=== PATIENT | male | born 1965 | race Caucasian/White ===

== ENCOUNTER → 2018-12-30 | Emergency (ER) | payer OTHER ==
[~2018-12-30] VITALS: Ht 177.8 cm; Wt 159.1 kg
[~2018-12-30] MED LIST: GEMF600T89 PO; HALO10TA13 PO; LISI-642 PO; LORazepam 2 mg/ml vial IM ONE; LORazepam 2 mg/ml vial IV ONE; METF500T PO; METO50TA17 PO; QUET200T30 PO; RIVA20TA PO; TRAZ-251 PO; gemfibrozil 600mg tablet PO SCH; haloperidol 5mg tablet PO SCH; ibuprofen 200mg tablet PO ONE; lisinopril 5mg tablet PO SCH; metFORMIN 500mg tablet PO SCH; metoprolol tartrate 1mg/ml inj IV ONE; metoprolol tartrate 50mg tablet PO ONE; metoprolol tartrate 50mg tablet PO SCH; nicotine 14mg patch - 24hr TD ONE; nitroGLYCERIN 0.4mg/hour patch TD ONE; rivaroxaban 20mg tablet PO SCH
--- NOTE | 2018-12-30 10:14 | NUR ---
pt moved to room 15. room broken down. report given to nurse Melton.
[2018-12-30 10:47] LABS: BASOPHILS # (AUTO) 0.1 X10'3 (0-0.2); EOSINOPHILS # (AUTO) 0.1 X10'3 (0-0.9); EOSINOPHILS % (AUTO) 1.5 % (0-6); HEMATOCRIT 45.6 % (42.0-52.0); HEMOGLOBIN 15.9 g/dl (14.0-17.9); LYMPHOCYTES # (AUTO) 1.4 X10'3 (1.1-4.8); LYMPHOCYTES % (AUTO) 15.1 % (21-51); MEAN CORPUSCULAR HGB CONC 34.8 g/dL (33.0-36.5); MEAN CORPUSCULAR VOLUME 83.2 FL (78-98); MONOCYTES # (AUTO) 0.4 X10'3 (0-0.9); MONOCYTES % (AUTO) 4.9 % (2-12); NEUTROPHILS % (AUTO) 77.5 % (42-75); PLATELET COUNT 243 X10'3 (140-440); RED BLOOD COUNT 5.48 X10'6 (4.70-6.10); RED CELL DISTRIBUTION WIDTH 15.1 % (11.5-14.5); WHITE BLOOD COUNT 9.1 X10'3 (4.5-11.0)
[2018-12-30 11:02] LABS: ALANINE AMINOTRANSFERASE 43 U/L (12-78); ALBUMIN 3.2 G/DL (3.4-5.0); ALBUMIN/GLOBULIN RATIO 0.9 (1.1-1.5); ALKALINE PHOSPHATASE 92 IU/L (46-116); ANION GAP 6 (8-16); ASPARTATE AMINO TRANSFERASE 21 U/L (10-37); BILIRUBIN,TOTAL 0.4 MG/DL (0.1-1.0); BLOOD UREA NITROGEN 14 MG/DL (7-18); BUN/CREATININE RATIO 10.6 (5.4-32.0); CALCIUM 9.1 MG/DL (8.5-10.1); CHLORIDE 104 MMOL/L (99-107); CREATININE 1.32 MG/DL (0.60-1.10); GLUCOSE 149 MG/DL (70-104); POTASSIUM 3.8 MMOL/L (3.5-5.1); SODIUM 136 MMOL/L (135-145); TOTAL CARBON DIOXIDE 25.7 MMOL/L (24-32); TOTAL PROTEIN 6.7 G/DL (6.4-8.2); eGFR 57 ML/MIN
[2018-12-30 11:05] LABS: PARTIAL THROMBOPLASTIN TIME 27 SECONDS (22-32)
--- NOTE | 2018-12-30 11:23 | NUR ---
MEDICAL RELEASE FAXED TO [facility]
[2018-12-30 11:52] LABS: ETHANOL < 0.010 GM/DL (0.0-0.010)
[2018-12-30 12:01] LABS: URINE AMPHETAMINE SCREEN NEGATIVE (Neg); URINE BARBITUATE SCREEN NEGATIVE (Neg); URINE BENZODIAZEPINES SCREEN NEGATIVE (Neg); URINE CANNABINOID SCREEN POSITIVE (Neg); URINE COCAINE SCREEN NEGATIVE (Neg); URINE METHADONE SCREEN NEGATIVE (Neg); URINE OPIATE SCREEN NEGATIVE (Neg); URINE PHENCYCLIDINE SCREEN NEGATIVE (Neg)
[2018-12-30 13:21] LABS: CLARITY,URINE CLEAR (Clear); COLOR,URINE YELLOW (Yellow); GLUCOSE, URINE NEGATIVE (Neg); KETONES,URINE NEGATIVE (Neg); LEUKOCYTE ESTERASE ,URINE NEGATIVE (Neg); NITRITES, URINE NEGATIVE (Neg); OCCULT BLOOD,URINE NEGATIVE (Neg); PH,URINE 6.5 (4.8-8.0); PROTEIN,URINE >=300 mg/dl (Neg); UROBILINOGEN,URINE 0.2 E.U/dL (0.2-1.0)
[2018-12-30 13:24] LABS: UA COLLECTION TYPE CLN CATCH MIDSTREAM
--- NOTE | 2018-12-30 13:30 | NUR ---
PATIENT ASKED POLITELY FOR SOME COFFEE. OFFERED PATIENT DECAF 2 CREAM 2 SUGARS. PATIENT SITTING UPRIGHT POLITLY ACEPTED THE COFFEE INQUIRED ABOUT THE POC. EDUCATED PATIENT THAT WE ARE MONITORING HIS BP AND WILL CONTINUE TO KEEP HIM UPDATED.
[2018-12-30 13:31] LABS: HYALINE CASTS 0-3 /LPF (NEGATIVE); SQUAMOUS EPITHELIAL CELL,UR FEW /LPF (FEW)
[2018-12-30 13:32] LABS: BACTERIA,URINE FEW /HPF (Neg); CAL OXALATE CRYSTALS 2+ /HPF (NEGATIVE); MUCUS STRANDS FEW /LPF (Neg); RBC,URINE 0-2 /HPF (0-2); WBC,URINE 0-4 /HPF (0-4)
--- NOTE | 2018-12-30 14:01 | NUR ---
PACKET HAS BEEN FAXED TO [facility]
--- NOTE | 2018-12-30 14:15 | NUR ---
PTS BP REMAINS ELEVATED. SPOKE WITH PROVIDER LESLIE JIMENEZ AND RECEIVED VO FOR MEDS.
--- NOTE | 2018-12-30 15:10 | NUR ---
patient having some snaCKS AND APPLE JUICE X3 RECEHECKED VS WILL CONTINUE TO ASSSESS
--- NOTE | 2018-12-30 15:27 | NUR ---
PT MOVED FROM ER BED 15 TO ER OVERFLOW BED 24
--- NOTE | 2018-12-30 17:35 | NUR ---
Patient awake, alert, no distress. Continue to monitor.
--- NOTE | 2018-12-30 17:35 | NUR ---
Patient's BP is elevated. Patient also has TAYLOR. RN advised LESLIE Westbrook. He stated he will come see him. Patient also wants a nicotine patch. Continue to monitor.
--- NOTE | 2018-12-30 19:00 | NUR ---
This patient is alert and oriented X4. W/D with good color. Patient C/O S/I secondary to depression. His plan is to cut himself with a razor blade if released from the hospital. Affect is flat. Thought process is linear. Patient is medication compliant. Patient is and has been hypertensive. Patient complains a crick in his neck. Q15 minute rounding is being done for patient safety.
--- NOTE | 2018-12-30 19:52 | NUR ---
Motrin 600 mg PO for neck pain. Patient has CPAP in place. He states he wants to sleep for the night.
--- NOTE | 2018-12-30 20:32 | NUR ---
Patient was interviewed by [facility]. A 5150 is being written.
--- NOTE | 2018-12-31 01:55 | NUR ---
PT WAS MOVED TO MAIN ER - HIS ROOM HAS BEEN CLEARED OUT - PT RESTING COMFORTABLY, NO DISTRESS NOTED. WILL CONTINUE TO MONITOR.
--- NOTE | 2018-12-31 03:31 | NUR ---
PTS SLEEPING AT THIS TIME. WEARING HOME BIPAP. WILL CONTINUE TO MONITOR.
--- NOTE | 2018-12-31 05:35 | NUR ---
Patient is sleeping quietly. In view from nursing station.
[2018-12-31 08:49] VITALS: BP 186/81
--- NOTE | 2018-12-31 09:17 | NUR ---
assumed care of pt from Louisa RN, sitter at bedside. Pt is sleeping, resp even and unlabored, pt is on cpap (from home)
--- NOTE | 2018-12-31 10:43 | NUR ---
pt continues to rest quietly on gurney, resp even and unlabored, sitter at bedside
--- NOTE | 2018-12-31 11:35 | NUR ---
PT IS GOING TO [facility], REMAINS CALM AND COOPERATIVE
== END ==
LOC: EDSEX 09:54 → ER 09:54
DX: R45.851 Suicidal ideations (principal); R06.02 Shortness of breath; I11.0 Hypertensive heart disease with heart failure; I50.9 Heart failure, unspecified; F32.9 Major depressive disorder, single episode, unspecified; E78.00 Pure hypercholesterolemia, unspecified; G47.30 Sleep apnea, unspecified; E11.9 Type 2 diabetes mellitus without complications; F17.200 Nicotine dependence, unspecified, uncomplicated; Z79.84 Long term (current) use of oral hypoglycemic drugs; Z79.899 Other long term (current) drug therapy
CPT/HCPCS: 36415; 71045; 80053; 80305; 80320; 81001; 84484; 85025; 85610; 85730; 93005; 96374; 96375; 96376; 99285; J2060; J3490

== ENCOUNTER 2018-12-31 10:44 | Inpatient (IN) | payer MEDICARE, OTHER ==
[2018-12-31] VITALS (7 sets, daily range): BP systolic 148–235; BP diastolic 80–149
[~2018-12-31] VITALS: Ht 177.8 cm; Wt 162.8 kg
[~2018-12-31 10:44] MED LIST changes: -LORazepam 2 mg/ml vial IM ONE; -LORazepam 2 mg/ml vial IV ONE; -QUET200T30 PO; -TRAZ-251 PO; -gemfibrozil 600mg tablet PO SCH; -haloperidol 5mg tablet PO SCH; -ibuprofen 200mg tablet PO ONE; -lisinopril 5mg tablet PO SCH; -metFORMIN 500mg tablet PO SCH; -metoprolol tartrate 1mg/ml inj IV ONE; -metoprolol tartrate 50mg tablet PO ONE; -metoprolol tartrate 50mg tablet PO SCH; -nicotine 14mg patch - 24hr TD ONE; -nitroGLYCERIN 0.4mg/hour patch TD ONE; -rivaroxaban 20mg tablet PO SCH
[2018-12-31] MEDS ORDERED: TRAZ-251 PO (10:52)
[2018-12-31] MEDS ORDERED: QUET200T30 PO (10:52)
[2018-12-31] MEDS ORDERED: tuberculin, purif. prot. deriv. 5 units/0.1ml ID ONE (11:05)
[2018-12-31] MEDS ORDERED: hydrOXYzine 25 MG tablet PO PRN (11:05)
[2018-12-31] MEDS ORDERED: magnesium hydroxide 30ml (MOM) UD suspension PO PRN (11:05)
[2018-12-31] MEDS ORDERED: loperamide 2mg capsule PO PRN (11:05)
[2018-12-31] MEDS ORDERED: mag hydrox/Alum hydrox/simeth 30ml oral suspension PO PRN (11:05)
--- NOTE | 2018-12-31 13:02 | NUR ---
Admission note: PT admitted for depression and suicidal ideation today at 1135. Pt admitted from our emergency department. Client presents depressed, hopeless, helpless, anhedonic and suicidal. Client has a plan to go out [place] and cut himself to . Pt has history of MD, HTN, hyperlipidemia, edema, Neuropathy,Pancreatitis, DM II, Affective mood disorder.
[2018-12-31] MEDS ORDERED: lisinopril 10 MG tablet PO ONE (14:25)
--- NOTE | 2018-12-31 15:46 | NUR ---
DISCHARGE PLANNING: MOIZ spoke w/ Ananda Denise regarding pt admission. He reports he will coordinate transportation for pt because mental health transported pt to [facility]. MOIZ and Ananda discussed procedures for admission and services. Ananda has agreed to educate staff on procedures for admitting to [facility] for psychiatric needs. Danielle Caal, [employer] SAFE DEPOSIT CLERK [id number] Supervised by Mickey Esteves, [id number]
--- NOTE | 2018-12-31 16:12 | NUR ---
Nursing Progress Note: Legal hold: 5150 Client on voluntary/involuntary status for: DTS Report received from Charge Nurse Carlos Why are they here: Patient self presented to the [facility] ER with suicidal ideation. Had a plan to "buy a lot of razor blades and cut myself up until I bled to ." Patient has been in [place] for five months. Came out here by train from the state of [place]. "I couldn't take the weather in [place] anymore." Went to [facility] to live "but there was no place for me to stay. And they don't have places like this that take in people." Patient's chief complaint is that he is homeless and is hoping to obtain housing during this hospitalization. Patient is grossly overweight and suffers from multiple medical problems. Assessment: Cooperative with the admission process. Wants to be here for "room and board placement." Stayed in his room for greater part of shift, sitting cross legged on his bed, staring at his sheets. Indigo Mixer interviewed patient and determined he did not meet criteria for 5150 status. Spoke with Ananda at [facility] in [facility] who stated he will attempt to brass pickler patient tomorrow or Friday. Patient experienced a hypertensive crisis at 1330 - 220/139. Dr. Vann, hospitalist consulted. Order given for Lisinopril 10 mg. stat. Administered as ordered. If Systolic did not decrease to 150 or below after 10 minutes, patient was to receive Hydroxyzine. After ten minutes, B/P down to 148/80. What has happened this shift: Patient S/I, H/I: States SI A/VH: Denies Sleep:Awake all shift ADL's: Independent Group attendance:None this shift Were meds taken: Yes Any med S/E: None noted or stated by patient Mental Status Exam Appearance:Disheveled Eye contact:Poor Behavior: Appropriate, Asking for food continuously Speech: Clear Mood:Withdrawn Affect: Blunted Thought process:Clear Thought Content:Logical Cognition:Organized Insight: Limited Judgment:Limited Interventions PRN's used:Ativan 1 mg. PO/Lisinopril 10 mg. PO/Tylenol 650 mg. PO Therapeutic interventions:Provided 1:1 am assessment; provided therapeutic communication and active listening; encouraged ADLs as well as medication compliance; medication administration/monitoring/education; monitored q15 minutes for safety. Restraints/seclusion/emergency medication: N/A Justification of Continued Inpatient Treatment:Evaluation and stabilization of mental health symptoms, interrupt current crisis, and safety.
[2018-12-31] MEDS: acetaminophen 325mg tablet PO PRN (17:05)
[2018-12-31] MEDS: NICOTINE POLACRILEX 2 MG LOZENGE BC PRN ×2 (19:10→22:29)
[2018-12-31] MEDS ORDERED: traZODone 50mg tablet PO SCH ×2 (20:00→21:00)
[2018-12-31] MEDS: metoprolol tartrate 50mg tablet PO SCH (20:21)
[2018-12-31] MEDS: metFORMIN 500mg tablet PO SCH (20:21)
[2018-12-31] MEDS: lisinopril 10 MG tablet PO SCH (20:22)
[2018-12-31] MEDS ORDERED: quetiapine 100mg tablet PO SCH (21:00)
[2018-12-31] MEDS ORDERED: non-formulary drug (Quetiapine Fumarate 1 TAB) PO SCH (21:00)
[2018-12-31] MEDS: LORazepam 1 MG tablet PO PRN (22:12)
[2018-12-31] MEDS: gabapentin 300mg capsule PO PRN (22:12)
--- NOTE | 2018-12-31 23:10 | NUR ---
Nursing Progress Note: Legal hold: 5150 Client on voluntary/involuntary status for: DTS Report received from Charge Nurse Carlos Why are they here: Patient is laying in bed at the change of shift. He say's he has SI thoughts but no plan or intent while on the unit. patient blood pressure becomes elevated again this evening. His blood pressure was 235/149 right before medication pass at 2020. Patient is given 50mg or Metoprolol and 10mg Lisinopril as prescribed. BP was then 200/90 at 2100, and was taken again an hour after medication pass and was found to be 152/86 at 2135. Patient expresses that he is experiencing neuropathy in his feet this evening along with anxiety. Patient requests gabapentin for neuropathy "pins and needles" feeling. Provider is contacted an a order for 300mg Gabapentin is obtained. Administered Gabapentin 300mg and 1mg Ativan for anxiety with good effect at 2212. Patient is compliant with all his medications this evening. What has happened this shift: S/I, H/I: States he has SI thoughts but no plan or intent. Denies HI A/VH: Denies Sleep: See sleep assessment ADL's: Independent Group attendance: None this shift Were meds taken: Yes Any med S/E: None noted or stated by patient Mental Status Exam Appearance: Disheveled Eye contact: Poor Behavior: Appropriate, calm Speech: Clear Mood: Withdrawn Affect: Blunted Thought process:Clear Thought Content: Logical Cognition: Organized Insight: Limited Judgment: Limited Interventions PRN's used:Ativan 1 mg, 300 mg Gabapentin PO Therapeutic interventions:Provided 1:1 am assessment; provided therapeutic communication and active listening; encouraged ADLs as well as medication compliance; medication administration/monitoring/education; monitored q15 minutes for safety. Restraints/seclusion/emergency medication: N/A Justification of Continued Inpatient Treatment:Evaluation and stabilization of mental health symptoms, interrupt current crisis, and safety.
[2019-01-01 08:00] VITALS: BP 149/84
[2019-01-01] MEDS ORDERED: gabapentin 300mg capsule PO SCH (08:00)
[2019-01-01] MEDS ORDERED: haloperidol 5mg tablet PO SCH (08:00)
[2019-01-01] MEDS: metFORMIN 500mg tablet PO SCH ×2 (08:00→20:26)
[2019-01-01] MEDS: gemfibrozil 600mg tablet PO SCH (08:01)
[2019-01-01] MEDS: lisinopril 10 MG tablet PO SCH ×2 (08:01→20:26)
[2019-01-01] MEDS: metoprolol tartrate 50mg tablet PO SCH ×2 (08:01→20:27)
[2019-01-01] MEDS: rivaroxaban 20mg tablet PO SCH (08:01)
[2019-01-01] MEDS: nicotine 21mg patch - 24 hr TD SCH (08:04)
[2019-01-01] MEDS: gabapentin 300mg capsule PO PRN (08:30)
[2019-01-01] MEDS: acetaminophen 325mg tablet PO PRN (08:31)
[2019-01-01 11:46] LABS: CHOL/HDL RATIO 3.6 (0.00-4.99); CHOLESTEROL 164 MG/DL (0-200); HDL CHOLESTEROL 45 MG/DL (35-60); LDL CHOLESTEROL 94 MG/DL (50-100); TRIGLYCERIDES 226 MG/DL (20-135)
--- NOTE | 2019-01-01 13:30 | NUR ---
Legal hold: 5150 Client on involuntary status for: DTS Report received from Charge Nurse Olga Lopez RN Why are they here: Patient self presented to the [facility] ER with suicidal ideation. Had a plan to "buy a lot of razor blades and cut myself up until I bled to ." Patient has been in [place] for five months. Came out here by train from the state of [place]. "I couldn't take the weather in [place] anymore." Went to [facility] to live "but there was no place for me to stay. And they don't have places like this that take in people." Patient's chief complaint is that he is homeless and is hoping to obtain housing during this hospitalization. Patient is morbidly obese and suffers from multiple medical problems. Assessment: What has happened this shift: Pt rated pain and anxiety at an 8/10, rated depression at a 9/10 with SI but states, "I won't act on it." pt does state that he would act on it if he were to be discharged with a plan to "get a bunch of razor blades and cut myself up." Pt answers yes to AH, stated he is having CAH and the voices are telling him to kill himself. Asked how long that had been going on for, pt replied the voices started 2-3 weeks ago but he had heard them before in the past. When asked about visual hallucinations, pt also answered "yes." When asked him to elaborated he answered, "I see photographs." Asked him to clarify what he meant, he stated "I see disturbing images." When asked pt what he meant by disturbing images, pt paused then stated, "disturbing images like clouds but presented in a scary way." Pt c/o "neuropathy" pain "all over," rated his pain at an 8/10 and described the pain as it "feels like peeling skin." Offered prn Tylenol which pt accepted but stated, "Ativan works too." Noted that pt had prn gabapentin on his MAR, explained that Ativan was for anxiety not pain but since he was having anxiety he could have prn Atarax as order was written to give before Ativan. Gave prn gabapentin 300 mg, Tylenol 650 mg, and Atarax 50 mg at 0830 with good effect. Pt cooperative, no unsafe behaviors noted. S/I, H/I: Pt denies HI, states having SI he won't act on here. A/VH: Pt states having CAH to kill himself and sees photographs with disturbing images. Sleep: Pt stated he did not get to sleep until around 1 in the morning. ADL's: Independent Group attendance: Yes Were meds taken: Yes Any med S/E: None reported or observed Mental Status Exam Appearance: disheveled Eye contact: Fair Behavior: cooperative, mostly isolative to self, slow moving, likes to journal Speech: Clear, audible, limited Mood: Depressed, anxious Affect: Blunted Thought process: Linear Thought Content:Focused on medications this morning Cognition: A/O X 4 Insight: Fair Judgment: Fair Interventions PRN's used: Gabapentin, Tylenol, Atarax Therapeutic interventions: 1:1 assessment, active listening, medication administration/education/monitoring, encouragement to attend groups, Q 15 minute safety checks. Restraints/seclusion/emergency medication: N/A Justification of Continued Inpatient Treatment: Pt is still endorsing SI with plan to cut himself with razor blades if he were to be discharged. He needs medication adjustment and monitoring to attain crisis stabilization and prevent self-harm and/or readmission. Pt is homeless. Addendum: 01/01/19 at 1527 by Brina Dorantes RN (Lee) Pt has new orders for Effexor 37.5 mg now then 75 mg daily, gabapentin has been changed from 300 mg PRN to 600 mg TID routine, Haldol was D/c'd, Atarax was D/c'd, Seroquel was decreased from 200 mg to 100 mg HS, and Trazodone was changed from routine to 50 mg PRN HS MR X 1.
--- NOTE | 2019-01-01 13:32 | NUR ---
Malnutrition consult, Pt is eating well 75-100% PO intake. No edema. BMI 50. Normal muscle strength. No malnutrition at this time. Addendum: 01/01/19 at [address] Amended: Links added.
[2019-01-01] MEDS ORDERED: venlafaxine XR 37.5mg cap (Q24H) PO ONE (14:45)
[2019-01-01] MEDS ORDERED: traZODone 50mg tablet PO PRN (14:50)
[2019-01-01] MEDS: NICOTINE POLACRILEX 2 MG LOZENGE BC PRN (19:27)
[2019-01-01 20:00] VITALS: BP 207/113
[2019-01-01] MEDS: LORazepam 1 MG tablet PO PRN (20:24)
[2019-01-01] MEDS: gabapentin 300mg capsule PO SCH (20:24)
[2019-01-01] MEDS ORDERED: quetiapine 100mg tablet PO SCH (21:00)
[2019-01-01 21:10] VITALS: BP 182/100
[2019-01-01 22:30] VITALS: BP 154/81
[2019-01-01] MEDS ORDERED: amLODIPine 5mg tablet PO ONE (23:35)
--- NOTE | 2019-01-02 01:19 | NUR ---
Nursing Progress Note: Legal hold: 5150 Client on involuntary status for: DTS Report received from Charge Nurse Carlos Why are they here: Patient self presented to the [facility] ER with suicidal ideation. Had a plan to "buy a lot of razor blades and cut myself up until I bled to ." Patient has been in [place] for five months. Came out here by train from the [facility]. "I couldn't take the weather in [place] anymore." Went to [facility] to live "but there was no place for me to stay. And they don't have places like this that take in people." Patient's chief complaint is that he is homeless and is hoping to obtain housing during this hospitalization. Patient is morbidly obese and suffers from multiple medical problems. Assessment: What has happened this shift: Patient is in his room at the change of shift laying in bed. He confirms Depression thoughts of SI with no plan while on the unit, but denies that he would not harm himself if he was discharged. He confirms that he has AH that tell him to harm himself as well. He reports that he has had a lot of "negative" thoughts today, causing anxiety. Patients BP is elevated this shift at 207/113. Patient got Ativan for his anxiety and trazodone to help sleep with his HS medications that also included patients Metoprolol and Lisinopril. Blood pressure taken again at 2109 which had decreased to 182/100, continued to monitor BP which had decreased to 152/81 by 2229. Patients evening capillary blood glucose after his evening snack was 150. Patient turned himself to bed after requesting his CPap. Nicotine patch removed and disposed of. S/I, H/I: Pt denies HI, states having SI he won't act on here. A/VH: Pt states having command AH to harm himself Sleep: See sleep assessment ADL's: Independent Group attendance: Yes Were meds taken: Yes Any med S/E: None reported or observed Mental Status Exam Appearance: Disheveled Eye contact: Fair Behavior: cooperative, mostly isolative to self Speech: Clear, audible, limited Mood: Depressed, anxious Affect: Blunted Thought process: Linear Thought Content: Focused on medications Cognition: A/O X 4 Insight: Fair Judgment: Fair Interventions PRN's used: Ativan, Trazodone Therapeutic interventions: 1:1 assessment, active listening, medication administration/education/monitoring, encouragement to attend groups, Q 15 minute safety checks. Restraints/seclusion/emergency medication: N/A Justification of Continued Inpatient Treatment: Pt is still endorsing SI with plan to cut himself with razor blades if he were to be discharged. He needs medication adjustment and monitoring to attain crisis stabilization and prevent self-harm and/or readmission. Pt is homeless.
[2019-01-02 07:00] VITALS: BP 166/87
[2019-01-02] MEDS: gemfibrozil 600mg tablet PO SCH (07:52)
[2019-01-02] MEDS: gabapentin 300mg capsule PO SCH ×3 (07:52→20:42)
[2019-01-02] MEDS: rivaroxaban 20mg tablet PO SCH (07:54)
[2019-01-02] MEDS: venlafaxine XR 75mg capsule (Q24H) PO SCH (07:54)
[2019-01-02] MEDS: metFORMIN 500mg tablet PO SCH ×2 (07:54→19:26)
[2019-01-02] MEDS: amLODIPine 5mg tablet PO SCH (07:54)
[2019-01-02] MEDS: nicotine 21mg patch - 24 hr TD SCH (07:55)
[2019-01-02] MEDS: lisinopril 10 MG tablet PO SCH ×2 (07:59→19:27)
[2019-01-02] MEDS: metoprolol tartrate 50mg tablet PO SCH ×2 (08:00→19:26)
[2019-01-02] MEDS: LORazepam 1 MG tablet PO PRN ×2 (12:43→18:57)
--- NOTE | 2019-01-02 13:35 | NUR ---
Nursing Progress Note: Legal hold: 5150 Client on involuntary status for: DTS Report received from Charge Nurse Tereza Why are they here: Patient self presented to the [facility] ER with suicidal ideation. Had a plan to "buy a lot of razor blades and cut myself up until I bled to ." Patient has been in [place] for five months. Came out here by train from the state of [place]. "I couldn't take the weather in [place] anymore." Went to [facility] to live "but there was no place for me to stay. And they don't have places like this that take in people." Patient's chief complaint is that he is homeless and is hoping to obtain housing during this hospitalization. Patient is morbidly obese and suffers from multiple medical problems. Assessment: What has happened this shift: Patient sleeping in bed at shift change, awakened for a.m. BGM and medications. BGM has been 113, 111. Patient does state that he has attempted suicide in the past by cutting his wrists. Today he reports that he is having A/H that are telling him to ", you're not going to make it". Also reports having V/H of bad people approaching him. States his depression is 9/10, and believes part of his high blood pressure has been because of increasing anxiety. prn Ativan given with good result. Pt. states that he has had depression on and off since he was 12. He reports a dark cloud comes over him and feels that he has nothing to look forward to. He is not close to his siblings. Patient wears CPAP while sleeping. S/I, H/I: Reports that in current state he intends on slashing his arms when he leaves. A/VH: A/V/H as above. Sleep: 6.45 at NOC. Napped after breakfast. ADL's: Independent Group attendance: Yes Were meds taken: Yes Any med S/E: None reported or observed Mental Status Exam Appearance: Disheveled Eye contact: Fair Behavior: cooperative, calm and pleasant. Speech: Normal rate and volume. Mood: Depressed, anxious Affect: Blunted Thought process: Linear Thought Content: Focused on new medication that has not worked yet, explained it will take a few days to take effect. Pt. verbalizes understanding. Cognition: A/O X 4 Insight: Fair Judgment: Poor. Interventions PRN's used: Ativan Therapeutic interventions: 1:1 assessment, active listening, medication administration/education/monitoring, encouragement to attend groups, Q 15 minute safety checks. Restraints/seclusion/emergency medication: N/A Justification of Continued Inpatient Treatment: Pt is still endorsing SI with plan to cut himself with razor blades if he were to be discharged. He needs medication adjustment and monitoring to attain crisis stabilization and prevent self-harm and/or readmission. Pt is homeless.
[2019-01-02 19:00] VITALS: BP 207/131
[2019-01-02] MEDS: acetaminophen 325mg tablet PO PRN (19:29)
[2019-01-02] MEDS: quetiapine 100mg tablet PO SCH (20:42)
[2019-01-02] MEDS: hyDRALAzine 10mg tablet PO PRN (21:11)
[2019-01-02 21:15] VITALS: BP 204/125
--- NOTE | 2019-01-02 21:17 | NUR ---
[facility] made aware of pt BP of 204/125. PRN hydralazine given, will recheck BP in a couple of hours per MD amd advise if still elevated.
[2019-01-02 23:05] VITALS: BP 123/81
--- NOTE | 2019-01-02 23:06 | NUR ---
On entering room to take pt blood pressure, pt found with cpap mask on with air tube unattached. Pt stated "It happens sometimes" when RN pointed out this fact. RN reconnected tube to pt mask, and found that CPAP machine was turned off. RN turned CPAP back on and it was working properly. PT would not explain why he was wearing the cpap mask not hooked up to anything.
--- NOTE | 2019-01-03 01:42 | NUR ---
Nursing Progress Note: Legal hold: 5150 Client on involuntary status for: DTS Report received from Charge Nurse Carlos Prado Why are they here: Patient self presented to the [facility] ER with suicidal ideation. Had a plan to "buy a lot of razor blades and cut myself up until I bled to ." Patient has been in [place] for five months. Came out here by train from the [facility]. "I couldn't take the weather in [place] anymore." Went to [facility] to live "but there was no place for me to stay. And they don't have places like this that take in people." Patient's chief complaint is that he is homeless and is hoping to obtain housing during this hospitalization. Patient is morbidly obese and suffers from multiple medical problems. Assessment: What has happened this shift: Patient is in group room watching TV. He confirms Depression thoughts of SI with no plan while on the unit, but denies that he would not harm himself if he was discharged. He confirms that he has AH that tell him to harm himself as well. He reports that he has had a lot of "negative" thoughts today, causing anxiety. Patients BP is elevated this shift at 207/130. Patient got Ativan for his anxiety . Blood pressure taken again at 2109 which had decreased to 207/110. [facility] called and PRN Hydralazine given. continued to monitor BP which had decreased to 123/81 by 2300. Patients evening capillary blood glucose after his evening snack was 124. Patient turned himself to bed after requesting his CPap. Pt later found wearing only the CPAP mask, unattached to anything. Pt could not explain why. CPAP machine was also found to be turned off. RN attached CPAP tube to mask and turned machine on. S/I, H/I: Pt denies HI, states having SI he won't act on here. A/VH: Pt states having command AH to harm himself Sleep: See sleep assessment ADL's: Independent Group attendance: Yes Were meds taken: Yes Any med S/E: None reported or observed Mental Status Exam Appearance: Disheveled Eye contact: Fair Behavior: cooperative, mostly isolative to self, meditates and reads books on [place] Speech: Clear, audible, limited Mood: Depressed, anxious Affect: Blunted Thought process: Linear Thought Content: Focused on medications Cognition: A/O X 4 Insight: Fair Judgment: Fair Interventions PRN's used: Ativan, Tylenol, Hydralazine Therapeutic interventions: 1:1 assessment, active listening, medication administration/education/monitoring, encouragement to attend groups, Q 15 minute safety checks. Restraints/seclusion/emergency medication: N/A Justification of Continued Inpatient Treatment: Pt is still endorsing SI with plan to cut himself with razor blades if he were to be discharged. He needs medication adjustment and monitoring to attain crisis stabilization and prevent self-harm and/or readmission. Pt is homeless.
[2019-01-03] MEDS: gabapentin 300mg capsule PO SCH ×3 (08:19→20:28)
[2019-01-03] MEDS: venlafaxine XR 37.5mg cap (Q24H) PO SCH (08:19)
[2019-01-03] MEDS: diphenhydrAMINE 25mg capsule PO SCH ×2 (08:19→20:28)
[2019-01-03] MEDS: gemfibrozil 600mg tablet PO SCH (08:19)
[2019-01-03] MEDS: metoprolol tartrate 50mg tablet PO SCH ×2 (08:19→20:34)
[2019-01-03] MEDS: rivaroxaban 20mg tablet PO SCH (08:20)
[2019-01-03] MEDS: lisinopril 10 MG tablet PO SCH ×2 (08:20→20:35)
[2019-01-03] MEDS: metFORMIN 500mg tablet PO SCH ×2 (08:20→20:28)
[2019-01-03] MEDS: amLODIPine 5mg tablet PO SCH (08:20)
[2019-01-03] MEDS: nicotine 21mg patch - 24 hr TD SCH (08:21)
[2019-01-03] MEDS: venlafaxine XR 75mg capsule (Q24H) PO SCH (08:21)
[2019-01-03 08:27] VITALS: BP 185/107
[2019-01-03] MEDS: haloperidol 5mg tablet PO SCH (08:51)
[2019-01-03] MEDS: LORazepam 1 MG tablet PO PRN ×2 (10:25→17:28)
--- NOTE | 2019-01-03 13:19 | NUR ---
Nursing Progress Note: Legal hold: 5150 Client on involuntary status for: DTS Report received from Charge Nurse Tereza Why are they here: Patient self presented to the [facility] ER with suicidal ideation. Had a plan to "buy a lot of razor blades and cut myself up until I bled to ." Patient has been in [place] for five months. Came out here by train from the state of [place]. "I couldn't take the weather in [place] anymore." Went to [facility] to live "but there was no place for me to stay. And they don't have places like this that take in people." Patient's chief complaint is that he is homeless and is hoping to obtain housing during this hospitalization. Patient is morbidly obese and suffers from multiple medical problems. Assessment: What has happened this shift: Patient wearing CPAP and sleeping at shift change. Awoke pt for BGM: 121, 101 today. Pt. attends all meals and groups. Pt. states that he is depressed and hearing auditory hallucinations. As far as visuals, he feels that there is a coin between between his eyes. Patients eyes a very bloodshot. Patient's effexor was increased today, and he was started on Haldol. RN interrupted patient in his room who stated that he was meditating, and looked intensely focused. S/I, H/I: Pt. contracts for safety while IP, but states that he has nothing to live for and envisions cutting his arms when discharged. A/VH: A/V/H as above. Sleep: 8.25 at NOC. ADL's: Independent, freshly showered. Group attendance: Yes Were meds taken: Yes Any med S/E: None reported or observed Mental Status Exam Appearance: Obese, bald male, freshly showered in clean clothes. Eye contact: Good. Behavior: cooperative, calm and pleasant. Speech: Normal rate and volume. Mood: Depressed, anxious Affect: Blunted Thought process: Linear Thought Content: Focused on new medication that has not worked yet, explained it will take a few days to take effect. Pt. verbalizes understanding. Cognition: A/O X 4 Insight: Fair Judgment: Poor. Interventions PRN's used: Ativan Therapeutic interventions: 1:1 assessment, active listening, medication administration/education/monitoring, encouragement to attend groups, monitored vitals, Q 15 minute safety checks. Restraints/seclusion/emergency medication: N/A Justification of Continued Inpatient Treatment: Pt is still endorsing SI with plan to cut himself with razor blades if he were to be discharged. He needs medication adjustment and monitoring to attain crisis stabilization and prevent self-harm and/or readmission. Pt is homeless.
[2019-01-03 20:03] VITALS: BP 197/115
[2019-01-03] MEDS: traZODone 50mg tablet PO PRN (20:29)
[2019-01-03] MEDS: quetiapine 100mg tablet PO SCH (20:30)
--- NOTE | 2019-01-04 01:33 | NUR ---
Nursing Progress Note: Legal hold: 5150 Client on involuntary status for: DTS Report received from Charge Nurse Carlos. Why are they here: Patient self presented to the [facility] ER with suicidal ideation. Had a plan to "buy a lot of razor blades and cut myself up until I bled to ." Patient has been in [place] for five months. Came out here by train from the state [facility]. "I couldn't take the weather in [place] anymore." Went to [facility] to live "but there was no place for me to stay. And they don't have places like this that take in people." Patient's chief complaint is that he is homeless and is hoping to obtain housing during this hospitalization. Patient is morbidly obese and suffers from multiple medical problems. Assessment: What has happened this shift: The patient was found in his room sitting cross legged on his bed with a book in front of him. The patient agreed to 1:1 at his bedside. The patient reports that he is homeless, depressed, and needs help finding housing. He states that he went to [place] for a place to live, but could find none. He says that homelessness has increased his depression to the point that he no longer wants to live. "I don't want to , I just need to find somewhere to live." When asked how long he's been depressed, he responded that he got kidney stones in school, and has been depressed ever since. "I've had very brief periods of happiness in my life." When asked if he hears voices, he states that he does, but doesn't know whether it's his voice or not. The patient has no support system at all. S/I, H/I: Won't state whether he is suicidal or not. A/VH: Positive for voices. Sleep: Has been sleeping since HS med pass. ADL's: Independent. Group attendance: No groups at night. Were meds taken: Yes Any med S/E: None reported or observed Mental Status Exam Appearance: Obese, bald male, freshly showered in clean clothes. Eye contact: Good. Behavior: Isolative, calm and pleasant. Speech: Normal rate and volume. Mood: Sullen Affect: Blunted Thought process: Logical Thought Content: Focused on housing. Cognition: A/O X 4 Insight: Fair Judgment: Poor. Interventions PRN's used: Ativan Therapeutic interventions: 1:1 assessment, active listening, medication administration/education/monitoring, encouragement to attend groups, monitored vitals, Q 15 minute safety checks. Restraints/seclusion/emergency medication: N/A Justification of Continued Inpatient Treatment: Pt is still endorsing SI with plan to cut himself with razor blades if he were to be discharged. He needs medication adjustment and monitoring to attain crisis stabilization and prevent self-harm and/or readmission. Pt is homeless.
[2019-01-04 07:00] VITALS: BP 151/100
[2019-01-04] MEDS: gabapentin 300mg capsule PO SCH ×3 (07:50→20:43)
[2019-01-04] MEDS: haloperidol 5mg tablet PO SCH (07:50)
[2019-01-04] MEDS: diphenhydrAMINE 25mg capsule PO SCH ×2 (07:50→20:43)
[2019-01-04] MEDS: rivaroxaban 20mg tablet PO SCH (07:50)
[2019-01-04] MEDS: venlafaxine XR 37.5mg cap (Q24H) PO SCH (07:50)
[2019-01-04] MEDS: metFORMIN 500mg tablet PO SCH ×2 (07:50→20:41)
[2019-01-04] MEDS: gemfibrozil 600mg tablet PO SCH (07:51)
[2019-01-04] MEDS: lisinopril 10 MG tablet PO SCH ×2 (07:51→20:43)
[2019-01-04] MEDS: nicotine 21mg patch - 24 hr TD SCH (07:52)
[2019-01-04] MEDS: metoprolol tartrate 50mg tablet PO SCH ×2 (07:52→20:44)
[2019-01-04] MEDS: venlafaxine XR 75mg capsule (Q24H) PO SCH (07:58)
[2019-01-04] MEDS: amLODIPine 5mg tablet PO SCH (08:02)
[2019-01-04] MEDS: LORazepam 1 MG tablet PO PRN ×2 (11:08→20:42)
--- NOTE | 2019-01-04 12:04 | NUR ---
Nursing Progress Note: Legal hold: 5150 Client on involuntary status for: DTS Report received from Charge Nurse Olga Lopez Why are they here: Patient self presented to the [facility] ER with suicidal ideation. Had a plan to "buy a lot of razor blades and cut myself up until I bled to ." Patient has been in [place] for five months. Came out here by train from the state of [place]. "I couldn't take the weather in [place] anymore." Went to [facility] to live "but there was no place for me to stay. And they don't have places like this that take in people." Patient's chief complaint is that he is homeless and is hoping to obtain housing during this hospitalization. Patient is morbidly obese and suffers from multiple medical problems. Assessment: What has happened this shift: Patient sleeping with CPAP at shift change. Awoke for BGM and meds. Patient is very sad, depressed appearing. States that he has kidney stones and this is a source of stress for him. Patient states that he still is suicidal and hears A/H as a high pitched noise with occasional words. States that he has never been , no children. Reports that he has had approximately ten admissions in the past for depression. He states that he feels like the Effexor is starting to work, perhaps 20%. Educated patient on exercise to help with stressors, requested that he walk 15 min a day in halls. S/I, H/I: Pt. contracts for safety while IP, but states that he has nothing to live for and still has suicidal thoughts. A/VH: A/V/H as above. Sleep: Reports he slept well. ADL's: Independent. Group attendance: Yes Were meds taken: Yes Any med S/E: None reported or observed Mental Status Exam Appearance: Obese, bald male, in scrubs.. Eye contact: Good. Behavior: cooperative, calm and pleasant. Speech: Normal rate and volume. Mood: Depressed, anxious Affect: Blunted Thought process: Linear Thought Content: Focusing on kidney stone and medications. Cognition: A/O X 4 Insight: Fair Judgment: Poor. Interventions PRN's used: Ativan Therapeutic interventions: 1:1 assessment, active listening, medication administration/education/monitoring, encouragement to attend groups, monitored vitals, Q 15 minute safety checks. Restraints/seclusion/emergency medication: N/A Justification of Continued Inpatient Treatment: Pt is still endorsing SI with plan to cut himself with razor blades if he were to be discharged. He needs medication adjustment and monitoring to attain crisis stabilization and prevent self-harm and/or readmission. Pt is homeless.
[2019-01-04] MEDS: hyDRALAzine 10mg tablet PO PRN (19:35)
[2019-01-04] MEDS: traZODone 50mg tablet PO PRN (20:41)
[2019-01-04] MEDS: quetiapine 100mg tablet PO SCH (20:43)
[2019-01-04 20:50] VITALS: BP 164/100
--- NOTE | 2019-01-05 02:14 | NUR ---
Nursing Progress Note: Legal hold: 5150 Client on involuntary status for: DTS Report received from Charge Nurse Carlos. Why are they here: Patient self presented to the [facility] ER with suicidal ideation. Had a plan to "buy a lot of razor blades and cut myself up until I bled to ." Patient has been in [place] for five months. Came out here by train from the [facility]. "I couldn't take the weather in [place] anymore." Went to [facility] to live "but there was no place for me to stay. And they don't have places like this that take in people." Patient's chief complaint is that he is homeless and is hoping to obtain housing during this hospitalization. Patient is morbidly obese and suffers from multiple medical problems. Assessment: What has happened this shift: The patient was sitting on his bed at shift change. He was in the same position, wearing the same clothes as yesterday. The patient reports that his meds might be working, but he's still suicidal with nothing to live for. He says he won't go to groups, and believes there's nothing there for him. The patient states that we just need to find him a place to live, "I just need a home base." The patient reports that he's hearing voices or something, but won't describe today. The patient remained in same spot until going to bed. S/I, H/I: Yes. A/VH: Positive for voices. Sleep: Has been sleeping since HS med pass. ADL's: Independent. Group attendance: No groups at night. Were meds taken: Yes Any med S/E: None reported or observed Mental Status Exam Appearance: Obese, bald male, wearing same pants and shirt. Eye contact: Good. Behavior: Isolative, calm and pleasant. Speech: Normal rate and volume. Mood: Depressed. Affect: Blunted Thought process: Logical Thought Content: Focused on housing. Cognition: A/O X 4 Insight: Fair Judgment: Poor. Interventions PRN's used: Ativan Therapeutic interventions: 1:1 assessment, active listening, medication administration/education/monitoring, encouragement to attend groups, monitored vitals, Q 15 minute safety checks. Restraints/seclusion/emergency medication: N/A Justification of Continued Inpatient Treatment: Pt is still endorsing SI with plan to cut himself with razor blades if he were to be discharged. He needs medication adjustment and monitoring to attain crisis stabilization and prevent self-harm and/or readmission. Pt is homeless.
[2019-01-05 07:48] VITALS: BP 117/56
[2019-01-05] MEDS: metFORMIN 500mg tablet PO SCH ×2 (08:18→20:19)
[2019-01-05] MEDS: nicotine 21mg patch - 24 hr TD SCH (08:18)
[2019-01-05] MEDS: metoprolol tartrate 50mg tablet PO SCH ×2 (08:19→20:21)
[2019-01-05] MEDS: gemfibrozil 600mg tablet PO SCH (08:19)
[2019-01-05] MEDS: diphenhydrAMINE 25mg capsule PO SCH ×2 (08:19→20:19)
[2019-01-05] MEDS: amLODIPine 5mg tablet PO SCH (08:19)
[2019-01-05] MEDS: venlafaxine XR 75mg capsule (Q24H) PO SCH (08:19)
[2019-01-05] MEDS: rivaroxaban 20mg tablet PO SCH (08:19)
[2019-01-05] MEDS: gabapentin 300mg capsule PO SCH ×3 (08:19→20:20)
[2019-01-05] MEDS: haloperidol 5mg tablet PO SCH (08:20)
[2019-01-05] MEDS: lisinopril 10 MG tablet PO SCH ×2 (08:20→20:21)
[2019-01-05] MEDS: acetaminophen 325mg tablet PO PRN ×2 (08:37→20:20)
--- NOTE | 2019-01-05 09:27 | NUR ---
Initial: Pt admit w/ depression PO 100% carb controlled meals meeting needs. LBM 01/04. Will continue to monitor. Addendum: 01/05/19 at [address] Amended: Links added.
[2019-01-05] MEDS: LORazepam 1 MG tablet PO PRN ×2 (11:57→20:21)
--- NOTE | 2019-01-05 14:45 | NUR ---
DISCHARGE PLANNING: MOIZ contacted Ananda Denise w/ [facility] at [phone], to discuss pt desire to enter board and care. Ananda provided board and care contact for [facility], instructing MOIZ to contact Kirstin at [phone], to discuss pt needs and schedule an interview. MOIZ contacted Kirstin at [phone], and scheduled an in person interview for pt w/ Director of the home. Kirstin will attend in person interview at [facility] on 01/11/2019, in the morning if pt is still receiving tx services. Danielle Caal, [employer] Jointer HYDROTEL OPERATOR [id number] Supervised by Mickey Esteves, [id number]
--- NOTE | 2019-01-05 17:12 | NUR ---
Nursing Progress Note: Legal hold: vol Client on voluntary status for: DTS Report received from Charge Nurse Rajwinder Why are they here: Patient self presented to the [facility] ER with suicidal ideation. Had a plan to "buy a lot of razor blades and cut myself up until I bled to ." Patient has been in [place] for five months. Came out here by train from the [facility]. "I couldn't take the weather in [place] anymore." Went to [facility] to live "but there was no place for me to stay. And they don't have places like this that take in people." Patient's chief complaint is that he is homeless and is hoping to obtain housing during this hospitalization. Patient is morbidly obese and suffers from multiple medical problems. Assessment: What has happened this shift: Received patient sleeping in bed with CPAP on. Patient awoke for breakfast and was visible on the unit for all meals and had partial attendance at groups. Patient encouraged to shower today and initially refused, but when motivated with discharge facilities wanting him to shower every day, he did shower. Unfortunately, patient put back on the same dirty clothes. Patient affect remains extremely flat and he continues to endorse depression with suicidal thoughts. During free times, patient would return to bed, put on his CPAP machine and take a nap. Patient did not initiate interaction with others. S/I, H/I: Pt. contracts for safety while IP, but states that he has nothing to live for and still has suicidal thoughts. A/VH: A/V/H as above. Sleep: Reports he slept well. ADL's: Independent. Group attendance: Yes - partial Were meds taken: Yes Any med S/E: None reported or observed Mental Status Exam Appearance: Obese, bald male, in scrubs.. Eye contact: Good. Behavior: cooperative, calm and pleasant. Speech: Normal rate and volume. Mood: Depressed, anxious Affect: Blunted Thought process: Linear Thought Content: Focusing on kidney stone and medications. Cognition: A/O X 4 Insight: Fair Judgment: Poor. Interventions PRN's used: none Therapeutic interventions: 1:1 assessment, active listening, medication administration/education/monitoring, encouragement to attend groups, monitored vitals, Q 15 minute safety checks. Restraints/seclusion/emergency medication: N/A Justification of Continued Inpatient Treatment: Pt is still endorsing SI with plan to cut himself with razor blades if he were to be discharged. He needs medication adjustment and monitoring to attain crisis stabilization and prevent self-harm and/or readmission. Pt is homeless.
[2019-01-05 19:39] VITALS: BP 179/101
[2019-01-05] MEDS: quetiapine 100mg tablet PO SCH (20:19)
[2019-01-05] MEDS: hyDRALAzine 10mg tablet PO PRN (20:20)
[2019-01-05] MEDS: traZODone 50mg tablet PO PRN (20:22)
--- NOTE | 2019-01-06 02:05 | NUR ---
Nursing Progress Note: One to one with the patient to assess severity of depressive symptoms and self harm risk. Assessed for severity of disordered thought processes. The patient was fairly isolative to his room and was working on journals. He was up briefly to have snack and watch tv for a short period to time. When up he socializes minimally with peers. He was friendly and cooperative with the evening assessment. His affect was blunted. He appeared disheveled but stated that he had showered earlier in the day. He stated that his energy level was "so-so" and added, "I feel a little drained" Denies problems with his ability to concentrate. He stated that his anxiety was moderately high. When asked about suicidal thoughts he replied, "It comes to me but it doesn't come from me. It's like a cloud...I'm trying to figure out if I should give life another chance" He stated that he has no family support and he has not children. He stated that he is homeless and has no funds currently in the bank but the [facility] would be helping him with housing. He stated that he has been homeless for the past couple of weeks after leaving his sister's home in [place]. He endorses hearing voices which is primarily on one voices telling him to kill himself. He reports visual hallucinations and stated that something comes across his eyes and blinds him. He stated that he is feeling better than when admitted and stated he was "maybe 30% better." Discussed blood sugars with Dr. Best and accuchecks were changed to daily.
[2019-01-06 07:34] VITALS: BP 115/62
[2019-01-06] MEDS: venlafaxine XR 75mg capsule (Q24H) PO SCH (07:53)
[2019-01-06] MEDS: gemfibrozil 600mg tablet PO SCH (07:53)
[2019-01-06] MEDS: amLODIPine 5mg tablet PO SCH (07:53)
[2019-01-06] MEDS: metFORMIN 500mg tablet PO SCH ×2 (07:53→21:08)
[2019-01-06] MEDS: diphenhydrAMINE 25mg capsule PO SCH ×2 (07:53→21:07)
[2019-01-06] MEDS: metoprolol tartrate 50mg tablet PO SCH ×2 (07:54→21:08)
[2019-01-06] MEDS: haloperidol 5mg tablet PO SCH (07:54)
[2019-01-06] MEDS: lisinopril 10 MG tablet PO SCH ×2 (07:54→21:10)
[2019-01-06] MEDS: rivaroxaban 20mg tablet PO SCH (07:54)
[2019-01-06] MEDS: gabapentin 300mg capsule PO SCH ×3 (07:54→21:09)
[2019-01-06] MEDS: nicotine 21mg patch - 24 hr TD SCH (07:55)
[2019-01-06] MEDS: acetaminophen 325mg tablet PO PRN ×2 (08:37→19:40)
[2019-01-06] MEDS: LORazepam 1 MG tablet PO PRN ×2 (11:11→18:22)
--- NOTE | 2019-01-06 17:11 | NUR ---
Nursing Progress Note: Legal hold: vol Client on voluntary status for: DTS Report received from Charge Nurse Rajwinder Why are they here: Patient self presented to the [facility] ER with suicidal ideation. Had a plan to "buy a lot of razor blades and cut myself up until I bled to ." Patient has been in [place] for five months. Came out here by train from the [facility]. "I couldn't take the weather in [place] anymore." Went to [facility] to live "but there was no place for me to stay. And they don't have places like this that take in people." Patient's chief complaint is that he is homeless and is hoping to obtain housing during this hospitalization. Patient is morbidly obese and suffers from multiple medical problems. Assessment: What has happened this shift: Patient is awoken just prior to breakfast. He states that he slept ok and takes all of his medications. Patient states he doesnt know if he is having AV/H today because he just woke up. He reports that he has pain in his neck, Tylenol administered. Patient eats breakfast with others in the group room. He returns to his room and meditates for 1hr. He does not attend group and stays in his room throughout the day writing in his journal. S/I, H/I: none reported A/VH: none reported Sleep: 8.5hrs NOC and rested during the day ADL's: Independent. Group attendance: no Were meds taken: Yes Any med S/E: None reported or observed Mental Status Exam Appearance: disheveled Eye contact: direct Behavior: cooperative, calm and pleasant. Speech: soft tone, Normal rate and volume. Mood: Depressed Affect: Blunted Thought process: Linear Thought Content: meditating Cognition: A/O X 4 Insight: Fair Judgment: Poor. Interventions PRN's used: Tylenol for neck pain Therapeutic interventions: 1:1 therapeutic assessment, maintained safe therapeutic milieu, provided active listening with positive feedback. Provided medication education as needed, monitored for change in behavior and needed interventions. Q15 safety checks. Restraints/seclusion/emergency medication: N/A Justification of Continued Inpatient Treatment: Pt is still endorsing SI with plan to cut himself with razor blades if he were to be discharged. Continued therapeutic support and medication management needed to provide stabilization, prevent decompensation, improve coping mechanisms decreasing risk to patient and re-admittance.
[2019-01-06 20:00] VITALS: BP 154/84
[2019-01-06] MEDS: hyDRALAzine 10mg tablet PO PRN (21:08)
[2019-01-06] MEDS: quetiapine 100mg tablet PO SCH (21:09)
[2019-01-06] MEDS: traZODone 50mg tablet PO PRN (21:09)
--- NOTE | 2019-01-06 23:15 | NUR ---
One to one with the patient to assess severity of psychotic symptoms, provide medication education, assess severity of depressive symptoms and self harm risk. The patient remains on q 15 minute safety checks and has not had any self injurious behaviors reported or observed. The patient was observed in his room listening to music via headset. He was friendly and cooperative with the evening assessment. Affect was appropriate to circumstances. He appeared disheveled and stated his last shower was yesterday. He reports that his energy is decreased. He stated that he did attend one group during the day and during the group his concentration was poor. He stated that he has poor motivation and "I just want to sit still" He reports his appetite is good. During the assessment he did not appear distracted by internal stimuli. When asked about voices he stated that he continues to hear voices that "some of them are saying it's all right but others are aggressive. They are staring at me real aggressively...Some talk about suicide" He reports the voices come from outside his head. He stated the he has been hearing the voices approximately 40% of the day. He also endorses periodic visual hallucinations and described them as "I got zipped across" 4-5 times during the day but he could not make out what he was seeing. He also reports tactile hallucinations off some one touching him "all the time" He reports feeling suicidal several times during the day to "cut my arms and legs with a razor blades" but then added, "I'm willing to give life another chance. I'd like to go to mormonism, get a support group and friends" He is hoping that the interview for the board and care goes well. He was up out of bed and in the dining room for a short time. He is wearing the C Pap at night.
[2019-01-07] MEDS: metoprolol tartrate 50mg tablet PO SCH ×2 (07:57→20:57)
[2019-01-07] MEDS: gemfibrozil 600mg tablet PO SCH (07:57)
[2019-01-07] MEDS: haloperidol 5mg tablet PO SCH (07:57)
[2019-01-07] MEDS: amLODIPine 5mg tablet PO SCH (07:57)
[2019-01-07] MEDS: venlafaxine XR 75mg capsule (Q24H) PO SCH (07:57)
[2019-01-07] MEDS: rivaroxaban 20mg tablet PO SCH (07:58)
[2019-01-07] MEDS: lisinopril 10 MG tablet PO SCH ×2 (07:58→20:58)
[2019-01-07] MEDS: diphenhydrAMINE 25mg capsule PO SCH ×2 (07:58→20:57)
[2019-01-07 07:59] VITALS: BP 134/67
[2019-01-07] MEDS: metFORMIN 500mg tablet PO SCH ×2 (07:59→20:57)
[2019-01-07] MEDS: gabapentin 300mg capsule PO SCH ×3 (07:59→20:58)
[2019-01-07] MEDS: nicotine 21mg patch - 24 hr TD SCH (08:05)
[2019-01-07] MEDS: LORazepam 1 MG tablet PO PRN (12:42)
--- NOTE | 2019-01-07 14:43 | NUR ---
Nursing Progress Note: Legal hold: vol Client on voluntary status for: DTS Report received from Charge Nurse Rajwinder Why are they here: Patient self presented to the [facility] ER with suicidal ideation. Had a plan to "buy a lot of razor blades and cut myself up until I bled to ." Patient has been in [place] for five months. Came out here by train from the state [facility]. "I couldn't take the weather in [place] anymore." Went to [facility] to live "but there was no place for me to stay. And they don't have places like this that take in people." Patient's chief complaint is that he is homeless and is hoping to obtain housing during this hospitalization. Patient is morbidly obese and suffers from multiple medical problems. Assessment: What has happened this shift: Patient is awoken just prior to breakfast. He takes his medications without issue. BS 133. Patient states that his depression has increased and rates it 7/10. He states that medications have been helpful but he continues to have AH and is feeling suicidal. He states that he plans to cut himself with razor blades. He states he has no where to go but that if he did, he may feel life was worth living. Patient does not attend groups, reports increased anxiety. Patient reports improvement after finding out he may D/C to a boarding house. S/I, H/I: reports S/I with a plan to cut himself with razorblades A/VH: reports AH Sleep: 8.75hrs NOC and rested during the day ADL's: showered today and clothing washed Group attendance: no Were meds taken: Yes Any med S/E: None reported or observed Mental Status Exam Appearance: disheveled Eye contact: direct Behavior: cooperative, calm and pleasant. Speech: soft tone, Normal rate and volume. Mood: Depressed Affect: Blunted Thought process: Linear Thought Content: meditating Cognition: A/O X 4 Insight: Fair Judgment: Poor. Interventions PRN's used: Tylenol for neck pain Therapeutic interventions: 1:1 therapeutic assessment, maintained safe therapeutic milieu, provided active listening with positive feedback. Provided medication education as needed, monitored for change in behavior and needed interventions. Q15 safety checks. Restraints/seclusion/emergency medication: N/A Justification of Continued Inpatient Treatment: Pt is still endorsing SI with plan to cut himself with razor blades if he were to be discharged. Continued therapeutic support and medication management needed to provide stabilization, prevent decompensation, improve coping mechanisms decreasing risk to patient and re-admittance.
--- NOTE | 2019-01-07 15:16 | NUR ---
DISCHARGE PLANNING: MOIZ made TC to Ananda Denise at [facility] at [phone], who reports he may be able to help coordinate pt placement at room and board care with [facility] in [place]. Ananda agrees to discuss pt needs with administration at [facility] and try to coordinate placement needed by pt. Ananda will provide update on Friday. Danielle Caal, Advanced Practice Nurse BALLAST CLEAN[employer] MACHINE OPERATOR [id number] Supervised by Mickey Esteves, [id number]
[2019-01-07 20:00] VITALS: BP 154/93
[2019-01-07] MEDS: quetiapine 100mg tablet PO SCH (20:56)
[2019-01-07] MEDS: traZODone 50mg tablet PO PRN (20:56)
[2019-01-07] MEDS: acetaminophen 325mg tablet PO PRN (20:56)
[2019-01-07] MEDS: hyDRALAzine 10mg tablet PO PRN (20:57)
--- NOTE | 2019-01-07 21:48 | NUR ---
The patient has been up out of his room this evening and sitting in the dining room. He socializes minimally with others but he is pleasant and cooperative when approached for the evening assessment. His affect is blunted. Grooming appears adequate and he reports that he showered earlier in the day. One to one with the patient to assess severity of depressive symptoms and disordered thought processes. Self harm risk assessed. The patient remains on q 15 minute safety checks and has not had any self injurious behaviors reported or observed. He reports that his energy and motivation remain low and that h e did not attend any of the treatment groups here on the unit. He also continues to report auditory hallucinations but they are less and he added that they are "aggressive but I can't make out what they are saying but they're aggressive" He reports his mood has not improved from yesterday but it is better than on admit and stated, "it's better than it was but I'm feeling serious. Serious depression" He reports having visual hallucinations of a shadowy figure 3-4 times during the day and "a lot of tactile. Fingers in my eyes on the left side mainly" The patient has been medication compliant and he denies side effects to medications. He reports elevated anxiety because he has DDD adding, "It spurs me on"
[2019-01-08 08:00] VITALS: BP 114/66
[2019-01-08] MEDS: diphenhydrAMINE 25mg capsule PO SCH ×2 (08:41→21:32)
[2019-01-08] MEDS: gabapentin 300mg capsule PO SCH ×3 (08:41→21:31)
[2019-01-08] MEDS: amLODIPine 5mg tablet PO SCH (08:42)
[2019-01-08] MEDS: gemfibrozil 600mg tablet PO SCH (08:42)
[2019-01-08] MEDS: venlafaxine XR 75mg capsule (Q24H) PO SCH (08:42)
[2019-01-08] MEDS: rivaroxaban 20mg tablet PO SCH (08:42)
[2019-01-08] MEDS: lisinopril 10 MG tablet PO SCH ×2 (08:42→21:33)
[2019-01-08] MEDS: metFORMIN 500mg tablet PO SCH ×2 (08:42→21:31)
[2019-01-08] MEDS: metoprolol tartrate 50mg tablet PO SCH ×2 (08:43→21:39)
[2019-01-08] MEDS: nicotine 21mg patch - 24 hr TD SCH (08:44)
[2019-01-08] MEDS: LORazepam 1 MG tablet PO PRN ×2 (13:06→21:30)
--- NOTE | 2019-01-08 18:06 | NUR ---
Nursing Progress Note: Legal hold: vol Client on voluntary status for: DTS Report received from Charge Nurse Olga Torrez Why are they here: Patient self presented to the [facility] ER with suicidal ideation. Had a plan to "buy a lot of razor blades and cut myself up until I bled to ." Patient has been in [place] for five months. Came out here by train from the state [facility]. "I couldn't take the weather in [place] anymore." Went to [facility] to live "but there was no place for me to stay. And they don't have places like this that take in people." Patient's chief complaint is that he is homeless and is hoping to obtain housing during this hospitalization. Patient is morbidly obese and suffers from multiple medical problems. Assessment: What has happened this shift: Patient is observed sleeping at change of shift. Patient reports that he is depressed. He states that he has AV/H that started 7yrs ago and describes them as aggressive faces. He takes his medications and eats his breakfast without any issue. He requests to watch t.v in the rec room with others. He attends groups today, he is observed meditating and journaling in his room. S/I, H/I: reports S/I with a plan to cut himself with razorblades A/VH: reports A/H, V/H Sleep: 7.75hrs NOC and rested during the day ADL's: Independent Group attendance: yes Were meds taken: Yes Any med S/E: None reported or observed Mental Status Exam Appearance: disheveled Eye contact: direct Behavior: cooperative, calm and pleasant. Speech: soft tone, Normal rate and volume. Mood: reports depression Affect: Blunted Thought process: Linear Thought Content: where he is going to live Cognition: A/O X 4 Insight: Fair Judgment: Poor. Interventions PRN's used: Ativan for anxiety Therapeutic interventions: 1:1 therapeutic assessment, maintained safe therapeutic milieu, provided active listening with positive feedback. Provided medication education as needed, monitored for change in behavior and needed interventions. Q15 safety checks. Restraints/seclusion/emergency medication: N/A Justification of Continued Inpatient Treatment: Pt is still endorsing SI with plan to cut himself with razor blades if he were to be discharged. Continued therapeutic support and medication management needed to provide stabilization, prevent decompensation, improve coping mechanisms decreasing risk to patient and re-admittance.
[2019-01-08 20:00] VITALS: BP 168/97
[2019-01-08] MEDS: traZODone 50mg tablet PO PRN (21:30)
[2019-01-08] MEDS: quetiapine 100mg tablet PO SCH (21:37)
--- NOTE | 2019-01-09 01:27 | NUR ---
Nursing Progress Note: Legal hold: vol Client on voluntary status for: DTS Report received from ANAIS Marie, with use of SBAR. Why are they here: Patient self presented to the [facility] ER with suicidal ideation. Had a plan to "buy a lot of razor blades and cut myself up until I bled to ." Patient has been in [place] for five months. Came out here by train from the state [facility]. "I couldn't take the weather in [place] anymore." Went to [facility] to live "but there was no place for me to stay. And they don't have places like this that take in people." Patient's chief complaint is that he is homeless and is hoping to obtain housing during this hospitalization. Patient is morbidly obese and suffers from multiple medical problems. Assessment: Patient is awake and well oriented in his room at shift change. He self isolates and doesn't engage others in conversation. Patient speaks of his depression and presents with a flat affect. Patient states his suicidal ideation is lessening now that he knows he has a chance for housing. He has a plan to us razors to his arms if things don't work out. "If housing goes through then I'll have new hope, and new medications might work well too." Patient denies homicidal ideation. Patient admits to hearing voices, "they are benevolent, I can't remember what they say. This patient did going the group [facility]. He isolates there also. Patient is compliant with his evening medications. He is assured by this handbook writer that he is in a safe place. Q15 minute rounding will be done for patient safety. S/I, H/I: reports S/I with a plan to cut himself with razorblades A/VH: reports A/H, V/H Sleep: 7.75hrs NOC and rested during the day ADL's: Independent Group attendance: yes Were meds taken: Yes Any med S/E: None reported or observed Mental Status Exam Appearance: disheveled Eye contact: direct Behavior: cooperative, calm and pleasant. Speech: soft tone, Normal rate and volume. Mood: reports depression Affect: Blunted Thought process: Linear Thought Content: where he is going to live Cognition: A/O X 4 Insight: Fair Judgment: Poor. Interventions PRN's used: Ativan for anxiety Therapeutic interventions: 1:1 therapeutic assessment, maintained safe therapeutic milieu, provided active listening with positive feedback. Provided medication education as needed, monitored for change in behavior and needed interventions. Q15 safety checks. Restraints/seclusion/emergency medication: N/A Justification of Continued Inpatient Treatment: Pt is still endorsing SI with plan to cut himself with razor blades if he were to be discharged. Continued therapeutic support and medication management needed to provide stabilization, prevent decompensation, improve coping mechanisms decreasing risk to patient and re-admittance.
[2019-01-09 07:45] VITALS: BP 129/69
[2019-01-09] MEDS: diphenhydrAMINE 25mg capsule PO SCH (07:49)
[2019-01-09] MEDS: venlafaxine XR 75mg capsule (Q24H) PO SCH (07:49)
[2019-01-09] MEDS: amLODIPine 5mg tablet PO SCH (07:49)
[2019-01-09] MEDS: gabapentin 300mg capsule PO SCH ×3 (07:50→21:08)
[2019-01-09] MEDS: metFORMIN 500mg tablet PO SCH ×2 (07:50→21:06)
[2019-01-09] MEDS: lisinopril 10 MG tablet PO SCH ×2 (07:50→21:17)
[2019-01-09] MEDS: metoprolol tartrate 50mg tablet PO SCH ×2 (07:51→21:08)
[2019-01-09] MEDS: gemfibrozil 600mg tablet PO SCH (07:51)
[2019-01-09] MEDS: rivaroxaban 20mg tablet PO SCH (08:16)
[2019-01-09] MEDS: nicotine 21mg patch - 24 hr TD SCH (09:25)
--- NOTE | 2019-01-09 17:04 | NUR ---
Nursing Progress Note: Legal hold: vol Client on voluntary status for: DTS Report received from Olga Torrez RN, with use of SBAR. Why are they here: Patient self presented to the [facility] ER with suicidal ideation. Had a plan to "buy a lot of razor blades and cut myself up until I bled to ." Patient has been in [place] for five months. Came out here by train from the state of [place]. "I couldn't take the weather in [place] anymore." Went to [facility] to live "but there was no place for me to stay. And they don't have places like this that take in people." Patient's chief complaint is that he is homeless and is hoping to obtain housing during this hospitalization. Patient is morbidly obese and suffers from multiple medical problems. Assessment: Received patient in bed sleeping with the CPAP on. Patient did get up for meals in groups, but return to room and did a lot of napping today. Pt did not meditate as much today. During assessment, patient affect remains flat. Patient continues to endorse auditory hallucinations. Patient states this gladis has been after me and hes just picking on me. He came in a cloud and tries to get me to kill myself but now I know who he is. Patient continues to endorse depression though he states it is less and he denies suicidal thoughts claiming that now he realizes where the voices are coming from so he is not influenced by them. Patient looking forward to phone interview for placement on Friday. S/I, H/I: reports S/I with a plan to cut himself with razorblades A/VH: reports A/H, V/H Sleep: 7.75hrs NOC and rested during the day ADL's: Independent Group attendance: yes Were meds taken: Yes Any med S/E: None reported or observed Mental Status Exam Appearance: disheveled Eye contact: direct Behavior: cooperative, calm and pleasant. Speech: soft tone, Normal rate and volume. Mood: reports depression Affect: Blunted Thought process: Linear Thought Content: where he is going to live Cognition: A/O X 4 Insight: Fair Judgment: Poor. Interventions PRN's used: Ativan for anxiety Therapeutic interventions: 1:1 therapeutic assessment, maintained safe therapeutic milieu, provided active listening with positive feedback. Provided medication education as needed, monitored for change in behavior and needed interventions. Q15 safety checks. Restraints/seclusion/emergency medication: N/A Justification of Continued Inpatient Treatment: Pt is still endorsing aud. bahena telling him to kill himself. Continued therapeutic support and medication management needed to provide stabilization, prevent decompensation, improve coping mechanisms decreasing risk to patient and re-admittance.
[2019-01-09 20:00] VITALS: BP 171/94
[2019-01-09] MEDS: LORazepam 1 MG tablet PO PRN (21:07)
[2019-01-09] MEDS: traZODone 50mg tablet PO PRN (21:07)
[2019-01-09] MEDS: hyDRALAzine 10mg tablet PO PRN (21:07)
[2019-01-09] MEDS: aripiprazole 5mg tablet PO SCH (21:09)
--- NOTE | 2019-01-10 01:33 | NUR ---
Nursing Progress Note: Legal hold: vol Client on voluntary status for: DTS Report received from ANAIS Tucker, with use of SBAR. Why are they here: Patient self presented to the [facility] ER with suicidal ideation. Had a plan to "buy a lot of razor blades and cut myself up until I bled to ." Patient has been in [place] for five months. Came out here by train from the [facility]. "I couldn't take the weather in [place] anymore." Went to [facility] to live "but there was no place for me to stay. And they don't have places like this that take in people." Patient's chief complaint is that he is homeless and is hoping to obtain housing during this hospitalization. Patient is morbidly obese and suffers from multiple medical problems. Assessment: Patient is isolating in his room following shift change. He is awake and well oriented. Patient states he stills hears voices, some good, some not so good. "they come and they go, I don't know what they say." The patient states that he is feeling anxious about a future interview for a place to live. The patient has been medication compliant. Save for the occasional voices, he states there are no other hallucinations. The patient is advised that he is in a safe place. He exhibits understanding. Q15 minute rounding will be continued for patient safety. S/I, H/I: Denies at this time. A/VH: reports A/H. Sleep: Patient slept during the day. ADL's: Independent Group attendance: Yes, on day shift. Were meds taken: Yes Any med S/E: None reported or observed Mental Status Exam Appearance: disheveled Eye contact: direct Behavior: cooperative, calm and pleasant. Speech: soft tone, Normal rate and volume. Mood: reports depression Affect: Blunted Thought process: Linear Thought Content: where he is going to live Cognition: A/O X 4 Insight: Fair Judgment: Poor. Interventions PRN's used: Ativan for anxiety Therapeutic interventions: 1:1 therapeutic assessment, maintained safe therapeutic milieu, provided active listening with positive feedback. Provided medication education as needed, monitored for change in behavior and needed interventions. Q15 safety checks. Restraints/seclusion/emergency medication: N/A Justification of Continued Inpatient Treatment: Pt is still endorsing aud. bahena telling him to kill himself. Continued therapeutic support and medication management needed to provide stabilization, prevent decompensation, improve coping mechanisms decreasing risk to patient and re-admittance.
[2019-01-10] MEDS: venlafaxine XR 75mg capsule (Q24H) PO SCH (07:37)
[2019-01-10] MEDS: gabapentin 300mg capsule PO SCH ×3 (07:45→20:46)
[2019-01-10] MEDS: gemfibrozil 600mg tablet PO SCH (07:46)
[2019-01-10] MEDS: rivaroxaban 20mg tablet PO SCH (07:46)
[2019-01-10] MEDS: metoprolol tartrate 50mg tablet PO SCH ×2 (07:47→20:47)
[2019-01-10] MEDS: metFORMIN 500mg tablet PO SCH ×2 (07:47→20:47)
[2019-01-10] MEDS: lisinopril 10 MG tablet PO SCH ×2 (07:48→20:48)
[2019-01-10] MEDS: amLODIPine 5mg tablet PO SCH (07:48)
[2019-01-10] MEDS: nicotine 21mg patch - 24 hr TD SCH (07:50)
[2019-01-10 08:00] VITALS: BP 144/84
[2019-01-10] MEDS ORDERED: venlafaxine XR 37.5mg cap (Q24H) PO SCH (08:00)
--- NOTE | 2019-01-10 09:28 | NUR ---
Ernie Nursing Progress Note: Legal hold: vol Client on voluntary status for: DTS Report received. Why are they here: Patient self presented to the [facility] ER with suicidal ideation. Had a plan to "buy a lot of razor blades and cut myself up until I bled to ." Patient has been in [place] for five months. Came out here by train from the state of [place]. "I couldn't take the weather in [place] anymore." Went to [facility] to live "but there was no place for me to stay. And they don't have places like this that take in people." Patient's chief complaint is that he is homeless and is hoping to obtain housing during this hospitalization. Patient is morbidly obese and suffers from multiple medical problems. Assessment: Client was in bed resting to start this shift. Client presents as worried regarding placement and wants to stay in [place]. Client was compliant with medications and consumed his morning meal. Client was given 1:1 to explain what he could anticipate as his interview approaches for housing ( January 11, 2019). Client was encouraged to shower and conduct ADL's. No somatic complaints as of this writing. S/I, H/I: Denies at this time. A/VH: reports A/H. Sleep: Patient slept during the day. ADL's: Independent Group attendance: Were meds taken: Yes Any med S/E: None reported or observed Mental Status Exam Appearance: disheveled Eye contact: direct Behavior: cooperative, calm and pleasant. Speech: soft tone, Normal rate and volume. Mood: reports depression Affect: Blunted Thought process: Linear Thought Content: where he is going to live Cognition: A/O X 4 Insight: Fair Judgment: Poor. Interventions PRN's used: none so far this shift. Therapeutic interventions: 1:1 therapeutic assessment, maintained safe therapeutic milieu, provided active listening with positive feedback. Provided medication education as needed, monitored for change in behavior and needed interventions. Q15 safety checks. Restraints/seclusion/emergency medication: N/A Justification of Continued Inpatient Treatment: Pt is still endorsing aud. bahena telling him to kill himself. Continued therapeutic support and medication management needed to provide stabilization, prevent decompensation, improve coping mechanisms decreasing risk to
[2019-01-10] MEDS ORDERED: traZODone 50mg tablet PO PRN (13:00)
[2019-01-10] MEDS: LORazepam 1 MG tablet PO PRN (14:07)
[2019-01-10 19:57] VITALS: BP 171/94
[2019-01-10] MEDS: traZODone 50mg tablet PO SCH (20:46)
[2019-01-10] MEDS: aripiprazole 5mg tablet PO SCH (20:46)
--- NOTE | 2019-01-11 02:46 | NUR ---
Nursing Progress Note: Legal hold: Voluntary Client on voluntary status for: DTS Report received from Charge Nurse Caitlin. Why are they here: Patient self presented to the [facility] ER with suicidal ideation. Had a plan to "buy a lot of razor blades and cut myself up until I bled to ." Patient has been in [place] for five months. Came out here by train from the [facility]. "I couldn't take the weather in [place] anymore." Went to [facility] to live "but there was no place for me to stay. And they don't have places like this that take in people." Patient's chief complaint is that he is homeless and is hoping to obtain housing during this hospitalization. Patient is morbidly obese and suffers from multiple medical problems. Assessment: What has happened this shift: The patient was sitting on his bed at shift change. He was found there for 1:1. The patient reports that he may leave tomorrow, but is not sure. "Everything depends on housing." He says that he's still depressed, but it's getting better. He won't describe what is better. He continues to report AH, but does not understand what is being said, "sometimes it's good, others bad." The patient reportedly had a shower today, but wears same clothes. He has not shaved. The patient did not leave his room this shift. He has started Abilify, and "I really hopes it works." S/I, H/I: Yes. A/VH: Positive for voices. Sleep: Has been sleeping since HS med pass. ADL's: Independent. Group attendance: No groups at night. Were meds taken: Yes Any med S/E: None reported or observed Mental Status Exam Appearance: Obese, bald male, unshaved, wearing same pants and shirt. Eye contact: Good. Behavior: Isolative, calm and pleasant. Speech: Normal rate and volume. Mood: Depressed. Affect: Blunted Thought process: Logical Thought Content: Focused on housing. Cognition: A/O X 4 Insight: Fair Judgment: Poor. Interventions PRN's used: Ativan Therapeutic interventions: 1:1 assessment, active listening, medication administration/education/monitoring, encouragement to attend groups, monitored vitals, Q 15 minute safety checks. Restraints/seclusion/emergency medication: N/A Justification of Continued Inpatient Treatment: Pt is still endorsing SI with plan to cut himself with razor blades if he were to be discharged. He needs medication adjustment and monitoring to attain crisis stabilization and prevent self-harm and/or readmission. Pt is homeless.
[2019-01-11] MEDS: LORazepam 1 MG tablet PO PRN ×2 (02:54→17:20)
[2019-01-11] MEDS: gemfibrozil 600mg tablet PO SCH (07:40)
[2019-01-11] MEDS: rivaroxaban 20mg tablet PO SCH (07:40)
[2019-01-11] MEDS: gabapentin 300mg capsule PO SCH ×3 (07:40→20:16)
[2019-01-11] MEDS: amLODIPine 5mg tablet PO SCH (07:40)
[2019-01-11] MEDS: nicotine 21mg patch - 24 hr TD SCH (07:40)
[2019-01-11] MEDS: lisinopril 10 MG tablet PO SCH ×2 (07:41→20:17)
[2019-01-11] MEDS: metoprolol tartrate 50mg tablet PO SCH ×2 (07:42→20:17)
[2019-01-11] MEDS: metFORMIN 500mg tablet PO SCH ×2 (07:42→20:17)
[2019-01-11] MEDS: venlafaxine XR 75mg capsule (Q24H) PO SCH (07:42)
[2019-01-11 08:00] VITALS: BP 155/88
--- NOTE | 2019-01-11 14:25 | NUR ---
DISCHARGE PLANNING: SW received message from Ananda Denise at [facility] at [phone], who reports he cannot get approval for funding for pt at this time because pt is not established with [facility] at this time. Per Ananda, [facility] can picket labor union pt upon discharge for pt to return to [place]. Pt can access resources through [facility] in [place] for access to a tent for camping and possibly other resources until pt gains access to his funds. Pt's other option is to have [facility] help pt discharge to the [facility] in [place], where pt can have access to jail temporarily. Pt would then be picked up by [facility] for his follow up appointment and establishment of care in [facility]. Per Ananda, once pt becomes established with care, there will then be access to funding for pt care. Per Ananda, interviews for board and care or room and board cannot be made until pt is discharged and in [facility]. Ananda will help coordinate pt attending interviews w/ Addendum: 01/11/19 at 1436 by Danielle Caal SS Per Ananda, interviews for board and care or room and board cannot be made until pt is discharged and in [facility]. Ananda will help coordinate pt attending interviews w/ care facilities upon his arrival to critical access hospital and entry to services. MOIZ and Nurse discussed current discharge plan and planned to meet w/ pt to discuss concerns. MOIZ will provide update to Psychiatrist for discharge planning. Danielle Caal, Liver Trimmer USER INTERFACE ENGINEER [id number] Supervised by Mickey Esteves, [id number]
--- NOTE | 2019-01-11 15:06 | NUR ---
Nursing Progress Note: Ernie Chung Legal hold: Voluntary Client on voluntary status for: DTS Report received from Charge Nurse Caitlin. Why are they here: Patient self presented to the [facility] ER with suicidal ideation. Had a plan to "buy a lot of razor blades and cut myself up until I bled to ." Patient has been in [place] for five months. Came out here by train from the state of [place]. "I couldn't take the weather in [place] anymore." Went to [facility] to live "but there was no place for me to stay. And they don't have places like this that take in people." Patient's chief complaint is that he is homeless and is hoping to obtain housing during this hospitalization. Patient is morbidly obese and suffers from multiple medical problems. Assessment: What has happened this shift: Patient was in bed asleep at change of shift. Per report, patient had an interview scheduled for today for housing in [facility]. Patient showered and was preparing for interview, unfortunately the interview had been canceled as of Friday. After speaking with MOIZ, patient does have another interview planned but without confirmation of time. While disappointed, client is hopeful to obtain housing in [facility]. Following meeting with MOIZ Santos patient appears distraught, tearful. States "If I was depressed before, I am very depressed now." Continues to have SI. Arranged meeting with this creative services writer and MOIZ to determine patient DC plan as patient does not seem to clearly understand the different options currently being considered. MOIZ Santos explained the different options, which patient stated he understood better and seemed to feel more positive. All discharge notes are in patient chart. S/I, H/I: Yes. A/VH: Positive for voices. Sleep: 9.75 ADL's: Independent. Group attendance: Yes, morning, No afternoon Were meds taken: Yes Any med S/E: None reported or observed Mental Status Exam Appearance: Obese, bald male, unshaved, showered and changed clothing Eye contact: Good. Behavior: Isolative, calm and pleasant. Speech: Normal rate and volume. Mood: Depressed. Affect: Blunted Thought process: Logical Thought Content: Focused on housing. Cognition: A/O X 4 Insight: Fair Judgment: Poor. Interventions PRN's used: Ativan Therapeutic interventions: 1:1 assessment, active listening, medication administration/education/monitoring, encouragement to attend groups, monitored vitals, Q 15 minute safety checks. Restraints/seclusion/emergency medication: N/A Justification of Continued Inpatient Treatment: Pt is still endorsing SI with plan to cut himself with razor blades if he were to be discharged. He needs medication adjustment and monitoring to attain crisis stabilization and prevent self-harm and/or readmission. Pt is homeless.
[2019-01-11] MEDS: acetaminophen 325mg tablet PO PRN (17:21)
[2019-01-11] MEDS: aripiprazole 5mg tablet PO SCH (20:16)
[2019-01-11] MEDS: traZODone 50mg tablet PO SCH (20:16)
[2019-01-11 20:46] VITALS: BP 166/104
--- NOTE | 2019-01-12 02:34 | NUR ---
Nursing Progress Note: Legal hold: Voluntary Client on voluntary status for: DTS Report received from Charge Nurse Caitlin. Why are they here: Patient self presented to the [facility] ER with suicidal ideation. Had a plan to "buy a lot of razor blades and cut myself up until I bled to ." Patient has been in [place] for five months. Came out here by train from the [facility]. "I couldn't take the weather in [place] anymore." Went to [facility] to live "but there was no place for me to stay. And they don't have places like this that take in people." Patient's chief complaint is that he is homeless and is hoping to obtain housing during this hospitalization. Patient is morbidly obese and suffers from multiple medical problems. Assessment: What has happened this shift: The patient was found on his bed for 1:1. He reports that he's feeling "grumpy" due to today's outcome. The patient had thought he would have a meeting with someone from [facility] for potential housing, but it didn't happen. The patient states that he was upset at first, but has now been explained the plan going forward. The patient c/o increased depression over the whole thing, but continues to remain hopeful of a good outcome. S/I, H/I: Yes. A/VH: Positive for voices. Sleep: Has been sleeping since HS med pass. ADL's: Independent. Group attendance: No groups at night. Were meds taken: Yes Any med S/E: None reported or observed Mental Status Exam Appearance: Obese, bald male, unshaved, wearing cut off sweat pants and wine colored t-shirt. Eye contact: Good. Behavior: Isolative, calm and pleasant. Speech: Normal rate and volume. Mood: Depressed. Affect: Blunted Thought process: Logical Thought Content: Focused on housing. Cognition: A/O X 4 Insight: Fair Judgment: Poor. Interventions PRN's used: Therapeutic interventions: 1:1 assessment, active listening, medication administration/education/monitoring, encouragement to attend groups, monitored vitals, Q 15 minute safety checks. Restraints/seclusion/emergency medication: N/A Justification of Continued Inpatient Treatment: Pt is still endorsing SI with plan to cut himself with razor blades if he were to be discharged. He needs medication adjustment and monitoring to attain crisis stabilization and prevent self-harm and/or readmission. Pt is homeless.
[2019-01-12] MEDS: rivaroxaban 20mg tablet PO SCH (07:41)
[2019-01-12] MEDS: amLODIPine 5mg tablet PO SCH (07:41)
[2019-01-12] MEDS: gemfibrozil 600mg tablet PO SCH (07:41)
[2019-01-12] MEDS: metFORMIN 500mg tablet PO SCH ×2 (07:42→20:17)
[2019-01-12] MEDS: venlafaxine XR 75mg capsule (Q24H) PO SCH (07:42)
[2019-01-12] MEDS: gabapentin 300mg capsule PO SCH ×3 (07:42→20:19)
[2019-01-12] MEDS: lisinopril 10 MG tablet PO SCH ×2 (07:42→20:18)
[2019-01-12] MEDS: metoprolol tartrate 50mg tablet PO SCH ×2 (07:43→20:18)
[2019-01-12] MEDS: nicotine 21mg patch - 24 hr TD SCH (07:45)
[2019-01-12 08:29] VITALS: BP 150/86
--- NOTE | 2019-01-12 10:23 | NUR ---
reassessment: Pt PO 100% carb controlled diet meeting needs. [facility] 01/11. Will continue to monitor. Addendum: 01/12/19 at [address] Amended: Links added.
--- NOTE | 2019-01-12 14:19 | NUR ---
DISCHARGE PLANNING: MOIZ contacted brass cleaner, Eligio Magallanes at [facility] [phone], who reports there are currently two open medical beds a the [facility]. He instructed SW to assist pt in gaining a letter from the Doctor for medical need of the bed. MOIZ contacted Ananda Denise at [facility] at [phone], who reports he has pending appts for pt discharge. MOIZ expressed pt need for room and board and informed Ananda that this entry writer would contact [facility] to request interview or review of packet for potential admission. Ananda agreed. MOIZ contacted Paul [facility], who agrees to accept pt pending pt be observed walking up stairs unassisted and pending Ananda agreeing pt would be opened to services through [facility]. MOIZ left message for Ananda, requesting he contact Paul, then inform me of acceptance or denial. MOIZ will coordinate w/ provider and/or nurse to observe pt ability to climb stairs. Danielle Caal, Log Processor Operator MESH WORKER [id number] Supervised by Mickey Esteves, [id number]
--- NOTE | 2019-01-12 15:32 | NUR ---
Nursing Progress Note: Ernie Chung Legal hold: Voluntary Client on voluntary status for: DTS Report received from Charge Nurse Rajwinder. Why are they here: Patient self presented to the [facility] ER with suicidal ideation. Had a plan to "buy a lot of razor blades and cut myself up until I bled to ." Patient has been in [place] for five months. Came out here by train from the state of [place]. "I couldn't take the weather in [place] anymore." Went to [facility] to live "but there was no place for me to stay. And they don't have places like this that take in people." Patient's chief complaint is that he is homeless and is hoping to obtain housing during this hospitalization. Patient is morbidly obese and suffers from multiple medical problems. Assessment: What has happened this shift: The patient was found on his bed for 1:1. He reports that he's feeling frustrated due to options for his discharge. Patient is aware of the challenges as a result of his Med[place] being active in a county other than his preferred county for discharge. Remained isolative in room throughout the morning accept for breakfast. SW will be contacting [facility] to check on availability of medical bed which is more acceptable for patient. Only out of room for meals. Observed late afternoon ambulating in hallway speaking with staff. MOIZ did comfirm medical beds are available at [facility] and other potential options may be available in [facility]. Due to uncertainty, patient has not been updated. S/I, H/I: Yes. A/VH: Positive for voices. Sleep: 8.75 ADL's: Independent. Group attendance: No Were meds taken: Yes Any med S/E: None reported or observed Mental Status Exam Appearance: Obese, bald male, unshaved, wearing cut off sweat pants and wine colored t-shirt. Eye contact: Good. Behavior: Isolative, calm and pleasant. Speech: Normal rate and volume. Mood: Depressed. Affect: Constricted Thought process: Logical Thought Content: Focused on housing. Cognition: A/O X 4 Insight: Fair Judgment: Poor. Interventions PRN's used: Therapeutic interventions: 1:1 assessment, active listening, medication administration/education/monitoring, encouragement to attend groups, monitored vitals, Q 15 minute safety checks. Restraints/seclusion/emergency medication: N/A Justification of Continued Inpatient Treatment: Pt is still endorsing SI with plan to cut himself with razor blades if he were to be discharged. He needs medication adjustment and monitoring to attain crisis stabilization and prevent self-harm and/or readmission.
[2019-01-12] MEDS: LORazepam 1 MG tablet PO PRN (19:24)
[2019-01-12] MEDS: aripiprazole 5mg tablet PO SCH (20:17)
[2019-01-12] MEDS: traZODone 50mg tablet PO SCH (20:17)
[2019-01-12 20:54] VITALS: BP 171/93
--- NOTE | 2019-01-13 03:02 | NUR ---
Nursing Progress Note: Legal hold: Voluntary Client on voluntary status for: DTS Report received from Charge Nurse Caitlin. Why are they here: Patient self presented to the [facility] ER with suicidal ideation. Had a plan to "buy a lot of razor blades and cut myself up until I bled to ." Patient has been in [place] for five months. Came out here by train from the [facility]. "I couldn't take the weather in [place] anymore." Went to [facility] to live "but there was no place for me to stay. And they don't have places like this that take in people." Patient's chief complaint is that he is homeless and is hoping to obtain housing during this hospitalization. Patient is morbidly obese and suffers from multiple medical problems. Assessment: What has happened this shift: The patient was found on his bed for 1:1. He's sitting on his bed cross-legged as usual. In front of him is his "journal." It's just a book full of thoughts and things I'm interested in." He reports that he spent the day in his room. "I don't do groups. It's too hard for me to sit in a group that long." He states that he's accepted the fact that his discharge is being difficult due to the challenges created by having benefits in one county and wanting to discharge to another. The patient remained isolated to his room all night. S/I, H/I: Yes. A/VH: Positive for voices. Sleep: Has been sleeping since HS med pass. ADL's: Independent. Group attendance: No groups at night. Were meds taken: Yes Any med S/E: None reported or observed Mental Status Exam Appearance: Obese, bald male, unshaved, wearing cut off sweat pants and wine colored t-shirt. Eye contact: Good. Behavior: Isolative, calm and pleasant. Speech: Normal rate and volume. Mood: Depressed. Affect: Blunted Thought process: Logical Thought Content: Focused on housing. Cognition: A/O X 4 Insight: Fair Judgment: Poor. Interventions PRN's used: Ativan x1 Therapeutic interventions: 1:1 assessment, active listening, medication administration/education/monitoring, encouragement to attend groups, monitored vitals, Q 15 minute safety checks. Restraints/seclusion/emergency medication: N/A Justification of Continued Inpatient Treatment: Pt is still endorsing SI with plan to cut himself with razor blades if he were to be discharged. He needs medication adjustment and monitoring to attain crisis stabilization and prevent self-harm and/or readmission. Pt is homeless.
[2019-01-13] MEDS: metFORMIN 500mg tablet PO SCH ×2 (07:59→20:46)
[2019-01-13] MEDS: gemfibrozil 600mg tablet PO SCH (07:59)
[2019-01-13] MEDS: venlafaxine XR 75mg capsule (Q24H) PO SCH (07:59)
[2019-01-13] MEDS: rivaroxaban 20mg tablet PO SCH (07:59)
[2019-01-13] MEDS: gabapentin 300mg capsule PO SCH ×3 (07:59→20:51)
[2019-01-13] MEDS: amLODIPine 5mg tablet PO SCH (07:59)
[2019-01-13 08:00] VITALS: BP 152/76
[2019-01-13] MEDS: lisinopril 10 MG tablet PO SCH ×2 (08:00→20:47)
[2019-01-13] MEDS: metoprolol tartrate 50mg tablet PO SCH ×2 (08:00→20:47)
[2019-01-13] MEDS: nicotine 21mg patch - 24 hr TD SCH (08:04)
[2019-01-13] MEDS: acetaminophen 325mg tablet PO PRN ×2 (12:31→20:53)
--- NOTE | 2019-01-13 13:30 | NUR ---
STAIR TEST: Pt was able to ambulate down 1 flight of stairs from the 3rd floor to the 2nd floor and then back up again independently without assistance, tolerated well.
[2019-01-13] MEDS: LORazepam 1 MG tablet PO PRN ×2 (13:32→20:51)
--- NOTE | 2019-01-13 14:59 | NUR ---
Nursing Progress Note: Legal hold: Voluntary Client on voluntary status for: DTS Report received from Charge Nurse Rajwinder MANZO. Why are they here: Patient self presented to the [facility] ER with suicidal ideation. Had a plan to "buy a lot of razor blades and cut myself up until I bled to ." Patient has been in [place] for five months. Came out here by train from the state of [place]. "I couldn't take the weather in [place] anymore." Went to [facility] to live "but there was no place for me to stay. And they don't have places like this that take in people." Patient's chief complaint is that he is homeless and is hoping to obtain housing during this hospitalization. Patient is morbidly obese and suffers from multiple medical problems. Assessment: What has happened this shift: Pt was up for breakfast, he returned to his room afterwards to read and journal. He studies [employer]. When asked if pt felt depressed today, he replied "a little." When asked about SI, he again replied, "a little." When asked if had a plan, he replied "razor blades." He then went on to say that he feels this way because of being "picked on." Pt stated that "I'm winning" indicating his books and journals. Asked pt who he felt was picking on him. He said that it was this gladis in [place]. Asked pt if he had recent contact with the gladis and if he is in [place], how is he picking on him now? Pt replied, "supernaturally." Pt went on to say that the gladis doesn't like his family because pt's dad worked for the [employer] and he (the gladis) is really anti-government. Pt stated his dad worked for the [employer] and was a green beret in [place]. Asked the pt how he found out about the gladis. He stated that he just found out last night. Pt states a female voice told him about her. He went on to say that "he's been doing it for years...he caused my health problems...Reiki." "He's a gladis around 80 years old, pt made a gesture with his hands to describe the gladis, hands motioned to form a barrel shape. Pt states he saw him in his room last night. S/I, H/I: Pt denies HI, still endorsing passive SI A/VH: Pt states he heard a female voice and saw an older gladis from [place] who is attacking him supernaturally in his room last night. Sleep: Slept 8.75 hours per noc shift report. ADL's: Independent, needs encouragement for showers Group attendance: Yes Were meds taken: Yes Any med S/E: None reported or observed Mental Status Exam Appearance: Disheveled, large gentleman, balding with facial scruff, wearing black sweat pants made into shorts with jagged, trailing, uneven edges and a t-shirt. He walks around with [employer] sports sandals, partially unfastened. Eye contact: Good. Behavior: Calm, cooperative, reads and journals, isolative to self/room. Speech: Clear, audible Mood: Depressed, anxious Affect: Blunted, depressed. Thought process: linear though making delusional statements today Thought Content: Believes he is being psychically or "supernaturally" attacked by an 80 year old round-shaped man from [place] though believes he is "winning" the laughlin against depression and SI due to the help of Sabian[employer] and journaling. Cognition: A/O X 4 Insight: Fair Judgment: Fair Interventions PRN's used: Tylenol 650 mg at 1230 for 5/10 headache pain, Ativan 1 mg @ 1333 for c/o increased anxiety rated at a 6/10. Therapeutic interventions: 1:1 assessment, active listening, therapeutic conversation, medication administration/education/monitoring, encouragement to attend groups, Q 15 minute safety checks. Restraints/seclusion/emergency medication: N/A Justification of Continued Inpatient Treatment: Pt is still endorsing SI with plan to cut himself with razor blades if he were to be discharged, now showing symptoms of psychosis with delusional statements as well as AH/VH. He needs medication adjustment and monitoring to attain crisis stabilization and prevent self-harm and/or readmission. Pt is homeless.
[2019-01-13 20:00] VITALS: BP 169/107
[2019-01-13 20:30] VITALS: BP 162/96
[2019-01-13] MEDS: aripiprazole 5mg tablet PO SCH (20:48)
[2019-01-13] MEDS: traZODone 50mg tablet PO SCH (20:51)
[2019-01-13 21:30] VITALS: BP 160/84
[2019-01-13] MEDS: hyDRALAzine 10mg tablet PO PRN (21:48)
--- NOTE | 2019-01-13 21:55 | NUR ---
Nursing Note: Pts BP remains elevated, administered PRN hydralazine and will continue to monitor.
[2019-01-13 22:40] VITALS: BP 140/74
--- NOTE | 2019-01-14 02:39 | NUR ---
Nursing Progress Note: Legal hold: Voluntary Client on voluntary DTS Report received from nurse with use of SBAR: ANAIS Ramon Why are they here: Patient self presented to the the ER with suicidal ideation, and a plan to, "buy a lot of razor blades and cut myself up until I bled to ." Patient has been in [place] for five months. Came out here by train from the [facility]. "I couldn't take the weather in [place] anymore." Went to [facility] to live "but there was no place for me to stay," and he was homeless. He reports that his depression has increased over the last few weeks, and he has not been able to perform his ADLs. Pt. also reports command A/H, and multiple psychiatric hospitalizations. Patient is morbidly obese and suffers from multiple medical problems. Assessment What has happened this shift: Pt. sitting in bed at the beginning of the shift with his journal, he remained here throughout the shift. 1:1 completed at bedside, he presents as cooperative, but withdrawn. Pt. is A&O x3, however unable to say what hospital he is at. When questioned by this repairer typewriter regarding S/I, he states, "Not so much," and he denies any plan. Pt. endorses ongoing A/TAYLOR, but reports he cannot really understand what they are saying, he does not appear to be responding to internal stimuli. No delusional statements made this shift. Pt. requests PRN Tylenol and Ativan r/t chronic pain from degenerative disk disease, administered with effectiveness. Pt's BP was initially elevated, scheduled BP medications administered however it remained elevated, finally PRN Hydralazine administered and BP WNL. Will endorse to AM shift and continue to monitor. Pt. appears to be resting comfortably, CPAP machine in use. S/I, H/I: When questioned by this repairer typewriter regarding S/I, he states, "Not so much," and he denies any plan. A/VH: Pt. endorses ongoing A/TAYLOR, but reports he cannot really understand what they are saying, he does not appear to be responding to internal stimuli. Sleep: Appears to be sleeping well, CPAP machine in use ADL's: Requires some encouragement from staff Group attendance: Pt. reports he does not attend most groups because he has trouble focusing Were meds taken: Yes Any med S/E: no Mental Status Exam Appearance: Neat and appropriately dressed, appears older than stated age Eye contact: Good Behavior: Cooperative, but withdrawn Speech: Soft, responds only to questions Mood: Depressed, slightly anxious at times Affect: Constricted Thought process: WNL, poverty of thought Thought Content: A/TAYLOR and preoccupation with depressed thoughts and anxieties Cognition: A&O X3 (not to hospital) Insight: Fair Judgment: Fair Interventions PRN's used: Ativan X1, Tylenol, Hydralazine X1 Therapeutic interventions: Introduced self and established rapport, maintained a safe and therapeutic environment, ensured contract for safety, provided clear and simple instructions, reoriented to reality as needed, encouraged independent performance of ADLs, and maintained Q 15 min safety checks. Restraints/seclusion/emergency medication: N/A Justification of Continued Inpatient Treatment: Pt. requires ongoing stabilization, medication adjustments, and a safe and supportive environment.
[2019-01-14] MEDS: nicotine 21mg patch - 24 hr TD SCH (07:30)
[2019-01-14] MEDS: metoprolol tartrate 50mg tablet PO SCH ×2 (07:31→20:17)
[2019-01-14] MEDS: gemfibrozil 600mg tablet PO SCH (07:31)
[2019-01-14] MEDS: rivaroxaban 20mg tablet PO SCH (07:31)
[2019-01-14] MEDS: amLODIPine 5mg tablet PO SCH (07:32)
[2019-01-14] MEDS: metFORMIN 500mg tablet PO SCH ×2 (07:32→20:17)
[2019-01-14] MEDS: gabapentin 300mg capsule PO SCH ×3 (07:32→20:18)
[2019-01-14] MEDS: lisinopril 10 MG tablet PO SCH ×2 (07:33→20:17)
[2019-01-14] MEDS: venlafaxine XR 37.5mg cap (Q24H) PO SCH (07:33)
[2019-01-14] MEDS: venlafaxine XR 75mg capsule (Q24H) PO SCH (07:40)
--- NOTE | 2019-01-14 12:24 | NUR ---
COLLATERAL: SW assisted pt in completing an JERRI for [facility] to communicate w/ SSA regarding income and benefits. MOIZ faxed completed JERRI to Ananda Denise. Danielle Caal, Pump Installation And Servicer SOCIOLOGY FACULTY MEMBER [id number] Supervised by Mickey Esteves, [id number]
[2019-01-14] MEDS: LORazepam 1 MG tablet PO PRN ×2 (13:35→20:23)
[2019-01-14] MEDS: acetaminophen 325mg tablet PO PRN (13:35)
--- NOTE | 2019-01-14 14:10 | NUR ---
Progress Note: Ernie Chung Legal hold: Voluntary Client on voluntary DTS Report received from [facility] nurse with use of SBAR: Why are they here: Patient self presented to the the ER with suicidal ideation, and a plan to, "buy a lot of razor blades and cut myself up until I bled to ." Patient has been in [place] for five months. Came out here by train from the [facility]. "I couldn't take the weather in [place] anymore." Went to [facility] to live "but there was no place for me to stay," and he was homeless. He reports that his depression has increased over the last few weeks, and he has not Assessment What has happened this shift: Pt. asleep to start shift. Aroused easily and was compliant with assessment and medication. This morning, client denies hearing voices and readily contracted for safe behaviors on unit. Client appears to be focused on discharge and requests information at frequent intervals. Did not attend group activities today. S/I, H/I: Denies A/VH: Pt. endorses ongoing A/TAYLOR, but reports he cannot really understand what they are saying, he does not appear to be responding to internal stimuli. Sleep: 6.25 hour on Noc shift ADL's: Requires some prompts from staff. Group attendance: Pt. reports he does not attend most groups because he has trouble focusing Were meds taken: Yes Any med S/E: no
[2019-01-14 19:55] VITALS: BP 163/87
[2019-01-14] MEDS: aripiprazole 5mg tablet PO SCH (20:18)
[2019-01-14] MEDS: traZODone 50mg tablet PO SCH (20:18)
[2019-01-14 21:30] VITALS: BP 140/70
--- NOTE | 2019-01-14 23:44 | NUR ---
Nursing Progress Note: Legal hold: Voluntary Client on voluntary DTS Report received from nurse with use of SBAR: ANAIS Gonzalez Why are they here: Patient self presented to the the ER with suicidal ideation, and a plan to, "buy a lot of razor blades and cut myself up until I bled to ." Patient has been in [place] for five months. Came out here by train from the state of [place]. "I couldn't take the weather in [place] anymore." Went to [facility] to live "but there was no place for me to stay," and he was homeless. He reports that his depression has increased over the last few weeks, and he has not been able to perform his ADLs. Pt. also reports command A/H, and multiple psychiatric hospitalizations. Patient is morbidly obese and suffers from multiple medical problems. Assessment What has happened this shift: Pt. sitting in bed at the beginning of the shift reading his journal, and continued to isolate here throughout the shift. 1:1 completed at bedside, he continues to present as cooperative, but withdrawn. He denies S/I, he states, "It's gone away." Pt. reports his depression is a lot better and he feels the medications are helping, however he continues to experience Anxiety 5/10, PRN Ativan administered with effectiveness. When questioned by this senior copywriter regarding triggers, pt. states, "My emotions are frail, I get upset when things don't work out." He admits that when he initially tried to find housing in [facility] and it did not work out, he was triggered. However, pt. is looking forward to finding a Board & Care in at [facility], and continues to actively fill out paperwork. Pt. endorses ongoing A/TAYLOR, but denies command H/A and states, "They are generally positive." He also reports V/TAYLOR which he describes as a dot that zooms across his line of sight. Pt. again requests PRN Tylenol and Ativan r/t chronic pain from degenerative disk disease, administered with effectiveness. Scheduled BP medication administered with good effect. Pt. appears to be resting comfortably, CPAP machine in use. S/I, H/I: Denies A/VH: Ongoing A/TAYLOR, but denies command H/A and states, "They are generally positive." He also reports V/TAYLOR which he describes as a dot that zooms across his line of sight. Sleep: Appears to be sleeping well, CPAP machine in use ADL's: Requires some encouragement from staff Group attendance: Pt. did not attend groups today Were meds taken: Yes Any med S/E: no Mental Status Exam Appearance: Neat and appropriately dressed, appears older than stated age Eye contact: Good Behavior: Cooperative, but withdrawn Speech: Soft, responds only to questions Mood: Depressed, slightly anxious at times Affect: Constricted Thought process: WNL, poverty of thought Thought Content: A/V/TAYLOR and preoccupation with depressed thoughts and anxieties Cognition: A&O Insight: Fair Judgment: Fair Interventions PRN's used: Ativan X1, Tylenol X1 Therapeutic interventions: Maintained a safe and therapeutic environment, ensured contract for safety, provided clear and simple instructions, reoriented to reality as needed, monitored behavior and need for intervention, encouraged independent performance of ADLs, and maintained Q 15 min safety checks. Restraints/seclusion/emergency medication: N/A Justification of Continued Inpatient Treatment: Pt. requires ongoing stabilization, medication adjustments, and a safe and supportive environment. He is currently looking into finding a Board and Care in [facility].
[2019-01-15] MEDS: rivaroxaban 20mg tablet PO SCH (07:56)
[2019-01-15] MEDS: gabapentin 300mg capsule PO SCH ×3 (07:57→20:56)
[2019-01-15] MEDS: metoprolol tartrate 50mg tablet PO SCH ×2 (07:57→20:58)
[2019-01-15] MEDS: gemfibrozil 600mg tablet PO SCH (07:57)
[2019-01-15] MEDS: venlafaxine XR 37.5mg cap (Q24H) PO SCH (07:57)
[2019-01-15] MEDS: venlafaxine XR 75mg capsule (Q24H) PO SCH (07:57)
[2019-01-15] MEDS: metFORMIN 500mg tablet PO SCH ×2 (07:57→20:57)
[2019-01-15] MEDS: lisinopril 10 MG tablet PO SCH ×2 (07:58→20:57)
[2019-01-15] MEDS: amLODIPine 5mg tablet PO SCH (07:58)
[2019-01-15] MEDS: nicotine 21mg patch - 24 hr TD SCH (07:58)
[2019-01-15 08:15] VITALS: BP 153/98
[2019-01-15] MEDS: acetaminophen 325mg tablet PO PRN ×2 (11:19→19:41)
[2019-01-15] MEDS: LORazepam 1 MG tablet PO PRN ×2 (11:19→19:41)
--- NOTE | 2019-01-15 16:26 | NUR ---
Nursing Progress Note: Legal hold: Voluntary Client on voluntary DTS Report received from nurse with use of SBAR: ANABELA Pichardo Why are they here: Patient self presented to the the ER with suicidal ideation, and a plan to, "buy a lot of razor blades and cut myself up until I bled to ." Patient has been in [place] for five months. Came out here by train from the state of [place]. "I couldn't take the weather in [place] anymore." Went to [facility] to live "but there was no place for me to stay," and he was homeless. He reports that his depression has increased over the last few weeks, and he has not been able to perform his ADLs. Pt. also reports command A/H, and multiple psychiatric hospitalizations. Patient is morbidly obese and suffers from multiple medical problems. Assessment What has happened this shift: Pt was sleeping at change of shift. He was compliant with medication administration and cooperative with assessment. He indicated he was a little depressed and a little anxious. He described visual hallucinations comprised of images of people running back and forth. He indicated he has auditory hallucinations, but the voices are benign. Before lunch he reported increasing anxiety and Ativan was administered. Coping skills were discussed and he shared that journaling and medication are helpful for his anxiety. He requested a check of his blood sugar and it was 109 at 1230. S/I, H/I: Denies A/VH: Reports both auditory and visual hallucinations Sleep: No sleep during the day ADL's: With prompting Group attendance: No Were meds taken: Yes Any med S/E: no Mental Status Exam Appearance: Neat and clean Eye contact: Direct Behavior: Isolates, but is cooperative Speech: Normal rate and rhythm Mood: Mild depression and anxiety Affect: Constricted Thought process: Linear Thought Content: Concerned about paperwork Cognition: A&Ox4 Insight: Fair Judgment: Fair Interventions PRN's used: Ativan X1, Tylenol X1 Therapeutic interventions: Maintained a safe and therapeutic environment, active listening, provided therapeutic milieu, monitored behavior and need for intervention, encouraged independent performance of ADLs, and maintained Q 15 min safety checks. Restraints/seclusion/emergency medication: N/A Justification of Continued Inpatient Treatment: Pt. requires ongoing stabilization, medication adjustments, and a safe and supportive environment. He is currently looking into finding a Board and Care in [facility].
[2019-01-15 20:00] VITALS: BP 158/85
[2019-01-15] MEDS: traZODone 50mg tablet PO SCH (20:56)
[2019-01-15] MEDS: aripiprazole 5mg tablet PO SCH (20:58)
--- NOTE | 2019-01-15 23:42 | NUR ---
Nursing Progress Note: Legal hold: Voluntary Client on voluntary DTS Report received from nurse with use of SBAR: ANAIS Gonzalez Why are they here: Patient self presented to the the ER with suicidal ideation, and a plan to, "buy a lot of razor blades and cut myself up until I bled to ." Patient has been in [place] for five months. Came out here by train from the [facility]. "I couldn't take the weather in [place] anymore." Went to [facility] to live "but there was no place for me to stay," and he was homeless. He reports that his depression has increased over the last few weeks, and he has not been able to perform his ADLs. Pt. also reports command A/H, and multiple psychiatric hospitalizations. Patient is morbidly obese and suffers from multiple medical problems. Assessment What has happened this shift: Pt. sitting in bed at the beginning of the shift reading his journal, and continued to isolate here throughout the shift. Pt. reporting a headache and anxiety /10, PRN Tylenol and Ativan administered with effectiveness. 1:1 completed later at bedside, he continues deny S/I, but reports decreased depression. Anxiety level re-evaluated, and pt. now rates anxiety at 3/10, he is not visibly anxious. Pt. continues to endorse ongoing A/TAYLOR, however states, "They give me positive encouragement." He denies V/TAYLOR this shift. This radio script writer questioned pt. regarding if he would like to take a shower, but pt. reported he had taken one this morning. Pt. appears to be resting comfortably, CPAP machine in use. S/I, H/I: Denies A/VH: Ongoing A/TAYLOR, but denies V/TAYLOR Sleep: Appears to be sleeping well, CPAP machine in use ADL's: Requires some encouragement from staff, reports he took a shower this morning Group attendance: Pt. did not attend groups today, reports he has difficulty focusing on the material Were meds taken: Yes Any med S/E: no Mental Status Exam Appearance: Neat and appropriately dressed, however somewhat malodorous. Reports he did shower today Eye contact: Good Behavior: Cooperative, but withdrawn and isolative Speech: Soft, responds only to questions Mood: Pleasant Affect: Constricted, however animates more with conversation Thought process: WNL, poverty of thought Thought Content: A/TAYLOR and preoccupation with continued anxieties and D/C plans Cognition: A&O Insight: Fair Judgment: Fair Interventions PRN's used: Ativan X1, Tylenol X1 Therapeutic interventions: Maintained a safe and therapeutic environment, ensured contract for safety, provided clear and simple instructions, reoriented to reality as needed, monitored behavior and need for intervention, encouraged independent performance of ADLs, provided positive encouragement, and maintained Q 15 min safety checks. Restraints/seclusion/emergency medication: N/A Justification of Continued Inpatient Treatment: Pt. requires a safe and supportive environment. He is currently looking into finding a Board and Care in [facility].
[2019-01-16] MEDS: gabapentin 300mg capsule PO SCH ×3 (07:31→20:33)
[2019-01-16] MEDS: venlafaxine XR 75mg capsule (Q24H) PO SCH (07:31)
[2019-01-16] MEDS: metFORMIN 500mg tablet PO SCH ×2 (07:31→20:33)
[2019-01-16] MEDS: venlafaxine XR 37.5mg cap (Q24H) PO SCH (07:32)
[2019-01-16] MEDS: gemfibrozil 600mg tablet PO SCH (07:32)
[2019-01-16] MEDS: amLODIPine 5mg tablet PO SCH (07:32)
[2019-01-16] MEDS: rivaroxaban 20mg tablet PO SCH (07:33)
[2019-01-16] MEDS: metoprolol tartrate 50mg tablet PO SCH ×2 (07:33→20:33)
[2019-01-16] MEDS: lisinopril 10 MG tablet PO SCH ×2 (07:33→20:34)
[2019-01-16] MEDS: nicotine 21mg patch - 24 hr TD SCH (07:34)
[2019-01-16 08:00] VITALS: BP 120/75
[2019-01-16] MEDS: LORazepam 1 MG tablet PO PRN ×2 (13:33→19:25)
--- NOTE | 2019-01-16 18:12 | NUR ---
Nursing Progress Note: Legal hold: Voluntary Client on voluntary DTS Report received from nurse ANABELA Parry with use of SBAR Why are they here: Patient self presented to the the ER with suicidal ideation, and a plan to, "buy a lot of razor blades and cut myself up until I bled to ." Patient has been in [place] for five months. Came out here by train from the state of [place]. "I couldn't take the weather in [place] anymore." Went to [facility] to live "but there was no place for me to stay," and he was homeless. He reports that his depression has increased over the last few weeks, and he has not been able to perform his ADLs. Pt. also reports command A/H, and multiple psychiatric hospitalizations. Patient is morbidly obese and suffers from multiple medical problems. Assessment What has happened this shift: Pt sleeping up until breakfast. He is medication compliant throughout the shift. He states, I have no motivation to do anything, like I know this room is a mess but I just do not have the energy to clean it. Pt agreed to talk to his doctor today about his depression. He declined a shower stating he took one yesterday. S/I, H/I: Denies A/VH: Reports both auditory and visual hallucinations Sleep: No sleep during the day ADL's: Declined Group attendance: No Were meds taken: Yes Any med S/E: None noted or reported Mental Status Exam Appearance: Needs to shave; and put on clean clothes but did not want to shower today. Eye contact: Direct Behavior: Isolates, but is cooperative Speech: Normal rate and rhythm Mood: Mild depression and anxiety Affect: Constricted Thought process: Linear Thought Content: Depressed over lack of energy and motivation Cognition: A&Ox4 Insight: Fair Judgment: Fair Interventions PRN's used: Ativan PO x1 Therapeutic interventions: 1:1 assessment; provided therapeutic communication and active listening, medication administration/monitoring/education, encouragement to perform self care/personal hygiene and attend groups, Q 15 min safety checks. Restraints/seclusion/emergency medication: N/A Justification of Continued Inpatient Treatment: Pt. requires ongoing stabilization, medication adjustments, and a safe and supportive environment. He is currently looking into finding a Board and Care in [facility].
[2019-01-16 20:00] VITALS: BP 180/105
[2019-01-16] MEDS: aripiprazole 5mg tablet PO SCH (20:33)
[2019-01-16] MEDS: traZODone 50mg tablet PO SCH (20:34)
--- NOTE | 2019-01-17 02:15 | NUR ---
Nursing Progress Note: Legal hold: Voluntary Client on voluntary DTS Report received from nurse with use of SBAR: ANAIS Gonzalez Why are they here: Patient self presented to the the ER with suicidal ideation, and a plan to, "buy a lot of razor blades and cut myself up until I bled to ." Patient has been in [place] for five months. Came out here by train from the [facility]. "I couldn't take the weather in [place] anymore." Went to [facility] to live "but there was no place for me to stay," and he was homeless. He reports that his depression has increased over the last few weeks, and he has not been able to perform his ADLs. Pt. also reports command A/H, and multiple psychiatric hospitalizations. Patient is morbidly obese and suffers from multiple medical problems. Assessment What has happened this shift: Pt is sitting quietly in his bed cross legged at shift change. PT is pleasant on approach and cooperative with physical assessment. He says that he no longer feels suicidal but has still been feeling "pretty depressed" at a 6 out of 10 scale. He also states he has been feeling very anxious regarding his discharge because," I am just not sure what exactly is happening so that gives me a lot of anxiety." Pt requested his PRN ativan, which he was given. S/I, H/I: Denies A/VH: Ongoing A/TAYLOR, but denies V/TAYLOR Sleep: Appears to be sleeping well, CPAP machine in use ADL's: Requires some encouragement from staff, reports he took a shower this morning Group attendance: Pt. did not attend groups today, reports he has difficulty focusing on the material Were meds taken: Yes Any med S/E: no Mental Status Exam Appearance:clean, groomed Eye contact: fair Behavior: Cooperative, isolative Speech: Soft, responds only to questions Mood: Pleasant Affect: Constricted, however animates more with conversation Thought process: WNL, poverty of thought Thought Content: A/TAYLOR and preoccupation with continued anxieties and D/C plans Cognition: A&O Insight: Fair Judgment: Fair Interventions PRN's used: Ativan X1 Therapeutic interventions: Maintained a safe and therapeutic environment, ensured contract for safety, provided clear and simple instructions, reoriented to reality as needed, monitored behavior and need for intervention, encouraged independent performance of ADLs, provided positive encouragement, and maintained Q 15 min safety checks. Restraints/seclusion/emergency medication: N/A Justification of Continued Inpatient Treatment: Pt. requires a safe and supportive environment. He is currently looking into finding a Board and Care in [facility].
[2019-01-17] MEDS: metFORMIN 500mg tablet PO SCH ×2 (07:45→20:09)
[2019-01-17] MEDS: lisinopril 10 MG tablet PO SCH ×2 (07:46→20:09)
[2019-01-17] MEDS: rivaroxaban 20mg tablet PO SCH (07:46)
[2019-01-17] MEDS: gabapentin 300mg capsule PO SCH ×3 (07:46→20:09)
[2019-01-17] MEDS: amLODIPine 5mg tablet PO SCH (07:46)
[2019-01-17] MEDS: venlafaxine XR 37.5mg cap (Q24H) PO SCH (07:46)
[2019-01-17] MEDS: gemfibrozil 600mg tablet PO SCH (07:46)
[2019-01-17] MEDS: nicotine 21mg patch - 24 hr TD SCH (07:47)
[2019-01-17] MEDS: venlafaxine XR 75mg capsule (Q24H) PO SCH (07:56)
[2019-01-17] MEDS: metoprolol tartrate 50mg tablet PO SCH ×2 (07:57→20:09)
[2019-01-17 09:18] VITALS: BP 136/87
[2019-01-17] MEDS: LORazepam 1 MG tablet PO PRN (12:22)
[2019-01-17] MEDS: acetaminophen 325mg tablet PO PRN ×2 (12:23→20:10)
--- NOTE | 2019-01-17 16:31 | NUR ---
Nursing Progress Note: Legal hold: Voluntary Client on voluntary DTS Report received from nurse ANABELA Pan with use of SBAR Why are they here: Patient self presented to the the ER with suicidal ideation, and a plan to, "buy a lot of razor blades and cut myself up until I bled to ." Patient has been in [place] for five months. Came out here by train from the state [facility]. "I couldn't take the weather in [place] anymore." Went to [facility] to live "but there was no place for me to stay," and he was homeless. He reports that his depression has increased over the last few weeks, and he has not been able to perform his ADLs. Pt. also reports command A/H, and multiple psychiatric hospitalizations. Patient is morbidly obese and suffers from multiple medical problems. Assessment What has happened this shift: Pt sleeping at start of shift. He reports depression is improving w/treatment of medications. He appears tearful when discussing living on his own sharing with this board writer he will need an [facility] worker in order to live on his own. Up for meals. Showered and clothes washed. He reports, "some improvement in my energy today." S/I, H/I: Denies A/VH: Reports both auditory and visual hallucinations Sleep: No sleep during the day ADL's: Showered today Group attendance: No Were Meds taken: Yes Any med S/E: None noted or reported Mental Status Exam Appearance: Change of clothes after shower. Eye contact: Direct Behavior: Isolates, but is cooperative Speech: Normal rate and rhythm Mood: Mild depression and anxiety Affect: Constricted Thought process: Linear Thought Content: Depressed over lack of energy and motivation Cognition: A&Ox4 Insight: Fair Judgment: Fair Interventions PRN's used: Ativan PO x1 Therapeutic interventions: 1:1 assessment; provided therapeutic communication and active listening, medication administration/monitoring/education, encouragement to perform self care/personal hygiene and attend groups, Q 15 min safety checks. Restraints/seclusion/emergency medication: N/A Justification of Continued Inpatient Treatment: Pt. requires ongoing stabilization, medication adjustments, and a safe and supportive environment. He is currently looking into finding a Board and Care in [facility].
[2019-01-17 19:55] VITALS: BP 168/98
[2019-01-17] MEDS: traZODone 50mg tablet PO SCH (20:10)
[2019-01-17] MEDS: aripiprazole 5mg tablet PO SCH (20:10)
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
[2019-01-18] MEDS: metFORMIN 500mg tablet PO SCH ×2 (07:53→20:50)
[2019-01-18] MEDS: amLODIPine 5mg tablet PO SCH (07:53)
[2019-01-18] MEDS: venlafaxine XR 75mg capsule (Q24H) PO SCH (07:53)
[2019-01-18] MEDS: metoprolol tartrate 50mg tablet PO SCH ×2 (07:53→20:00)
[2019-01-18] MEDS: gemfibrozil 600mg tablet PO SCH (07:54)
[2019-01-18] MEDS: gabapentin 300mg capsule PO SCH ×3 (07:54→20:51)
[2019-01-18] MEDS: lisinopril 10 MG tablet PO SCH ×2 (07:54→20:50)
[2019-01-18] MEDS: venlafaxine XR 37.5mg cap (Q24H) PO SCH (07:54)
[2019-01-18] MEDS: rivaroxaban 20mg tablet PO SCH (07:55)
[2019-01-18] MEDS: nicotine 21mg patch - 24 hr TD SCH (07:55)
[2019-01-18 08:00] VITALS: BP 128/68
[2019-01-18] MEDS: acetaminophen 325mg tablet PO PRN (13:18)
[2019-01-18] MEDS: LORazepam 1 MG tablet PO PRN ×2 (13:18→20:50)
--- NOTE | 2019-01-18 16:50 | NUR ---
Nursing Progress Note: Legal hold: Voluntary Client on voluntary DTS Report received from nurse ANABELA Lemons with use of SBAR Why are they here: Patient self presented to the the ER with suicidal ideation, and a plan to, "buy a lot of razor blades and cut myself up until I bled to ." Patient has been in [place] for five months. Came out here by train from the [facility]. "I couldn't take the weather in [place] anymore." Went to [facility] to live "but there was no place for me to stay," and he was homeless. He reports that his depression has increased over the last few weeks, and he has not been able to perform his ADLs. Pt. also reports command A/H, and multiple psychiatric hospitalizations. Patient is morbidly obese and suffers from multiple medical problems. Assessment What has happened this shift: Pt sleeping at start of shift. He reports depression 09/30 verses on admit 04/01. He attended both groups. He is compliant with medications and treatment. S/I, H/I: Denies A/VH: Reports both auditory and visual hallucinations Sleep: No sleep during the day ADL's: Own clothing from yesterday Group attendance: Yes x2 Were Meds taken: Yes Any med S/E: None noted or reported Mental Status Exam Appearance: Change of clothes after shower. Eye contact: Direct Behavior: Isolates, but is cooperative Speech: Normal rate and rhythm Mood: Mild depression and anxiety Affect: Constricted Thought process: Linear Thought Content: Depressed over lack of energy and motivation Cognition: A&Ox4 Insight: Fair Judgment: Fair Interventions PRN's used: Ativan PO x1; tylenol PO x1 Therapeutic interventions: 1:1 assessment; provided therapeutic communication and active listening, medication administration/monitoring/education, encouragement to perform self care/personal hygiene and attend groups, Q 15 min safety checks. Restraints/seclusion/emergency medication: N/A Justification of Continued Inpatient Treatment: Pt. requires ongoing stabilization, medication adjustments, and a safe and supportive environment. He is currently looking into finding a Board and Care in [facility].
[2019-01-18 20:00] VITALS: BP 166/103
[2019-01-18] MEDS: traZODone 50mg tablet PO SCH (20:51)
[2019-01-18] MEDS: aripiprazole 5mg tablet PO SCH (20:51)
--- NOTE | 2019-01-18 23:34 | NUR ---
Nursing Progress Note: Legal hold: Voluntary Client on voluntary DTS Report received from nurse with use of SBAR: ANIAS Gonzalez Why are they here: Patient self presented to the the ER with suicidal ideation, and a plan to, "buy a lot of razor blades and cut myself up until I bled to ." Patient has been in [place] for five months. Came out here by train from the [facility]. "I couldn't take the weather in [place] anymore." Went to [facility] to live "but there was no place for me to stay," and he was homeless. He reports that his depression has increased over the last few weeks, and he has not been able to perform his ADLs. Pt. also reports command A/H, and multiple psychiatric hospitalizations. Patient is morbidly obese and suffers from multiple medical problems. Assessment What has happened this shift: Pt is sitting quietly in his bed cross legged at shift change. PT is pleasant on approach and cooperative with physical assessment.He says his depression and anxiety are at a 5/10 tonight. Pt requested his PRN ativan, which he was given. He feels like there is not much to do here and h states he can't remember what he learned about in groups today. He denies SI/HI/AH/VH S/I, H/I: Denies A/VH: denies Sleep: Appears to be sleeping well, CPAP machine in use ADL's: Requires some encouragement from staff, reports he took a shower this morning Group attendance: Pt. did not attend groups today, reports he has difficulty focusing on the material Were meds taken: Yes Any med S/E: no Mental Status Exam Appearance:clean, groomed Eye contact: fair Behavior: Cooperative, isolative Speech: Soft, responds only to questions Mood: Pleasant Affect: Constricted, however animates more with conversation Thought process: WNL, poverty of thought Thought Content: A/TAYLOR and preoccupation with continued anxieties and D/C plans Cognition: A&O Insight: Fair Judgment: Fair Interventions PRN's used: Ativan X1 Therapeutic interventions: Maintained a safe and therapeutic environment, ensured contract for safety, provided clear and simple instructions, reoriented to reality as needed, monitored behavior and need for intervention, encouraged independent performance of ADLs, provided positive encouragement, and maintained Q 15 min safety checks. Restraints/seclusion/emergency medication: N/A Justification of Continued Inpatient Treatment: Pt. requires a safe and supportive environment. He is currently looking into finding a Board and Care in [facility].
[2019-01-19 08:00] VITALS: BP 159/96
[2019-01-19] MEDS ORDERED: venlafaxine XR 37.5mg cap (Q24H) PO SCH (08:00)
[2019-01-19] MEDS: nicotine 21mg patch - 24 hr TD SCH (08:10)
[2019-01-19] MEDS: gemfibrozil 600mg tablet PO SCH (08:10)
[2019-01-19] MEDS: venlafaxine XR 75mg capsule (Q24H) PO SCH (08:10)
[2019-01-19] MEDS: metoprolol tartrate 50mg tablet PO SCH ×2 (08:11→20:10)
[2019-01-19] MEDS: rivaroxaban 20mg tablet PO SCH (08:11)
[2019-01-19] MEDS: lisinopril 10 MG tablet PO SCH ×2 (08:11→20:12)
[2019-01-19] MEDS: gabapentin 300mg capsule PO SCH ×3 (08:11→20:11)
[2019-01-19] MEDS: metFORMIN 500mg tablet PO SCH ×2 (08:11→20:10)
[2019-01-19] MEDS: amLODIPine 5mg tablet PO SCH (08:11)
--- NOTE | 2019-01-19 11:35 | NUR ---
reassessment: Pt PO 100% carb controlled diet meeting needs. [facility] 01/16. Will continue to monitor. Addendum: 01/19/19 at [address] Amended: Links added.
--- NOTE | 2019-01-19 12:06 | NUR ---
Nursing Progress Note: Legal hold: Voluntary Client on voluntary DTS Report received from nurse with use of SBAR: ANAIS Duncan Why are they here: Patient self presented to the the ER with suicidal ideation, and a plan to, "buy a lot of razor blades and cut myself up until I bled to ." Patient has been in [place] for five months. Came out here by train from the [facility]. "I couldn't take the weather in [place] anymore." Went to [facility] to live "but there was no place for me to stay," and he was homeless. He reports that his depression has increased over the last few weeks, and he has not been able to perform his ADLs. Pt. also reports command A/H, and multiple psychiatric hospitalizations. Patient is morbidly obese and suffers from multiple medical problems. Assessment What has happened this shift: The patient is asleep at change of shift, he is up to breakfast with peers and states he feels "fine" today. Isolates to room and sits cross legged and meditating when not in groups or having meals. He also naps throughout day. Reports "I will be leaving on Friday, they are getting me a place to live back in [facility], I have to pay for it though." He denies SI/HI/AH/VH. S/I, H/I: Denies A/VH: Denies Sleep: Naps ADL's: Requires some encouragement from staff Group attendance: Yes Were meds taken: Yes Any med S/E: no Mental Status Exam Appearance: disheveled Eye contact: fair Behavior: Cooperative, isolative Speech: Soft, responds only to questions Mood: Pleasant Affect: Constricted, however animates more with conversation Thought process: poverty of thought Thought Content: A/TAYLOR and preoccupation with continued anxieties and D/C plans Cognition: A&O Insight: Fair Judgment: Fair Interventions PRN's used: None Therapeutic interventions: Maintained a safe and therapeutic environment, ensured contract for safety, provided clear and simple instructions, reoriented to reality as needed, monitored behavior and need for intervention, encouraged independent performance of ADLs, provided positive encouragement, and maintained Q 15 min safety checks. Restraints/seclusion/emergency medication: N/A Justification of Continued Inpatient Treatment: Pt. requires a safe and supportive environment. He is currently looking into finding a Board and Care in [facility].
[2019-01-19] MEDS: LORazepam 1 MG tablet PO PRN (16:56)
[2019-01-19] MEDS: acetaminophen 325mg tablet PO PRN (16:57)
[2019-01-19 19:33] VITALS: BP 171/106
[2019-01-19] MEDS: hyDRALAzine 10mg tablet PO PRN (20:11)
[2019-01-19] MEDS: traZODone 50mg tablet PO SCH (20:12)
[2019-01-19] MEDS: aripiprazole 5mg tablet PO SCH (20:14)
--- NOTE | 2019-01-19 23:06 | NUR ---
Nursing Progress Note: Legal hold: Voluntary Client on voluntary DTS Report received from nurse with use of SBAR: ANAIS Hooker Why are they here: Patient self presented to the the ER with suicidal ideation, and a plan to, "buy a lot of razor blades and cut myself up until I bled to ." Patient has been in [place] for five months. Came out here by train from the [facility]. "I couldn't take the weather in [place] anymore." Went to [facility] to live "but there was no place for me to stay," and he was homeless. He reports that his depression has increased over the last few weeks, and he has not been able to perform his ADLs. Pt. also reports command A/H, and multiple psychiatric hospitalizations. Patient is morbidly obese and suffers from multiple medical problems. Assessment What has happened this shift: The patient was seen in his room reading. He is alert and oriented and very pleasant and cooperative with the evening assessment. He stated that his symptoms have much improved since admit. He stated that his mood was "much better" He denies problems with concentration and focus. He reports his sleep is good. Denies problems with appetite and that his overall energy level was good as well. He denies any active or passive suicidal thoughts. When asked about anxiety he stated "It's winding down" He continues to report voices and stated, "But it's all good" but that he hears them all the time. During the evening assessment he did not appear distracted by internal stimuli. He denies pain or side effects to medications. S/I, H/I: Denies A/VH: reports voices Sleep: ADL's: Requires some encouragement from staff. Last shower on 01/18 Group attendance: Were meds taken: Yes Any med S/E: no Mental Status Exam Appearance: disheveled Eye contact: fair Behavior: Cooperative, isolative Speech: Soft, responds only to questions Mood: Pleasant Affect: Constricted, however animates more with conversation Thought process: poverty of thought Thought Content: A/TAYLOR and preoccupation with continued anxieties and D/C plans Cognition: A&O Insight: Fair Judgment: Fair Interventions PRN's used: Apresoline for SBP 171 Therapeutic interventions: Maintained a safe and therapeutic environment, ensured contract for safety, provided clear and simple instructions, reoriented to reality as needed, monitored behavior and need for intervention, encouraged independent performance of ADLs, provided positive encouragement, and maintained Q 15 min safety checks. Restraints/seclusion/emergency medication: N/A Justification of Continued Inpatient Treatment: Pt. requires a safe and supportive environment. He is currently looking into finding a Board and Care in [facility].
[2019-01-20] MEDS: metFORMIN 500mg tablet PO SCH ×2 (08:02→20:34)
[2019-01-20] MEDS: venlafaxine XR 75mg capsule (Q24H) PO SCH (08:02)
[2019-01-20] MEDS: lisinopril 10 MG tablet PO SCH ×2 (08:03→20:34)
[2019-01-20] MEDS: amLODIPine 5mg tablet PO SCH (08:03)
[2019-01-20] MEDS: gabapentin 300mg capsule PO SCH ×3 (08:04→20:35)
[2019-01-20] MEDS: rivaroxaban 20mg tablet PO SCH (08:04)
[2019-01-20] MEDS: gemfibrozil 600mg tablet PO SCH (08:04)
[2019-01-20] MEDS: metoprolol tartrate 50mg tablet PO SCH ×2 (08:05→20:34)
[2019-01-20] MEDS: nicotine 21mg patch - 24 hr TD SCH (08:08)
[2019-01-20 08:14] VITALS: BP 113/62
[2019-01-20] MEDS ORDERED: BUPIVAcaine/PF 2.5 mg/ml (0.25%) 30ml vial ONE (09:37)
[2019-01-20] MEDS ORDERED: ceFAZolin 1000mg inj ONE (09:37)
[2019-01-20] MEDS: LORazepam 1 MG tablet PO PRN (12:22)
[2019-01-20] MEDS: acetaminophen 325mg tablet PO PRN (12:23)
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
[2019-01-20 19:53] VITALS: BP 163/46
[2019-01-20 20:00] VITALS: BP 160/80
[2019-01-20] MEDS: aripiprazole 5mg tablet PO SCH (20:35)
[2019-01-20] MEDS: traZODone 50mg tablet PO SCH (20:35)
[2019-01-20 21:30] VITALS: BP 120/70
--- NOTE | 2019-01-21 00:52 | NUR ---
Nursing Progress Note: Legal hold: Voluntary Client on voluntary DTS Report received from nurse with use of SBAR: ANAIS Apodaca Why are they here: Patient self presented to the the ER with suicidal ideation, and a plan to, "buy a lot of razor blades and cut myself up until I bled to ." Patient has been in [place] for five months. Came out here by train from the [facility]. "I couldn't take the weather in [place] anymore." Went to [facility] to live "but there was no place for me to stay," and he was homeless. He reports that his depression has increased over the last few weeks, and he has not been able to perform his ADLs. Pt. also reports command A/H, and multiple psychiatric hospitalizations. Patient is morbidly obese and suffers from multiple medical problems. Assessment What has happened this shift: Pt. sitting in bed at the beginning of the shift reading his journal, however attends HS snack later in the Group Room where he interacts minimally with others. 1:1 completed later at bedside, pt. continues to be withdrawn, but does animate with conversation. He continues deny S/I, and states, "My depression is under control." No reports of anxiety or pain this shift, and pt. reports he believes his anxiety to be related to his chronic back pain. Pt. continues to endorse ongoing A/TAYLOR, however states, "They tell me good things, I think it's a way of life for me." No reports of V/TAYLOR or delusional statements made this shift. He reports he feels ready to leave on Friday, but is a little anxious about it. BP somewhat elevated prior to HS medications, however following med administration was WNL. Pt. appears to be resting comfortably, CPAP machine in use. S/I, H/I: Denies A/VH: Ongoing A/TAYLOR, but denies V/TAYLOR Sleep: Appears to be sleeping well, CPAP machine in use ADL's: Requires some encouragement from staff, reports he took a shower this morning Group attendance: Pt. reports he has been attending groups Were meds taken: Yes Any med S/E: no Mental Status Exam Appearance: Neat and appropriately dressed. Per AM report, pt. showered this morning Eye contact: Good Behavior: Cooperative, somewhat guarded Speech: Soft, minimal, however animates with conversation Mood: Pleasant Affect: Blunted, however animates with conversation Thought process: WNL, poverty of thought Thought Content: A/TAYLOR and anxiety r/t D/C plans Cognition: A&O x4 Insight: Fair Judgment: Fair Interventions PRN's used: None Therapeutic interventions: Maintained a safe and therapeutic environment, ensured contract for safety, provided clear and simple instructions, monitored behavior and need for intervention, encouraged independent performance of ADLs, provided positive encouragement, and maintained Q 15 min safety checks. Restraints/seclusion/emergency medication: N/A Justification of Continued Inpatient Treatment: Pt. requires a safe and supportive environment. He will possibly discharge on Friday pending [facility], and will require housing.
[2019-01-21] MEDS: amLODIPine 5mg tablet PO SCH (07:47)
[2019-01-21] MEDS: venlafaxine XR 75mg capsule (Q24H) PO SCH (07:47)
[2019-01-21] MEDS: lisinopril 10 MG tablet PO SCH ×2 (07:48→20:30)
[2019-01-21] MEDS: gabapentin 300mg capsule PO SCH ×3 (07:48→20:30)
[2019-01-21] MEDS: gemfibrozil 600mg tablet PO SCH (07:48)
[2019-01-21] MEDS: rivaroxaban 20mg tablet PO SCH (07:48)
[2019-01-21] MEDS: metFORMIN 500mg tablet PO SCH ×2 (07:48→20:28)
[2019-01-21] MEDS: nicotine 21mg patch - 24 hr TD SCH (07:50)
[2019-01-21] MEDS: metoprolol tartrate 50mg tablet PO SCH ×2 (07:57→20:29)
[2019-01-21 07:58] VITALS: BP 156/81
[2019-01-21 08:00] VITALS: BP 156/81
[2019-01-21] MEDS: acetaminophen 325mg tablet PO PRN (13:17)
[2019-01-21] MEDS: LORazepam 1 MG tablet PO PRN (13:17)
--- NOTE | 2019-01-21 14:06 | NUR ---
Nursing Progress Note: Ernie Chung Legal hold: Voluntary Client on voluntary DTS Report received from nurse with use of SBAR: ANAIS Lemons Why are they here: Patient self presented to the the ER with suicidal ideation, and a plan to, "buy a lot of razor blades and cut myself up until I bled to ." Patient has been in [place] for five months. Came out here by train from the [facility]. "I couldn't take the weather in [place] anymore." Went to [facility] to live "but there was no place for me to stay," and he was homeless. He reports that his depression has increased over the last few weeks, and he has not been able to perform his ADLs. Pt. also reports command A/H, and multiple psychiatric hospitalizations. Patient is morbidly obese and suffers from multiple medical problems. Assessment What has happened this shift: Pt. sitting in bed at the beginning of the shift reading his journal. States he slept well, denies SI, HI. Compliant with 1:1 assessment. Unfortunately roommate attempted to flush entire roll of TP down toilet and he was in need of some tissue. Following group, patient c/o increased anxiety. When asked to rate his level of anxiety, patient stated it starts in his hip and radiates to his back. Again this marine underwriter asked the patient to rate the anxiety rather than pain and he again stated it starts in his hip and radiates to his back. Patient did discuss feeling nervous about his discharge to [facility] tomorrow not understanding why he was feeling this way. S/I, H/I: Denies A/VH: Ongoing A/TAYLOR, but denies V/TAYLOR Sleep: 8 ADL's: Requires some encouragement from staff, reports he took a shower this morning Group attendance: Yes Were meds taken: Yes Any med S/E: no Mental Status Exam Appearance: Neat and appropriately dressed. Eye contact: Good Behavior: Cooperative, somewhat guarded Speech: Soft, minimal, however animates with conversation Mood: Pleasant Affect: congruent with mood Thought process: Linear Thought Content: A/TAYLOR and anxiety r/t D/C plans Cognition: A&O x4 Insight: Fair Judgment: Fair Interventions PRN's used: Tylenol and Ativan Therapeutic interventions: Maintained a safe and therapeutic environment, ensured contract for safety, provided clear and simple instructions, monitored behavior and need for intervention, encouraged independent performance of ADLs, provided positive encouragement, and maintained Q 15 min safety checks. Restraints/seclusion/emergency medication: N/A Justification of Continued Inpatient Treatment: Pt. requires a safe and supportive environment. He will possibly discharge on Friday pending [facility], and will require housing.
[2019-01-21] MEDS ORDERED: LISI10TA4 PO (14:46)
[2019-01-21] MEDS ORDERED: TRAZ-219 PO (14:46)
[2019-01-21] MEDS ORDERED: VENL150T3 PO (14:46)
[2019-01-21] MEDS ORDERED: RIVA20TA PO (14:46)
[2019-01-21] MEDS ORDERED: NICO-687 TD (14:46)
[2019-01-21] MEDS ORDERED: METO50TA16 PO (14:46)
[2019-01-21] MEDS ORDERED: METF-950 PO (14:46)
[2019-01-21] MEDS ORDERED: GEMF600T PO (14:46)
[2019-01-21] MEDS ORDERED: GABA600T13 PO (14:46)
[2019-01-21] MEDS ORDERED: NOR5T PO (14:46)
[2019-01-21] MEDS ORDERED: ARIP5TAB60 PO (14:46)
--- NOTE | 2019-01-21 15:17 | NUR ---
DISCHARGE PLANNING: Transportation from [facility] will be here to mushroom picker pt at 8am. [facility] will need to delivery medication today, 01/21/2019. Pt should have money for any co-pay as today being the first. Spoke pamella Malave from [facility] and he said if possible have doctor sign med rec as pt may go directly to [facility], but pt will probably stay in motel for 1-2 nights so not mandatory. New psyc appt. confirmed and noted in D/C section. NATE Jeffers Addendum: 01/21/19 at 1732 by Yanira REYNOLDS Spoke pamella Malave from [facility] and they will make sure patient is able to get his medications tomorrow, and would like the meds called into [facility] @ [phone] (fax: [phone]). They will also get pt signed up for full partner coverage tomorrow insuring future med coverage. They will be here at 8:00am as planned for pickup. NATE Jeffers
[2019-01-21 20:00] VITALS: BP 166/100
[2019-01-21] MEDS: traZODone 50mg tablet PO SCH (20:28)
[2019-01-21] MEDS: aripiprazole 5mg tablet PO SCH (20:30)
--- NOTE | 2019-01-21 23:14 | NUR ---
Nursing Progress Note: Ernie Chung Legal hold: Voluntary Client on voluntary DTS Report received from ANAIS Tucker with use of SBAR Why are they here: Patient self presented to the the ER with suicidal ideation, and a plan to, "buy a lot of razor blades and cut myself up until I bled to ." Patient has been in [place] for five months. Came out here by train from the [facility]. "I couldn't take the weather in [place] anymore." Went to [facility] to live "but there was no place for me to stay," and he was homeless. He reports that his depression has increased over the last few weeks, and he has not been able to perform his ADLs. Pt. also reports command A/H, and multiple psychiatric hospitalizations. Patient is morbidly obese and suffers from multiple medical problems. Assessment What has happened this shift: Patient sitting on his bed in the Edel position meditating. He is awake and well oriented. The patient states that he is happy to be discharged in the am. He does express some mild anxiety in the change of living conditions. He states that he is pleased that he will be afforded housing, in the interm of that housing [facility] is going to provide him with motel lodging. This patient denies H/I or S/I. He does not describe any audible hallucinations although the day shift notes documented this. S/I, H/I: Denies A/VH: Denies S/I or H/I. Sleep: Patient has slept a few hours as of the time of this writing. ADL's: Showered on day shift. Group attendance: Yes, on day shift. Were meds taken: Yes Any med S/E: no Mental Status Exam Appearance: Neat and appropriately dressed. Eye contact: Good Behavior: Cooperative, somewhat guarded Speech: Soft, minimal, however animates with conversation Mood: Pleasant Affect: congruent with mood Thought process: Linear Thought Content: Planning for discharge and future. Cognition: A&O x4 Insight: Fair Judgment: Good Interventions PRN's used: Tylenol and Ativan Therapeutic interventions: Maintained a safe and therapeutic environment, ensured contract for safety, provided clear and simple instructions, monitored behavior and need for intervention, encouraged independent performance of ADLs, provided positive encouragement, and maintained Q 15 min safety checks. Restraints/seclusion/emergency medication: N/A Justification of Continued Inpatient Treatment: Pt. requires a safe and supportive environment. He will possibly discharge on Friday pending [facility], and will require housing.
[2019-01-22] MEDS: gemfibrozil 600mg tablet PO SCH (07:21)
[2019-01-22] MEDS: amLODIPine 5mg tablet PO SCH (07:22)
[2019-01-22] MEDS: metFORMIN 500mg tablet PO SCH (07:22)
[2019-01-22] MEDS: gabapentin 300mg capsule PO SCH (07:22)
[2019-01-22] MEDS: lisinopril 10 MG tablet PO SCH (07:22)
[2019-01-22] MEDS: metoprolol tartrate 50mg tablet PO SCH (07:23)
[2019-01-22] MEDS: rivaroxaban 20mg tablet PO SCH (07:23)
[2019-01-22] MEDS: venlafaxine XR 75mg capsule (Q24H) PO SCH (07:23)
[2019-01-22] MEDS: nicotine 21mg patch - 24 hr TD SCH (07:26)
[2019-01-22 08:00] VITALS: BP 132/81
--- NOTE | 2019-01-22 10:41 | NUR ---
Nursing Discharge Note Patient discharged at 0745, left [facility] ambulatory and accompanied by Dolores Bernstein. Patient will be transported via [facility] drivers' cash clerk to a room and board with [facility]. Patients belongings inventoried with Dolores Bernstein and all valuables are taken with patient. No S&S of distress. Discharge instructions provided to patient, patient denies having any questions. Community Crisis service information and national suicide hotline handout given. Patient has been scheduled with [facility], Psychiatrist Dr. Madera on February 04 @ 10am. Patient has improved since admit and is not under any acute physical or emotional distress. Offered Nicotine replacement, patient refused.
== END 2019-01-22 07:45 | disposition short-term general hospital (02) | DRG 885 ==
LOC: ADULT MH 10:44
PROVIDERS: ADMIT Psychiatry & Neurology Psychiatry; ATTEND Psychiatry & Neurology Psychiatry
PROC: 5A09357 Assistance with Respiratory Ventilation, Less than 24 Consecutive Hours, Continuous Positive Airway Pressure (ICD-10-PCS; principal; 2019-01-01)
DX: F33.2 Major depressive disorder, recurrent severe without psychotic features (principal); R45.851 Suicidal ideations; I13.0 Hypertensive heart and chronic kidney disease with heart failure and stage 1 through stage 4 chronic kidney disease, or unspecified chronic kidney disease; Z68.43 Body mass index [BMI] 50.0-59.9, adult; F25.1 Schizoaffective disorder, depressive type; E11.21 Type 2 diabetes mellitus with diabetic nephropathy; E11.65 Type 2 diabetes mellitus with hyperglycemia; E78.1 Pure hyperglyceridemia; E11.22 Type 2 diabetes mellitus with diabetic chronic kidney disease; N18.9 Chronic kidney disease, unspecified; E66.01 Morbid (severe) obesity due to excess calories; E78.5 Hyperlipidemia, unspecified; G47.33 Obstructive sleep apnea (adult) (pediatric); E88.81 Metabolic syndrome and other insulin resistance; F17.210 Nicotine dependence, cigarettes, uncomplicated; E11.40 Type 2 diabetes mellitus with diabetic neuropathy, unspecified; F12.90 Cannabis use, unspecified, uncomplicated; I25.10 Atherosclerotic heart disease of native coronary artery without angina pectoris; I48.91 Unspecified atrial fibrillation; I50.9 Heart failure, unspecified; J45.909 Unspecified asthma, uncomplicated; Z59.0 Homelessness; Z79.01 Long term (current) use of anticoagulants; Z79.899 Other long term (current) drug therapy; Z86.711 Personal history of pulmonary embolism; Z86.73 Personal history of transient ischemic attack (TIA), and cerebral infarction without residual deficits; Z90.49 Acquired absence of other specified parts of digestive tract
CPT/HCPCS: 36415; 71045; 80053; 80061; 80305; 80320; 81001; 82948; 83036; 84484; 85025; 85610; 85730; 87081; 93005; 99285; J0690; J3490; Q0163; Z7610

== ENCOUNTER 2019-06-02 22:40 | Inpatient (IN) | payer MEDICARE, MEDICAID ==
[~2019-06-02] VITALS: Ht 177.8 cm; Wt 151.0 kg
[~2019-06-02 22:40] MED LIST changes: +ARIP5TAB60 PO; +GABA600T13 PO; +GEMF600T PO; -GEMF600T89 PO; -HALO10TA13 PO; -LISI-642 PO; +LISI10TA4 PO; +METF-950 PO; -METF500T PO; +METO50TA16 PO; -METO50TA17 PO; +NICO-687 TD; +NOR5T PO; +TRAZ-219 PO; +VENL150T3 PO
[2019-06-02 23:05] LABS: BASOPHILS # (AUTO) 0.1 X10'3 (0-0.2); EOSINOPHILS # (AUTO) 0.3 X10'3 (0-0.9); EOSINOPHILS % (AUTO) 2.7 % (0-6); HEMATOCRIT 43.9 % (42.0-52.0); HEMOGLOBIN 15.6 g/dl (14.0-17.9); LYMPHOCYTES # (AUTO) 2.9 X10'3 (1.1-4.8); LYMPHOCYTES % (AUTO) 28.2 % (21-51); MEAN CORPUSCULAR HEMOGLOBIN 29.2 PG (27.0-31.0); MEAN CORPUSCULAR HGB CONC 35.5 g/dL (33.0-36.5); MEAN CORPUSCULAR VOLUME 82.2 FL (78-98); MEAN PLATELET VOLUME 7.9 FL (7.4-10.4); MONOCYTES # (AUTO) 0.9 X10'3 (0-0.9); MONOCYTES % (AUTO) 8.7 % (2-12); NEUTROPHILS # (AUTO) 6.1 X10'3 (1.8-7.7); NEUTROPHILS % (AUTO) 59.4 % (42-75); PLATELET COUNT 233 X10'3 (140-440); RED BLOOD COUNT 5.33 X10'6 (4.70-6.10); RED CELL DISTRIBUTION WIDTH 14.4 % (11.5-14.5); WHITE BLOOD COUNT 10.2 X10'3 (4.5-11.0)
--- NOTE | 2019-06-02 23:07 | NUR ---
Increased to an LUCY level II r/t SI
[2019-06-02] MEDS: nitroGLYCERIN 0.4mg SUBLingual tab SL PRN ×3 (23:15→23:28)
[2019-06-02 23:17] LABS: ALANINE AMINOTRANSFERASE 43 U/L (12-78); ALBUMIN 3.3 G/DL (3.4-5.0); ALBUMIN/GLOBULIN RATIO 1.1 (1.1-1.5); ALKALINE PHOSPHATASE 94 IU/L (46-116); ANION GAP 10 (8-16); ASPARTATE AMINO TRANSFERASE 27 U/L (10-37); BILIRUBIN,TOTAL 0.6 MG/DL (0.1-1.0); BLOOD UREA NITROGEN 23 MG/DL (7-18); BUN/CREATININE RATIO 13.6 (5.4-32.0); CALCIUM 9.6 MG/DL (8.5-10.1); CHLORIDE 106 MMOL/L (99-107); CREATININE 1.69 MG/DL (0.60-1.10); GLUCOSE 122 MG/DL (70-104); POTASSIUM 3.4 MMOL/L (3.5-5.1); SODIUM 139 MMOL/L (135-145); TOTAL CARBON DIOXIDE 23.1 MMOL/L (24-32); TOTAL PROTEIN 6.4 G/DL (6.4-8.2); eGFR 42 ML/MIN
[2019-06-02 23:23] LABS: ETHANOL < 0.010 GM/DL (0.0-0.010); MAGNESIUM 1.5 MG/DL (1.5-2.4)
[2019-06-02] MEDS ORDERED: labetalol 20mg/4ml (5mg/ml) syringe IV ONE (23:25)
[2019-06-02] MEDS ORDERED: heparin 25,000 UNIT/250ml bag 250 ML IV SCH (23:34)
[2019-06-02] MEDS ORDERED: magnesium 4gm in 100ml NS 100 ML IV PRN (23:35)
[2019-06-02] MEDS ORDERED: regadenoson 0.4mg/5ml syringe IV PRN (23:35)
[2019-06-02] MEDS ORDERED: acetaminophen 325mg tablet PO PRN (23:35)
[2019-06-02] MEDS ORDERED: magnesium hydroxide 30ml (MOM) UD suspension PO PRN (23:35)
[2019-06-02] MEDS ORDERED: insulin Lispro (HumaLOG) vial - multi-dose SQ SCH (23:35)
[2019-06-02] MEDS ORDERED: potassium CL 10mEq/100ml bag 100 ML IV PRN ×2 (23:35)
[2019-06-02] MEDS ORDERED: ondansetron/PF 4mg/2ml inj IV PRN (23:35)
[2019-06-02] MEDS ORDERED: metoprolol tartrate 1mg/ml inj IV PRN (23:35)
[2019-06-02] MEDS ORDERED: nitroGLYCERIN 0.4mg SUBLingual tab SL PRN (23:35)
[2019-06-02] MEDS ORDERED: potassium Cl 20 mEq SR tablet PO PRN ×2 (23:35)
[2019-06-02] MEDS ORDERED: glucagon, human recombinant 1mg kit SUBCUT PRN (23:35)
[2019-06-02] MEDS ORDERED: mag hydrox/Alum hydrox/simeth 30ml oral suspension PO PRN (23:35)
[2019-06-02] MEDS ORDERED: aminophylline 250mg/10ml inj. IV PRN (23:35)
[2019-06-02] MEDS ORDERED: magnesium 2GM in 50ml NS 50 ML IV PRN (23:35)
[2019-06-02] MEDS ORDERED: heparin 10,000 units/1 ML INJ IV ONE (23:35)
[2019-06-02] MEDS ORDERED: MESSAGE TO PHARMACY PO ONE (23:35)
[2019-06-02] MEDS ORDERED: dextrose ORAL solution 15 GM/59 ML bottle PO PRN ×2 (23:35)
[2019-06-02] MEDS ORDERED: dextrose 50%-water 50ml dispensing syringe IV PRN ×2 (23:35)
[2019-06-02] MEDS ORDERED: heparin 10,000 units/1 ML INJ IV PRN (23:35)
--- NOTE | 2019-06-02 23:37 | NUR ---
Pt updated that he is being admitted. Spoke to Dr Villatoro re: adm of 3 NTG with no c/p relief and did drop BP to 180s will recheck in 10 min and if bp rebound elevated than I will adm trandate.
[2019-06-03] VITALS (13 sets, daily range): BP systolic 124–185; BP diastolic 72–109
[2019-06-03 00:14] LABS: HEMOGLOBIN A1C 5.9 % (4.5-6.2)
[2019-06-03 00:16] LABS: PARTIAL THROMBOPLASTIN TIME 32 SECONDS (22-32)
[2019-06-03] MEDS: nitroGLYCERIN 0.4mg/hour patch TD SCH (03:24)
[2019-06-03 03:34] LABS: URINE AMPHETAMINE SCREEN NEGATIVE (Neg); URINE BARBITUATE SCREEN NEGATIVE (Neg); URINE BENZODIAZEPINES SCREEN NEGATIVE (Neg); URINE CANNABINOID SCREEN POSITIVE (Neg); URINE COCAINE SCREEN NEGATIVE (Neg); URINE METHADONE SCREEN NEGATIVE (Neg); URINE OPIATE SCREEN NEGATIVE (Neg); URINE PHENCYCLIDINE SCREEN NEGATIVE (Neg)
--- NOTE | 2019-06-03 06:48 | NUR ---
PAGER ID: [phone] MESSAGE: ANAIS White, ext [phone], [phone], Sheldon, significant change in liver enzymes between ER labs and AM labs, trop up to 0.2, BP currently 184/109
[2019-06-03] MEDS: gabapentin 300mg capsule PO SCH ×3 (07:05→19:40)
[2019-06-03] MEDS: metoprolol tartrate 50mg tablet PO SCH ×2 (07:06→19:41)
[2019-06-03] MEDS: lisinopril 10 MG tablet PO SCH ×2 (07:06→19:41)
[2019-06-03] MEDS: K and/or MAG REPLACEMENT MC SCH ×2 (07:07→20:00)
[2019-06-03 07:23] LABS: ALANINE AMINOTRANSFERASE 37 U/L (12-78); ALKALINE PHOSPHATASE 82 IU/L (46-116); ANION GAP 8 (8-16); ASPARTATE AMINO TRANSFERASE 26 U/L (10-37); BILIRUBIN,TOTAL 0.4 MG/DL (0.1-1.0); BLOOD UREA NITROGEN 22 MG/DL (7-18); BUN/CREATININE RATIO 12.4 (5.4-32.0); CALCIUM 9.2 MG/DL (8.5-10.1); CHLORIDE 108 MMOL/L (99-107); CREATININE 1.77 MG/DL (0.60-1.10); GLUCOSE 119 MG/DL (70-104); POTASSIUM 3.8 MMOL/L (3.5-5.1); SODIUM 142 MMOL/L (135-145); TOTAL CARBON DIOXIDE 26.4 MMOL/L (24-32); TOTAL PROTEIN 5.9 G/DL (6.4-8.2); eGFR 40 ML/MIN
[2019-06-03 07:26] LABS: MAGNESIUM 1.7 MG/DL (1.5-2.4); TROPONIN I 0.05 NG/ML (0.0-0.05)
[2019-06-03 07:40] LABS: ACETAMINOPHEN < 2.0 UG/ML (10-30)
[2019-06-03] MEDS: furosemide 20 MG/2 ML vial IV SCH (08:51)
[2019-06-03] MEDS ORDERED: FLU VACC QS2019-20 36MOS UP/PF 60 MCG/0.5 ML SYRINGE IMVAC ONE (09:55)
[2019-06-03 10:58] LABS: BASOPHILS % (AUTO) 0.3 % (0-1); EOSINOPHILS # (AUTO) 0.3 X10'3 (0-0.9); EOSINOPHILS % (AUTO) 3.2 % (0-6); HEMATOCRIT 42.2 % (42.0-52.0); HEMOGLOBIN 14.4 g/dl (14.0-17.9); LYMPHOCYTES # (AUTO) 2.4 X10'3 (1.1-4.8); LYMPHOCYTES % (AUTO) 29.2 % (21-51); MEAN CORPUSCULAR HEMOGLOBIN 28.8 PG (27.0-31.0); MEAN CORPUSCULAR HGB CONC 34.2 g/dL (33.0-36.5); MEAN CORPUSCULAR VOLUME 84.1 FL (78-98); MEAN PLATELET VOLUME 8.8 FL (7.4-10.4); MONOCYTES # (AUTO) 0.8 X10'3 (0-0.9); MONOCYTES % (AUTO) 9.3 % (2-12); NEUTROPHILS # (AUTO) 4.7 X10'3 (1.8-7.7); PLATELET COUNT 210 X10'3 (140-440); RED BLOOD COUNT 5.01 X10'6 (4.70-6.10); RED CELL DISTRIBUTION WIDTH 14.4 % (11.5-14.5); WHITE BLOOD COUNT 8.1 X10'3 (4.5-11.0)
--- NOTE | 2019-06-03 15:47 | NUR ---
Malnutrition consult: Pt reports 2-13 lb wt loss with decreased appetite per malnutrition risk screening with RN. Attempted visit with pt at bedside to obtain information about reported wt loss however pt unavailable. Per records pt with documented wt of 162 kg taken 01/21/19 using a standing scale, current documented wt is 136.36 kg however is unreliable as it is patient stated. Pt with BLE 2+ edema however no decrease in muscle strength. Pt currently on a heart healthy CHO controlled diet documented with 100% PO intake first meal and was documented with 75-100% PO intake during last admit 12/31-01/21. Pt with no visible fat or muscle wasting. Pt currently lacks a minimum of two criteria for malnutrition. Will continue to follow. Addendum: 06/03/19 at [address] Amended: Links added.
--- NOTE | 2019-06-03 18:23 | NUR ---
Problems reprioritized. Patient report given, questions answered & plan of care reviewed with ANAIS saenz.
[2019-06-03] MEDS ORDERED: hydrALAZINE 20mg/ml inj. IV PRN (18:35)
[2019-06-03] MEDS: ARIPIPRAZOLE 15 MG TABLET PO SCH (21:00)
[2019-06-03] MEDS: insulin glargine (Lantus) pen - multi-dose SQ SCH (21:00)
[2019-06-04] VITALS (10 sets, daily range): BP systolic 145–181; BP diastolic 81–104
[2019-06-04] MEDS: nitroGLYCERIN 0.4mg/hour patch TD SCH (02:00)
[2019-06-04 05:29] LABS: BASOPHILS # (AUTO) 0.1 X10'3 (0-0.2); BASOPHILS % (AUTO) 0.9 % (0-1); EOSINOPHILS # (AUTO) 0.2 X10'3 (0-0.9); EOSINOPHILS % (AUTO) 3.2 % (0-6); HEMATOCRIT 39.6 % (42.0-52.0); HEMOGLOBIN 13.9 g/dl (14.0-17.9); LYMPHOCYTES % (AUTO) 27.4 % (21-51); MEAN CORPUSCULAR HEMOGLOBIN 29.1 PG (27.0-31.0); MEAN CORPUSCULAR HGB CONC 35.2 g/dL (33.0-36.5); MEAN CORPUSCULAR VOLUME 82.6 FL (78-98); MEAN PLATELET VOLUME 7.9 FL (7.4-10.4); MONOCYTES # (AUTO) 0.7 X10'3 (0-0.9); MONOCYTES % (AUTO) 9.6 % (2-12); NEUTROPHILS # (AUTO) 4.3 X10'3 (1.8-7.7); NEUTROPHILS % (AUTO) 58.9 % (42-75); PLATELET COUNT 200 X10'3 (140-440); RED BLOOD COUNT 4.79 X10'6 (4.70-6.10); RED CELL DISTRIBUTION WIDTH 14.4 % (11.5-14.5); WHITE BLOOD COUNT 7.3 X10'3 (4.5-11.0)
[2019-06-04 05:41] LABS: ALANINE AMINOTRANSFERASE 34 U/L (12-78); ALBUMIN 2.9 G/DL (3.4-5.0); ALKALINE PHOSPHATASE 78 IU/L (46-116); ANION GAP 5 (8-16); ASPARTATE AMINO TRANSFERASE 17 U/L (10-37); BILIRUBIN,TOTAL 0.7 MG/DL (0.1-1.0); BLOOD UREA NITROGEN 23 MG/DL (7-18); BUN/CREATININE RATIO 13.1 (5.4-32.0); CHLORIDE 107 MMOL/L (99-107); CREATININE 1.76 MG/DL (0.60-1.10); GLUCOSE 108 MG/DL (70-104); MAGNESIUM 1.7 MG/DL (1.5-2.4); POTASSIUM 3.8 MMOL/L (3.5-5.1); SODIUM 140 MMOL/L (135-145); TOTAL CARBON DIOXIDE 28.3 MMOL/L (24-32); TOTAL PROTEIN 5.9 G/DL (6.4-8.2); eGFR 41 ML/MIN
--- NOTE | 2019-06-04 06:20 | NUR ---
Patient in room PCU 3026T. I have received report from Mick MANZO and had the opportunity to ask questions and assume patient care.
[2019-06-04] MEDS: K and/or MAG REPLACEMENT MC SCH ×2 (08:00→20:00)
[2019-06-04] MEDS: furosemide 20 MG/2 ML vial IV SCH (08:20)
[2019-06-04] MEDS: gabapentin 300mg capsule PO SCH ×2 (08:21→19:57)
[2019-06-04] MEDS: lisinopril 10 MG tablet PO SCH ×2 (09:51→20:00)
[2019-06-04] MEDS: metoprolol tartrate 50mg tablet PO SCH ×2 (09:52→20:01)
--- NOTE | 2019-06-04 12:15 | NUR ---
Paged hospitalist, Dr. Eduardo, regarding patient's blood pressure PAGER ID: [phone] MESSAGE: Cindy [phone]. Mich Sims [id number]. NORMAN patient's BP at 1200 was 171/97. Thanks!
[2019-06-04] MEDS: cloNIDine 0.1 mg tablet PO SCH ×2 (13:05→20:01)
--- NOTE | 2019-06-04 14:52 | NUR ---
Paged hospitalist, Dr. Eduardo, regarding patient's blood pressure. Per , RN to check BP q1-2H and monitor. PAGER ID: [phone] MESSAGE: Cinyd carmen 1918. Mich Sims [id number]. FYI patient BP down to 145/81. Will continue to check q1-2H. Thanks!
--- NOTE | 2019-06-04 18:15 | NUR ---
Patient in room PCU 3026. I have received report from Cindy MANZO and had the opportunity to ask questions and assume patient care. Patient is resting in bed, sitter at bedside. Will continue to monitor closely.
--- NOTE | 2019-06-04 18:39 | NUR ---
Problems reprioritized. Patient report given, questions answered & plan of care reviewed with Mamie MANZO.
[2019-06-04] MEDS ORDERED: metoprolol tartrate 50mg tablet PO SCH (20:00)
[2019-06-04] MEDS ORDERED: lisinopril 10 MG tablet PO SCH (20:00)
[2019-06-04] MEDS: ARIPIPRAZOLE 15 MG TABLET PO SCH (20:02)
--- NOTE | 2019-06-04 20:14 | NUR ---
Paged Dr. Vann PAGER ID: [phone] MESSAGE: Mamie DON [phone], Sheldon Klein [id number], pt. on , would like to have sleep aid, Melatonin? Thank you
[2019-06-04] MEDS: insulin glargine (Lantus) pen - multi-dose SQ SCH (21:00)
[2019-06-04] MEDS: Melatonin 3mg tablet PO SCH (21:45)
[2019-06-05] MEDS: nitroGLYCERIN 0.4mg/hour patch TD SCH (02:12)
[2019-06-05 03:00] VITALS: BP 145/87
[2019-06-05 06:00] VITALS: BP 152/92
[2019-06-05 06:29] LABS: BASOPHILS # (AUTO) 0.1 X10'3 (0-0.2); EOSINOPHILS # (AUTO) 0.2 X10'3 (0-0.9); EOSINOPHILS % (AUTO) 2.8 % (0-6); HEMATOCRIT 37.9 % (42.0-52.0); HEMOGLOBIN 13.2 g/dl (14.0-17.9); LYMPHOCYTES % (AUTO) 28.5 % (21-51); MEAN CORPUSCULAR HEMOGLOBIN 29.3 PG (27.0-31.0); MEAN CORPUSCULAR HGB CONC 34.9 g/dL (33.0-36.5); MEAN PLATELET VOLUME 8.6 FL (7.4-10.4); MONOCYTES # (AUTO) 0.7 X10'3 (0-0.9); MONOCYTES % (AUTO) 9.6 % (2-12); NEUTROPHILS % (AUTO) 58.1 % (42-75); PLATELET COUNT 191 X10'3 (140-440); RED BLOOD COUNT 4.51 X10'6 (4.70-6.10); RED CELL DISTRIBUTION WIDTH 14.3 % (11.5-14.5); WHITE BLOOD COUNT 6.9 X10'3 (4.5-11.0)
--- NOTE | 2019-06-05 06:42 | NUR ---
Patient in room PCU 3026. I have received report from ANAIS Hatch and had the opportunity to ask questions and assume patient care.
[2019-06-05 06:58] LABS: ALANINE AMINOTRANSFERASE 44 U/L (12-78); ALBUMIN 2.9 G/DL (3.4-5.0); ALKALINE PHOSPHATASE 77 IU/L (46-116); ANION GAP 4 (8-16); ASPARTATE AMINO TRANSFERASE 24 U/L (10-37); BILIRUBIN,TOTAL 0.6 MG/DL (0.1-1.0); BLOOD UREA NITROGEN 23 MG/DL (7-18); BUN/CREATININE RATIO 13.8 (5.4-32.0); CALCIUM 8.8 MG/DL (8.5-10.1); CHLORIDE 105 MMOL/L (99-107); CREATININE 1.67 MG/DL (0.60-1.10); GLUCOSE 104 MG/DL (70-104); MAGNESIUM 1.8 MG/DL (1.5-2.4); POTASSIUM 3.9 MMOL/L (3.5-5.1); SODIUM 138 MMOL/L (135-145); TOTAL CARBON DIOXIDE 28.6 MMOL/L (24-32); TOTAL PROTEIN 5.8 G/DL (6.4-8.2); eGFR 43 ML/MIN
[2019-06-05] MEDS: K and/or MAG REPLACEMENT MC SCH ×2 (08:00→20:00)
[2019-06-05] MEDS: furosemide 20 MG/2 ML vial IV SCH (09:42)
[2019-06-05] MEDS: lisinopril 10 MG tablet PO SCH ×2 (09:43→20:45)
[2019-06-05] MEDS: gabapentin 300mg capsule PO SCH ×2 (09:43→20:57)
[2019-06-05] MEDS: metoprolol tartrate 50mg tablet PO SCH ×2 (09:43→20:44)
[2019-06-05] MEDS: cloNIDine 0.1 mg tablet PO SCH ×3 (10:27→20:43)
[2019-06-05 15:00] VITALS: BP 195/80
[2019-06-05 16:26] VITALS: BP 152/81
[2019-06-05 18:00] VITALS: BP 161/96
--- NOTE | 2019-06-05 18:45 | NUR ---
Patient in room PCU 3026. I have received report from Paras MANZO and had the opportunity to ask questions and assume patient care.
--- NOTE | 2019-06-05 18:46 | NUR ---
Problems reprioritized. Patient report given, questions answered & plan of care reviewed with ANAIS Mcgee.
[2019-06-05] MEDS: Melatonin 3mg tablet PO SCH (20:45)
[2019-06-05] MEDS ORDERED: Melatonin 3mg tablet PO SCH (21:00)
[2019-06-05] MEDS: insulin glargine (Lantus) pen - multi-dose SQ SCH (21:00)
[2019-06-05] MEDS: ARIPIPRAZOLE 15 MG TABLET PO SCH (21:02)
[2019-06-05 22:00] VITALS: BP 153/91
[2019-06-06] VITALS (7 sets, daily range): BP systolic 118–165; BP diastolic 55–93
[2019-06-06] MEDS: nitroGLYCERIN 0.4mg/hour patch TD SCH (03:00)
--- NOTE | 2019-06-06 06:00 | NUR ---
Patient in room PCU 3026. I have received report from ANAIS KINNEY and had the opportunity to ask questions and assume patient care.
--- NOTE | 2019-06-06 06:57 | NUR ---
Problems reprioritized. Patient report given, questions answered & plan of care reviewed with Prem RN.
[2019-06-06] MEDS: K and/or MAG REPLACEMENT MC SCH ×2 (08:00→19:30)
[2019-06-06] MEDS: furosemide 20 MG/2 ML vial IV SCH (08:48)
[2019-06-06] MEDS: cloNIDine 0.1 mg tablet PO SCH ×3 (08:53→21:41)
[2019-06-06] MEDS: metoprolol tartrate 50mg tablet PO SCH ×2 (08:53→19:46)
[2019-06-06] MEDS: gabapentin 300mg capsule PO SCH ×2 (08:54→19:46)
[2019-06-06] MEDS: lisinopril 10 MG tablet PO SCH ×2 (08:55→19:45)
[2019-06-06 09:19] LABS: BASOPHILS # (AUTO) 0.1 X10'3 (0-0.2); BASOPHILS % (AUTO) 1.1 % (0-1); EOSINOPHILS # (AUTO) 0.1 X10'3 (0-0.9); EOSINOPHILS % (AUTO) 2.2 % (0-6); HEMATOCRIT 40.3 % (42.0-52.0); LYMPHOCYTES # (AUTO) 1.6 X10'3 (1.1-4.8); LYMPHOCYTES % (AUTO) 23.5 % (21-51); MEAN CORPUSCULAR HEMOGLOBIN 28.9 PG (27.0-31.0); MEAN CORPUSCULAR HGB CONC 34.8 g/dL (33.0-36.5); MEAN CORPUSCULAR VOLUME 82.9 FL (78-98); MEAN PLATELET VOLUME 8.7 FL (7.4-10.4); MONOCYTES # (AUTO) 0.5 X10'3 (0-0.9); MONOCYTES % (AUTO) 7.8 % (2-12); NEUTROPHILS # (AUTO) 4.4 X10'3 (1.8-7.7); NEUTROPHILS % (AUTO) 65.4 % (42-75); PLATELET COUNT 195 X10'3 (140-440); RED BLOOD COUNT 4.86 X10'6 (4.70-6.10); RED CELL DISTRIBUTION WIDTH 14.3 % (11.5-14.5); WHITE BLOOD COUNT 6.7 X10'3 (4.5-11.0)
[2019-06-06 09:30] LABS: ALANINE AMINOTRANSFERASE 49 U/L (12-78); ALBUMIN 3.2 G/DL (3.4-5.0); ALKALINE PHOSPHATASE 84 IU/L (46-116); ANION GAP 3 (8-16); ASPARTATE AMINO TRANSFERASE 21 U/L (10-37); BILIRUBIN,TOTAL 0.5 MG/DL (0.1-1.0); BLOOD UREA NITROGEN 25 MG/DL (7-18); BUN/CREATININE RATIO 15.5 (5.4-32.0); CALCIUM 9.2 MG/DL (8.5-10.1); CHLORIDE 103 MMOL/L (99-107); CREATININE 1.61 MG/DL (0.60-1.10); GLUCOSE 140 MG/DL (70-104); MAGNESIUM 1.8 MG/DL (1.5-2.4); POTASSIUM 3.9 MMOL/L (3.5-5.1); SODIUM 136 MMOL/L (135-145); TOTAL CARBON DIOXIDE 30.1 MMOL/L (24-32); TOTAL PROTEIN 6.3 G/DL (6.4-8.2); eGFR 45 ML/MIN
[2019-06-06] MEDS ORDERED: temazepam 15mg capsule PO PRN (13:35)
--- NOTE | 2019-06-06 18:09 | NUR ---
Problems reprioritized. Patient report given, questions answered & plan of care reviewed with camila galvez.
--- NOTE | 2019-06-06 18:13 | NUR ---
Patient in room PCU 3026. I have received report from ANAIS Amaro and had the opportunity to ask questions and assume patient care.
[2019-06-06] MEDS: Melatonin 3mg tablet PO SCH (20:04)
[2019-06-06] MEDS: insulin glargine (Lantus) pen - multi-dose SQ SCH (21:00)
[2019-06-06] MEDS: ARIPIPRAZOLE 15 MG TABLET PO SCH (21:40)
[2019-06-07 02:01] VITALS: BP 142/54
[2019-06-07] MEDS: nitroGLYCERIN 0.4mg/hour patch TD SCH (02:11)
[2019-06-07 06:00] VITALS: BP 137/84
--- NOTE | 2019-06-07 06:25 | NUR ---
Problems reprioritized. Patient report given, questions answered & plan of care reviewed with ANAIS Amaro.
--- NOTE | 2019-06-07 06:25 | NUR ---
Patient in room PCU 3026. I have received report from ANAIS ALLRED and had the opportunity to ask questions and assume patient care.
[2019-06-07 06:38] LABS: BASOPHILS # (AUTO) 0.1 X10'3 (0-0.2); BASOPHILS % (AUTO) 1.1 % (0-1); EOSINOPHILS # (AUTO) 0.2 X10'3 (0-0.9); EOSINOPHILS % (AUTO) 3.4 % (0-6); HEMATOCRIT 38.8 % (42.0-52.0); HEMOGLOBIN 13.5 g/dl (14.0-17.9); LYMPHOCYTES # (AUTO) 1.9 X10'3 (1.1-4.8); LYMPHOCYTES % (AUTO) 27.8 % (21-51); MEAN CORPUSCULAR HEMOGLOBIN 28.8 PG (27.0-31.0); MEAN CORPUSCULAR HGB CONC 34.8 g/dL (33.0-36.5); MEAN CORPUSCULAR VOLUME 82.7 FL (78-98); MEAN PLATELET VOLUME 8.5 FL (7.4-10.4); MONOCYTES # (AUTO) 0.5 X10'3 (0-0.9); MONOCYTES % (AUTO) 7.5 % (2-12); NEUTROPHILS % (AUTO) 60.2 % (42-75); PLATELET COUNT 201 X10'3 (140-440); RED BLOOD COUNT 4.69 X10'6 (4.70-6.10); WHITE BLOOD COUNT 6.7 X10'3 (4.5-11.0)
--- NOTE | 2019-06-07 06:49 | NUR ---
Patient in room PCU 3026. I have received report from camila frances and had the opportunity to ask questions and assume patient care.
[2019-06-07 07:02] LABS: ALANINE AMINOTRANSFERASE 44 U/L (12-78); ALKALINE PHOSPHATASE 76 IU/L (46-116); ANION GAP 5 (8-16); ASPARTATE AMINO TRANSFERASE 20 U/L (10-37); BILIRUBIN,TOTAL 0.4 MG/DL (0.1-1.0); BLOOD UREA NITROGEN 25 MG/DL (7-18); BUN/CREATININE RATIO 14.7 (5.4-32.0); CHLORIDE 104 MMOL/L (99-107); GLUCOSE 99 MG/DL (70-104); MAGNESIUM 1.9 MG/DL (1.5-2.4); SODIUM 139 MMOL/L (135-145); TOTAL CARBON DIOXIDE 30.1 MMOL/L (24-32); eGFR 42 ML/MIN
[2019-06-07 07:04] LABS: POTASSIUM 3.9 MMOL/L (3.5-5.1)
[2019-06-07] MEDS ORDERED: furosemide 20MG tablet PO SCH (08:00)
[2019-06-07] MEDS: K and/or MAG REPLACEMENT MC SCH (08:00)
[2019-06-07] MEDS: furosemide 20 MG/2 ML vial IV SCH (08:59)
[2019-06-07] MEDS: metoprolol tartrate 50mg tablet PO SCH (08:59)
[2019-06-07] MEDS: cloNIDine 0.1 mg tablet PO SCH ×2 (08:59→13:09)
[2019-06-07] MEDS: gabapentin 300mg capsule PO SCH (09:01)
[2019-06-07] MEDS: lisinopril 10 MG tablet PO SCH (09:02)
[2019-06-07] MEDS ORDERED: LISI10TA4 PO (09:50)
[2019-06-07] MEDS ORDERED: METO50TA16 PO (09:50)
[2019-06-07] MEDS ORDERED: CLON0.1T2 PO (09:50)
[2019-06-07 11:00] VITALS: BP 157/99
--- NOTE | 2019-06-07 11:32 | NUR ---
PAGER ID: [phone] MESSAGE: DR. WEBER, [id number], C/O GEN PAIN ALL OVER, AND 8/10 PAIN LEFT ANKLE. REQUESTING TREATMENT FOF PAIN. HAVE NO ORDERS FOR THIS. VANIA [phone]. TY
[2019-06-07] MEDS ORDERED: HYDROcodone/acetaminophen 5mg/325mg tablet PO ONE (11:50)
--- NOTE | 2019-06-07 14:47 | NUR ---
Initial: Pt PO 100% avg meals meeting needs. LBM 06/06. Pt pending d/c to unit for SI w/ L arm lacerations. Will continue to monitor. Addendum: 06/07/19 at [address] Amended: Links added.
[2019-06-07 15:00] VITALS: BP 128/71
--- NOTE | 2019-06-07 15:35 | NUR ---
RECIEVED FROM [facility] VIA WC. RECEIVED REPORT FROM ANAIS OSPINA VIA TELEPHONE. AGREE WITH PRIOR ASSESSMENT. AIDS NURSE TO GET VS. MAG RUNNING AT 25CC/HOUR TO R AC PIV, MVI RUNNING AT 102CX/HOUR TO RIGHT HAND PIV. Addendum: 06/07/19 at 1550 by Fabiano Spears RN WRONG PT. DISREGARD NOTE.
--- NOTE | 2019-06-07 18:12 | NUR ---
Problems reprioritized. Patient report given, questions answered & plan of care reviewed with ANAIS ALLRED.
--- NOTE | 2019-06-07 18:15 | NUR ---
Patient in room PCU 3026. I have received report from ANAIS Amaro and had the opportunity to ask questions and assume patient care.
[2019-06-07 19:00] VITALS: BP 116/85
--- NOTE | 2019-06-07 19:10 | NUR ---
Problems reprioritized. Patient report given, questions answered & plan of care reviewed with ANAIS Wagner adult mental health.
[2019-06-07 19:27] VITALS: BP 116/85
--- NOTE | 2019-06-07 20:12 | NUR ---
Patient wheeled over to adult mental health with ROSEMARY White RN and ANAIS Rosas. Patient CPAP sent with patient.
[2019-06-25] MEDS ORDERED: ARIP5TAB60 PO (09:27)
[2019-06-25] MEDS ORDERED: DULO30CA52 PO (09:27)
[2019-06-25] MEDS ORDERED: NICO-631 TD (09:27)
[2019-06-25] MEDS ORDERED: TRAZ-251 PO (09:27)
== END 2019-06-07 19:30 | DRG 281 ==
LOC: ER 22:40 → ED HOLD 23:34 → PCU 3S 06-03 01:14
PROVIDERS: ADMIT Family Medicine; ATTEND Internal Medicine
PROC: 4A02XM4 Measurement of Cardiac Total Activity, External Approach (ICD-10-PCS; principal; 2019-06-03)
PROC: 3E033HZ Introduction of Radioactive Substance into Peripheral Vein, Percutaneous Approach (ICD-10-PCS; 2019-06-03)
PROC: 3E02340 Introduction of Influenza Vaccine into Muscle, Percutaneous Approach (ICD-10-PCS; 2019-06-03)
PROC: 5A09357 Assistance with Respiratory Ventilation, Less than 24 Consecutive Hours, Continuous Positive Airway Pressure (ICD-10-PCS; 2019-06-03)
PROC: 5A09357 Assistance with Respiratory Ventilation, Less than 24 Consecutive Hours, Continuous Positive Airway Pressure (ICD-10-PCS; 2019-06-05)
PROC: 5A09357 Assistance with Respiratory Ventilation, Less than 24 Consecutive Hours, Continuous Positive Airway Pressure (ICD-10-PCS; 2019-06-06)
PROC: 5A09357 Assistance with Respiratory Ventilation, Less than 24 Consecutive Hours, Continuous Positive Airway Pressure (ICD-10-PCS; 2019-06-07)
DX: I21.4 Non-ST elevation (NSTEMI) myocardial infarction (principal); I13.0 Hypertensive heart and chronic kidney disease with heart failure and stage 1 through stage 4 chronic kidney disease, or unspecified chronic kidney disease; I16.1 Hypertensive emergency; R45.851 Suicidal ideations; Z68.42 Body mass index [BMI] 45.0-49.9, adult; I50.813 Acute on chronic right heart failure; F32.9 Major depressive disorder, single episode, unspecified; E78.00 Pure hypercholesterolemia, unspecified; E87.6 Hypokalemia; E78.1 Pure hyperglyceridemia; F43.10 Post-traumatic stress disorder, unspecified; E11.22 Type 2 diabetes mellitus with diabetic chronic kidney disease; F12.90 Cannabis use, unspecified, uncomplicated; E66.01 Morbid (severe) obesity due to excess calories; I27.81 Cor pulmonale (chronic); Z79.84 Long term (current) use of oral hypoglycemic drugs; I25.2 Old myocardial infarction; Z79.899 Other long term (current) drug therapy; Z80.42 Family history of malignant neoplasm of prostate; Z80.8 Family history of malignant neoplasm of other organs or systems; Z86.711 Personal history of pulmonary embolism; Z79.01 Long term (current) use of anticoagulants; Z86.73 Personal history of transient ischemic attack (TIA), and cerebral infarction without residual deficits; Z87.891 Personal history of nicotine dependence; Z23 Encounter for immunization; N18.3 Chronic kidney disease, stage 3 (moderate)
CPT/HCPCS: 36415; 71045; 78452; 80053; 80305; 80320; 80329; 82948; 83036; 83735; 83880; 84484; 85025; 85610; 85730; 87081; 93005; 93017; 93306; 97116; 97161; 97530; 99285; A9500; G0378; J0280; J1644; J1815; J1940; J2785; J3490; Q2037

== ENCOUNTER 2021-04-09 19:20 | Inpatient (IN) | payer MEDICARE, MEDICAID ==
[~2021-04-09] VITALS: Ht 177.8 cm; Wt 155.7 kg
[~2021-04-09 19:20] MED LIST changes: +ARIP30TA22 PO; -ARIP5TAB60 PO; +ASPI-1071 PO; +ATOR20TA66 PO; +CLOP75TA34 PO; +FURO-149 PO; -GEMF600T PO; +GEMF600T89 PO; +HALO10TA13 PO; +ISOS30TA84 PO; +LISI10TA27 PO; -LISI10TA4 PO; +METF-438 PO; -METF-950 PO; +METO-467 PO; -METO50TA16 PO; -NICO-687 TD; -NOR5T PO; +POTA-207 PO; -RIVA20TA PO; -TRAZ-219 PO; +TRAZ-256 PO
[2021-04-09] MEDS ORDERED: loperamide 2mg capsule PO PRN (19:55)
[2021-04-09] MEDS ORDERED: magnesium hydroxide 30ml (MOM) UD suspension PO PRN (19:55)
[2021-04-09] MEDS ORDERED: mag hydrox/Alum hydrox/simeth 30ml oral suspension PO PRN (19:55)
[2021-04-09] MEDS ORDERED: acetaminophen 325mg tablet PO PRN (19:55)
[2021-04-09] MEDS ORDERED: POTA-208 PO (20:48)
[2021-04-09] MEDS ORDERED: GEMF600T89 PO (20:48)
[2021-04-09] MEDS ORDERED: DOCU100C40 PO (20:48)
[2021-04-09] MEDS ORDERED: CLOP75TA34 PO (20:48)
[2021-04-09] MEDS ORDERED: ARIP5TAB14 PO (20:48)
[2021-04-09] MEDS ORDERED: METO-477 PO (20:48)
[2021-04-09] MEDS ORDERED: ASPI-611 PO (20:48)
[2021-04-09] MEDS ORDERED: ISOS20TA15 PO (20:48)
[2021-04-09] MEDS ORDERED: FURO-149 PO (20:48)
[2021-04-09] MEDS ORDERED: GABA600T13 PO (20:48)
[2021-04-09] MEDS ORDERED: HALO5TAB PO (20:48)
[2021-04-09] MEDS ORDERED: LISI20TA28 PO (20:48)
[2021-04-09] MEDS ORDERED: ATOR80TA PO (20:48)
[2021-04-09] MEDS ORDERED: VENL75TA4 PO (20:48)
[2021-04-09 20:49] VITALS: BP 133/79
[2021-04-09] MEDS ORDERED: aripiprazole 5mg tablet PO ONE (21:15)
[2021-04-09] MEDS ORDERED: docusate sod 100mg capsule PO ONE (21:15)
[2021-04-09] MEDS ORDERED: haloperidol 5mg tablet PO ONE (21:15)
[2021-04-09] MEDS ORDERED: traZODone 50mg tablet PO ONE (21:20)
[2021-04-09] MEDS ORDERED: gabapentin 100mg capsule PO ONE (21:20)
[2021-04-09] MEDS ORDERED: metoprolol tartrate 50mg tablet PO ONE (21:20)
[2021-04-09] MEDS ORDERED: lisinopril 20mg tablet PO ONE (21:20)
--- NOTE | 2021-04-10 02:25 | NUR ---
ADMIT Nursing Progress Note: Legal hold: 5150 Client on involuntary status for DTS . Report received from nurse with use of SBAR. Why are they here: Per History from medical admit. This patient is a Homeless man who had Chest heaviness for one week while in [facility]. So he got on the bus to [place] and presented to the ER. He was he was diagnosed with NSTEMI (non-ST elevated myocardial infarction) and admitted to telemetry. He voiced SI and requested mental health evaluation to help him cope with life's burdens. So when he was medically cleared he was transferred to unit on a 5150 hold for SI. Assessment What has happened this shift: Pt arrived on floor via W/C at 20:20. Pt is malodorous offered a shower multiple times by multiple staff. Pt declined. Advised him that he really needs a shower. Pt agreed to take one in AM. Pt uses w/c for mobility. Is able to transfer self from bed to W/C. Joined other pts in group room for snack. Propelled W/c and returned to bed Independently. Pt cooperative with assessment process but very fatigued. In between questions kept falling asleep. S/I, H/I: Pt has SI without a plan. Reports feelings of hopelessness. A/VH: Reports voices telling him to kill himself. Sleep: Asleep at this time ADL's: Uses W/c for mobility propels it independently. Group attendance: NA Were meds taken: yes Any med S/E no Mental Status Exam Appearance: Obese Disheveled malodorous Eye contact: good Behavior: Cooperative but fatigued Speech: clear Mood: Depressed Affect: Fatigued Thought process: linear Thought Content: wants to go to sleep Cognition: WNL Insight: poor Judgment: poor Interventions PRN's used: none Therapeutic interventions: Provided 1:1 assessment with therapeutic conversation and active listening, medication administration/education/monitoring, encouragement, and positive reinforcement, Q 15 minute safety checks. Restraints/seclusion/emergency medication: None Justification of Continued Inpatient Treatment: Pt made suicidal statements about Slitting his wrists. Pt needs crisis interruption and stabilization with medication adjustment and monitoring in a safe and therapeutic environment to prevent danger to self.
[2021-04-10 08:00] VITALS: BP 174/113
[2021-04-10] MEDS ORDERED: venlafaxine XR 75mg capsule (Q24H) PO SCH (08:00)
[2021-04-10] MEDS ORDERED: gemfibrozil 600mg tablet PO SCH (08:00)
[2021-04-10] MEDS: atorvastatin 20mg tablet PO SCH (08:10)
[2021-04-10] MEDS: potassium Cl 20 mEq SR tablet PO SCH (08:10)
[2021-04-10] MEDS: gabapentin 100mg capsule PO SCH ×2 (08:10→20:23)
[2021-04-10] MEDS: haloperidol 5mg tablet PO SCH ×2 (08:11→20:24)
[2021-04-10] MEDS: furosemide 40mg tablet PO SCH (08:11)
[2021-04-10] MEDS: metFORMIN 500mg tablet PO SCH ×2 (08:11→17:38)
[2021-04-10] MEDS: aspirin 81mg, enteric-coated 1 TAB TABLET.DR PO SCH (08:11)
[2021-04-10] MEDS: clopidogrel 75mg tablet PO SCH (08:11)
[2021-04-10] MEDS: docusate sod 100mg capsule PO SCH ×2 (08:11→20:22)
[2021-04-10] MEDS: lisinopril 20mg tablet PO SCH ×2 (08:12→20:23)
[2021-04-10] MEDS: metoprolol tartrate 50mg tablet PO SCH ×2 (08:12→20:24)
[2021-04-10] MEDS: isosorbide mononitrate 30mg tab.SR.24H PO SCH (08:13)
[2021-04-10 08:37] LABS: CHOL/HDL RATIO 2.6 (0.00-4.99); CHOLESTEROL 135 MG/DL (0-200); HDL CHOLESTEROL 52 MG/DL (35-60); LDL CHOLESTEROL 61 MG/DL (50-100); TRIGLYCERIDES 76 MG/DL (20-135)
[2021-04-10 10:01] VITALS: BP 149/78
--- NOTE | 2021-04-10 13:59 | NUR ---
DM Consult: Pt A1C 6.5 hx T2DM; appropriate no need for DM ed at this time. Addendum: 04/10/21 at [address] Amended: Links added.
[2021-04-10] MEDS ORDERED: NICOTINE POLACRILEX 2 MG LOZENGE BC PRN (15:00)
--- NOTE | 2021-04-10 17:00 | NUR ---
Nursing Progress Note: Legal hold: 5150 Client on involuntary status for DTS . Report received from nurse Rajwinder MANZO with use of SBAR. Why are they here: This patient is a Homeless man who had Chest heaviness for one week while in [facility]. So he got on the bus to [place] and presented to the ER. He was he was diagnosed with NSTEMI (non-ST elevated myocardial infarction) and admitted to telemetry. He voiced SI and requested mental health evaluation to help him cope with life's burdens. So when he was medically cleared he was transferred to [facility] unit on a 5150 hold for SI. Assessment What has happened this shift: Pt got up for breakfast, he propelled himself to the dining room in a w/c and was cooperative with medications. FS BG AC breakfast was 116. Pt endorsed depression which he rated at a 9/10. Pt denied SI. Pt reported +AH, voices that are "aggressive." Pt also reported VH, "a man trying to strangle me." Pt's Effexor was decreased to 75 mg daily and he has a new order for Cymbalta 30 mg daily. Put in an order for an RT eval & Tx as pt has a Hx of sleep apnea, his sats were decreased last night per noc shift report. Pt has used a CPAP as well as O2 at night. RT evaluated pt and said he would pass on to [facility] RT staff to come assess him for need for CPAP. Pt stated that he does not normally use a w/c in the community but his feet hurt to walk on. Bilateral trace pedal edema noted. S/I, H/I: Pt denies. A/VH: Pt reports +AH, +VH, pt does not appear to be responding to internal stimuli. Sleep: Pt slept 7.25 hours last night per noc shift report, pt took frequent naps throughout the day. ADL's: Independent, pt is choosing to use a w/c due to reported bilateral foot pain. Group attendance: No Were meds taken: Yes Any med S/E: None noted or reported. Mental Status Exam Appearance: Obese, disheveled man with dark skin, dark hair, and a bushy masters, dressed in personal clothing. Eye contact: Good Behavior: Cooperative, mostly isolative to self and room, out of room for meals. Speech: Clear, audible, normal rate & rhythm. Mood: Depressed Affect: Blunted Thought process: Linear Thought Content: He is using the w/c because his feet hurt to walk on. Cognition: A/O X 4 Insight: poor Judgment: poor Interventions PRN's used: None Therapeutic interventions: 1:1 assessment, therapeutic conversation and active listening, medication administration/education/monitoring, encouragement to attend groups and participate in unit activities, encouragement of personal hygiene, fall prevention, positive reinforcement, and Q 15 minute safety checks. Restraints/seclusion/emergency medication: None Justification of Continued Inpatient Treatment: Pt made suicidal statements about Slitting his wrists. Pt needs crisis interruption and stabilization with medication adjustment and monitoring in a safe and therapeutic environment to prevent danger to self until stable.
[2021-04-10 20:00] VITALS: BP 160/78
[2021-04-10] MEDS: aripiprazole 5mg tablet PO SCH (20:22)
[2021-04-10] MEDS: traZODone 50mg tablet PO SCH (20:35)
--- NOTE | 2021-04-11 03:13 | NUR ---
Nursing Progress Note: Legal hold: 5150 Client on involuntary status for DTS . Report received from nurse Carlos MANZO with use of SBAR. Why are they here: This patient is a Homeless man who had Chest heaviness for one week while in [facility]. So he got on the bus to [place] and presented to the ER. He was he was diagnosed with NSTEMI (non-ST elevated myocardial infarction) and admitted to telemetry. He voiced SI and requested mental health evaluation to help him cope with life's burdens. So when he was medically cleared he was transferred to [facility] unit on a 5150 hold for SI. Assessment What has happened this shift: pt was in bed at change of shift. Pt reports feeling depressed and suicidal. Pt states he feels hopeless because of his health. Pt reports hearing voices states "they are threatening me." Pt denies they are making commands. Pt had evening snack but remained in bed. Pt is med compliant. RT provided assistance with cpap. S/I, H/I: Pt denies. A/VH: Pt reports +AH, pt does not appear to be responding to internal stimuli. Sleep: see sleep hours ADL's: Independent, pt is choosing to use a w/c due to reported bilateral foot pain. Group attendance: No Were meds taken: Yes Any med S/E: None noted or reported. Mental Status Exam Appearance: Obese, disheveled man with dark skin, dark hair, and a bushy masters, dressed in personal clothing. Eye contact: Good Behavior: Cooperative, mostly isolative to self and room, out of room for meals. Speech: Clear, audible, normal rate & rhythm. Mood: Depressed Affect: Blunted Thought process: Linear Thought Content: He is using the w/c because his feet hurt to walk on. Cognition: A/O X 4 Insight: poor Judgment: poor Interventions PRN's used: None Therapeutic interventions: 1:1 assessment, therapeutic conversation and active listening, medication administration/education/monitoring, encouragement to attend groups and participate in unit activities, encouragement of personal hygiene, fall prevention, positive reinforcement, and Q 15 minute safety checks. Restraints/seclusion/emergency medication: None Justification of Continued Inpatient Treatment: Pt made suicidal statements about Slitting his wrists. Pt needs crisis interruption and stabilization with medication adjustment and monitoring in a safe and therapeutic environment to prevent danger to self until stable.
[2021-04-11] MEDS: duloxetine 30mg CAPSULE.DR PO SCH (07:44)
[2021-04-11] MEDS: gemfibrozil 600mg tablet PO SCH (07:44)
[2021-04-11] MEDS: clopidogrel 75mg tablet PO SCH (07:44)
[2021-04-11] MEDS: gabapentin 100mg capsule PO SCH ×2 (07:44→20:14)
[2021-04-11] MEDS: furosemide 40mg tablet PO SCH (07:45)
[2021-04-11] MEDS: metoprolol tartrate 50mg tablet PO SCH ×2 (07:46→20:14)
[2021-04-11] MEDS: isosorbide mononitrate 30mg tab.SR.24H PO SCH (07:46)
[2021-04-11] MEDS: lisinopril 20mg tablet PO SCH ×2 (07:46→20:15)
[2021-04-11] MEDS: docusate sod 100mg capsule PO SCH ×2 (07:49→20:15)
[2021-04-11] MEDS: atorvastatin 20mg tablet PO SCH (07:50)
[2021-04-11] MEDS: metFORMIN 500mg tablet PO SCH ×2 (07:50→18:01)
[2021-04-11] MEDS: potassium Cl 20 mEq SR tablet PO SCH (07:50)
[2021-04-11] MEDS: haloperidol 5mg tablet PO SCH ×2 (07:50→20:15)
[2021-04-11] MEDS: aspirin 81mg, enteric-coated 1 TAB TABLET.DR PO SCH (07:50)
[2021-04-11] MEDS: venlafaxine XR 75mg capsule (Q24H) PO SCH (07:50)
[2021-04-11 08:00] VITALS: BP 146/80
--- NOTE | 2021-04-11 17:11 | NUR ---
Group Art Tx Continued: Patient entered the group room after the activity was started, however was able to follow directives and completed the activities. He response was guarded and limited both written and verbally. Patient was able to draw out and ID the two feeling opposites. He choose to listen during the group process and did not share. He did allow this therapist to read back his writing. # Please refer to the [employer] Note for complete overview. *Please refer to the [facility] group note for a more complete overview. Louisa Fraser MA, MEDICAL TRANSCRIBER #[id number] [facility], Art Therapist Addendum: 04/11/21 at 1714 by Louisa Fraser SS Amended: Links added.
--- NOTE | 2021-04-11 18:03 | NUR ---
Nursing Progress Note: Legal hold: 5150 Client on involuntary status for DTS . Report received from nurse Rajwinder MANZO with use of SBAR. Why are they here: This patient is a Homeless man who had Chest heaviness for one week while in [facility]. So he got on the bus to [place] and presented to the ER. He was he was diagnosed with NSTEMI (non-ST elevated myocardial infarction) and admitted to telemetry. He voiced SI and requested mental health evaluation to help him cope with life's burdens. So when he was medically cleared he was transferred to [facility] unit on a 5150 hold for SI. Assessment What has happened this shift: Pt was up for breakfast. Pt was evaluated by Physical Therapy. Physical therapy reported that he was walking 300 feet without using a walker while he was on PCU. Pt was able to walk from the dining room down the hallway and back with standby assist. Pt was provided a FWW and his wheelchair was taken away as it is not necessary. Pt ambulates with a steady gait with or without the FWW but still has some weakness so prefers to use the walker at this time. Pt was provided his sandals from his locker to prevent foot pain. Pt reported that "the voices are stabbing and wounding me." Pt also reported SI, thoughts of "offing myself and ending this" with a plan to cut himself until he bleeds out. Pt contracts for safety here. Pt's FS BG today AC breakfast was 109, it was also 109 AC dinner. His CPAP machine was taken out of his room and placed in the supply room during the day. S/I, H/I: +SI A/VH: +AH Sleep: Pt slept 8.25 hours last night per noc shift report. ADL's: Independent with FWW, pt showered today, CPAP at night. Group attendance: Yes Were meds taken: Yes Any med S/E: None noted or reported. Mental Status Exam Appearance: Obese, disheveled man with dark skin, dark hair, and a bushy masters, dressed in personal clothing. Eye contact: Good Behavior: Cooperative, participates in groups and unit activities. Speech: Clear, audible, normal rate & rhythm. Mood: Depressed Affect: Blunted Thought process: Linear Thought Content: Suicidal thoughts today Cognition: A/O X 4 Insight: poor Judgment: poor Interventions PRN's used: None Therapeutic interventions: 1:1 assessment, therapeutic conversation and active listening, medication administration/education/monitoring, ensured contract for safety,encouragement to attend groups and participate in unit activities, encouragement of personal hygiene, fall prevention, positive reinforcement, and Q 15 minute safety checks. Restraints/seclusion/emergency medication: None Justification of Continued Inpatient Treatment: Pt made suicidal statements about Slitting his wrists. Pt needs crisis interruption and stabilization with medication adjustment and monitoring in a safe and therapeutic environment to prevent danger to self until stable.
[2021-04-11 19:49] VITALS: BP 155/76
[2021-04-11] MEDS: aripiprazole 5mg tablet PO SCH (20:13)
[2021-04-11] MEDS: traZODone 50mg tablet PO SCH (20:15)
--- NOTE | 2021-04-11 22:26 | NUR ---
Nursing Progress Note: Legal hold: 5150 Client on involuntary status for DTS . Report received from nurse Carlos MANZO with use of SBAR. Why are they here: This patient is a Homeless man who had Chest heaviness for one week while in [facility]. So he got on the bus to [place] and presented to the ER. He was he was diagnosed with NSTEMI (non-ST elevated myocardial infarction) and admitted to telemetry. He voiced SI and requested mental health evaluation to help him cope with life's burdens. So when he was medically cleared he was transferred to [facility] unit on a 5150 hold for SI. Assessment What has happened this shift: Pt was sitting in his room at change of shift. Pt reports feeling tired and wants to go to bed early. Pt continues to endorse SI but doesnt provide a plan. C/o hearing voices but states the voices have improved and are not making threats as bad as yesterday. Pt continues to c/o pain in his feet. He did walk to the group room for snack and came to nurses station to request help with CPAP. RT paged and provided assistance w/cpap. S/I, H/I: +SI A/VH: +AH Sleep: see sleep hours ADL's: Independent with FWW, pt showered today, CPAP at night. Group attendance: Yes Were meds taken: Yes Any med S/E: None noted or reported. Mental Status Exam Appearance: Obese, disheveled man with dark skin, dark hair, and a bushy masters, dressed in personal clothing. Eye contact: Good Behavior: Cooperative, participates in groups and unit activities. Speech: Clear, audible, normal rate & rhythm. Mood: Depressed Affect: Blunted Thought process: Linear Thought Content: Suicidal thoughts today Cognition: A/O X 4 Insight: poor Judgment: poor Interventions PRN's used: None Therapeutic interventions: 1:1 assessment, therapeutic conversation and active listening, medication administration/education/monitoring, ensured contract for safety,encouragement to attend groups and participate in unit activities, encouragement of personal hygiene, fall prevention, positive reinforcement, and Q 15 minute safety checks. Restraints/seclusion/emergency medication: None Justification of Continued Inpatient Treatment: Pt made suicidal statements about Slitting his wrists. Pt needs crisis interruption and stabilization with medication adjustment and monitoring in a safe and therapeutic environment to prevent danger to self until stable.
[2021-04-12 07:44] VITALS: BP 134/62
[2021-04-12] MEDS: gemfibrozil 600mg tablet PO SCH (08:24)
[2021-04-12] MEDS: isosorbide mononitrate 30mg tab.SR.24H PO SCH (08:25)
[2021-04-12] MEDS: aspirin 81mg, enteric-coated 1 TAB TABLET.DR PO SCH (08:25)
[2021-04-12] MEDS: gabapentin 100mg capsule PO SCH ×2 (08:25→19:35)
[2021-04-12] MEDS: lisinopril 20mg tablet PO SCH ×2 (08:26→19:38)
[2021-04-12] MEDS: docusate sod 100mg capsule PO SCH ×2 (08:26→19:38)
[2021-04-12] MEDS: furosemide 40mg tablet PO SCH (08:26)
[2021-04-12] MEDS: metoprolol tartrate 50mg tablet PO SCH ×2 (08:26→19:40)
[2021-04-12] MEDS: atorvastatin 20mg tablet PO SCH (08:26)
[2021-04-12] MEDS: metFORMIN 500mg tablet PO SCH ×2 (08:26→17:41)
[2021-04-12] MEDS: potassium Cl 20 mEq SR tablet PO SCH (08:27)
[2021-04-12] MEDS: haloperidol 5mg tablet PO SCH ×2 (08:27→19:35)
[2021-04-12] MEDS: duloxetine 30mg CAPSULE.DR PO SCH (08:27)
[2021-04-12] MEDS: venlafaxine XR 75mg capsule (Q24H) PO SCH (08:27)
[2021-04-12] MEDS: clopidogrel 75mg tablet PO SCH (08:27)
--- NOTE | 2021-04-12 16:53 | NUR ---
Nursing Progress Note: Ernie Chung Legal hold: 5150 Client on involuntary status for DTS Report received from nurse Rajwinder RN with use of SBAR. Why are they here: This patient is a Homeless man who had chest heaviness for one week while in [facility]. So he got on the bus to [place] and presented to the ER. He was he was diagnosed with NSTEMI (non-ST elevated myocardial infarction) and admitted to telemetry. He voiced SI and requested mental health evaluation to help him cope with life's burdens. So when he was medically cleared he was transferred to [facility] unit on a 5150 hold for SI. Assessment What has happened this shift: Patient observed sleeping in bed at change of shift. He joined in the community room for breakfast with peers. He is noted to be social and polite with others on the unit. He appears calm, polite, and cooperative with care. He retreated back to his room after breakfast. 1:1 assessment completed, lungs CTA. Patient denies HI, AH or VH. Does not appear to be responding to internal stimuli. He is compliant with medications. Pt endorsed to this business writer feelings of depression and not wanting to live anymore. Patient stating he has nowhere to go from here and cant survive on the streets anymore. He was observed walking around the unit with his 4WW periodically throughout the day. Patient was observed sitting in the recreation room after lunch watching television. He did not participate in group therapy today despite encouragement. Patient was active on the unit throughout the day, noted sitting in the community room socializing with peers. He joined in the community room for all meal/snack times. S/I, H/I: SI, not wanting to live anymore. A/VH: Denies Sleep: Pt slept 7.5 hours last night per NOC shift, took two short naps today ADL's: Independent with FWW Group attendance: No Were meds taken: Yes Any med S/E: None noted or reported. Mental Status Exam Appearance: Obese, disheveled man with dark skin, dark hair, and a bushy masters, dressed in personal clothing. Eye contact: Good Behavior: Cooperative, pleasant, calm Speech: Clear, audible, normal rate & rhythm. Mood: Depressed Affect: Blunted Thought process: Linear Thought Content: Suicidal thoughts, not wanting to live anymore. Cognition: A/O X 4 Insight: Poor Judgment: Poor Interventions PRN's used: None Therapeutic interventions: 1:1 assessment, therapeutic conversation and active listening, medication administration/education/monitoring, ensured contract for safety, encouragement to attend groups and participate in unit activities, encouragement of personal hygiene, fall prevention, positive reinforcement, and Q 15 minute safety checks. Restraints/seclusion/emergency medication: None Justification of Continued Inpatient Treatment: Pt requires crisis interruption and stabilization with medication adjustment and monitoring in a safe and therapeutic environment. Per Dr. Best, Disposition: [place] [facility]
[2021-04-12 19:00] VITALS: BP 146/70
[2021-04-12] MEDS: aripiprazole 5mg tablet PO SCH (19:35)
[2021-04-12] MEDS: traZODone 50mg tablet PO SCH (19:36)
--- NOTE | 2021-04-12 23:04 | NUR ---
Nursing Progress Note: Legal hold: 5250 Client on involuntary status for DTS . Report received from nurse Carlos MANZO with use of SBAR. Why are they here: This patient is a Homeless man who had Chest heaviness for one week while in [facility]. So he got on the bus to [place] and presented to the ER. He was he was diagnosed with NSTEMI (non-ST elevated myocardial infarction) and admitted to telemetry. He voiced SI and requested mental health evaluation to help him cope with life's burdens. So when he was medically cleared he was transferred to [facility] unit on a 5150 hold for SI. Assessment What has happened this shift: Patient sitting up in bed at the beginning of shift. Pleasant and cooperative with care; compliant with medication. PRN Tylenol provided for foot pain with positive effect. Patient reports SI without a plan and +AH. Patient retired to bed early in the shift and did not participate in HS snack. Respiratory assisted patient with his CPAP; observed sleeping and does not appear to be having difficulty. S/I, H/I: +SI A/VH: +AH Sleep: Refer to sleep assessment ADL's: Independent with FWW, assisted with CPAP setup Group attendance: NA Were meds taken: Yes Any med S/E: None observed or reported Mental Status Exam Appearance: Disheveled, shirt off, green unit scrub bottoms Eye contact: Good Behavior: Pleasant and cooperative, isolative Speech: Clear, audible, normal rate & rhythm. Mood: Depressed Affect: Blunted Thought process: Linear Thought Content: Meeting needs Cognition: A/O X 4 Insight: Poor Judgment: Poor Interventions PRN's used: Tylenol Therapeutic interventions: 1:1 assessment, therapeutic conversation and active listening, medication administration/education/monitoring, ensured contract for safety,encouragement to attend groups and participate in unit activities, encouragement of personal hygiene, fall prevention, positive reinforcement, and Q 15 minute safety checks. Restraints/seclusion/emergency medication: None Justification of Continued Inpatient Treatment: Pt made suicidal statements about Slitting his wrists. Pt needs crisis interruption and stabilization with medication adjustment and monitoring in a safe and therapeutic environment to prevent danger to self until stable.
[2021-04-13 08:00] VITALS: BP 150/80
[2021-04-13] MEDS: metFORMIN 500mg tablet PO SCH ×2 (08:07→17:50)
[2021-04-13] MEDS: clopidogrel 75mg tablet PO SCH (08:07)
[2021-04-13] MEDS: metoprolol tartrate 50mg tablet PO SCH ×2 (08:07→20:57)
[2021-04-13] MEDS: isosorbide mononitrate 30mg tab.SR.24H PO SCH (08:07)
[2021-04-13] MEDS: potassium Cl 20 mEq SR tablet PO SCH (08:07)
[2021-04-13] MEDS: duloxetine 30mg CAPSULE.DR PO SCH (08:08)
[2021-04-13] MEDS: furosemide 40mg tablet PO SCH (08:08)
[2021-04-13] MEDS: docusate sod 100mg capsule PO SCH ×2 (08:08→20:57)
[2021-04-13] MEDS: gabapentin 100mg capsule PO SCH ×2 (08:08→20:56)
[2021-04-13] MEDS: gemfibrozil 600mg tablet PO SCH (08:08)
[2021-04-13] MEDS: atorvastatin 20mg tablet PO SCH (08:09)
[2021-04-13] MEDS: aspirin 81mg, enteric-coated 1 TAB TABLET.DR PO SCH (08:09)
[2021-04-13] MEDS: lisinopril 20mg tablet PO SCH ×2 (08:09→20:56)
[2021-04-13] MEDS: haloperidol 5mg tablet PO SCH ×2 (08:09→20:56)
[2021-04-13] MEDS: venlafaxine XR 75mg capsule (Q24H) PO SCH (08:09)
[2021-04-13] MEDS: acetaminophen 325mg tablet PO PRN (08:23)
--- NOTE | 2021-04-13 09:29 | NUR ---
Initial: Pt admit for depression with SI. Currently on a CHO controlled diet and eating well with average 75-100% PO intake. Noted pt with T2DM, A1c 6.5% with BG well controlled during admit with range 100-122 mg/dL while receiving routine Metformin, recommend diet liberalization to regular if BG levels continue to be well controlled. LBM 04/12, receiving routine bowel care. No nutrition diagnosis at this time. Will continue to follow. Recommendations: 1) Advance to regular diet if BG levels well controlled; A1c 6.5% with BG range 100-122 mg/dL throughout LOS 2) Monitor need for additional protein for satiety; offer snacks 3) Routine bowel care 4) Weekly scaled weights Addendum: 04/13/21 at [address] Amended: Links added.
--- NOTE | 2021-04-13 17:20 | NUR ---
Nursing Progress Note: Legal hold: 5250 Client on involuntary status for DTS . Report received from Perla MANZO with use of SBAR. Why are they here: This patient is a Homeless man who had chest heaviness for one week while in [facility]. So he got on the bus to [place] and presented to the ER. He was he was diagnosed with NSTEMI (non-ST elevated myocardial infarction) and admitted to telemetry. He voiced SI and requested mental health evaluation to help him cope with life's burdens. So when he was medically cleared he was transferred to [facility] unit on a 5150 hold for SI. Assessment What has happened this shift: Patient resting quietly in bed at the change of the shift with CPAP on. Eats meals in the community room and interacts appropriately with staff and peers. Ambulates independently with FWW. C/o bilateral leg pain relieved by routine medications and rest. Pleasant and cooperative with medications and 1:1 assessment. S/I, H/I: Denies A/VH: Denies Sleep: see sleep assessment ADL's: Independent with FWW Group attendance: Yes Were meds taken: Yes Any med S/E: None observed or reported Mental Status Exam Appearance: Older obese male with marie hair and masters wearing green unit scrub bottoms. Eye contact: Good Behavior: Pleasant and cooperative, isolative Speech: Clear, audible, normal rate & rhythm. Mood: Depressed Affect: Blunted Thought process: Linear Thought Content: Meeting needs Cognition: A/O X 4 Insight: Fair Judgment: Fair Interventions PRN's used: N/A Therapeutic interventions: 1:1 assessment, therapeutic conversation and active listening, medication administration/education/monitoring, ensured contract for safety, encouragement to attend groups and participate in unit activities, encouragement of personal hygiene, fall prevention, positive reinforcement, and Q 15 minute safety checks. Restraints/seclusion/emergency medication: None Justification of Continued Inpatient Treatment: Pt made suicidal statements about Slitting his wrists. Pt needs crisis interruption and stabilization with medication adjustment and monitoring in a safe and therapeutic environment to prevent danger to self until stable.
[2021-04-13 19:00] VITALS: BP 185/99
[2021-04-13] MEDS: aripiprazole 5mg tablet PO SCH (20:55)
[2021-04-13] MEDS: traZODone 50mg tablet PO SCH (20:56)
--- NOTE | 2021-04-13 23:48 | NUR ---
Nursing Progress Note: Legal hold: 5250 Client on involuntary status for DTS . Report received from nurse Carlos MANZO with use of SBAR. Why are they here: This patient is a Homeless man who had Chest heaviness for one week while in [facility]. So he got on the bus to [place] and presented to the ER. He was he was diagnosed with NSTEMI (non-ST elevated myocardial infarction) and admitted to telemetry. He voiced SI and requested mental health evaluation to help him cope with life's burdens. So when he was medically cleared he was transferred to [facility] unit on a 5150 hold for SI. Assessment What has happened this shift: Patient sitting up in bed at the beginning of shift. Pleasant and cooperative with care; compliant with medication. Patient continues to endorse AH and SI without a plan; reports, "tryingnot to think about it and take one day at a time." Patient participated in HS snack in the community room this shift and quickly returned to bed. CPAP setup by respiratory; patient observed sleeping and does not appear to be having difficulty. S/I, H/I: +SI A/VH: +AH Sleep: Refer to sleep assessment ADL's: Independent with FWW, assisted with CPAP setup Group attendance: NA Were meds taken: Yes Any med S/E: None observed or reported Mental Status Exam Appearance: Disheveled, shirt off, green unit scrub bottoms, malodorous Eye contact: Good Behavior: Pleasant and cooperative, isolative Speech: Clear, audible, normal rate & rhythm. Mood: Depressed Affect: Blunted Thought process: Linear Thought Content: Meeting needs Cognition: A/O X 4 Insight: Poor Judgment: Poor Interventions PRN's used: None Therapeutic interventions: 1:1 assessment, therapeutic conversation and active listening, medication administration/education/monitoring, ensured contract for safety,encouragement to attend groups and participate in unit activities, encouragement of personal hygiene, fall prevention, positive reinforcement, and Q 15 minute safety checks. Restraints/seclusion/emergency medication: None Justification of Continued Inpatient Treatment: Pt made suicidal statements about Slitting his wrists. Pt needs crisis interruption and stabilization with medication adjustment and monitoring in a safe and therapeutic environment to prevent danger to self until stable.
[2021-04-14] MEDS: gemfibrozil 600mg tablet PO SCH (07:47)
[2021-04-14] MEDS: furosemide 40mg tablet PO SCH (07:47)
[2021-04-14] MEDS: venlafaxine XR 75mg capsule (Q24H) PO SCH (07:48)
[2021-04-14] MEDS: atorvastatin 20mg tablet PO SCH (07:48)
[2021-04-14] MEDS: haloperidol 5mg tablet PO SCH ×2 (07:48→20:37)
[2021-04-14] MEDS: clopidogrel 75mg tablet PO SCH (07:48)
[2021-04-14] MEDS: isosorbide mononitrate 30mg tab.SR.24H PO SCH (07:48)
[2021-04-14] MEDS: metFORMIN 500mg tablet PO SCH ×2 (07:48→17:29)
[2021-04-14] MEDS: aspirin 81mg, enteric-coated 1 TAB TABLET.DR PO SCH (07:49)
[2021-04-14] MEDS: potassium Cl 20 mEq SR tablet PO SCH (07:49)
[2021-04-14] MEDS: docusate sod 100mg capsule PO SCH ×2 (07:49→20:38)
[2021-04-14] MEDS: gabapentin 100mg capsule PO SCH ×2 (07:49→20:36)
[2021-04-14] MEDS: duloxetine 30mg CAPSULE.DR PO SCH (07:49)
[2021-04-14] MEDS: lisinopril 20mg tablet PO SCH ×2 (07:55→20:38)
[2021-04-14] MEDS: metoprolol tartrate 50mg tablet PO SCH ×2 (07:55→20:37)
[2021-04-14 08:00] VITALS: BP 178/100
--- NOTE | 2021-04-14 16:08 | NUR ---
Nursing Progress Note: Legal hold: 5250 Client on involuntary status for DTS . Report received from ANAIS Gonzalez with use of SBAR. Why are they here: This patient is a Homeless man who had chest heaviness for one week while in [facility]. So he got on the bus to [place] and presented to the ER. He was he was diagnosed with NSTEMI (non-ST elevated myocardial infarction) and admitted to telemetry. He voiced SI and requested mental health evaluation to help him cope with life's burdens. So when he was medically cleared he was transferred to [facility] unit on a 5150 hold for SI. Assessment What has happened this shift: Patient resting quietly in bed at the change of the shift with CPAP on. Eats meals in the community room and interacts appropriately with staff and peers. Ambulates independently with FWW. C/o bilateral leg pain relieved by routine medications and rest. Pleasant and cooperative with medications and 1:1 assessment. States he continues to feel suicidal. States, I just have a hard time finding any hope. S/I, H/I: Endorses SI and thoughts of slitting his wrists. A/VH: Denies Sleep: 7 hours per NOC. Naps frequently throughout the day. ADL's: Independent with FWW Group attendance: N/A Were meds taken: Yes Any med S/E: None observed or reported Mental Status Exam Appearance: Older obese male with marie hair and masters wearing green unit scrub bottoms. Eye contact: Good Behavior: Pleasant and cooperative, isolative Speech: Clear, audible, normal rate & rhythm. Mood: Depressed Affect: Blunted Thought process: Linear Thought Content: Meeting needs Cognition: A/O X 4 Insight: Fair Judgment: Fair Interventions PRN's used: N/A Therapeutic interventions: 1:1 assessment, therapeutic conversation and active listening, medication administration/education/monitoring, ensured contract for safety, encouragement to attend groups and participate in unit activities, encouragement of personal hygiene, fall prevention, positive reinforcement, and Q 15 minute safety checks. Restraints/seclusion/emergency medication: None Justification of Continued Inpatient Treatment: Pt made suicidal statements about Slitting his wrists. Pt needs crisis interruption and stabilization with medication adjustment and monitoring in a safe and therapeutic environment to prevent danger to self until stable.
[2021-04-14] MEDS: acetaminophen 325mg tablet PO PRN (17:09)
[2021-04-14 19:55] VITALS: BP 139/72
[2021-04-14] MEDS: aripiprazole 5mg tablet PO SCH (20:36)
[2021-04-14] MEDS: traZODone 50mg tablet PO SCH (20:37)
--- NOTE | 2021-04-15 02:16 | NUR ---
Nursing Progress Note: Legal hold: 5250 Client on involuntary status for DTS . Report received from ANAIS Ramon with use of SBAR. Why are they here: This patient is a Homeless man who had chest heaviness for one week while in [facility]. So he got on the bus to [place] and presented to the ER. He was he was diagnosed with NSTEMI (non-ST elevated myocardial infarction) and admitted to telemetry. He voiced SI and requested mental health evaluation to help him cope with life's burdens. So when he was medically cleared he was transferred to [facility] unit on a 5150 hold for SI. Assessment What has happened this shift: Patient eating dinner in community room at the start of the shift. Interacts appropriately with staff and peers. Speaks softly and appears depressed. Continues to endorse thoughts of suicide and difficulty finding hope. Pleasant and cooperative with medications and 1:[address] while sleeping. S/I, H/I: Endorses SI and thoughts of slitting his wrists. A/VH: Denies Sleep: See sleep assessment ADL's: Independent with FWW Group attendance: N/A Were meds taken: Yes Any med S/E: None observed or reported Mental Status Exam Appearance: Older obese male with marie hair and masters wearing green unit scrubs Eye contact: Good Behavior: Pleasant and cooperative, isolative Speech: Clear, Soft, normal rate & rhythm. Mood: Depressed Affect: Blunted Thought process: Linear Thought Content: Meeting needs, feelings of depression. Cognition: A/O X 4 Insight: Fair Judgment: Fair Interventions PRN's used: N/A Therapeutic interventions: 1:1 assessment, therapeutic conversation and active listening, medication administration/education/monitoring, ensured contract for safety, encouragement to attend groups and participate in unit activities, encouragement of personal hygiene, fall prevention, positive reinforcement, and Q 15 minute safety checks. Restraints/seclusion/emergency medication: None Justification of Continued Inpatient Treatment: Pt made suicidal statements about Slitting his wrists. Pt needs crisis interruption and stabilization with medication adjustment and monitoring in a safe and therapeutic environment to prevent danger to self until stable.
[2021-04-15 08:09] VITALS: BP 138/79
[2021-04-15] MEDS: lisinopril 20mg tablet PO SCH ×2 (08:46→20:27)
[2021-04-15] MEDS: docusate sod 100mg capsule PO SCH ×2 (08:46→20:25)
[2021-04-15] MEDS: potassium Cl 20 mEq SR tablet PO SCH (08:46)
[2021-04-15] MEDS: duloxetine 30mg CAPSULE.DR PO SCH (08:46)
[2021-04-15] MEDS: atorvastatin 20mg tablet PO SCH (08:46)
[2021-04-15] MEDS: multivitamins, therapeutics tablet PO SCH (08:47)
[2021-04-15] MEDS: metoprolol tartrate 50mg tablet PO SCH ×2 (08:47→20:26)
[2021-04-15] MEDS: aspirin 81mg, enteric-coated 1 TAB TABLET.DR PO SCH (08:47)
[2021-04-15] MEDS: furosemide 40mg tablet PO SCH (08:47)
[2021-04-15] MEDS: clopidogrel 75mg tablet PO SCH (08:47)
[2021-04-15] MEDS: isosorbide mononitrate 30mg tab.SR.24H PO SCH (08:48)
[2021-04-15] MEDS: metFORMIN 500mg tablet PO SCH ×2 (08:48→17:03)
[2021-04-15] MEDS: gabapentin 100mg capsule PO SCH ×2 (08:48→20:25)
[2021-04-15] MEDS: gemfibrozil 600mg tablet PO SCH (09:27)
--- NOTE | 2021-04-15 13:33 | NUR ---
Nursing Progress Note: Legal hold: 5250 Client on involuntary status for DTS . Report received from ANAIS Gonzalez with use of SBAR. Why are they here: This patient is a Homeless man who had chest heaviness for one week while in [facility]. So he got on the bus to [place] and presented to the ER. He was he was diagnosed with NSTEMI (non-ST elevated myocardial infarction) and admitted to telemetry. He voiced SI and requested mental health evaluation to help him cope with life's burdens. So when he was medically cleared he was transferred to [facility] unit on a 5150 hold for SI. Assessment What has happened this shift: Patient resting quietly in bed at the change of the shift with CPAP on. Eats meals in the community room and interacts appropriately with staff and peers. Ambulates independently with FWW. Pleasant and cooperative with medications and 1:1 assessment. States he continues to feel suicidal. States, I just have a hard time finding any hope. This script writer asked patient if he would hurt himself while in this controlled environment? Patient states "no not in this controlled environment", patient states he lives in [facility] by choice and dose not have anywhere to live, "I have been living here and there, I have no family or friends". S/I, H/I: Endorses SI and thoughts of slitting his wrists. A/VH: Denies Sleep: Naps frequently throughout the day. ADL's: Independent with FWW Group attendance: N/A Were meds taken: Yes Any med S/E: None observed or reported Mental Status Exam Appearance: Older obese male with marie hair and masters wearing green unit scrub bottoms. Eye contact: Good Behavior: Pleasant and cooperative, isolative Speech: Clear, audible, normal rate & rhythm. Mood: Depressed Affect: Blunted Thought process: Linear Thought Content: Meeting needs Cognition: A/O X 4 Insight: Fair Judgment: Fair Interventions PRN's used: N/A Therapeutic interventions: 1:1 assessment, therapeutic conversation and active listening, medication administration/education/monitoring, ensured contract for safety, encouragement to attend groups and participate in unit activities, encouragement of personal hygiene, fall prevention, positive reinforcement, and Q 15 minute safety checks. Restraints/seclusion/emergency medication: None Justification of Continued Inpatient Treatment: Ernie continues to endorse S/I if not in a controlled environment, "I am hopeless and have no where to go." Patient needs more time on medication in ensure safe discharge plan, today patient would be at risk for re-admission if discharged.
[2021-04-15] MEDS: acetaminophen 325mg tablet PO PRN (19:01)
[2021-04-15 19:30] VITALS: BP 147/83
[2021-04-15] MEDS: haloperidol 5mg tablet PO SCH (20:28)
[2021-04-15] MEDS: traZODone 50mg tablet PO SCH (20:28)
[2021-04-15] MEDS: aripiprazole 5mg tablet PO SCH (20:28)
--- NOTE | 2021-04-16 03:30 | NUR ---
Nursing Progress Note: Legal hold: 5250 Client on involuntary status for DTS . Report received from ANAIS Ramon with use of SBAR. Why are they here: This patient is a Homeless man who had chest heaviness for one week while in [facility]. So he got on the bus to [place] and presented to the ER. He was he was diagnosed with NSTEMI (non-ST elevated myocardial infarction) and admitted to telemetry. He voiced SI and requested mental health evaluation to help him cope with life's burdens. So when he was medically cleared he was transferred to [facility] unit on a 5150 hold for SI. Assessment What has happened this shift: The patient was napping at shift change. After going in to interview him, he told another nurse that I reminded him of someone that had killed people. He claimed he wanted another nurse. Patient was told he doesn't get to pick his nurses. He was ok with this and accepted HS meds without comment. CPAP in place while sleeping. S/I, H/I: Endorses SI and thoughts of slitting his wrists. A/VH: Denies Sleep: See sleep assessment ADL's: Independent with FWW Group attendance: N/A Were meds taken: Yes Any med S/E: None observed or reported Mental Status Exam Appearance: Disheveled, large, older obese male with marie hair and masters wearing green unit scrubs Eye contact: Good Behavior: Pleasant and cooperative, isolative, guarded Speech: Clear, Soft, normal rate & rhythm. Mood: Depressed Affect: Blunted Thought process: Linear Thought Content: Meeting needs, feelings of depression. Cognition: A/O X 4 Insight: Fair Judgment: Fair Interventions PRN's used: Tylenol Therapeutic interventions: 1:1 assessment, therapeutic conversation and active listening, medication administration/education/monitoring, ensured contract for safety, encouragement to attend groups and participate in unit activities, encouragement of personal hygiene, fall prevention, positive reinforcement, and Q 15 minute safety checks. Restraints/seclusion/emergency medication: None Justification of Continued Inpatient Treatment: Pt made suicidal statements about Slitting his wrists. Pt needs crisis interruption and stabilization with medication adjustment and monitoring in a safe and therapeutic environment to prevent danger to self until stable.
[2021-04-16 08:00] VITALS: BP 183/82
[2021-04-16] MEDS: gemfibrozil 600mg tablet PO SCH (08:26)
[2021-04-16] MEDS: aspirin 81mg, enteric-coated 1 TAB TABLET.DR PO SCH (08:26)
[2021-04-16] MEDS: potassium Cl 20 mEq SR tablet PO SCH (08:27)
[2021-04-16] MEDS: duloxetine 30mg CAPSULE.DR PO SCH (08:27)
[2021-04-16] MEDS: clopidogrel 75mg tablet PO SCH (08:27)
[2021-04-16] MEDS: metFORMIN 500mg tablet PO SCH ×2 (08:27→17:46)
[2021-04-16] MEDS: isosorbide mononitrate 30mg tab.SR.24H PO SCH (08:27)
[2021-04-16] MEDS: gabapentin 100mg capsule PO SCH ×2 (08:28→20:10)
[2021-04-16] MEDS: furosemide 40mg tablet PO SCH (08:28)
[2021-04-16] MEDS: atorvastatin 20mg tablet PO SCH (08:28)
[2021-04-16] MEDS: docusate sod 100mg capsule PO SCH ×2 (08:29→20:09)
[2021-04-16] MEDS: multivitamins, therapeutics tablet PO SCH (08:29)
[2021-04-16] MEDS: metoprolol tartrate 50mg tablet PO SCH ×2 (08:29→20:10)
[2021-04-16] MEDS: lisinopril 20mg tablet PO SCH ×2 (08:29→20:12)
--- NOTE | 2021-04-16 13:19 | NUR ---
PROBABLE CAUSE HEARING Patients Name: Ernie Chung Admission Date: 04/09/2021 Date of 5150: 04/08/2021 Written by: [facility] Criteria: DTS Summary of Facts: Suicidal with a plan to slit wrists, reports feeling hopeless, intrusive negative thoughts, AVH. Date of 5250: 04/12/2021 Written by: [place] Criteria: DTS Summary of Facts: Came in with plan to suicide by slitting his wrists, continues to be suicidal. Diagnosis: Major depressive disorder, recurrent Behavior during past 48 HRS: Yesterday reported that he was still depressed and suicidal w/thoughts of slitting his wrists. Also showing some paranoia; telling the provider that there was a patient here who was hurting people by stinging and stabbing them, said his airline security representative nurse reminded him of someone who had killed people. FOOD: 100% SLEEPIN hours ADLS: Ind. JAIL: Homeless MEDICATION DOSAGE FREQUENCY DURATION Abilify 30 mg po q hs Trazodone 100 mg po q hs Cymbalta 60 mg po q day Haldol 5 mg po q hs
--- NOTE | 2021-04-16 13:52 | NUR ---
Nursing Progress Note: Legal hold: 5250 Client on involuntary status for DTS . Report received from ANAIS Lemons with use of SBAR. Why are they here: This patient is a Homeless man who had chest heaviness for one week while in [facility]. So he got on the bus to [place] and presented to the ER. He was he was diagnosed with NSTEMI (non-ST elevated myocardial infarction) and admitted to telemetry. He voiced SI and requested mental health evaluation to help him cope with life's burdens. So when he was medically cleared he was transferred to [facility] unit on a 5150 hold for SI. Assessment What has happened this shift: Patient resting quietly in bed at the change of the shift with CPAP on. Eats meals in the community room and interacts appropriately with staff and peers. Ambulates independently with FWW. Pleasant and cooperative with medications and 1:1 assessment. States he continues to feel suicidal. States, I just have a hard time finding any hope. "today is a little better but I still go to that place of feeling hopeless". This web content writer asked patient if he would hurt himself while in this controlled environment? Patient states "No you guys are good to me here". patient states he lives in [facility] by choice and dose not have anywhere to live, "I have been living here and there, I have no family or friends". Bradley affect seems to be lifted a little today and he is hopeful each day he will began to feel safe again someday. S/I, H/I: Endorses SI and thoughts of slitting his wrists. A/VH: Denies Sleep: Naps frequently throughout the day. ADL's: Independent with FWW Group attendance: N/A Were meds taken: Yes Any med S/E: None observed or reported Mental Status Exam Appearance: Older obese male with marie hair and masters wearing green unit scrub bottoms. Eye contact: Good Behavior: Pleasant and cooperative, isolative Speech: Clear, audible, normal rate & rhythm. Mood: Depressed Affect: Blunted Thought process: Linear Thought Content: Meeting needs Cognition: A/O X 4 Insight: Fair Judgment: Fair Interventions PRN's used: N/A Therapeutic interventions: 1:1 assessment, therapeutic conversation and active listening, medication administration/education/monitoring, ensured contract for safety, encouragement to attend groups and participate in unit activities, encouragement of personal hygiene, fall prevention, positive reinforcement, and Q 15 minute safety checks. Restraints/seclusion/emergency medication: None Justification of Continued Inpatient Treatment: Ernie continues to endorse S/I if not in a controlled environment, "I am hopeless and have no where to go." Patient needs more time on medication in ensure safe discharge plan, today patient would be at risk for re-admission if discharged. Addendum: 04/16/21 at 1450 by Brittany Rodriguez RN 1450 patient asked to shave, this web content writer got patient electric razor, patient started shaving facial hair then decided to shave his head.
--- NOTE | 2021-04-16 15:25 | NUR ---
Pt attended group today. Today we talked about the definition of resiliency, the ways to build resiliency and how to bounce back. They took a change resiliency test to see how they are able to manage change and discussed coping skills to help while navigating change. Pt. was in the group. He was very quiet and did not wish to share his thoughts. He listened to this Commercial Intelligence Manager and to his peers. He was pleasant, calm and compliant. Aimee Farley, NIGEL
[2021-04-16] MEDS: traMADol 50MG tablet PO SCH (20:11)
[2021-04-16] MEDS: aripiprazole 5mg tablet PO SCH (20:11)
[2021-04-16] MEDS: traZODone 50mg tablet PO SCH (20:12)
[2021-04-16] MEDS: haloperidol 5mg tablet PO SCH (20:12)
[2021-04-16 20:13] VITALS: BP 180/98
--- NOTE | 2021-04-17 01:49 | NUR ---
Nursing Progress Note: Legal hold: 5250 Client on involuntary status for DTS . Report received from ANAIS Ramon with use of SBAR. Why are they here: This patient is a Homeless man who had chest heaviness for one week while in [facility]. So he got on the bus to [place] and presented to the ER. He was he was diagnosed with NSTEMI (non-ST elevated myocardial infarction) and admitted to telemetry. He voiced SI and requested mental health evaluation to help him cope with life's burdens. So when he was medically cleared he was transferred to [facility] unit on a 5150 hold for SI. Assessment What has happened this shift: The patient was sitting on his bed at shift change. He has shaved his masters off. "CPAP works better this way." Patient was pleasant and cooperative. He says he likes it here as he has nowhere to go. Patient still somewhat suicidal, but contracts for safety, "I won't do anything here." He sat watching TV in the community room while waiting for respiratory to set up his CPAP, then he went to bed where he received HS meds. S/I, H/I: Endorses SI and thoughts of slitting his wrists. A/VH: Denies Sleep: See sleep assessment ADL's: Independent with FWW Group attendance: N/A Were meds taken: Yes Any med S/E: None observed or reported Mental Status Exam Appearance: Disheveled, large, older obese male with marie hair wearing green unit scrubs Eye contact: Good Behavior: Pleasant and cooperative, isolative, guarded Speech: Clear, Soft, normal rate & rhythm. Mood: Depressed Affect: Flat Thought process: Linear Thought Content: Meeting needs, feelings of depression. Cognition: A/O X 4 Insight: Fair Judgment: Fair Interventions PRN's used: Therapeutic interventions: 1:1 assessment, therapeutic conversation and active listening, medication administration/education/monitoring, ensured contract for safety, encouragement to attend groups and participate in unit activities, encouragement of personal hygiene, fall prevention, positive reinforcement, and Q 15 minute safety checks. Restraints/seclusion/emergency medication: None Justification of Continued Inpatient Treatment: Pt made suicidal statements about Slitting his wrists. Pt needs crisis interruption and stabilization with medication adjustment and monitoring in a safe and therapeutic environment to prevent danger to self until stable.
[2021-04-17] MEDS: traMADol 50MG tablet PO SCH ×2 (07:46→20:17)
[2021-04-17] MEDS: gemfibrozil 600mg tablet PO SCH (07:46)
[2021-04-17] MEDS: aspirin 81mg, enteric-coated 1 TAB TABLET.DR PO SCH (07:47)
[2021-04-17] MEDS: gabapentin 100mg capsule PO SCH ×2 (07:47→20:17)
[2021-04-17] MEDS: metFORMIN 500mg tablet PO SCH ×2 (07:47→17:27)
[2021-04-17] MEDS: atorvastatin 20mg tablet PO SCH (07:47)
[2021-04-17] MEDS: clopidogrel 75mg tablet PO SCH (07:48)
[2021-04-17] MEDS: potassium Cl 20 mEq SR tablet PO SCH (07:48)
[2021-04-17] MEDS: multivitamins, therapeutics tablet PO SCH (07:48)
[2021-04-17] MEDS: lisinopril 20mg tablet PO SCH ×2 (07:48→20:17)
[2021-04-17] MEDS: docusate sod 100mg capsule PO SCH ×2 (07:48→20:15)
[2021-04-17] MEDS: isosorbide mononitrate 30mg tab.SR.24H PO SCH (07:48)
[2021-04-17] MEDS: metoprolol tartrate 50mg tablet PO SCH ×2 (07:48→20:16)
[2021-04-17] MEDS: duloxetine 30mg CAPSULE.DR PO SCH (07:48)
[2021-04-17] MEDS: furosemide 40mg tablet PO SCH (07:49)
[2021-04-17 08:18] VITALS: BP 134/67
--- NOTE | 2021-04-17 16:51 | NUR ---
Group Art Tx Continued: Patient was motivated in his own quiet way to participate in the group process. He was able to follow all directives and was willing to share his drawing/writing in the group process. Patient remains quiet and guarded yet receptive to the group and able to listen well while his peers were sharing. *Please refer to the [facility] Case Notes for entire overview. Louisa Fraser MA, AIR CHIPPER #[id number] [facility], Art Therapist Addendum: 04/17/21 at 1651 by Louisa REYNOLDS Amended: Links added.
--- NOTE | 2021-04-17 16:57 | NUR ---
Nursing Progress Note: Ernie Chung Legal hold: 5250 Client on involuntary status for DTS Report received from ANAIS Purdy with use of SBAR. Why are they here: This patient is a Homeless man who had chest heaviness for one week while in [facility]. So he got on the bus to [place] and presented to the ER. He was he was diagnosed with NSTEMI (non-ST elevated myocardial infarction) and admitted to telemetry. He voiced SI and requested mental health evaluation to help him cope with life's burdens. So when he was medically cleared he was transferred to [facility] unit on a 5150 hold for SI. Assessment What has happened this shift: Patient observed sleeping in bed at change of shift. He was awoken to join in the community room with peers for breakfast. He presents as polite, pleasant, and cooperative with care. He retreated back to his room shortly after. He is compliant with all medications. Patient observed sitting in his room after breakfast listening to music through headphones. 1:1 assessment completed, lungs CTA. He denies SI/HI, AH or VH. Does not appear to be responding to internal stimuli. Patient endorsed to this hand sign writer that he wants to fly to [place], [place] or [place] when he leaves here, stating that he could rent a room from someone and afford to live over there. He was noted participating in group therapy today, interacting appropriately with staff and peers. Patient endorsed to the group that he found out today that he has benefits with [facility] [employer] and is hoping they will help find him a place to live. He ambulates independently with FWW. Patient took a shower on this shift, dressed in clean clothing with clean linen applied to bed. He was observed participating in art therapy today with peers. He is social with others on the unit and interacts appropriately. Patient was observed sitting in his room listening to music through headphones later in the day. He participated in the community room for all meals/ snack times today. S/I, H/I: Denies A/VH: Denies. Does not appear to be responding to internal stimuli. Sleep: Patient slept 9.25 hours last night per NOC shift, napped intermittently throughout the day ADL's: Independent with FWW Group attendance: Yes Were meds taken: Yes Any med S/E: None observed or reported Mental Status Exam Appearance: Clean, took a shower on this shift, older obese male, freshly shaved head and face, wearing personal clothing Eye contact: Good Behavior: Pleasant and cooperative, social Speech: Clear, audible, WNL Mood: Depressed Affect: Blunted Thought process: Linear Thought Content: Meeting needs Cognition: A&O x4 Insight: Fair Judgment: Fair Interventions PRN's used: N/A Therapeutic interventions: 1:1 assessment, therapeutic conversation and active listening, medication administration/education/monitoring, ensured contract for safety, encouragement to attend groups and participate in unit activities, encouragement of personal hygiene, fall prevention, positive reinforcement, and Q 15 minute safety checks. Restraints/seclusion/emergency medication: None Justification of Continued Inpatient Treatment: Pt needs crisis interruption and stabilization with medication adjustment and monitoring in a safe and therapeutic environment to prevent danger to self until stable.
[2021-04-17] MEDS: acetaminophen 325mg tablet PO PRN (17:34)
[2021-04-17] MEDS: haloperidol 5mg tablet PO SCH (20:15)
[2021-04-17] MEDS: aripiprazole 5mg tablet PO SCH (20:18)
[2021-04-17] MEDS: traZODone 50mg tablet PO SCH (20:18)
[2021-04-17 20:32] VITALS: BP 177/86
--- NOTE | 2021-04-18 03:05 | NUR ---
Nursing Progress Note: Legal hold: 5250 Client on involuntary status for DTS . Report received from ANAIS Montelongo with use of SBAR. Why are they here: This patient is a Homeless man who had chest heaviness for one week while in [facility]. So he got on the bus to [place] and presented to the ER. He was he was diagnosed with NSTEMI (non-ST elevated myocardial infarction) and admitted to telemetry. He voiced SI and requested mental health evaluation to help him cope with life's burdens. So when he was medically cleared he was transferred to [facility] unit on a 5150 hold for SI. Assessment What has happened this shift: The patient was seen in the community room for 1:1. He's pleasant and more social tonight. He reports that he found out he has Veterans benefits which may help him. "I may [place] and try my luck." Patient reports he's feeling a little hopeful now, but has fleeting thoughts of suicide. He remains med compliant and was in bed before snack time waiting for his CPAP to be set up. He has slept well all night. S/I, H/I: Passive SI, more hopeful A/VH: Denies Sleep: See sleep assessment ADL's: Independent with FWW Group attendance: N/A Were meds taken: Yes Any med S/E: None observed or reported Mental Status Exam Appearance: Disheveled, older obese male with marie hair wearing shorts and t-shirt. Eye contact: Good Behavior: Pleasant and cooperative, isolative, guarded Speech: Clear, Soft, normal rate & rhythm. Mood: Depressed Affect: Flat Thought process: Linear Thought Content: Meeting needs, feelings of depression. Cognition: A/O X 4 Insight: Fair Judgment: Fair Interventions PRN's used: Therapeutic interventions: 1:1 assessment, therapeutic conversation and active listening, medication administration/education/monitoring, ensured contract for safety, encouragement to attend groups and participate in unit activities, encouragement of personal hygiene, fall prevention, positive reinforcement, and Q 15 minute safety checks. Restraints/seclusion/emergency medication: None Justification of Continued Inpatient Treatment: Pt made suicidal statements about Slitting his wrists. Pt needs crisis interruption and stabilization with medication adjustment and monitoring in a safe and therapeutic environment to prevent danger to self until stable.
[2021-04-18 08:00] VITALS: BP 115/82
[2021-04-18] MEDS: multivitamins, therapeutics tablet PO SCH (08:31)
[2021-04-18] MEDS: aspirin 81mg, enteric-coated 1 TAB TABLET.DR PO SCH (08:31)
[2021-04-18] MEDS: potassium Cl 20 mEq SR tablet PO SCH (08:32)
[2021-04-18] MEDS: metoprolol tartrate 50mg tablet PO SCH ×2 (08:32→20:40)
[2021-04-18] MEDS: duloxetine 30mg CAPSULE.DR PO SCH (08:32)
[2021-04-18] MEDS: isosorbide mononitrate 30mg tab.SR.24H PO SCH (08:32)
[2021-04-18] MEDS: lisinopril 20mg tablet PO SCH ×2 (08:33→20:41)
[2021-04-18] MEDS: furosemide 40mg tablet PO SCH (08:33)
[2021-04-18] MEDS: clopidogrel 75mg tablet PO SCH (08:33)
[2021-04-18] MEDS: docusate sod 100mg capsule PO SCH ×2 (08:33→20:44)
[2021-04-18] MEDS: atorvastatin 20mg tablet PO SCH (08:33)
[2021-04-18] MEDS: gabapentin 100mg capsule PO SCH ×2 (08:34→20:45)
[2021-04-18] MEDS: metFORMIN 500mg tablet PO SCH ×2 (08:34→18:04)
[2021-04-18] MEDS: gemfibrozil 600mg tablet PO SCH (08:34)
[2021-04-18] MEDS: traMADol 50MG tablet PO SCH ×2 (08:35→20:43)
--- NOTE | 2021-04-18 13:56 | NUR ---
Nursing Progress Note: Legal hold: 5250 Client on involuntary status for DTS Report received from nurse with use of SBAR: ANAIS Purdy Why are they here: This patient is a Homeless man who had chest heaviness for one week while in [facility]. So he got on the bus to [place] and presented to the ER. He was he was diagnosed with NSTEMI (non-ST elevated myocardial infarction) and admitted to telemetry. He voiced SI and requested mental health evaluation to help him cope with life's burdens. So when he was medically cleared he was transferred to [facility] unit on a 5150 hold for SI. Assessment What has happened this shift: Received pt. sleeping in bed at the beginning of the shift with use of CPAP. Pt's BS was checked per orders and was WNL, and he was awoken to attend breakfast in the Group Room. Pt. is able to ambulate independently without the use of his FWW, fall precautions remain in place. 1:1 completed afterwards at bedside, pt. presents as cooperative and withdrawn, and has a downcast and hopeless expression. He reports ongoing S/I, however denies any plan at this time, pt. states, "I'm avoiding the plan phase." He also admits to some ongoing visual and auditory TAYLOR. When questioned further, pt. reports he saw an ant crawling across his breakfast tray that he believes was not really there this morning. Also, he reports A/TAYLOR of "People talking negatively." Pt. also reports delusions that random others want to hurt him. When questioned by this fiction and nonfiction prose writer regarding discharge, pt. states he is unsure regarding his funds at this time. He remains withdrawn in bed reading and napping intermittently during the morning. Pt. requires encouragement to preform ADLs and attend group. He refuses AM group, however consents to afternoon group. S/I, H/I: Pt. reports passive S/I, denies any plan A/VH: Pt. reports ongoing V/H at times and A/TAYLOR of "People talking negatively." Sleep: Pt. reports he slept will with use of CPAP, sleep hours are 9.25 ADL's: Pt. requires some encouragement Group attendance: Afternoon Group Were meds taken: Yes Any med S/E: None Mental Status Exam Appearance: Pt. continues to be somewhat disheveled and malodorous. He requires encouragement in order to preform hygiene. Eye contact: Good Behavior: Cooperative and withdrawn Speech: Soft, WNL Mood: Somewhat hopeless Affect: Constricted Thought process: WNL, with some poverty of thought Thought Content: Ongoing A/V/TAYLOR and hopelessness Cognition: A&O X4 Insight: Fair Judgment: Poor Interventions PRN's used: None Therapeutic interventions: Introduced self and established rapport, maintained a safe and therapeutic environment, ensured contract for safety, provided clear and simple instructions, provided active listening and positive encouragement, encouraged independent performance of ADLs and participation on the unit, and maintained Q 15min safety checks. Restraints/seclusion/emergency medication: N/A Justification of Continued Inpatient Treatment: LESLIE Araiza, pt. continues to require as safe and supportive environment and help developing a safety plan for discharge.
--- NOTE | 2021-04-18 14:30 | NUR ---
Group Art Tx, Continued: Patient presented initially as withdrawn,however an improvement in mood was noted as he participated in the activity AEB a shift in his demeanor.Patient was able to follow all directives and completed a drawing and journaling. He wrote: I am opening to my new season of change. I think the season will be abundant. I feel apprehensive to the truth as its' what I think about.I wish these or those doors would be open. I want the ability to sustain and care for myself. I need money to make this a reality. I will watch over my friend to make sure their safe. I believe that I will be abundantly provided for. I am done affirmating." *Please refer to the [employer] Case Notes for entire overview. Louisa Fraser MA, STOCK RAISER #[id number] [facility], Art Therapist Addendum: 04/18/21 at 1724 by Louisa REYNOLDS Amended: Links added.
[2021-04-18 19:02] VITALS: BP 145/85
[2021-04-18] MEDS: traZODone 50mg tablet PO SCH (20:43)
[2021-04-18] MEDS: haloperidol 5mg tablet PO SCH (20:43)
[2021-04-18] MEDS: aripiprazole 5mg tablet PO SCH (20:45)
--- NOTE | 2021-04-18 23:11 | NUR ---
Nursing Progress Note: Legal hold: 5250 Client on involuntary status for DTS . Report received from ANAIS Montelongo with use of SBAR. Why are they here: This patient is a Homeless man who had chest heaviness for one week while in [facility]. So he got on the bus to [place] and presented to the ER. He was he was diagnosed with NSTEMI (non-ST elevated myocardial infarction) and admitted to telemetry. He voiced SI and requested mental health evaluation to help him cope with life's burdens. So when he was medically cleared he was transferred to [facility] unit on a 5150 hold for SI. Assessment What has happened this shift: Patient spent all shift in his room isolating. Patient was anxious and precipitant about being connected to cpap machines. Patient took all scheduled medications before connecting to cpap machine. Patient slept with little difficulties. S/I, H/I: Passive SI, more hopeful A/VH: Denies Sleep: See sleep assessment ADL's: Independent with FWW Group attendance: N/A Were meds taken: Yes Any med S/E: None observed or reported Mental Status Exam Appearance: Disheveled, older obese male , wearing shorts and t-shirt. Eye contact: Good Behavior: Pleasant and cooperative, isolative, guarded Speech: Clear, Soft, normal rate & rhythm. Mood: Depressed Affect: Flat Thought process: Linear Thought Content: Meeting needs. Cognition: A/O X 4 Insight: Fair Judgment: Fair Interventions PRN's used: Therapeutic interventions: 1:1 assessment, therapeutic conversation and active listening, medication administration/education/monitoring, ensured contract for safety, encouragement to attend groups and participate in unit activities, encouragement of personal hygiene, fall prevention, positive reinforcement, and Q 15 minute safety checks. Restraints/seclusion/emergency medication: None Justification of Continued Inpatient Treatment: Pt made suicidal statements about Slitting his wrists. Pt needs crisis interruption and stabilization with medication adjustment and monitoring in a safe and therapeutic environment to prevent danger to self until stable.
[2021-04-19 08:00] VITALS: BP 119/61
[2021-04-19] MEDS: gemfibrozil 600mg tablet PO SCH (08:40)
[2021-04-19] MEDS: gabapentin 100mg capsule PO SCH ×2 (08:40→20:36)
[2021-04-19] MEDS: isosorbide mononitrate 30mg tab.SR.24H PO SCH (08:40)
[2021-04-19] MEDS: aspirin 81mg, enteric-coated 1 TAB TABLET.DR PO SCH (08:40)
[2021-04-19] MEDS: atorvastatin 20mg tablet PO SCH (08:40)
[2021-04-19] MEDS: docusate sod 100mg capsule PO SCH ×2 (08:41→20:34)
[2021-04-19] MEDS: duloxetine 30mg CAPSULE.DR PO SCH (08:41)
[2021-04-19] MEDS: metFORMIN 500mg tablet PO SCH ×2 (08:41→17:58)
[2021-04-19] MEDS: multivitamins, therapeutics tablet PO SCH (08:41)
[2021-04-19] MEDS: potassium Cl 20 mEq SR tablet PO SCH (08:41)
[2021-04-19] MEDS: lisinopril 20mg tablet PO SCH ×2 (08:41→20:35)
[2021-04-19] MEDS: metoprolol tartrate 50mg tablet PO SCH ×2 (08:41→20:36)
[2021-04-19] MEDS: clopidogrel 75mg tablet PO SCH (08:41)
[2021-04-19] MEDS: traMADol 50MG tablet PO SCH ×2 (08:42→20:33)
[2021-04-19] MEDS: furosemide 40mg tablet PO SCH (08:42)
--- NOTE | 2021-04-19 14:00 | NUR ---
Group Art Tx Continued: Patient entered into group late, however was interested in the handouts from the group, which were explained to him by this therapist. Patient noted that he "was having trouble hearing." He left soon after without further communication. *Please refer to the [facility] Case Notes for entire overview. Louisa Fraser MA, AUXILIARY EQUIPMENT TENDER #[id number] [facility], Art Therapist Addendum: 04/19/21 at 1625 by Louisa Fraser SS Amended: Links added.
--- NOTE | 2021-04-19 17:08 | NUR ---
Nursing Progress Note: Legal hold: 5250 Client on involuntary status for DTS Report received from nurse with use of SBAR: ANAIS Purdy Why are they here: This patient is a Homeless man who had chest heaviness for one week while in [facility]. So he got on the bus to [place] and presented to the ER. He was he was diagnosed with NSTEMI (non-ST elevated myocardial infarction) and admitted to telemetry. He voiced SI and requested mental health evaluation to help him cope with life's burdens. So when he was medically cleared he was transferred to [facility] unit on a 5150 hold for SI. Assessment What has happened this shift: Received pt. sleeping in bed at the beginning of the shift with use of CPAP. Pt. attends breakfast in the Group Room with direction from staff, he remains able to ambulate independently without the use of his FWW, fall precautions remain in place. 1:1 completed afterwards at bedside, pt. continues to present with a blunted affect and hopelessness. He states, "I just feel tired today, almost weighed down." He reports ongoing S/I, however continues to deny any plan. Pt. also reports ongoing A/V/TAYLOR, which are not command in nature. He states, "I think they will always be a part of me." When this repairer typewriter questioned him regarding discharge, pt. reports he plans to go to [place]. Pt. isolates in his room throughout much of the day, he does not attend groups or shower despite encouragement from this repairer typewriter. S/I, H/I: Pt. reports passive S/I, denies any plan A/VH: Pt. reports ongoing V/H at times and A/TAYLOR of "People talking negatively." Sleep: Pt. reports he slept will with use of CPAP, sleep hours are 7.5 ADL's: Pt. requires some encouragement Group attendance: No Were meds taken: Yes Any med S/E: None Mental Status Exam Appearance: Pt. continues to be somewhat disheveled and malodorous. He requires encouragement in order to preform hygiene. Eye contact: Good Behavior: Cooperative and withdrawn Speech: Soft, WNL Mood: Somewhat hopeless Affect: Constricted Thought process: WNL, with some poverty of thought Thought Content: Ongoing A/V/TAYLOR and hopelessness Cognition: A&O X4 Insight: Fair Judgment: Poor Interventions PRN's used: None Therapeutic interventions: Maintained a safe and therapeutic environment, ensured contract for safety, provided clear and simple instructions, provided active listening and positive encouragement, encouraged independent performance of ADLs and participation on the unit, and maintained Q 15min safety checks. Restraints/seclusion/emergency medication: N/A Justification of Continued Inpatient Treatment: Per Marin PA, pt. continues to require as safe and supportive environment and help developing a safety plan for discharge.
[2021-04-19 19:16] VITALS: BP 132/80
[2021-04-19] MEDS: aripiprazole 5mg tablet PO SCH (20:31)
[2021-04-19] MEDS: traZODone 50mg tablet PO SCH (20:34)
[2021-04-19] MEDS: haloperidol 5mg tablet PO SCH (20:34)
[2021-04-19] MEDS: carbamide peroxide 15ml bottle EACH EAR SCH (20:56)
--- NOTE | 2021-04-20 02:27 | NUR ---
Nursing Progress Note: Legal hold: 5250 Client on involuntary status for DTS . Report received from ANAIS Gonzalez with use of SBAR. Why are they here: This patient is a Homeless man who had chest heaviness for one week while in [facility]. So he got on the bus to [place] and presented to the ER. He was he was diagnosed with NSTEMI (non-ST elevated myocardial infarction) and admitted to telemetry. He voiced SI and requested mental health evaluation to help him cope with life's burdens. So when he was medically cleared he was transferred to [facility] unit on a 5150 hold for SI. Assessment What has happened this shift: Patient was found laying in bed listening to music. Patient spent majority of shift in his room. Patient only came out to participate in snack time before returning back to his room. Patient took all scheduled medications with out issue. Patient slept with no difficulty. S/I, H/I: Passive SI, more hopeful A/VH: Denies Sleep: See sleep assessment ADL's: Independent with FWW Group attendance: N/A Were meds taken: Yes Any med S/E: None observed or reported Mental Status Exam Appearance: Disheveled, older obese male, wearing shorts and t-shirt. Eye contact: Good Behavior: Pleasant and cooperative, isolative, guarded Speech: Clear, Soft, normal rate & rhythm. Mood: Depressed Affect: Flat Thought process: Linear Thought Content: Meeting needs. Cognition: A/O X 4 Insight: Fair Judgment: Fair Interventions PRN's used: Therapeutic interventions: 1:1 assessment, therapeutic conversation and active listening, medication administration/education/monitoring, ensured contract for safety, encouragement to attend groups and participate in unit activities, encouragement of personal hygiene, fall prevention, positive reinforcement, and Q 15 minute safety checks. Restraints/seclusion/emergency medication: None Justification of Continued Inpatient Treatment: Pt made suicidal statements about Slitting his wrists. Pt needs crisis interruption and stabilization with medication adjustment and monitoring in a safe and therapeutic environment to prevent danger to self until stable.
[2021-04-20 08:35] VITALS: BP 144/69
[2021-04-20] MEDS: gemfibrozil 600mg tablet PO SCH (08:54)
[2021-04-20] MEDS: aspirin 81mg, enteric-coated 1 TAB TABLET.DR PO SCH (08:54)
[2021-04-20] MEDS: atorvastatin 20mg tablet PO SCH (08:54)
[2021-04-20] MEDS: gabapentin 100mg capsule PO SCH ×2 (08:54→20:32)
[2021-04-20] MEDS: traMADol 50MG tablet PO SCH ×2 (08:54→20:34)
[2021-04-20] MEDS: isosorbide mononitrate 30mg tab.SR.24H PO SCH (08:55)
[2021-04-20] MEDS: furosemide 40mg tablet PO SCH (08:55)
[2021-04-20] MEDS: clopidogrel 75mg tablet PO SCH (08:55)
[2021-04-20] MEDS: metFORMIN 500mg tablet PO SCH ×2 (08:55→18:05)
[2021-04-20] MEDS: duloxetine 30mg CAPSULE.DR PO SCH (08:55)
[2021-04-20] MEDS: metoprolol tartrate 50mg tablet PO SCH ×2 (08:55→20:37)
[2021-04-20] MEDS: potassium Cl 20 mEq SR tablet PO SCH (08:55)
[2021-04-20] MEDS: multivitamins, therapeutics tablet PO SCH (08:56)
[2021-04-20] MEDS: docusate sod 100mg capsule PO SCH ×2 (08:56→20:33)
[2021-04-20] MEDS: lisinopril 20mg tablet PO SCH ×2 (08:56→20:33)
[2021-04-20] MEDS: carbamide peroxide 15ml bottle EACH EAR SCH ×2 (08:56→20:38)
[2021-04-20 11:40] VITALS: BP 139/77
--- NOTE | 2021-04-20 11:40 | NUR ---
Chest Discomfort & SOB: Pt. c/o SOB and chest tightness. He has an extensive medical history including a recent NSTEMI prior to admission. V/S were taken and WNL, bilateral lung sounds auscultated and clear, CPAP placed by respiratory, and EKG was preformed and read by ER DR. Loza with no new orders obtained. Pt's EKG, s/s, and medical history was endorsed to Dr. Ayala who stated EKG was WNL. Orders obtained for STAT Troponins. First Troponin performed and was WNL. Pt. also has an order for Nitroglycerin, first dose was given without effectiveness, and pt. then complained of medial chest pain 4/10 without radiation. An additional Nitroglycerin was administered (forgot to scan until later) with effectiveness. Pt. got up for lunch and was able to eat 100%, he denies any further chest pain, however continues to have some SOB (refused third dose of Nitroglycerin). Pt. returned to bed after lunch, CPAP was placed back on him, and PRN Ativan was administered, will continue to monitor. Subsequent Troponin labs will be drawn, pt. appears to be resting comfortably.
[2021-04-20] MEDS: nitroGLYCERIN 0.4mg SUBLingual tab SL PRN ×2 (12:10→13:03)
[2021-04-20 12:20] VITALS: BP 132/83
[2021-04-20 12:45] VITALS: BP 167/81
[2021-04-20] MEDS: LORazepam 1 MG tablet PO PRN ×2 (13:10→20:51)
[2021-04-20 13:15] VITALS: BP 149/84
--- NOTE | 2021-04-20 14:27 | NUR ---
Nursing Progress Note: Legal hold: 5250 Client on involuntary status for DTS Report received from nurse with use of SBAR: Olga Lopez RN Why are they here: This patient is a Homeless man who had chest heaviness for one week while in [facility]. So he got on the bus to [place] and presented to the ER. He was he was diagnosed with NSTEMI (non-ST elevated myocardial infarction) and admitted to telemetry. He voiced SI and requested mental health evaluation to help him cope with life's burdens. So when he was medically cleared he was transferred to [facility] unit on a 5150 hold for SI. Assessment What has happened this shift: Received pt. sleeping in bed at the beginning of the shift with use of CPAP. He was awoken to attend breakfast in the Group Room, and afterwards sat up for a while before returning to bed. Pt. continues to present as withdrawn and is not observed to be interacting with others. He also continues to require encouragement to perform ADLs and personal hygiene (however did request to have his laundry done). This fiction and nonfiction writer prose changed pt's bed linens, and continues to encourage him to shower, he has on the same disheveled clothing. Pt. continues to report passive SI and chronic A/V/TAYLOR. He presents with a blunted affect and hopelessness. He naps intermittently with use of CPAP (see previous note), and is observed to be sitting up in the afternoon making telephone calls and watching TV with others. S/I, H/I: Pt. reports passive S/I, denies any plan A/VH: Pt. reports chronic A/V/TAYLOR Sleep: Pt. reports he slept will with use of CPAP, sleep hours are 6.75 ADL's: Pt. requires some encouragement Group attendance: No, despite encouragement Were meds taken: Yes Any med S/E: None Mental Status Exam Appearance: Pt. continues to be disheveled and malodorous. He requires encouragement in order to preform hygiene. Eye contact: Good Behavior: Cooperative, anxious, and withdrawn Speech: Soft, WNL Mood: Somewhat hopeless Affect: Blunted Thought process: WNL, with some poverty of thought Thought Content: Ongoing A/V/TAYLOR and hopelessness Cognition: A&O X4 Insight: Fair Judgment: Poor Interventions PRN's used: Nitroglycerin X2 and Ativan Therapeutic interventions: Maintained a safe and therapeutic environment, ensured contract for safety, provided clear and simple instructions, provided active listening and positive encouragement, encouraged independent performance of ADLs and participation on the unit, monitored c/o chest pain and SOB and obtained orders for EKG and Troponins, and maintained Q 15min safety checks. Restraints/seclusion/emergency medication: N/A Justification of Continued Inpatient Treatment: Per LESLIE Funes, pt. continues to require as safe and supportive environment while allowing medications to reach their therapeutic effect.
[2021-04-20 20:00] VITALS: BP 154/71
[2021-04-20] MEDS: aripiprazole 5mg tablet PO SCH (20:32)
[2021-04-20] MEDS: haloperidol 5mg tablet PO SCH (20:33)
[2021-04-20] MEDS: traZODone 50mg tablet PO SCH (20:34)
--- NOTE | 2021-04-21 02:39 | NUR ---
Nursing Progress Note: Legal hold: 5250 Client on involuntary status for DTS Report received from nurse with use of SBAR: ANAIS Gonzalez Why are they here: This patient is a Homeless man who had chest heaviness for one week while in [facility]. So he got on the bus to [place] and presented to the ER. He was he was diagnosed with NSTEMI (non-ST elevated myocardial infarction) and admitted to telemetry. He voiced SI and requested mental health evaluation to help him cope with life's burdens. So when he was medically cleared he was transferred to [facility] unit on a 5150 hold for SI. Assessment What has happened this shift: Received pt. resting in bed at the beginning of the shift, he continued to remain withdrawn here throughout the shift, leaving his room only to attend HS snack. Pt. continues to present as downcast and depressed. However, he does deny any S/I this shift, and states, "My depression is 75% better." Pt. continues to report ongoing A/V/TAYLOR which are chronic for him. He also reports some anxiety r/t worry regarding his health condition. However, all serial Troponin levels have been WNL and this was endorsed to pt who reported understanding. PRN Ativan administered at HS with effectiveness. Pt. denies any pain or SOB this shift. He appears to be resting well and CPAP in place. Twelve hour Troponin level was drawn by staff and was also WNL, will continue to monitor. S/I, H/I: Denies A/VH: Pt. reports chronic A/V/TAYLOR Sleep: Pt. appears to be sleeping well, CPAP is in place ADL's: Pt. requires some encouragement Group attendance: N/A Were meds taken: Yes Any med S/E: None Mental Status Exam Appearance: Pt. continues to be disheveled and malodorous. He requires encouragement in order to preform hygiene. This fiction writer did convince pt. to allow staff to wash his clothes this shift, however he continues to refuse to shower Eye contact: Good Behavior: Cooperative, anxious, withdrawn, and fatigued Speech: Soft, WNL Mood: Downcast Affect: Blunted Thought process: WNL, with some poverty of thought Thought Content: Ongoing A/V/TAYLOR and depression Cognition: A&O X4 Insight: Fair Judgment: Poor Interventions PRN's used: Ativan Therapeutic interventions: Maintained a safe and therapeutic environment, ensured contract for safety, provided clear and simple instructions, provided active listening and positive encouragement, encouraged independent performance of ADLs and participation on the unit, monitored serial Troponins, and maintained Q 15min safety checks. Restraints/seclusion/emergency medication: N/A Justification of Continued Inpatient Treatment: Per Marin PA, pt. continues to require as safe and supportive environment while allowing medications to reach their therapeutic effect.
[2021-04-21] MEDS: metFORMIN 500mg tablet PO SCH ×2 (08:34→17:42)
[2021-04-21] MEDS: aspirin 81mg, enteric-coated 1 TAB TABLET.DR PO SCH (08:34)
[2021-04-21] MEDS: carbamide peroxide 15ml bottle EACH EAR SCH ×2 (08:34→20:00)
[2021-04-21] MEDS: duloxetine 30mg CAPSULE.DR PO SCH (08:34)
[2021-04-21] MEDS: docusate sod 100mg capsule PO SCH ×2 (08:34→21:12)
[2021-04-21] MEDS: isosorbide mononitrate 30mg tab.SR.24H PO SCH (08:35)
[2021-04-21] MEDS: atorvastatin 20mg tablet PO SCH (08:35)
[2021-04-21] MEDS: potassium Cl 20 mEq SR tablet PO SCH (08:35)
[2021-04-21] MEDS: furosemide 40mg tablet PO SCH (08:35)
[2021-04-21] MEDS: clopidogrel 75mg tablet PO SCH (08:36)
[2021-04-21] MEDS: multivitamins, therapeutics tablet PO SCH (08:36)
[2021-04-21] MEDS: traMADol 50MG tablet PO SCH ×2 (08:36→21:14)
[2021-04-21] MEDS: gemfibrozil 600mg tablet PO SCH (08:37)
[2021-04-21] MEDS: gabapentin 100mg capsule PO SCH ×2 (08:37→21:11)
[2021-04-21] MEDS: lisinopril 20mg tablet PO SCH ×2 (08:38→21:12)
[2021-04-21] MEDS: metoprolol tartrate 50mg tablet PO SCH ×2 (08:38→21:11)
[2021-04-21 08:53] VITALS: BP 148/77
--- NOTE | 2021-04-21 17:51 | NUR ---
Nursing Progress Note Legal hold: 5250 Client on involuntary status for DTS Report received from RN with use of SBAR Why are they here: This patient is a Homeless man who had chest heaviness for one week while in [facility]. So he got on the bus to [place] and presented to the ER. He was he was diagnosed with NSTEMI (non-ST elevated myocardial infarction) and admitted to telemetry. He voiced SI and requested mental health evaluation to help him cope with life's burdens. So when he was medically cleared he was transferred to [facility] unit on a 5150 hold for SI. Assessment What has happened this shift: Received Pt in bed sleeping w/o distress at the beginning of the shift. Pt woke for vitals and ate breakfast and all meals well. Pt took AM meds w/o issue. Pt tolerated assessments well and was pleasant in interactions, although withdrawn and quiet. Pt ambulated well to meals and showered in the AM. Pt napped intermittently with his CPAP. Pt spent time up watching TV at times but not interacting with other Pts. Overall appears depressed. S/I, H/I: Passive S/I, denies plan A/VH: Pt. reports A/V/TAYLOR Sleep: Napped with use of CPAP ADL's: Independent with encouragement Group attendance: No Were meds taken: Yes Any med S/E: None Mental Status Exam Appearance: Casual after shower Eye contact: Good Behavior: Cooperative, anxious, and withdrawn Speech: Soft, WNL Mood: Depressed Affect: Blunted Thought process: WNL Thought Content: Being homeless Cognition: A&O X4 Insight: Fair Judgment: Poor Interventions PRN's used: None Therapeutic interventions: Maintained a safe and therapeutic environment, ensured contract for safety, provided clear and simple instructions, provided active listening and positive encouragement, encouraged independent performance of ADLs and participation on the unit, monitored c/o chest pain and SOB and obtained orders for EKG and Troponins, and maintained Q 15min safety checks. Restraints/seclusion/emergency medication: N/A Justification of Continued Inpatient Treatment: Per LESLIE Funes, pt. continues to require as safe and supportive environment while allowing medications to reach their therapeutic effect.
[2021-04-21] MEDS: acetaminophen 325mg tablet PO PRN (18:06)
[2021-04-21 19:00] VITALS: BP 142/77
[2021-04-21] MEDS: traZODone 50mg tablet PO SCH (21:12)
[2021-04-21] MEDS: aripiprazole 5mg tablet PO SCH (21:12)
[2021-04-21] MEDS: haloperidol 5mg tablet PO SCH (21:12)
--- NOTE | 2021-04-21 23:41 | NUR ---
Nursing Progress Note: Legal hold: 5250 Client on involuntary status for DTS Report received from nurse with use of SBAR: ANAIS Gonzalez Why are they here: This patient is a Homeless man who had chest heaviness for one week while in [facility]. So he got on the bus to [place] and presented to the ER. He was he was diagnosed with NSTEMI (non-ST elevated myocardial infarction) and admitted to telemetry. He voiced SI and requested mental health evaluation to help him cope with life's burdens. So when he was medically cleared he was transferred to [facility] unit on a 5150 hold for SI. Assessment What has happened this shift: Patient walking to his room at the beginning of shift. Pleasant and cooperative with care; compliant with medication. Remains on CPAP without difficulty while in bed. Patient reports some SI and VH. Patient reports seeing strange things he is unable to explain. Patient participated in HS snack prior to bed; observed sleeping and does not appear to be having difficulty. S/I, H/I: +SI, no plan A/VH: +VH, unable to describe what he is seeing Sleep: Refer to sleep assessment ADL's: Pt. requires some encouragement Group attendance: NA Were meds taken: Yes Any med S/E: None observed or reported Mental Status Exam Appearance: Malodorous, appropriate attire Eye contact: Good Behavior: Pleasant and cooperative, isolative, fatigued Speech: Clear, audible, regular rate/rhythm Mood: Depressed Affect: Blunted Thought process: Linear Thought Content: Meeting needs Cognition: A&O X4 Insight: Fair Judgment: Poor Interventions PRN's used: None Therapeutic interventions: Maintained a safe and therapeutic environment, ensured contract for safety, provided clear and simple instructions, provided active listening and positive encouragement, encouraged independent performance of ADLs and participation on the unit, monitored serial Troponins, and maintained Q 15min safety checks. Restraints/seclusion/emergency medication: NA Justification of Continued Inpatient Treatment: LESLIE Araiza, pt. continues to require as safe and supportive environment while allowing medications to reach their therapeutic effect.
[2021-04-22 07:38] VITALS: BP 133/68
[2021-04-22] MEDS: gemfibrozil 600mg tablet PO SCH (08:22)
[2021-04-22] MEDS: aspirin 81mg, enteric-coated 1 TAB TABLET.DR PO SCH (08:23)
[2021-04-22] MEDS: docusate sod 100mg capsule PO SCH ×2 (08:24→20:41)
[2021-04-22] MEDS: furosemide 40mg tablet PO SCH (08:24)
[2021-04-22] MEDS: clopidogrel 75mg tablet PO SCH (08:26)
[2021-04-22] MEDS: gabapentin 100mg capsule PO SCH ×2 (08:26→20:41)
[2021-04-22] MEDS: potassium Cl 20 mEq SR tablet PO SCH (08:27)
[2021-04-22] MEDS: metFORMIN 500mg tablet PO SCH ×2 (08:27→17:55)
[2021-04-22] MEDS: isosorbide mononitrate 30mg tab.SR.24H PO SCH (08:27)
[2021-04-22] MEDS: traMADol 50MG tablet PO SCH ×2 (08:27→20:42)
[2021-04-22] MEDS: duloxetine 30mg CAPSULE.DR PO SCH (08:27)
[2021-04-22] MEDS: multivitamins, therapeutics tablet PO SCH (08:29)
[2021-04-22] MEDS: lisinopril 20mg tablet PO SCH ×2 (08:29→20:43)
[2021-04-22] MEDS: metoprolol tartrate 50mg tablet PO SCH ×2 (08:29→20:43)
[2021-04-22] MEDS: atorvastatin 20mg tablet PO SCH (08:31)
[2021-04-22] MEDS: carbamide peroxide 15ml bottle EACH EAR SCH ×2 (08:31→20:41)
--- NOTE | 2021-04-22 16:45 | NUR ---
Nursing Progress Note Legal hold: 5250 Client on involuntary status for DTS Report received from RN with use of SBAR Why are they here: This patient is a Homeless man who had chest heaviness for one week while in [facility]. So he got on the bus to [place] and presented to the ER. He was he was diagnosed with NSTEMI (non-ST elevated myocardial infarction) and admitted to telemetry. He voiced SI and requested mental health evaluation to help him cope with life's burdens. So when he was medically cleared he was transferred to [facility] unit on a 5150 hold for SI. Assessment What has happened this shift: Received Pt in bed sleeping w/o distress at the beginning of the shift. Pt woke for vitals and ate breakfast and all meals well. Pt took AM meds w/o issue. Pt tolerated assessments well and was pleasant and remains quiet and withdrawn. Pt napped in AM with CPAP and ambulated well to community room multiple times. Pt concerns are focused on housing and getting VA benefits. Pt watched football for a couple hours in afternoon and returned to bed. S/I, H/I: Passive S/I, denies plan A/VH: Pt. reports A/V/TAYLOR Sleep: Napped with use of CPAP ADL's: Independent with encouragement Group attendance: No Were meds taken: Yes Any med S/E: None Mental Status Exam Appearance: Casual Eye contact: Good Behavior: Cooperative and withdrawn Speech: Soft, WNL Mood: Depressed Affect: Blunted Thought process: WNL Thought Content: Being homeless Cognition: A&O X4 Insight: Fair Judgment: Poor Interventions PRN's used: None Therapeutic interventions: Maintained a safe and therapeutic environment, ensured contract for safety, provided clear and simple instructions, provided active listening and positive encouragement, encouraged independent performance of ADLs and participation on the unit, monitored c/o chest pain and SOB and obtained orders for EKG and Troponins, and maintained Q 15min safety checks. Restraints/seclusion/emergency medication: N/A Justification of Continued Inpatient Treatment: Per LESLIE Funes, pt. continues to require as safe and supportive environment while allowing medications to reach their therapeutic effect.
[2021-04-22 19:33] VITALS: BP 174/93
[2021-04-22] MEDS: haloperidol 5mg tablet PO SCH (20:41)
[2021-04-22] MEDS: traZODone 50mg tablet PO SCH (20:41)
[2021-04-22] MEDS: aripiprazole 5mg tablet PO SCH (20:42)
--- NOTE | 2021-04-23 04:05 | NUR ---
Nursing Progress Note Legal hold: 5250 Client on involuntary status for DTS Report received from RN with use of SBAR Why are they here: This patient is a Homeless man who had chest heaviness for one week while in [facility]. So he got on the bus to [place] and presented to the ER. He was he was diagnosed with NSTEMI (non-ST elevated myocardial infarction) and admitted to telemetry. He voiced SI and requested mental health evaluation to help him cope with life's burdens. So when he was medically cleared he was transferred to [facility] unit on a 5150 hold for SI. Assessment What has happened this shift: Received Pt in community room watching baseball. Pt calm and pleasant, yet depressed. Pt concerned about finding housing and getting VA benefits. Pt enjoyed snack and returned to bed with CPAP and took HS meds w/o issue. Pt appeared to sleep well throughout the night. S/I, H/I: Passive S/I, denies plan A/VH: Pt. reports A/V/TAYLOR Sleep: See sleep assessment ADL's: Independent with encouragement Group attendance: No Were meds taken: Yes Any med S/E: None Mental Status Exam Appearance: Casual Eye contact: Good Behavior: Cooperative and withdrawn Speech: Soft, WNL Mood: Depressed Affect: Blunted Thought process: WNL Thought Content: Being homeless Cognition: A&O X4 Insight: Fair Judgment: Poor Interventions PRN's used: None Therapeutic interventions: Maintained a safe and therapeutic environment, ensured contract for safety, provided clear and simple instructions, provided active listening and positive encouragement, encouraged independent performance of ADLs and participation on the unit, monitored c/o chest pain and SOB and obtained orders for EKG and Troponins, and maintained Q 15min safety checks. Restraints/seclusion/emergency medication: N/A Justification of Continued Inpatient Treatment: Per Marin PA, pt. continues to require as safe and supportive environment while allowing medications to reach their therapeutic effect.
[2021-04-23 07:35] VITALS: BP 153/60
[2021-04-23] MEDS: gemfibrozil 600mg tablet PO SCH (08:28)
[2021-04-23] MEDS: gabapentin 100mg capsule PO SCH ×2 (08:28→20:02)
[2021-04-23] MEDS: atorvastatin 20mg tablet PO SCH (08:29)
[2021-04-23] MEDS: duloxetine 30mg CAPSULE.DR PO SCH (08:30)
[2021-04-23] MEDS: metFORMIN 500mg tablet PO SCH ×2 (08:30→18:01)
[2021-04-23] MEDS: docusate sod 100mg capsule PO SCH ×2 (08:30→20:02)
[2021-04-23] MEDS: clopidogrel 75mg tablet PO SCH (08:30)
[2021-04-23] MEDS: potassium Cl 20 mEq SR tablet PO SCH (08:30)
[2021-04-23] MEDS: aspirin 81mg, enteric-coated 1 TAB TABLET.DR PO SCH (08:31)
[2021-04-23] MEDS: isosorbide mononitrate 30mg tab.SR.24H PO SCH (08:31)
[2021-04-23] MEDS: carbamide peroxide 15ml bottle EACH EAR SCH ×2 (08:31→20:00)
[2021-04-23] MEDS: multivitamins, therapeutics tablet PO SCH (08:31)
[2021-04-23] MEDS: traMADol 50MG tablet PO SCH ×2 (08:32→20:01)
[2021-04-23] MEDS: lisinopril 20mg tablet PO SCH ×2 (08:40→20:03)
[2021-04-23] MEDS: metoprolol tartrate 50mg tablet PO SCH ×2 (08:41→20:02)
[2021-04-23] MEDS: furosemide 40mg tablet PO SCH (08:41)
--- NOTE | 2021-04-23 09:40 | NUR ---
Reassessment: Pt continues w/ adequate PO intake on CCHO diet, mostly 100% of meals meeting needs. Last BG check on 04/18 WNL, pt may be able to liberalize to Regular diet if MD agreeable. LBM 04/18 receiving routine colace. No nutrition intervention implemented at this time, will continue to monitor. Recommendations: 1) Advance to regular diet if BG levels well controlled; A1c 6.5% with BG range 100-122 mg/dL throughout LOS 2) Monitor need for additional protein for satiety; offer snacks 3) Routine bowel care 4) Weekly scaled weights Addendum: 04/23/21 at [address] Amended: Links added.
--- NOTE | 2021-04-23 14:49 | NUR ---
Nursing Progress Note: Legal hold: 5250 Client on involuntary status for DTS Report received from nurse with use of SBAR: ANAIS Lemons Why are they here: This patient is a Homeless man who had chest heaviness for one week while in [facility]. So he got on the bus to [place] and presented to the ER. He was he was diagnosed with NSTEMI (non-ST elevated myocardial infarction) and admitted to telemetry. He voiced SI and requested mental health evaluation to help him cope with life's burdens. So when he was medically cleared he was transferred to [facility] unit on a 5150 hold for SI. Assessment What has happened this shift: Received pt. sleeping in bed at the beginning of the shift with CPap in use, he continued to remain withdrawn here throughout much the shift, reading or listening to music. Pt. continues to present as downcast and somewhat hopeless, however he continues to deny any S/I. When this senior grant writer questioned him regarding his depression, pt. stated, "It's a lot better." Pt denies any A/V/TAYLOR this shift, and does not appear to be internally preoccupied. However, he does make a paranoid delusional statement regarding the air vent over his bed. Pt. states, "I think this vent comes out and sprays clear, it oppresses me." S/I, H/I: Denies A/VH: Denies, pt does not appear to be internally preoccupied Sleep: Sleep hours are 7 ADL's: Pt. requires some encouragement Group attendance: N/A Were meds taken: Yes Any med S/E: None Mental Status Exam Appearance: Pt. continues to present as disheveled, however he reports he did shower yesterday Eye contact: Good Behavior: Cooperative, fatigued, and withdrawn Speech: Soft, WNL Mood: Downcast Affect: Blunted Thought process: WNL, with some poverty of thought Thought Content: Some paranoid delusions Cognition: A&O X4 Insight: Fair Judgment: Poor Interventions PRN's used: None Therapeutic interventions: Maintained a safe and therapeutic environment, ensured contract for safety, provided clear and simple instructions, provided active listening and positive encouragement, encouraged independent performance of ADLs and participation on the unit, and maintained Q 15min safety checks. Restraints/seclusion/emergency medication: N/A Justification of Continued Inpatient Treatment: Per LESLIE Funes, pt. continues to require as safe and supportive environment, he will discharge on Friday.
[2021-04-23] MEDS: aripiprazole 5mg tablet PO SCH (20:01)
[2021-04-23] MEDS: traZODone 50mg tablet PO SCH (20:02)
[2021-04-23] MEDS: haloperidol 5mg tablet PO SCH (20:03)
[2021-04-23 20:15] VITALS: BP 179/95
--- NOTE | 2021-04-24 00:43 | NUR ---
Nursing Progress Note: Legal hold: 5250 Client on involuntary status for DTS . Report received from ANAIS Gonzalez with use of SBAR. Why are they here: This patient is a Homeless man who had chest heaviness for one week while in [facility]. So he got on the bus to [place] and presented to the ER. He was he was diagnosed with NSTEMI (non-ST elevated myocardial infarction) and admitted to telemetry. He voiced SI and requested mental health evaluation to help him cope with life's burdens. So when he was medically cleared he was transferred to [facility] unit on a 5150 hold for SI. Assessment What has happened this shift: Patient sitting on his bed at shift change. He reports that he's doing fine, depression better. The patient still appears depressed and hopeless, even though he denies. He was in his room at 1930, when he asked me to page Respiratory to set up his CPAP. The patient went to snack took HS meds, then went to bed as his machine was ready. . S/I, H/I: Denies A/VH: Denies Sleep: See sleep assessment ADL's: Independent with FWW Group attendance: N/A Were meds taken: Yes Any med S/E: None observed or reported Mental Status Exam Appearance: Disheveled, older obese male with marie hair wearing shorts and t-shirt. Eye contact: Good Behavior: Pleasant and cooperative, isolative, guarded Speech: Clear, Soft, normal rate & rhythm. Mood: Depressed Affect: Flat Thought process: Linear Thought Content: Meeting needs, feelings of depression. Cognition: A/O X 4 Insight: Fair Judgment: Fair Interventions PRN's used: Therapeutic interventions: 1:1 assessment, therapeutic conversation and active listening, medication administration/education/monitoring, ensured contract for safety, encouragement to attend groups and participate in unit activities, encouragement of personal hygiene, fall prevention, positive reinforcement, and Q 15 minute safety checks. Restraints/seclusion/emergency medication: None Justification of Continued Inpatient Treatment: Pt made suicidal statements about Slitting his wrists. Pt needs crisis interruption and stabilization with medication adjustment and monitoring in a safe and therapeutic environment to prevent danger to self until stable.
[2021-04-24] MEDS: duloxetine 30mg CAPSULE.DR PO SCH (08:28)
[2021-04-24] MEDS: gemfibrozil 600mg tablet PO SCH (08:28)
[2021-04-24] MEDS: isosorbide mononitrate 30mg tab.SR.24H PO SCH (08:28)
[2021-04-24] MEDS: atorvastatin 20mg tablet PO SCH (08:28)
[2021-04-24] MEDS: gabapentin 100mg capsule PO SCH ×2 (08:29→20:16)
[2021-04-24] MEDS: metFORMIN 500mg tablet PO SCH ×2 (08:29→17:27)
[2021-04-24] MEDS: metoprolol tartrate 50mg tablet PO SCH ×2 (08:29→20:19)
[2021-04-24] MEDS: multivitamins, therapeutics tablet PO SCH (08:29)
[2021-04-24] MEDS: potassium Cl 20 mEq SR tablet PO SCH (08:30)
[2021-04-24] MEDS: docusate sod 100mg capsule PO SCH ×2 (08:30→20:16)
[2021-04-24] MEDS: traMADol 50MG tablet PO SCH ×2 (08:30→20:17)
[2021-04-24] MEDS: lisinopril 20mg tablet PO SCH ×2 (08:30→20:18)
[2021-04-24] MEDS: aspirin 81mg, enteric-coated 1 TAB TABLET.DR PO SCH (08:30)
[2021-04-24] MEDS: clopidogrel 75mg tablet PO SCH (08:30)
[2021-04-24] MEDS: furosemide 40mg tablet PO SCH (08:30)
[2021-04-24] MEDS: carbamide peroxide 15ml bottle EACH EAR SCH ×2 (08:31→20:21)
[2021-04-24 08:36] VITALS: BP 157/71
--- NOTE | 2021-04-24 13:03 | NUR ---
Nursing Progress Note: Legal hold: 5250 Client on involuntary status for DTS Report received from nurse with use of SBAR: ANAIS Purdy Why are they here: This patient is a Homeless man who had chest heaviness for one week while in [facility]. So he got on the bus to [place] and presented to the ER. He was he was diagnosed with NSTEMI (non-ST elevated myocardial infarction) and admitted to telemetry. He voiced SI and requested mental health evaluation to help him cope with life's burdens. So when he was medically cleared he was transferred to [facility] unit on a 5150 hold for SI. Assessment What has happened this shift: Received pt. sleeping in bed at the beginning of the shift with CPap in use, her again remained withdrawn here much of the shift napping intermittently. This specification writer encouraged pt. to attend group and participate on the unit, however he refused. 1:1 completed at bedside, pt. continues to present as downcast, however denies any S/I. When questioned regarding A/TAYLOR, pt. states, "Someone was screaming in my ear this morning." Pt. then reports he is bored here and looking forward to discharge tomorrow. He would like staff to look for some extra clothes for him. S/I, H/I: Denies A/VH: Pt. reports A/TAYLOR of, "Someone screaming in my ear." Sleep: Sleep hours are 8.75 ADL's: Pt. requires some encouragement Group attendance: No Were meds taken: Yes Any med S/E: None Mental Status Exam Appearance: Pt. continues to present as disheveled Eye contact: Good Behavior: Cooperative, fatigued, and withdrawn Speech: Soft, WNL Mood: Downcast Affect: Blunted Thought process: WNL, with some poverty of thought Thought Content: Possible ongoing A/TAYLOR Cognition: A&O X4 Insight: Fair Judgment: Poor Interventions PRN's used: None Therapeutic interventions: Maintained a safe and therapeutic environment, ensured contract for safety, provided clear and simple instructions, provided active listening and positive encouragement, encouraged independent performance of ADLs and participation on the unit, and maintained Q 15min safety checks. Restraints/seclusion/emergency medication: N/A Justification of Continued Inpatient Treatment: Per LESLIE Funes, pt. continues to require as safe and supportive environment, he will discharge on Friday.
[2021-04-24 19:51] VITALS: BP 152/76
[2021-04-24] MEDS: aripiprazole 5mg tablet PO SCH (20:16)
[2021-04-24] MEDS: haloperidol 5mg tablet PO SCH (20:17)
[2021-04-24] MEDS: traZODone 50mg tablet PO SCH (20:18)
--- NOTE | 2021-04-25 01:33 | NUR ---
Nursing Progress Note: Legal hold: 5250 Client on involuntary status for DTS Report received from nurse with use of SBAR: ANAIS Gonzalez Why are they here: This patient is a Homeless man who had chest heaviness for one week while in [facility]. So he got on the bus to [place] and presented to the ER. He was he was diagnosed with NSTEMI (non-ST elevated myocardial infarction) and admitted to telemetry. He voiced SI and requested mental health evaluation to help him cope with life's burdens. So when he was medically cleared he was transferred to [facility] unit on a 5150 hold for SI. Assessment What has happened this shift: Pt was in his room at change of shift stating he wants to leave when he gets money tomorrow. Pt states "not really" when asked about a/vh. Pt is looking forward to leaving tomorrow and states he will stay at a hotel. Pt declined snacks tonight, took HS meds and went to bed. S/I, H/I: Denies A/VH: denies "not really" Sleep: see sleep hours ADL's: Pt. requires some encouragement Group attendance: No Were meds taken: Yes Any med S/E: None Mental Status Exam Appearance: disheveled Eye contact: Good Behavior: Cooperative, fatigued, and withdrawn Speech: Soft, WNL Mood: Downcast Affect: Blunted Thought process: linear Thought Content: Possible ongoing A/TAYLOR Cognition: A&O X4 Insight: Fair Judgment: Poor Interventions PRN's used: None Therapeutic interventions: Maintained a safe and therapeutic environment, ensured contract for safety, provided clear and simple instructions, provided active listening and positive encouragement, encouraged independent performance of ADLs and participation on the unit, and maintained Q 15min safety checks. Restraints/seclusion/emergency medication: N/A Justification of Continued Inpatient Treatment: Per LESLIE Funes, pt. continues to require as safe and supportive environment, he will discharge on Friday.
[2021-04-25 08:00] VITALS: BP 174/81
[2021-04-25] MEDS: gemfibrozil 600mg tablet PO SCH (08:00)
[2021-04-25] MEDS: gabapentin 100mg capsule PO SCH (08:01)
[2021-04-25] MEDS: isosorbide mononitrate 30mg tab.SR.24H PO SCH (08:02)
[2021-04-25] MEDS: metFORMIN 500mg tablet PO SCH (08:02)
[2021-04-25] MEDS: atorvastatin 20mg tablet PO SCH (08:02)
[2021-04-25] MEDS: duloxetine 30mg CAPSULE.DR PO SCH (08:02)
[2021-04-25] MEDS: potassium Cl 20 mEq SR tablet PO SCH (08:02)
[2021-04-25] MEDS: traMADol 50MG tablet PO SCH (08:04)
[2021-04-25] MEDS: furosemide 40mg tablet PO SCH (08:05)
[2021-04-25] MEDS: lisinopril 20mg tablet PO SCH (08:05)
[2021-04-25] MEDS: aspirin 81mg, enteric-coated 1 TAB TABLET.DR PO SCH (08:05)
[2021-04-25 08:06] VITALS: BP_SYST 174
[2021-04-25] MEDS: metoprolol tartrate 50mg tablet PO SCH (08:06)
[2021-04-25] MEDS: multivitamins, therapeutics tablet PO SCH (08:06)
[2021-04-25] MEDS: docusate sod 100mg capsule PO SCH (08:06)
[2021-04-25] MEDS: clopidogrel 75mg tablet PO SCH (08:06)
[2021-04-25] MEDS: carbamide peroxide 15ml bottle EACH EAR SCH (08:53)
[2021-04-25] MEDS ORDERED: TRAM50TA2 PO (13:30)
[2021-04-25] MEDS ORDERED: ARIP30TA22 PO (13:30)
[2021-04-25] MEDS ORDERED: NITR0.4T51 SL (13:30)
[2021-04-25] MEDS ORDERED: LISI20TA28 PO (13:30)
[2021-04-25] MEDS ORDERED: ASPI-611 PO (13:30)
[2021-04-25] MEDS ORDERED: METO-477 PO (13:30)
[2021-04-25] MEDS ORDERED: ISOS20TA15 PO (13:30)
[2021-04-25] MEDS ORDERED: MULT-25 PO (13:30)
[2021-04-25] MEDS ORDERED: TRAZ-256 PO (13:30)
[2021-04-25] MEDS ORDERED: HALO5TAB PO (13:30)
[2021-04-25] MEDS ORDERED: GEMF600T89 PO (13:30)
[2021-04-25] MEDS ORDERED: METF-438 PO (13:30)
[2021-04-25] MEDS ORDERED: FURO-149 PO (13:30)
[2021-04-25] MEDS ORDERED: ATOR80TA PO (13:30)
[2021-04-25] MEDS ORDERED: CLOP75TA34 PO (13:30)
[2021-04-25] MEDS ORDERED: GABA600T13 PO (13:30)
[2021-04-25] MEDS ORDERED: DULO30CA52 PO (13:30)
[2021-04-25] MEDS ORDERED: DOCU100C40 PO (13:30)
[2021-04-25] MEDS ORDERED: POTA-208 PO (13:30)
[2021-04-25] MEDS ORDERED: NICO-907 BC (13:30)
--- NOTE | 2021-04-25 13:59 | NUR ---
DCP Presenting Issues: Pt's ready to d/c, attending PA requesting SS support with dcp activities. Interventions: SS met w/pt and engaged him in finalizing his Medi[employer] application, pt contacted his Eligibility Treating Machine Operator and completed the income verification process. SS also engaged pt in finalizing his dcp. Per session, pt wants to go to a motel near the [facility] on [address], pt plans to find a way to go down [facility]. Clinician contacted [facility] and coordinated transportation for pt to get to the [employer]. Plan: Pt to d/c later this afternoon. Kaya Peña LCSW Addendum: 04/25/21 at 1408 by Kaya Peña Amended: Links added.
--- NOTE | 2021-04-25 15:23 | NUR ---
Discharge Note: Reviewed discharge plan with pt. and advised him how to follow up with community health at [facility] Friday-Friday from 8:30AM-3:00PM to establish outpatient mental health services, and referred to [facility] for post-hospital discharge and aftercare treatment.Pt. signed all paperwork and received prescriptions for all meds. Copies of signed forms placed in chart. No photos present in chart to f/u with. Pt. was picked up by [facility] warehouse delivery driver at 1517.
[2021-04-26] MEDS ORDERED: METO50TA16 (23:06)
[2021-04-26] MEDS ORDERED: TRAZ-251 (23:06)
[2021-04-26] MEDS ORDERED: VENL150T3 (23:06)
[2021-04-26] MEDS ORDERED: AMLO5TAB16 (23:06)
[2021-04-26] MEDS ORDERED: LISI10TA27 (23:06)
[2021-04-26] MEDS ORDERED: RIVA20TA (23:06)
[2021-04-26] MEDS ORDERED: HALO10TA13 (23:06)
== END 2021-04-25 16:51 | disposition home or self-care (01) | DRG 885 ==
LOC: ADULT MH 19:20
PROVIDERS: ADMIT Psychiatry & Neurology Psychiatry; ATTEND Psychiatry & Neurology Psychiatry
PROC: 5A09457 Assistance with Respiratory Ventilation, 24-96 Consecutive Hours, Continuous Positive Airway Pressure (ICD-10-PCS; principal; 2021-04-11)
PROC: 5A09357 Assistance with Respiratory Ventilation, Less than 24 Consecutive Hours, Continuous Positive Airway Pressure (ICD-10-PCS; 2021-04-13)
PROC: 5A09357 Assistance with Respiratory Ventilation, Less than 24 Consecutive Hours, Continuous Positive Airway Pressure (ICD-10-PCS; 2021-04-14)
PROC: 5A09357 Assistance with Respiratory Ventilation, Less than 24 Consecutive Hours, Continuous Positive Airway Pressure (ICD-10-PCS; 2021-04-15)
PROC: 5A09357 Assistance with Respiratory Ventilation, Less than 24 Consecutive Hours, Continuous Positive Airway Pressure (ICD-10-PCS; 2021-04-16)
PROC: 5A09357 Assistance with Respiratory Ventilation, Less than 24 Consecutive Hours, Continuous Positive Airway Pressure (ICD-10-PCS; 2021-04-17)
PROC: 5A09357 Assistance with Respiratory Ventilation, Less than 24 Consecutive Hours, Continuous Positive Airway Pressure (ICD-10-PCS; 2021-04-18)
PROC: 5A09357 Assistance with Respiratory Ventilation, Less than 24 Consecutive Hours, Continuous Positive Airway Pressure (ICD-10-PCS; 2021-04-19)
PROC: 5A09357 Assistance with Respiratory Ventilation, Less than 24 Consecutive Hours, Continuous Positive Airway Pressure (ICD-10-PCS; 2021-04-20)
PROC: 5A09357 Assistance with Respiratory Ventilation, Less than 24 Consecutive Hours, Continuous Positive Airway Pressure (ICD-10-PCS; 2021-04-21)
PROC: 5A09357 Assistance with Respiratory Ventilation, Less than 24 Consecutive Hours, Continuous Positive Airway Pressure (ICD-10-PCS; 2021-04-23)
PROC: 5A09357 Assistance with Respiratory Ventilation, Less than 24 Consecutive Hours, Continuous Positive Airway Pressure (ICD-10-PCS; 2021-04-24)
DX: F33.9 Major depressive disorder, recurrent, unspecified (principal); I11.0 Hypertensive heart disease with heart failure; E11.65 Type 2 diabetes mellitus with hyperglycemia; I21.4 Non-ST elevation (NSTEMI) myocardial infarction; I50.32 Chronic diastolic (congestive) heart failure; R45.851 Suicidal ideations; Z68.42 Body mass index [BMI] 45.0-49.9, adult; I50.30 Unspecified diastolic (congestive) heart failure; F43.10 Post-traumatic stress disorder, unspecified; E78.5 Hyperlipidemia, unspecified; F25.9 Schizoaffective disorder, unspecified; I25.10 Atherosclerotic heart disease of native coronary artery without angina pectoris; J45.909 Unspecified asthma, uncomplicated; F12.90 Cannabis use, unspecified, uncomplicated; G47.00 Insomnia, unspecified; R53.1 Weakness; E66.01 Morbid (severe) obesity due to excess calories; F17.210 Nicotine dependence, cigarettes, uncomplicated; E11.42 Type 2 diabetes mellitus with diabetic polyneuropathy; G47.33 Obstructive sleep apnea (adult) (pediatric); K59.00 Constipation, unspecified; Z59.00 Homelessness unspecified; Z79.02 Long term (current) use of antithrombotics/antiplatelets; Z79.82 Long term (current) use of aspirin; I25.2 Old myocardial infarction; Z79.84 Long term (current) use of oral hypoglycemic drugs; Z79.899 Other long term (current) drug therapy; Z80.42 Family history of malignant neoplasm of prostate; Z80.8 Family history of malignant neoplasm of other organs or systems; Z86.711 Personal history of pulmonary embolism; Z90.49 Acquired absence of other specified parts of digestive tract; Z71.6 Tobacco abuse counseling; Z86.73 Personal history of transient ischemic attack (TIA), and cerebral infarction without residual deficits
CPT/HCPCS: 36415; 80061; 82948; 84484; 93005; 94660; 94760; 97161; 97530

== ENCOUNTER 2021-04-26 20:00 | Inpatient (IN) | payer MEDICARE, MEDICAID ==
[~2021-04-26] VITALS: Ht 177.8 cm; Wt 154.0 kg
[~2021-04-26 20:00] MED LIST changes: -ASPI-1071 PO; +ASPI-611 PO; -ATOR20TA66 PO; +ATOR80TA PO; +DOCU100C40 PO; +DULO30CA52 PO; -HALO10TA13 PO; +HALO5TAB PO; +ISOS20TA15 PO; -ISOS30TA84 PO; -LISI10TA27 PO; +LISI20TA28 PO; -METO-467 PO; +METO-477 PO; +MULT-25 PO; +NICO-907 BC; +NITR0.4T51 SL; -POTA-207 PO; +POTA-208 PO; +TRAM50TA2 PO; -VENL150T3 PO
[2021-04-26 20:41] LABS: BASOPHILS # (AUTO) 0.1 X10'3 (0-0.2); BASOPHILS % (AUTO) 0.8 % (0-1); EOSINOPHILS # (AUTO) 0.1 X10'3 (0-0.9); EOSINOPHILS % (AUTO) 0.7 % (0-6); HEMATOCRIT 47.6 % (42.0-52.0); HEMOGLOBIN 16.7 g/dl (14.0-17.9); LYMPHOCYTES # (AUTO) 1.1 X10'3 (1.1-4.8); LYMPHOCYTES % (AUTO) 11.5 % (21-51); MEAN CORPUSCULAR HEMOGLOBIN 28.6 PG (27.0-31.0); MEAN CORPUSCULAR VOLUME 81.7 FL (78-98); MEAN PLATELET VOLUME 7.9 FL (7.4-10.4); MONOCYTES # (AUTO) 0.8 X10'3 (0-0.9); MONOCYTES % (AUTO) 8.4 % (2-12); NEUTROPHILS # (AUTO) 7.7 X10'3 (1.8-7.7); NEUTROPHILS % (AUTO) 78.6 % (42-75); PLATELET COUNT 198 X10'3 (140-440); RED BLOOD COUNT 5.82 X10'6 (4.70-6.10); RED CELL DISTRIBUTION WIDTH 13.7 % (11.5-14.5); WHITE BLOOD COUNT 9.8 X10'3 (4.5-11.0)
[2021-04-26 20:52] LABS: ALANINE AMINOTRANSFERASE 24 U/L (12-78); ALBUMIN 3.5 G/DL (3.4-5.0); ALBUMIN/GLOBULIN RATIO 0.8 (1.1-1.5); ALKALINE PHOSPHATASE 105 IU/L (46-116); ANION GAP 11 (8-16); ASPARTATE AMINO TRANSFERASE 19 U/L (10-37); BILIRUBIN,TOTAL 0.6 MG/DL (0.1-1.0); BLOOD UREA NITROGEN 21 MG/DL (7-18); BUN/CREATININE RATIO 11.2 (5.4-32.0); CALCIUM 9.4 MG/DL (8.5-10.1); CHLORIDE 103 MMOL/L (99-107); CREATININE 1.88 MG/DL (0.60-1.10); GLUCOSE 124 MG/DL (70-104); POTASSIUM 3.4 MMOL/L (3.5-5.1); SODIUM 142 MMOL/L (135-145); TOTAL CARBON DIOXIDE 28.3 MMOL/L (24-32); eGFR 37 ML/MIN
[2021-04-26] MEDS ORDERED: aspirin 325mg tablet PO ONE (22:35)
[2021-04-26] MEDS ORDERED: nitroGLYCERIN 0.4mg SUBLingual tab SL PRN (22:40)
[2021-04-26] MEDS ORDERED: heparin 25,000 UNIT/250ml bag 250 ML IV SCH (22:45)
[2021-04-26] MEDS ORDERED: heparin 10,000 units/1 ML INJ IV ONE ×2 (22:45→22:50)
[2021-04-26] MEDS ORDERED: heparin 10,000 units/1 ML INJ IV PRN (22:45)
[2021-04-26] MEDS ORDERED: METO50TA16 (23:06)
[2021-04-26] MEDS ORDERED: LISI10TA27 (23:06)
[2021-04-26] MEDS ORDERED: HALO10TA13 (23:06)
[2021-04-26] MEDS ORDERED: VENL150T3 (23:06)
[2021-04-26] MEDS ORDERED: TRAZ-251 (23:06)
[2021-04-26] MEDS ORDERED: AMLO5TAB16 (23:06)
[2021-04-26] MEDS ORDERED: RIVA20TA (23:06)
[2021-04-26] MEDS ORDERED: labetalol 20mg/4ml (5mg/ml) syringe IV ONE (23:50)
[2021-04-27 00:58] VITALS: BP 195/133
[2021-04-27] MEDS ORDERED: magnesium hydroxide 30ml (MOM) UD suspension PO PRN (02:25)
[2021-04-27] MEDS ORDERED: ondansetron/PF 4mg/2ml inj IV PRN (02:25)
[2021-04-27] MEDS ORDERED: potassium Cl 40MEQ/1/2NS 520ml 520 ML IV PRN ×2 (02:25)
[2021-04-27] MEDS ORDERED: acetaminophen 325mg tablet PO PRN (02:25)
[2021-04-27] MEDS ORDERED: mag hydrox/Alum hydrox/simeth 30ml oral suspension PO PRN (02:25)
[2021-04-27] MEDS ORDERED: potassium Cl 20 mEq SR tablet PO PRN ×2 (02:25)
--- NOTE | 2021-04-27 03:42 | NUR ---
pt left against medical advice. dr gonzalez aware, risks and benefits given, verbalization of understanding given from patient, pt gait is steady, taxi called
[2021-04-27] MEDS ORDERED: K and/or MAG REPLACEMENT MC SCH ×2 (08:00→20:00)
[2021-04-27] MEDS ORDERED: docusate sod 100mg capsule PO SCH ×2 (08:00→20:00)
[2021-04-27] MEDS ORDERED: magnesium 4gm in 100ml NS 100 ML IV PRN (09:30)
[2021-04-27] MEDS ORDERED: nitroGLYCERIN 0.4mg SUBLingual tab SL PRN (09:30)
[2021-04-27] MEDS ORDERED: NICOTINE POLACRILEX 2 MG LOZENGE BC PRN (09:30)
[2021-04-27] MEDS ORDERED: magnesium Cl slow-release 64mg tablet PO PRN (09:30)
[2021-04-27] MEDS ORDERED: glucagon, human recombinant 1mg kit SUBCUT PRN (09:35)
[2021-04-27] MEDS ORDERED: dextrose 50%-water 50ml dispensing syringe IV PRN ×2 (09:35)
[2021-04-27] MEDS ORDERED: MESSAGE TO PHARMACY PO ONE (09:35)
[2021-04-27] MEDS ORDERED: insulin Lispro (HumaLOG) vial - multi-dose SQ SCH (09:35)
[2021-04-27] MEDS ORDERED: dextrose ORAL solution 15 GM/59 ML bottle PO PRN ×2 (09:35)
[2021-04-27] MEDS ORDERED: furosemide 10 MG/1 ML 10ml inj IV SCH (09:35)
[2021-04-27] MEDS ORDERED: gabapentin 300mg capsule PO SCH (20:00)
[2021-04-27] MEDS ORDERED: lisinopril 20mg tablet PO SCH (20:00)
[2021-04-27] MEDS ORDERED: metoprolol tartrate 50mg tablet PO SCH (20:00)
[2021-04-27] MEDS ORDERED: traMADol 50MG tablet PO SCH (20:00)
[2021-04-27] MEDS ORDERED: ARIPIPRAZOLE 15 MG TABLET PO SCH (21:00)
[2021-04-27] MEDS ORDERED: traZODone 50mg tablet PO SCH (21:00)
[2021-04-27] MEDS ORDERED: haloperidol 5mg tablet PO SCH (21:00)
[2021-04-27] MEDS ORDERED: insulin glargine (Lantus) pen - multi-dose SQ SCH (21:00)
[2021-04-28] MEDS ORDERED: multivitamins, therapeutics tablet PO SCH (08:00)
[2021-04-28] MEDS ORDERED: atorvastatin 20mg tablet PO SCH (08:00)
[2021-04-28] MEDS ORDERED: isosorbide mononitrate 30mg tab.SR.24H PO SCH (08:00)
[2021-04-28] MEDS ORDERED: aspirin 81mg, enteric-coated 1 TAB TABLET.DR PO SCH (08:00)
[2021-04-28] MEDS ORDERED: clopidogrel 75mg tablet PO SCH (08:00)
[2021-04-28] MEDS ORDERED: duloxetine 30mg CAPSULE.DR PO SCH (08:00)
[2021-04-28] MEDS ORDERED: gemfibrozil 600mg tablet PO SCH (08:00)
[2021-04-28] MEDS ORDERED: ATOR80TA13 PO (11:43)
[2021-04-28] MEDS ORDERED: CLOP75TA33 PO (11:43)
[2021-04-28] MEDS ORDERED: ASPI81TA52 PO (11:43)
[2021-04-28] MEDS ORDERED: ARIP15TA19 PO (11:43)
[2021-04-28] MEDS ORDERED: DULO60CA65 PO (11:43)
[2021-04-28] MEDS ORDERED: DOCU100C40 PO (11:43)
[2021-04-28] MEDS ORDERED: METO100T14 PO (11:44)
[2021-04-28] MEDS ORDERED: GEMF600T89 PO (11:44)
[2021-04-28] MEDS ORDERED: ISOS20TA15 PO (11:44)
[2021-04-28] MEDS ORDERED: HALO5TAB PO (11:44)
[2021-04-28] MEDS ORDERED: TRAM50TA2 PO (11:44)
[2021-04-28] MEDS ORDERED: TRAZ-256 PO (11:44)
[2021-04-28] MEDS ORDERED: LISI40TA13 PO (11:44)
[2021-04-28] MEDS ORDERED: FURO-149 PO (11:44)
[2021-04-28] MEDS ORDERED: POTA-82 PO (11:44)
[2021-04-28] MEDS ORDERED: MULT-227 PO (11:44)
[2021-04-28] MEDS ORDERED: NICO-907 BC (11:44)
[2021-04-28] MEDS ORDERED: METF-438 PO (11:44)
[2021-04-28] MEDS ORDERED: GABA600T13 PO (11:44)
[2021-04-28] MEDS ORDERED: NITR0.4T51 SL (11:44)
== END 2021-04-27 16:37 | disposition left against medical advice (07) | DRG 303 ==
LOC: ER 20:00 → ED HOLD 04-27 02:24
PROVIDERS: ADMIT Internal Medicine; ATTEND Family Medicine
DX: I25.119 Atherosclerotic heart disease of native coronary artery with unspecified angina pectoris (principal); I13.0 Hypertensive heart and chronic kidney disease with heart failure and stage 1 through stage 4 chronic kidney disease, or unspecified chronic kidney disease; Z53.29 Procedure and treatment not carried out because of patient's decision for other reasons; F32.A Depression, unspecified; E78.00 Pure hypercholesterolemia, unspecified; I50.9 Heart failure, unspecified; N18.9 Chronic kidney disease, unspecified; E11.22 Type 2 diabetes mellitus with diabetic chronic kidney disease; G47.30 Sleep apnea, unspecified; Z80.42 Family history of malignant neoplasm of prostate; Z86.711 Personal history of pulmonary embolism; I25.2 Old myocardial infarction; Z80.8 Family history of malignant neoplasm of other organs or systems; Z79.899 Other long term (current) drug therapy; Z79.82 Long term (current) use of aspirin
CPT/HCPCS: 36415; 71045; 80053; 83880; 84484; 85025; 93005; 96374; 99291; G0378; J1815; J3490

== ENCOUNTER 2021-04-28 06:26 | Inpatient (IN) | payer MEDICARE, MEDICAID ==
[2021-04-28] VITALS (13 sets, daily range): BP systolic 124–170; BP diastolic 69–119
[~2021-04-28] VITALS: Ht 177.8 cm; Wt 155.0 kg
[2021-04-28] MEDS ORDERED: LORazepam 2 mg/ml vial IV ONE (06:40)
[2021-04-28] MEDS ORDERED: normal saline 1000ml 1,000 ML IV ONE (06:45)
[2021-04-28 07:37] LABS: BASOPHILS # (AUTO) 0.1 X10'3 (0-0.2); BASOPHILS % (AUTO) 0.6 % (0-1); EOSINOPHILS # (AUTO) 0.1 X10'3 (0-0.9); EOSINOPHILS % (AUTO) 0.4 % (0-6); HEMATOCRIT 47.4 % (42.0-52.0); HEMOGLOBIN 16.5 g/dl (14.0-17.9); LYMPHOCYTES # (AUTO) 0.9 X10'3 (1.1-4.8); MEAN CORPUSCULAR HEMOGLOBIN 28.6 PG (27.0-31.0); MEAN CORPUSCULAR HGB CONC 34.8 g/dL (33.0-36.5); MEAN CORPUSCULAR VOLUME 82.1 FL (78-98); MEAN PLATELET VOLUME 7.8 FL (7.4-10.4); MONOCYTES # (AUTO) 0.9 X10'3 (0-0.9); MONOCYTES % (AUTO) 8.4 % (2-12); NEUTROPHILS # (AUTO) 9.3 X10'3 (1.8-7.7); NEUTROPHILS % (AUTO) 82.6 % (42-75); PLATELET COUNT 202 X10'3 (140-440); RED BLOOD COUNT 5.77 X10'6 (4.70-6.10); WHITE BLOOD COUNT 11.3 X10'3 (4.5-11.0)
[2021-04-28 07:50] LABS: ALANINE AMINOTRANSFERASE 18 U/L (12-78); ALBUMIN 3.2 G/DL (3.4-5.0); ALBUMIN/GLOBULIN RATIO 0.8 (1.1-1.5); ALKALINE PHOSPHATASE 108 IU/L (46-116); ANION GAP 9 (8-16); ASPARTATE AMINO TRANSFERASE 20 U/L (10-37); BILIRUBIN,TOTAL 0.9 MG/DL (0.1-1.0); BLOOD UREA NITROGEN 20 MG/DL (7-18); BUN/CREATININE RATIO 10.6 (5.4-32.0); CALCIUM 9.6 MG/DL (8.5-10.1); CHLORIDE 105 MMOL/L (99-107); CREATININE 1.88 MG/DL (0.60-1.10); GLUCOSE 158 MG/DL (70-104); POTASSIUM 3.5 MMOL/L (3.5-5.1); SODIUM 139 MMOL/L (135-145); TOTAL CARBON DIOXIDE 24.7 MMOL/L (24-32); TOTAL PROTEIN 7.3 G/DL (6.4-8.2); eGFR 37 ML/MIN
[2021-04-28] MEDS: heparin 25,000 UNIT/250ml bag 250 ML IV SCH (08:10)
[2021-04-28] MEDS ORDERED: heparin 10,000 units/1 ML INJ IV ONE ×2 (08:10→08:15)
[2021-04-28] MEDS ORDERED: aspirin 325mg tablet PO ONE (08:25)
[2021-04-28] MEDS: niCARDipine-NS 40mg/200ml IVPB 200 ML IV SCH ×3 (08:39→22:52)
[2021-04-28] MEDS ORDERED: haloperidol lactate 5mg/ml inj IM ONE (09:00)
[2021-04-28 09:04] LABS: PARTIAL THROMBOPLASTIN TIME 27 SECONDS (22-32)
[2021-04-28] MEDS ORDERED: niCARDipine-NS 40mg/200ml IVPB 200 ML IV SCH (10:05)
[2021-04-28] MEDS ORDERED: ondansetron/PF 4mg/2ml inj IV PRN (10:05)
[2021-04-28] MEDS ORDERED: mag hydrox/Alum hydrox/simeth 30ml oral suspension PO PRN (10:05)
[2021-04-28] MEDS ORDERED: metoclopramide 5 mg/ml inj IV PRN (10:05)
[2021-04-28] MEDS ORDERED: HYDROcodone/acetaminophen 5mg/325mg tablet PO PRN (10:05)
[2021-04-28] MEDS ORDERED: heparin 25,000 UNIT/250ml bag 250 ML IV SCH (10:05)
[2021-04-28] MEDS ORDERED: magnesium Cl slow-release 64mg tablet PO PRN (10:05)
[2021-04-28] MEDS ORDERED: acetaminophen 325mg tablet PO PRN ×2 (10:05)
[2021-04-28] MEDS ORDERED: potassium Cl 40MEQ/1/2NS 520ml 520 ML IV PRN ×2 (10:05)
[2021-04-28] MEDS ORDERED: morphine 2 MG/ML inj. syringe IV PRN (10:05)
[2021-04-28] MEDS ORDERED: magnesium hydroxide 30ml (MOM) UD suspension PO PRN (10:05)
[2021-04-28] MEDS ORDERED: magnesium 4gm in 100ml NS 100 ML IV PRN (10:05)
[2021-04-28] MEDS ORDERED: magnesium 2GM in 50ml NS 50 ML IV PRN (10:05)
[2021-04-28] MEDS ORDERED: acetaminophen 650mg rectal suppository RC PRN (10:05)
[2021-04-28] MEDS ORDERED: potassium Cl 20 mEq SR tablet PO PRN ×2 (10:05)
[2021-04-28] MEDS ORDERED: heparin 10,000 units/1 ML INJ IV PRN (10:05)
[2021-04-28] MEDS ORDERED: insulin Lispro (HumaLOG) vial - multi-dose SQ SCH (10:20)
[2021-04-28] MEDS ORDERED: dextrose ORAL solution 15 GM/59 ML bottle PO PRN ×2 (10:20)
[2021-04-28] MEDS ORDERED: dextrose 50%-water 50ml dispensing syringe IV PRN ×2 (10:20)
[2021-04-28] MEDS ORDERED: glucagon, human recombinant 1mg kit SUBCUT PRN (10:20)
[2021-04-28] MEDS ORDERED: MESSAGE TO PHARMACY PO ONE (10:20)
[2021-04-28] MEDS: nitroGLYCERIN 0.4mg/hour patch TD SCH (11:09)
[2021-04-28] MEDS: ARIPIPRAZOLE 10 MG TABLET PO SCH (11:10)
--- NOTE | 2021-04-28 11:15 | NUR ---
Patient in room ED 16. I have received report from Stephany RANDOLPH RN and had the opportunity to ask questions and assume patient care.
--- NOTE | 2021-04-28 11:31 | NUR ---
Patient arrived to room via WC and Nurse. Patient was escorted into bed, Mobile 62 attached due to MD changing drips. Pt on heparin drip 1000 per cardiac next PTT 1440. Pt was dressed, Specimens collected, MRSA, UA. BP 185/105, HR 145, O2:92%RA. We will continue to monitor.
[2021-04-28] MEDS ORDERED: CLOP75TA33 PO (11:43)
[2021-04-28] MEDS ORDERED: DOCU100C40 PO (11:43)
[2021-04-28] MEDS ORDERED: ATOR80TA13 PO (11:43)
[2021-04-28] MEDS ORDERED: DULO60CA65 PO (11:43)
[2021-04-28] MEDS ORDERED: ASPI81TA52 PO (11:43)
[2021-04-28] MEDS ORDERED: ARIP15TA19 PO (11:43)
[2021-04-28] MEDS ORDERED: FURO-149 PO (11:44)
[2021-04-28] MEDS ORDERED: LISI40TA13 PO (11:44)
[2021-04-28] MEDS ORDERED: NICO-907 BC (11:44)
[2021-04-28] MEDS ORDERED: NITR0.4T51 SL (11:44)
[2021-04-28] MEDS ORDERED: METF-438 PO (11:44)
[2021-04-28] MEDS ORDERED: HALO5TAB PO (11:44)
[2021-04-28] MEDS ORDERED: POTA-82 PO (11:44)
[2021-04-28] MEDS ORDERED: METO100T14 PO (11:44)
[2021-04-28] MEDS ORDERED: MULT-227 PO (11:44)
[2021-04-28] MEDS ORDERED: GABA600T13 PO (11:44)
[2021-04-28] MEDS ORDERED: TRAZ-256 PO (11:44)
[2021-04-28] MEDS ORDERED: ISOS20TA15 PO (11:44)
[2021-04-28] MEDS ORDERED: TRAM50TA2 PO (11:44)
[2021-04-28] MEDS ORDERED: GEMF600T89 PO (11:44)
[2021-04-28] MEDS: HYDROcodone/acetaminophen 10/325mg tab PO PRN ×2 (11:58→16:20)
[2021-04-28] MEDS: LORazepam 2 mg/ml vial IV PRN ×2 (11:59→16:20)
[2021-04-28] MEDS ORDERED: NICOTINE POLACRILEX 2 MG LOZENGE BC PRN (12:00)
[2021-04-28] MEDS ORDERED: nitroGLYCERIN 0.4mg SUBLingual tab SL PRN (12:00)
[2021-04-28 12:13] LABS: URINE AMPHETAMINE SCREEN NEGATIVE (Neg); URINE BARBITUATE SCREEN NEGATIVE (Neg); URINE BENZODIAZEPINES SCREEN NEGATIVE (Neg); URINE CANNABINOID SCREEN POSITIVE (Neg); URINE COCAINE SCREEN NEGATIVE (Neg); URINE METHADONE SCREEN NEGATIVE (Neg); URINE OPIATE SCREEN NEGATIVE (Neg); URINE PHENCYCLIDINE SCREEN NEGATIVE (Neg)
--- NOTE | 2021-04-28 12:38 | NUR ---
Dr. Aleman at bedside with nurse and patient. MD wants heparin and Cardene drip going until 11-7 when PO medication can be consumed and vitals be more stable. Attempting to obtain IV line to start Cardene drip. We will continue to monitor.
[2021-04-28 13:10] LABS: BASOPHILS % (AUTO) 0.4 % (0-1); EOSINOPHILS # (AUTO) 0.1 X10'3 (0-0.9); EOSINOPHILS % (AUTO) 0.7 % (0-6); HEMATOCRIT 44.8 % (42.0-52.0); HEMOGLOBIN 15.4 g/dl (14.0-17.9); LYMPHOCYTES # (AUTO) 1.3 X10'3 (1.1-4.8); LYMPHOCYTES % (AUTO) 14.1 % (21-51); MEAN CORPUSCULAR HEMOGLOBIN 28.5 PG (27.0-31.0); MEAN CORPUSCULAR HGB CONC 34.5 g/dL (33.0-36.5); MEAN CORPUSCULAR VOLUME 82.7 FL (78-98); MONOCYTES # (AUTO) 0.9 X10'3 (0-0.9); MONOCYTES % (AUTO) 9.8 % (2-12); NEUTROPHILS # (AUTO) 7.1 X10'3 (1.8-7.7); PLATELET COUNT 213 X10'3 (140-440); RED BLOOD COUNT 5.41 X10'6 (4.70-6.10); RED CELL DISTRIBUTION WIDTH 14.1 % (11.5-14.5); WHITE BLOOD COUNT 9.5 X10'3 (4.5-11.0)
[2021-04-28 14:53] LABS: PARTIAL THROMBOPLASTIN TIME 30 SECONDS (22-32)
[2021-04-28] MEDS: heparin 10,000 units/1 ML INJ IV PRN (16:34)
--- NOTE | 2021-04-28 18:28 | NUR ---
Problems reprioritized. Patient report given, questions answered & plan of care reviewed with Josi MANZO.
--- NOTE | 2021-04-28 18:38 | NUR ---
Patient in room PCU 3013. I have receive YUE RN and had the opportunity to ask questions and assume patient care.
[2021-04-28] MEDS: docusate sod 100mg capsule PO SCH (19:17)
[2021-04-28] MEDS: gabapentin 300mg capsule PO SCH (19:17)
[2021-04-28] MEDS: metoprolol tartrate 50mg tablet PO SCH (19:18)
[2021-04-28] MEDS: lisinopril 20mg tablet PO SCH (19:18)
[2021-04-28] MEDS: traMADol 50MG tablet PO SCH (19:23)
[2021-04-28] MEDS: K and/or MAG REPLACEMENT MC SCH (20:00)
[2021-04-28] MEDS ORDERED: docusate sod 100mg capsule PO SCH (20:00)
--- NOTE | 2021-04-28 20:30 | NUR ---
Patient c/o severe pain in left leg behind knee, ordered stat us of leg to r/o dvt. Patient currently on heparin gtt and nicardipine gtt. DAR MANZO Addendum: 04/28/21 at 2235 by Josi Rosas RN PRELIMINARY FINDINGS PER US TECH ARE BAKERS' CYST BEHIND LEFT KNEE, NO BLOOD CLOTS FOUND AT THIS TIME. DAR MANZO
[2021-04-28] MEDS ORDERED: temazepam 15mg capsule PO PRN (21:00)
[2021-04-28] MEDS ORDERED: haloperidol 5mg tablet PO SCH (21:00)
[2021-04-28] MEDS ORDERED: ARIPIPRAZOLE 15 MG TABLET PO SCH (21:00)
[2021-04-28] MEDS: insulin glargine (Lantus) pen - multi-dose SQ SCH (21:00)
[2021-04-28] MEDS: haloperidol 5mg tablet PO SCH (21:03)
[2021-04-28] MEDS: traZODone 50mg tablet PO SCH (21:03)
[2021-04-29] VITALS (7 sets, daily range): BP systolic 130–167; BP diastolic 61–92
[2021-04-29] MEDS: heparin 10,000 units/1 ML INJ IV PRN ×2 (00:05→07:26)
[2021-04-29] MEDS: morphine 2 MG/ML inj. syringe IV PRN ×3 (02:39→18:10)
[2021-04-29] MEDS: niCARDipine-NS 40mg/200ml IVPB 200 ML IV SCH (04:28)
[2021-04-29] MEDS: heparin 25,000 UNIT/250ml bag 250 ML IV SCH (04:32)
--- NOTE | 2021-04-29 06:27 | NUR ---
Problems reprioritized. Patient report given, questions answered & plan of care reviewed with MIA MANZO.
[2021-04-29 06:41] LABS: BASOPHILS # (AUTO) 0.1 X10'3 (0-0.2); BASOPHILS % (AUTO) 0.8 % (0-1); EOSINOPHILS # (AUTO) 0.2 X10'3 (0-0.9); EOSINOPHILS % (AUTO) 3.1 % (0-6); HEMATOCRIT 40.4 % (42.0-52.0); HEMOGLOBIN 14.1 g/dl (14.0-17.9); LYMPHOCYTES # (AUTO) 1.9 X10'3 (1.1-4.8); LYMPHOCYTES % (AUTO) 25.6 % (21-51); MEAN CORPUSCULAR HEMOGLOBIN 28.7 PG (27.0-31.0); MEAN CORPUSCULAR HGB CONC 34.9 g/dL (33.0-36.5); MEAN CORPUSCULAR VOLUME 82.4 FL (78-98); MEAN PLATELET VOLUME 7.8 FL (7.4-10.4); MONOCYTES # (AUTO) 0.7 X10'3 (0-0.9); MONOCYTES % (AUTO) 8.9 % (2-12); NEUTROPHILS # (AUTO) 4.6 X10'3 (1.8-7.7); NEUTROPHILS % (AUTO) 61.6 % (42-75); PLATELET COUNT 184 X10'3 (140-440); RED BLOOD COUNT 4.91 X10'6 (4.70-6.10); RED CELL DISTRIBUTION WIDTH 14.1 % (11.5-14.5); WHITE BLOOD COUNT 7.5 X10'3 (4.5-11.0)
[2021-04-29 06:49] LABS: ALANINE AMINOTRANSFERASE 23 U/L (12-78); ALBUMIN 2.7 G/DL (3.4-5.0); ALBUMIN/GLOBULIN RATIO 0.8 (1.1-1.5); ALKALINE PHOSPHATASE 85 IU/L (46-116); ANION GAP 8 (8-16); ASPARTATE AMINO TRANSFERASE 14 U/L (10-37); BILIRUBIN,TOTAL 0.8 MG/DL (0.1-1.0); BLOOD UREA NITROGEN 26 MG/DL (7-18); BUN/CREATININE RATIO 11.7 (5.4-32.0); CALCIUM 8.9 MG/DL (8.5-10.1); CHLORIDE 105 MMOL/L (99-107); CREATININE 2.23 MG/DL (0.60-1.10); GLUCOSE 108 MG/DL (70-104); POTASSIUM 3.8 MMOL/L (3.5-5.1); SODIUM 142 MMOL/L (135-145); TOTAL CARBON DIOXIDE 28.8 MMOL/L (24-32); TOTAL PROTEIN 6.3 G/DL (6.4-8.2); eGFR 31 ML/MIN
[2021-04-29] MEDS ORDERED: non-formulary drug (Duloxetine HCl 1 CAP) PO SCH (08:00)
[2021-04-29] MEDS: K and/or MAG REPLACEMENT MC SCH ×2 (08:00→20:00)
[2021-04-29] MEDS: Isosorbide Mononitrate 20 MG TAB PO SCH (08:00)
[2021-04-29] MEDS ORDERED: aspirin 81mg, enteric-coated 1 TAB TABLET.DR PO SCH (08:00)
[2021-04-29] MEDS: lisinopril 20mg tablet PO SCH ×2 (10:01→20:15)
[2021-04-29] MEDS: duloxetine 20mg capsule.DR PO SCH (10:01)
[2021-04-29] MEDS: multivitamins, therapeutics tablet PO SCH (10:02)
[2021-04-29] MEDS: atorvastatin 20mg tablet PO SCH (10:02)
[2021-04-29] MEDS: metoprolol tartrate 50mg tablet PO SCH ×2 (10:03→20:16)
[2021-04-29] MEDS: gabapentin 300mg capsule PO SCH ×2 (10:03→20:14)
[2021-04-29] MEDS: gemfibrozil 600mg tablet PO SCH (10:03)
[2021-04-29] MEDS: aspirin 81mg, enteric-coated 1 TAB TABLET.DR PO SCH (10:03)
[2021-04-29] MEDS: clopidogrel 75mg tablet PO SCH (10:04)
[2021-04-29] MEDS: furosemide 40mg tablet PO SCH (10:04)
[2021-04-29] MEDS: docusate sod 100mg capsule PO SCH ×2 (10:04→20:13)
[2021-04-29] MEDS: traMADol 50MG tablet PO SCH ×2 (10:05→20:14)
[2021-04-29] MEDS: nitroGLYCERIN 0.4mg/hour patch TD SCH (10:05)
[2021-04-29] MEDS: potassium Cl 20 mEq SR tablet PO SCH (10:17)
[2021-04-29] MEDS: ARIPIPRAZOLE 10 MG TABLET PO SCH (12:47)
--- NOTE | 2021-04-29 18:25 | NUR ---
Patient in room PCU 3013. I have received report from ANAIS Toro and had the opportunity to ask questions and assume patient care.
--- NOTE | 2021-04-29 19:07 | NUR ---
Patient was laying on stomach sleeping, easily arousable. He has no complaints, I will switch him from bedside to Tele monitor as all drips have been d/c
[2021-04-29] MEDS: traZODone 50mg tablet PO SCH (20:15)
[2021-04-29] MEDS: haloperidol 5mg tablet PO SCH (20:15)
[2021-04-29] MEDS: insulin glargine (Lantus) pen - multi-dose SQ SCH (21:00)
[2021-04-30 06:00] VITALS: BP 144/62
--- NOTE | 2021-04-30 06:27 | NUR ---
Problems reprioritized. Patient report given, questions answered & plan of care reviewed with ANAIS Espinoza.
[2021-04-30 07:21] LABS: BASOPHILS % (AUTO) 0.7 % (0-1); EOSINOPHILS # (AUTO) 0.3 X10'3 (0-0.9); EOSINOPHILS % (AUTO) 3.7 % (0-6); HEMATOCRIT 38.1 % (42.0-52.0); HEMOGLOBIN 13.1 g/dl (14.0-17.9); LYMPHOCYTES # (AUTO) 1.3 X10'3 (1.1-4.8); LYMPHOCYTES % (AUTO) 18.6 % (21-51); MEAN CORPUSCULAR HEMOGLOBIN 28.8 PG (27.0-31.0); MEAN CORPUSCULAR HGB CONC 34.3 g/dL (33.0-36.5); MEAN CORPUSCULAR VOLUME 83.9 FL (78-98); MEAN PLATELET VOLUME 8.1 FL (7.4-10.4); MONOCYTES # (AUTO) 0.9 X10'3 (0-0.9); MONOCYTES % (AUTO) 12.2 % (2-12); NEUTROPHILS # (AUTO) 4.6 X10'3 (1.8-7.7); NEUTROPHILS % (AUTO) 64.8 % (42-75); PLATELET COUNT 166 X10'3 (140-440); RED BLOOD COUNT 4.54 X10'6 (4.70-6.10); RED CELL DISTRIBUTION WIDTH 14.2 % (11.5-14.5)
[2021-04-30 07:51] LABS: ALANINE AMINOTRANSFERASE 16 U/L (12-78); ALBUMIN 2.5 G/DL (3.4-5.0); ALBUMIN/GLOBULIN RATIO 0.7 (1.1-1.5); ALKALINE PHOSPHATASE 84 IU/L (46-116); ANION GAP 7 (8-16); ASPARTATE AMINO TRANSFERASE 15 U/L (10-37); BILIRUBIN,TOTAL 0.9 MG/DL (0.1-1.0); BLOOD UREA NITROGEN 27 MG/DL (7-18); BUN/CREATININE RATIO 12.9 (5.4-32.0); CALCIUM 8.9 MG/DL (8.5-10.1); CHLORIDE 104 MMOL/L (99-107); CREATININE 2.09 MG/DL (0.60-1.10); GLUCOSE 101 MG/DL (70-104); MAGNESIUM 2.2 MG/DL (1.5-2.4); POTASSIUM 4.1 MMOL/L (3.5-5.1); SODIUM 137 MMOL/L (135-145); TOTAL CARBON DIOXIDE 25.7 MMOL/L (24-32); TOTAL PROTEIN 6.1 G/DL (6.4-8.2); eGFR 33 ML/MIN
[2021-04-30] MEDS: nitroGLYCERIN 0.4mg/hour patch TD SCH (08:00)
[2021-04-30] MEDS: ARIPIPRAZOLE 10 MG TABLET PO SCH (08:00)
[2021-04-30] MEDS: Isosorbide Mononitrate 20 MG TAB PO SCH (08:00)
[2021-04-30] MEDS: K and/or MAG REPLACEMENT MC SCH ×2 (08:00→20:00)
[2021-04-30] MEDS: clopidogrel 75mg tablet PO SCH (10:10)
[2021-04-30] MEDS: gemfibrozil 600mg tablet PO SCH (10:10)
[2021-04-30] MEDS: metoprolol tartrate 50mg tablet PO SCH ×2 (10:11→20:22)
[2021-04-30] MEDS: gabapentin 300mg capsule PO SCH ×2 (10:12→20:23)
[2021-04-30] MEDS: duloxetine 20mg capsule.DR PO SCH (10:12)
[2021-04-30] MEDS: aspirin 81mg, enteric-coated 1 TAB TABLET.DR PO SCH (10:12)
[2021-04-30] MEDS: lisinopril 20mg tablet PO SCH ×2 (10:13→20:24)
[2021-04-30] MEDS: traMADol 50MG tablet PO SCH ×2 (10:14→20:21)
[2021-04-30] MEDS: atorvastatin 20mg tablet PO SCH (10:14)
[2021-04-30] MEDS: potassium Cl 20 mEq SR tablet PO SCH (10:14)
[2021-04-30] MEDS: furosemide 40mg tablet PO SCH (10:15)
[2021-04-30] MEDS: docusate sod 100mg capsule PO SCH ×2 (10:15→20:21)
[2021-04-30] MEDS: multivitamins, therapeutics tablet PO SCH (10:15)
[2021-04-30 15:00] VITALS: BP 154/59
[2021-04-30] MEDS: HYDROcodone/acetaminophen 10/325mg tab PO PRN (15:33)
[2021-04-30 18:00] VITALS: BP 138/81
--- NOTE | 2021-04-30 18:51 | NUR ---
Problems reprioritized. Patient report given, questions answered & plan of care reviewed with Mahogany MANZO.
--- NOTE | 2021-04-30 18:52 | NUR ---
Patient in room PCU 3013. ANAIS Lezama and I have received report from ANAIS Espinoza and had the opportunity to ask questions and assume patient care. The patient is resting comfortably on hospital bed, he requested a warm blanket. He is to be discharged tomorrow.
--- NOTE | 2021-04-30 18:56 | NUR ---
Patient in room PCU 3013. I have received report from Olga Gray and had the opportunity to ask questions and assume patient care.
[2021-04-30] MEDS: haloperidol 5mg tablet PO SCH (20:21)
[2021-04-30] MEDS: traZODone 50mg tablet PO SCH (20:23)
[2021-04-30] MEDS: insulin glargine (Lantus) pen - multi-dose SQ SCH (21:00)
[2021-04-30 22:00] VITALS: BP 116/74
[2021-05-01 02:00] VITALS: BP 139/70
[2021-05-01] MEDS: morphine 2 MG/ML inj. syringe IV PRN (03:12)
--- NOTE | 2021-05-01 06:16 | NUR ---
Problems reprioritized. Patient report given, questions answered & plan of care reviewed with Olga MANZO.
[2021-05-01 07:00] VITALS: BP 145/89
--- NOTE | 2021-05-01 07:31 | NUR ---
Patient in room PCU 3013. I have received report from SANDRA MANOZ AND WHITNEY MANZO and had the opportunity to ask questions and assume patient care.
[2021-05-01] MEDS: K and/or MAG REPLACEMENT MC SCH (08:00)
[2021-05-01] MEDS: nitroGLYCERIN 0.4mg/hour patch TD SCH (08:00)
[2021-05-01] MEDS: Isosorbide Mononitrate 20 MG TAB PO SCH (08:00)
[2021-05-01] MEDS: docusate sod 100mg capsule PO SCH (08:23)
[2021-05-01] MEDS: gabapentin 300mg capsule PO SCH (08:23)
[2021-05-01] MEDS: clopidogrel 75mg tablet PO SCH (08:23)
[2021-05-01] MEDS: atorvastatin 20mg tablet PO SCH (08:23)
[2021-05-01] MEDS: ARIPIPRAZOLE 10 MG TABLET PO SCH (08:23)
[2021-05-01] MEDS: gemfibrozil 600mg tablet PO SCH (08:23)
[2021-05-01] MEDS: duloxetine 20mg capsule.DR PO SCH (08:24)
[2021-05-01] MEDS: metoprolol tartrate 50mg tablet PO SCH (08:24)
[2021-05-01] MEDS: potassium Cl 20 mEq SR tablet PO SCH (08:24)
[2021-05-01 08:25] VITALS: BP_SYST 146
[2021-05-01] MEDS: traMADol 50MG tablet PO SCH (08:25)
[2021-05-01] MEDS: multivitamins, therapeutics tablet PO SCH (08:25)
[2021-05-01] MEDS: lisinopril 20mg tablet PO SCH (08:25)
[2021-05-01] MEDS: furosemide 40mg tablet PO SCH (08:25)
[2021-05-01] MEDS: aspirin 81mg, enteric-coated 1 TAB TABLET.DR PO SCH (08:25)
[2021-05-01 09:28] LABS: BASOPHILS % (AUTO) 0.4 % (0-1); EOSINOPHILS # (AUTO) 0.2 X10'3 (0-0.9); HEMATOCRIT 37.9 % (42.0-52.0); HEMOGLOBIN 12.9 g/dl (14.0-17.9); MEAN CORPUSCULAR HEMOGLOBIN 28.3 PG (27.0-31.0); MEAN CORPUSCULAR HGB CONC 34.1 g/dL (33.0-36.5); MEAN CORPUSCULAR VOLUME 82.8 FL (78-98); MEAN PLATELET VOLUME 8.1 FL (7.4-10.4); MONOCYTES # (AUTO) 0.7 X10'3 (0-0.9); NEUTROPHILS # (AUTO) 5.3 X10'3 (1.8-7.7); NEUTROPHILS % (AUTO) 72.6 % (42-75); PLATELET COUNT 155 X10'3 (140-440); RED BLOOD COUNT 4.58 X10'6 (4.70-6.10); WHITE BLOOD COUNT 7.3 X10'3 (4.5-11.0)
[2021-05-01 09:43] LABS: ALANINE AMINOTRANSFERASE 17 U/L (12-78); ALBUMIN 2.6 G/DL (3.4-5.0); ALBUMIN/GLOBULIN RATIO 0.7 (1.1-1.5); ALKALINE PHOSPHATASE 84 IU/L (46-116); ANION GAP 6 (8-16); ASPARTATE AMINO TRANSFERASE 10 U/L (10-37); BILIRUBIN,TOTAL 0.5 MG/DL (0.1-1.0); BLOOD UREA NITROGEN 30 MG/DL (7-18); BUN/CREATININE RATIO 13.9 (5.4-32.0); CALCIUM 9.3 MG/DL (8.5-10.1); CHLORIDE 104 MMOL/L (99-107); CREATININE 2.16 MG/DL (0.60-1.10); GLUCOSE 147 MG/DL (70-104); MAGNESIUM 2.2 MG/DL (1.5-2.4); POTASSIUM 4.3 MMOL/L (3.5-5.1); SODIUM 138 MMOL/L (135-145); TOTAL CARBON DIOXIDE 28.1 MMOL/L (24-32); TOTAL PROTEIN 6.5 G/DL (6.4-8.2); eGFR 32 ML/MIN
--- NOTE | 2021-05-01 12:20 | NUR ---
Patient ambulated with me 100 feet, but needed to rest in chair. Patient requires the use of a front wheel walker, preferably one with a seat due to his shortness of breath of exertion.
--- NOTE | 2021-05-01 17:09 | NUR ---
Patient stable for discharge per MD order, all discharge instructions reviewed with patient and all questions answered. New prescriptions faxed to pharmacy. PIV discontinued, cannula intact. Telemetry discontinued, television service engineer notified. All belongings collected and sent with patient. Patient picked up by taxi cab by van driver, wheeled to lobby by staff.
== END 2021-05-01 15:35 | disposition home or self-care (01) | DRG 280 ==
LOC: ER 06:26 → ED HOLD 10:18 → PCU 3S 11:32
PROVIDERS: ADMIT Family Medicine; ATTEND Family Medicine
DX: I16.1 Hypertensive emergency (principal); I21.A1 Myocardial infarction type 2; N17.0 Acute kidney failure with tubular necrosis; R45.851 Suicidal ideations; I50.32 Chronic diastolic (congestive) heart failure; I13.0 Hypertensive heart and chronic kidney disease with heart failure and stage 1 through stage 4 chronic kidney disease, or unspecified chronic kidney disease; G47.33 Obstructive sleep apnea (adult) (pediatric); N18.9 Chronic kidney disease, unspecified; D64.9 Anemia, unspecified; E11.22 Type 2 diabetes mellitus with diabetic chronic kidney disease; E78.00 Pure hypercholesterolemia, unspecified; E78.5 Hyperlipidemia, unspecified; F20.9 Schizophrenia, unspecified; F32.A Depression, unspecified; F12.90 Cannabis use, unspecified, uncomplicated; F43.10 Post-traumatic stress disorder, unspecified; F17.210 Nicotine dependence, cigarettes, uncomplicated; G47.00 Insomnia, unspecified; I25.10 Atherosclerotic heart disease of native coronary artery without angina pectoris; I25.2 Old myocardial infarction; Z80.42 Family history of malignant neoplasm of prostate; Z80.8 Family history of malignant neoplasm of other organs or systems; Z86.711 Personal history of pulmonary embolism; Z86.73 Personal history of transient ischemic attack (TIA), and cerebral infarction without residual deficits; Z91.19 Patient's noncompliance with other medical treatment and regimen; Z59.00 Homelessness unspecified
CPT/HCPCS: 36415; 71045; 80053; 80305; 82948; 83735; 83880; 84484; 85025; 85610; 85730; 87081; 93005; 93971; 96361; 96365; 96372; 96375; 96376; 99291; G0378; J1630; J1644; J1815; J2060; J2270; J7030

== ENCOUNTER 2021-05-02 15:08 | Inpatient (IN) | payer MEDICARE, MEDICAID ==
[~2021-05-02] VITALS: Ht 177.8 cm; Wt 150.8 kg
[~2021-05-02 15:08] MED LIST changes: +ARIP15TA19 PO; -ARIP30TA22 PO; -ASPI-611 PO; +ASPI81TA52 PO; -ATOR80TA PO; +ATOR80TA13 PO; +CLOP75TA33 PO; -CLOP75TA34 PO; -DULO30CA52 PO; +DULO60CA65 PO; -LISI20TA28 PO; +LISI40TA13 PO; -METO-477 PO; +METO100T14 PO; +MULT-227 PO; -MULT-25 PO; -POTA-208 PO; +POTA-82 PO
[2021-05-02] MEDS ORDERED: LORazepam 1 MG tablet PO ONE (22:20)
[2021-05-03 02:42] LABS: BASOPHILS # (AUTO) 0.1 X10'3 (0-0.2); BASOPHILS % (AUTO) 0.9 % (0-1); EOSINOPHILS # (AUTO) 0.3 X10'3 (0-0.9); EOSINOPHILS % (AUTO) 2.9 % (0-6); HEMATOCRIT 40.9 % (42.0-52.0); HEMOGLOBIN 14.3 g/dl (14.0-17.9); LYMPHOCYTES # (AUTO) 1.6 X10'3 (1.1-4.8); LYMPHOCYTES % (AUTO) 15.8 % (21-51); MEAN CORPUSCULAR HEMOGLOBIN 28.9 PG (27.0-31.0); MEAN CORPUSCULAR HGB CONC 34.9 g/dL (33.0-36.5); MEAN CORPUSCULAR VOLUME 82.8 FL (78-98); MONOCYTES # (AUTO) 1.1 X10'3 (0-0.9); MONOCYTES % (AUTO) 10.9 % (2-12); NEUTROPHILS % (AUTO) 69.5 % (42-75); PLATELET COUNT 214 X10'3 (140-440); RED BLOOD COUNT 4.94 X10'6 (4.70-6.10)
[2021-05-03 02:53] LABS: ALANINE AMINOTRANSFERASE 21 U/L (12-78); ALBUMIN 2.9 G/DL (3.4-5.0); ALBUMIN/GLOBULIN RATIO 0.6 (1.1-1.5); ALKALINE PHOSPHATASE 86 IU/L (46-116); ANION GAP 9 (8-16); ASPARTATE AMINO TRANSFERASE 25 U/L (10-37); BLOOD UREA NITROGEN 35 MG/DL (7-18); BUN/CREATININE RATIO 16.1 (5.4-32.0); CALCIUM 10.3 MG/DL (8.5-10.1); CHLORIDE 104 MMOL/L (99-107); CREATININE 2.18 MG/DL (0.60-1.10); ETHANOL < 0.010 GM/DL (0.0-0.010); GLUCOSE 122 MG/DL (70-104); POTASSIUM 4.1 MMOL/L (3.5-5.1); SODIUM 139 MMOL/L (135-145); TOTAL CARBON DIOXIDE 26.5 MMOL/L (24-32); TOTAL PROTEIN 7.5 G/DL (6.4-8.2); eGFR 32 ML/MIN
--- NOTE | 2021-05-03 03:28 | NUR ---
The patient was moved to bed 21 from the main ER. The patient is 55 year old male who was brought in by EMS for a mental health evaluation. He reports constant auditory hallucinations. He states at times they are threatening and at other times tell him to do random things. He denies drugs or etoh use. He stated that he is single, homeless and trying to get back to [facility]. He stated that he receives SSI and doesn't have any family. He has a history of prior suicide attempts and psychiatric admissions. He stated that his prior diagnosis is Depression and PTSD. He denies thoughts to harm others. He currently has no PCP. Mutiple medical problems include morbid obesity, hx of TIAs, WA X's 2.
[2021-05-03 03:48] LABS: URINE AMPHETAMINE SCREEN NEGATIVE (Neg); URINE BARBITUATE SCREEN NEGATIVE (Neg); URINE BENZODIAZEPINES SCREEN NEGATIVE (Neg); URINE CANNABINOID SCREEN POSITIVE (Neg); URINE COCAINE SCREEN NEGATIVE (Neg); URINE METHADONE SCREEN NEGATIVE (Neg); URINE OPIATE SCREEN NEGATIVE (Neg); URINE PHENCYCLIDINE SCREEN NEGATIVE (Neg)
[2021-05-03] MEDS ORDERED: nitroGLYCERIN 0.4mg SUBLingual tab SL PRN (04:20)
--- NOTE | 2021-05-03 05:05 | NUR ---
Packet faxed to [facility].
--- NOTE | 2021-05-03 05:55 | NUR ---
Patient observed sleeping; no apparent distress and self repositions.
--- NOTE | 2021-05-03 07:15 | NUR ---
Received patient sleeping on left side, respirations even and unlabored.
[2021-05-03] MEDS ORDERED: gemfibrozil 600mg tablet PO SCH (08:00)
--- NOTE | 2021-05-03 09:12 | NUR ---
Pt sitting up eating breakfast. Pt was complaint with care and medications. Pt endorses suicidal thoughts without a plan. Pt states "the medication I got isn't working." Pt was recently discharged from [facility]. Pt currently denies A/VH. "They were bad last night." Pt c/o of left arm pain r/t IV site from date of service 04/28. On assessment area was red and warm. Notified Dr. Campbell - apply warm compresses PRN. Pt needs to be encouraged to ambulate. Pt requested a urinal. Pt ambulates with FWW, gait steady. Pt brushed his teeth and used kilgore tub as sink instead of getting up to the bathroom.
[2021-05-03] MEDS: metFORMIN 500mg tablet PO SCH ×2 (09:44→17:34)
[2021-05-03] MEDS: metoprolol tartrate 50mg tablet PO SCH ×2 (09:45→20:12)
[2021-05-03] MEDS: isosorbide mononitrate 30mg tab.SR.24H PO SCH (09:46)
[2021-05-03] MEDS: duloxetine 30mg CAPSULE.DR PO SCH (09:46)
[2021-05-03] MEDS: atorvastatin 20mg tablet PO SCH (09:46)
[2021-05-03] MEDS: clopidogrel 75mg tablet PO SCH (09:46)
[2021-05-03] MEDS: lisinopril 20mg tablet PO SCH (09:47)
[2021-05-03] MEDS: aspirin 81mg, enteric-coated 1 TAB TABLET.DR PO SCH (09:47)
[2021-05-03] MEDS: furosemide 40mg tablet PO SCH (09:47)
[2021-05-03] MEDS: gabapentin 300mg capsule PO SCH ×2 (09:47→20:11)
[2021-05-03] MEDS: docusate sod 100mg capsule PO SCH ×2 (09:47→20:12)
[2021-05-03] MEDS: potassium Cl 20 mEq SR tablet PO SCH (09:47)
--- NOTE | 2021-05-03 11:00 | NUR ---
Pt sleeping comfortably in mid fowlers position. Respirations even and unlabored.
--- NOTE | 2021-05-03 13:09 | NUR ---
Pt eating lunch in bed, no distress noted.
--- NOTE | 2021-05-03 15:09 | NUR ---
Pt awake sitting up in bed. No distress noted. FWW at bedside.
--- NOTE | 2021-05-03 15:33 | NUR ---
Applied warm compress to left forearm.
--- NOTE | 2021-05-03 16:12 | NUR ---
Pt was accepted to [facility], will transfer tonight.
--- NOTE | 2021-05-03 17:40 | NUR ---
Pt is calm and lying in mid hill's position. Warm compress to left forearm. No complaints at this time.
--- NOTE | 2021-05-03 18:20 | NUR ---
The patient is resting on his bed. He is aware that he will be transferred to [facility]. He continues to state that is has having some suicidal thoughts. When asked if he is hearing voices he stated, "Yes that's my main problem"
[2021-05-03] MEDS: traZODone 50mg tablet PO SCH (20:11)
[2021-05-03] MEDS: ARIPIPRAZOLE 15 MG TABLET PO SCH (20:27)
[2021-05-03] MEDS ORDERED: mag hydrox/Alum hydrox/simeth 30ml oral suspension PO PRN (20:45)
[2021-05-03] MEDS ORDERED: acetaminophen 325mg tablet PO PRN (20:45)
[2021-05-03] MEDS ORDERED: magnesium hydroxide 30ml (MOM) UD suspension PO PRN (20:45)
[2021-05-03] MEDS ORDERED: NICOTINE POLACRILEX 2 MG LOZENGE BC PRN (20:45)
[2021-05-03] MEDS ORDERED: loperamide 2mg capsule PO PRN (20:45)
[2021-05-03 22:15] VITALS: BP 193/109
--- NOTE | 2021-05-03 23:22 | NUR ---
Admission Note: Pt admitted to [facility] from overflow ER on a 5150 for grave disability which states he's been having delusional thinking and experiencing auditory hallucinations which at times tell him to kill himself. [facility] and [facility] which brought him to the ER. Pt is cooperative with admission. Two person skin check completed by Efrain and pt showered.
[2021-05-04] MEDS: metoprolol tartrate 50mg tablet PO SCH ×2 (07:34→19:38)
[2021-05-04] MEDS: metFORMIN 500mg tablet PO SCH ×2 (07:34→17:27)
[2021-05-04] MEDS: duloxetine 30mg CAPSULE.DR PO SCH (07:34)
[2021-05-04] MEDS: atorvastatin 20mg tablet PO SCH (07:34)
[2021-05-04] MEDS: isosorbide mononitrate 30mg tab.SR.24H PO SCH (07:34)
[2021-05-04] MEDS: potassium Cl 20 mEq SR tablet PO SCH (07:35)
[2021-05-04] MEDS: lisinopril 20mg tablet PO SCH (07:35)
[2021-05-04] MEDS: docusate sod 100mg capsule PO SCH ×2 (07:35→19:43)
[2021-05-04] MEDS: furosemide 40mg tablet PO SCH (07:35)
[2021-05-04] MEDS: gabapentin 300mg capsule PO SCH ×2 (07:35→19:39)
[2021-05-04] MEDS: clopidogrel 75mg tablet PO SCH (07:35)
[2021-05-04] MEDS: aspirin 81mg, enteric-coated 1 TAB TABLET.DR PO SCH (07:35)
[2021-05-04] MEDS: nicotine 21mg patch - 24 hr TD SCH (07:40)
[2021-05-04] MEDS: gemfibrozil 600mg tablet PO SCH (08:20)
--- NOTE | 2021-05-04 08:38 | NUR ---
DM consult: Pt with T2DM, well controlled with A1c 6.5%. DM education not warranted at this time. Will continue to follow. Addendum: 05/04/21 at [address] Amended: Links added.
[2021-05-04 08:45] VITALS: BP 169/88
[2021-05-04] MEDS ORDERED: FLU VACC QS2021-22(6MOS UP)/PF 60 MCG/0.5 ML SYRINGE IM ONE (10:00)
--- NOTE | 2021-05-04 17:34 | NUR ---
Nursing Progress Note: Legal hold: 5150 Client on involuntary status for GD Report received from ANABELA Mckinley with use of SBAR Why they are here: Pt admitted to [facility] from overflow ER on a 5150 for grave disability which states he's been having delusional thinking and experiencing auditory hallucinations which at times tell him to kill himself. [facility] which brought him to the ER. Assessment What has happened this shift: Patient resting quietly in bed with CPAP on at the start of the shirt. Eats meals in the community room and interacts appropriately with staff and peers. Cooperative with 1:1 assessment and medications. Isolative to his room and is noted looking out the window for long periods of time. When talking about his current crisis patient states, I got this ear infection and I just thought why not end it. States that he feels hopeless and has a hard time finding a reason to live. Denies a specific plan for suicide but states, Id find a way. Poison or something. S/I, H/I: Endorses SI but does not have a specific plan. A/VH: Denies Sleep: Sleeps 2 hours in the morning ADL's: Independent Group attendance: No Were meds taken: Yes Any med S/E: None observed or reported. Mental Status Exam Appearance: Older large man, unshaven wearing sweat pants and a long sleeve shirt. Eye contact: Good Behavior: Cooperative, calm, isolative Speech: Clear, normal rate/ volume Mood: Appears depressed. Affect: Blunted Thought process: Linear, depressed, hopeless Thought Content: Feeling hopeless Cognition: A&O x4 Insight: Fair Judgment: Fair Interventions PRN's used: NA Therapeutic interventions: Maintained a safe and therapeutic environment, ensured contract for safety, provided clear and simple instructions, provided active listening and positive encouragement, medication administration/ education, encouraged participation on the unit, and maintained Q 15min safety checks. Restraints/seclusion/emergency medication: N/A Justification of Continued Inpatient Treatment: Pt is in need of crisis interruption and medication management and monitoring in a safe and therapeutic environment until stable.
[2021-05-04 19:00] VITALS: BP 180/88
--- NOTE | 2021-05-04 19:27 | NUR ---
Pt sitting at side of bed listening to rock and roll music on headphones. Takes headphones off as I approach and engages in conversation appropriately. He complains of a left ear ache which he attributes to the Haldol medication stating that he is allergic to it. He continues to have suicidal thoughts; states he would find a way if he were to get out of here. States he is having auditory hallucinations stating they are "promising him things". When asked he did not specify what the promises consisted of, and instead started making references to auditory hallucinations of the past telling him to come to the hospital. He states he would be more encouraged to live if he could get back up to [facility]. He states he "has roots there" and it is time for him to return. Pt states he likes to get to sleep early, would like pain medication for his ear, and his c-pap so he can go to sleep. Addendum: 05/05/21 at 0522 by Danielle Hyde RN Patient made a quick 10-15 minute to the kitchen area. He then returned to his room. All medications other than colace and haldol were accepted. Tylenol administered L ear pain. Once c-pap was delivered to the patient, he appeared to sleep soundly for the remainder of the night.
[2021-05-04] MEDS: acetaminophen 325mg tablet PO PRN (19:39)
--- NOTE | 2021-05-04 19:43 | NUR ---
Pt refusing colace; states diarrhea today.
[2021-05-04] MEDS: ARIPIPRAZOLE 15 MG TABLET PO SCH (20:20)
[2021-05-04] MEDS: traZODone 50mg tablet PO SCH (20:20)
[2021-05-04] MEDS ORDERED: haloperidol 5mg tablet PO SCH (21:00)
[2021-05-05 07:58] VITALS: BP 191/97
[2021-05-05] MEDS: gemfibrozil 600mg tablet PO SCH (08:21)
[2021-05-05] MEDS: atorvastatin 20mg tablet PO SCH (08:21)
[2021-05-05] MEDS: acetaminophen 325mg tablet PO PRN ×2 (08:22→18:44)
[2021-05-05] MEDS: isosorbide mononitrate 30mg tab.SR.24H PO SCH (08:22)
[2021-05-05] MEDS: metoprolol tartrate 50mg tablet PO SCH ×2 (08:23→20:26)
[2021-05-05] MEDS: duloxetine 30mg CAPSULE.DR PO SCH (08:23)
[2021-05-05] MEDS: lisinopril 20mg tablet PO SCH (08:23)
[2021-05-05] MEDS: aspirin 81mg, enteric-coated 1 TAB TABLET.DR PO SCH (08:24)
[2021-05-05] MEDS: furosemide 40mg tablet PO SCH (08:24)
[2021-05-05] MEDS: metFORMIN 500mg tablet PO SCH ×2 (08:24→18:06)
[2021-05-05] MEDS: docusate sod 100mg capsule PO SCH ×2 (08:24→20:25)
[2021-05-05] MEDS: clopidogrel 75mg tablet PO SCH (08:24)
[2021-05-05] MEDS: potassium Cl 20 mEq SR tablet PO SCH (08:24)
[2021-05-05] MEDS: nicotine 21mg patch - 24 hr TD SCH (08:24)
[2021-05-05] MEDS: gabapentin 300mg capsule PO SCH ×2 (08:24→20:27)
[2021-05-05 09:00] VITALS: BP 180/91
[2021-05-05 14:46] VITALS: BP 167/90
[2021-05-05] MEDS: amLODIPine 5mg tablet PO SCH (15:00)
--- NOTE | 2021-05-05 17:45 | NUR ---
Nursing Progress Note: Ernie Chung Legal hold: 5150 Client on involuntary status for GD Report received from ANABELA Starks with use of SBAR Why they are here: Pt admitted to [facility] from overflow ER on a 5150 for grave disability which states he's been having delusional thinking and experiencing auditory hallucinations which at times tell him to kill himself. [facility] and [facility] which brought him to the ER. Assessment What has happened this shift: Patient observed sleeping in bed at change of shift. He joined in the community room with peers for breakfast. CPAP machine removed from room. Patient is compliant with all medications. He retreated back to his room after breakfast. 1:1 assessment completed. Patient endorsed to this advertising copywriter that he was starting to feel hopeless and depressed after his recent discharge, causing him to become suicidal. Patient endorsed that he is no longer feeling suicidal or wanting to harm himself. He denies HI, AH or VH. Does not appear internally preoccupied. He endorsed to this advertising copywriter that he wants to move back to [place] and rent a room with a friend. Patient stating that he lived in [place] before and knows his way around there better than [place]. Patient noted to have an elevated BP on this shift, as well as elevated BP trends. Hospitalist contacted with a new order for Amlodipine 10mg daily. He was observed sitting in a chair in his room, listening to music and looking out the window throughout the day. He took a shower on this shift, dressed in clean clothing with clean linen applied to bed. Patient was noted to be self-isolative aside from meal and snack times. He approached this advertising copywriter later in the day asking to watch a movie in the community room. He was noted sitting in the community room briefly socializing with a peer. He joined in the community room with peers for all meal and snacks today. S/I, H/I: Denies A/VH: Denies. Does not appear internally preoccupied Sleep: Slept 7 hours last night per NOC shift, no naps noted today ADL's: Independent Group attendance: No group provided today Were meds taken: Yes Any med S/E: None observed or reported. Mental Status Exam Appearance: Clean, took a shower today. Older large man, unshaven wearing sweat pants and a long sleeve shirt. Eye contact: Good Behavior: Cooperative, calm, isolative Speech: Clear, normal rate/ volume Mood: Appears depressed. Affect: Blunted Thought process: Linear, depressed, and hopeless Thought Content: Feeling hopeless Cognition: A&O x4 Insight: Fair Judgment: Fair Interventions PRN's used: Tylenol Therapeutic interventions: Maintained a safe and therapeutic environment, ensured contract for safety, provided clear and simple instructions, provided active listening and positive encouragement, medication administration/ education, MRSA+ hand washing education, encouraged participation on the unit, and maintained Q 15min safety checks. Restraints/seclusion/emergency medication: N/A Justification of Continued Inpatient Treatment: Pt is in need of crisis interruption and medication management/adjustment and monitoring in a safe and therapeutic environment until stable. At this point he is considered to be high risk for discharge.
[2021-05-05] MEDS: ARIPIPRAZOLE 15 MG TABLET PO SCH (20:25)
[2021-05-05] MEDS: traZODone 50mg tablet PO SCH (20:25)
[2021-05-05 20:44] VITALS: BP 151/88
--- NOTE | 2021-05-05 23:36 | NUR ---
Nursing Progress Note: Ernie Chung Legal hold: 5150 Client on involuntary status for GD Report received from ANABELA Gonzalez with use of SBAR Why they are here: Pt admitted to [facility] from overflow ER on a 5150 for grave disability which states he's been having delusional thinking and experiencing auditory hallucinations which at times tell him to kill himself. [facility] and [facility] ambulance which brought him to the ER. Assessment What has happened this shift: Patient sleeping in bed at change of shift. Patient is compliant with all medications. Pt denies HI, AH or VH. Does not appear internally preoccupied. Pt given C pap and went to sleep. S/I, H/I: Denies A/VH: Denies. Does not appear internally preoccupied Sleep: See sleep assessment ADL's: Independent Group attendance: No group provided today Were meds taken: Yes Any med S/E: None observed or reported. Mental Status Exam Appearance: Clean, took a shower today. Older large man, unshaven wearing sweat pants and a long sleeve shirt. Eye contact: Good Behavior: Cooperative, calm, isolative Speech: Clear, normal rate/ volume Mood: Appears depressed. Affect: Blunted Thought process: Linear, depressed, and hopeless Thought Content: Feeling hopeless Cognition: A&O x4 Insight: Fair Judgment: Fair Interventions PRN's used: Tylenol Therapeutic interventions: Maintained a safe and therapeutic environment, ensured contract for safety, provided clear and simple instructions, provided active listening and positive encouragement, medication administration/ education, MRSA+ hand washing education, encouraged participation on the unit, and maintained Q 15min safety checks. Restraints/seclusion/emergency medication: N/A Justification of Continued Inpatient Treatment: Pt is in need of crisis interruption and medication management/adjustment and monitoring in a safe and therapeutic environment until stable. At this point he is considered to be high risk for discharge.
[2021-05-06] MEDS: gemfibrozil 600mg tablet PO SCH (07:55)
[2021-05-06] MEDS: metFORMIN 500mg tablet PO SCH ×2 (07:56→17:20)
[2021-05-06] MEDS: isosorbide mononitrate 30mg tab.SR.24H PO SCH (07:56)
[2021-05-06] MEDS: duloxetine 30mg CAPSULE.DR PO SCH (07:56)
[2021-05-06] MEDS: aspirin 81mg, enteric-coated 1 TAB TABLET.DR PO SCH (07:56)
[2021-05-06] MEDS: amLODIPine 5mg tablet PO SCH (07:56)
[2021-05-06] MEDS: atorvastatin 20mg tablet PO SCH (07:56)
[2021-05-06] MEDS: clopidogrel 75mg tablet PO SCH (07:57)
[2021-05-06] MEDS: metoprolol tartrate 50mg tablet PO SCH ×2 (07:57→20:10)
[2021-05-06] MEDS: furosemide 40mg tablet PO SCH (07:57)
[2021-05-06] MEDS: potassium Cl 20 mEq SR tablet PO SCH (07:57)
[2021-05-06] MEDS: docusate sod 100mg capsule PO SCH ×2 (07:57→20:10)
[2021-05-06] MEDS: lisinopril 20mg tablet PO SCH (07:57)
[2021-05-06] MEDS: gabapentin 300mg capsule PO SCH ×2 (07:57→20:11)
[2021-05-06 08:00] VITALS: BP 162/96
[2021-05-06] MEDS: nicotine 21mg patch - 24 hr TD SCH (08:02)
--- NOTE | 2021-05-06 16:49 | NUR ---
Nursing Progress Note: Ernie Chung Legal hold: 5150 Client on involuntary status for GD Report received from ANABELA Starks with use of SBAR Why they are here: Pt admitted to [facility] from overflow ER on a 5150 for grave disability which states he's been having delusional thinking and experiencing auditory hallucinations which at times tell him to kill himself. [facility] and [facility] which brought him to the ER. Assessment What has happened this shift: Patient observed sleeping in bed at change of shift. He was awoken to have breakfast in the community room. CPAP machine removed from room. He continues to present as polite, calm, and cooperative with care. 1:1 assessment completed, lungs CTA. He is compliant with all medications. Patient endorsed to this service writer that he is still feeling about twenty five percent suicidal and that it will probably be better in the next couple of days. He denies HI, AH or VH. Does not appear internally preoccupied. He continues endorsing plans to move back to [place] when he is discharged. He was observed sitting in a chair in his room, listening to music and looking out the window throughout the day. Patient was noted sitting in the community room socializing and watching a movie with peers later in the day. He joined in the community room with peers for all meal and snack times. S/I, H/I: Denies A/VH: Denies. Does not appear internally preoccupied Sleep: Slept 8.75 hours last night per NOC shift, one short nap noted today ADL's: Independent Group attendance: No group provided today Were meds taken: Yes Any med S/E: None observed or reported. Mental Status Exam Appearance: Older large man, unshaven wearing sweat pants and a long sleeve shirt. Eye contact: Good Behavior: Cooperative, calm, isolative Speech: Clear, normal rate/ volume Mood: Appears depressed. Affect: Blunted Thought process: Linear, depressed, and hopeless Thought Content: Coming up with discharge plan, wants to move back to [place] Cognition: A&O x4 Insight: Fair Judgment: Fair Interventions PRN's used: None Therapeutic interventions: Maintained a safe and therapeutic environment, ensured contract for safety, provided clear and simple instructions, provided active listening and positive encouragement, medication administration/ education, MRSA+ hand washing education, encouraged participation on the unit, and maintained Q 15min safety checks. Restraints/seclusion/emergency medication: N/A Justification of Continued Inpatient Treatment: Pt is in need of crisis interruption and medication management/adjustment and monitoring in a safe and therapeutic environment until stable. At this point he is considered to be high risk for discharge.
[2021-05-06] MEDS: acetaminophen 325mg tablet PO PRN (17:01)
[2021-05-06 19:17] VITALS: BP 156/87
[2021-05-06] MEDS: traZODone 50mg tablet PO SCH (20:11)
[2021-05-06] MEDS: ARIPIPRAZOLE 15 MG TABLET PO SCH (20:11)
[2021-05-06] MEDS ORDERED: aripiprazole 5mg tablet PO ONE (21:00)
--- NOTE | 2021-05-07 00:14 | NUR ---
Nursing Progress Note: Ernie Chung Legal hold: 5150 Client on involuntary status for GD Report received from ANABELA Gonzalez with use of SBAR Why they are here: Pt admitted to [facility] from overflow ER on a 5150 for grave disability which states he's been having delusional thinking and experiencing auditory hallucinations which at times tell him to kill himself. [facility] and [facility] ambulance which brought him to the ER. Assessment What has happened this shift: Patient sleeping in bed at change of shift. He awoke at snack time ambulated to the group rooo and ate snack. He continues to present as polite, calm, and cooperative with care. He is compliant with all medications. He denies HI, AH or VH. Does not appear internally preoccupied. S/I, H/I: Denies A/VH: Denies. Does not appear internally preoccupied Sleep: See sleep assessment ADL's: Independent Group attendance: No group provided today Were meds taken: Yes Any med S/E: None observed or reported. Mental Status Exam Appearance: Older large man, unshaven wearing sweat pants and a long sleeve shirt. Eye contact: Good Behavior: Cooperative, calm, isolative Speech: Clear, normal rate/ volume Mood: Appears depressed. Affect: Blunted Thought process: Linear, depressed, and hopeless Thought Content: Coming up with discharge plan, wants to move back to [place] Cognition: A&O x4 Insight: Fair Judgment: Fair Interventions PRN's used: None Therapeutic interventions: Maintained a safe and therapeutic environment, ensured contract for safety, provided clear and simple instructions, provided active listening and positive encouragement, medication administration/ education, MRSA+ hand washing education, encouraged participation on the unit, and maintained Q 15min safety checks. Restraints/seclusion/emergency medication: N/A Justification of Continued Inpatient Treatment: Pt is in need of crisis interruption and medication management/adjustment and monitoring in a safe and therapeutic environment until stable. At this point he is considered to be high risk for discharge.
[2021-05-07] MEDS: nicotine 21mg patch - 24 hr TD SCH (08:00)
[2021-05-07 08:38] VITALS: BP 115/70
[2021-05-07] MEDS: gemfibrozil 600mg tablet PO SCH (08:48)
[2021-05-07] MEDS: furosemide 40mg tablet PO SCH (08:49)
[2021-05-07] MEDS: clopidogrel 75mg tablet PO SCH (08:49)
[2021-05-07] MEDS: docusate sod 100mg capsule PO SCH ×2 (08:49→20:10)
[2021-05-07] MEDS: aspirin 81mg, enteric-coated 1 TAB TABLET.DR PO SCH (08:50)
[2021-05-07] MEDS: metoprolol tartrate 50mg tablet PO SCH ×2 (08:50→20:10)
[2021-05-07] MEDS: potassium Cl 20 mEq SR tablet PO SCH (08:50)
[2021-05-07] MEDS: duloxetine 30mg CAPSULE.DR PO SCH (08:50)
[2021-05-07] MEDS: metFORMIN 500mg tablet PO SCH ×2 (08:50→17:05)
[2021-05-07] MEDS: gabapentin 300mg capsule PO SCH ×2 (08:51→20:10)
[2021-05-07] MEDS: lisinopril 20mg tablet PO SCH (08:51)
[2021-05-07] MEDS: amLODIPine 5mg tablet PO SCH (08:52)
[2021-05-07] MEDS: isosorbide mononitrate 30mg tab.SR.24H PO SCH (08:52)
[2021-05-07] MEDS: atorvastatin 20mg tablet PO SCH (08:52)
--- NOTE | 2021-05-07 14:09 | NUR ---
Initial: Pt admitted w/ hallucinations and SI per EMR. Pt currently on CCHO diet eating 100% of meals meeting needs. Will monitor need for Renal diet pending further labs. LBM 05/06 receiving routine colace. No nutrition intervention implemented at this time, will continue to monitor. Recs: 1. Continue CCHO diet as tolerated 2. Monitor need for Renal diet pending further labs 3. Bowel care per rx 4. Weekly wts Addendum: 05/07/21 at [address] Amended: Links added.
--- NOTE | 2021-05-07 16:18 | NUR ---
Nursing Progress Note: Legal hold: 5250 Client on involuntary status for GD Report received from Vesta MANZO with use of SBAR Why they are here: Pt admitted to [facility] from overflow ER on a 5150 for grave disability which states he's been having delusional thinking and experiencing auditory hallucinations which at times tell him to kill himself. [facility] and they [facility] ambulance which brought him to the ER. Assessment What has happened this shift: Patient observed sleeping in bed at change of shift. He was awoken to have breakfast in the community room. CPAP machine removed from room. He continues to present as polite, calm, and cooperative with care. 1:1 assessment done at bedside. He is compliant with all medications. Patient endorsed to this feature writer that he is no longer feeling suicidal. He denies HI, AH or VH. Does not appear internally preoccupied. He continues endorsing plans to move back to [place] when he is discharged, "I have more resources there and thatis where I want to be". He was observed sitting in a chair in his room, listening to music and looking out the window throughout the day. Patient was noted sitting in the community room socializing and watching a movie with peers later in the day. He joined in the community room with peers for all meal and snack times. S/I, H/I: Denies A/VH: Denies. Does not appear internally preoccupied Sleep: one short nap noted today ADL's: Independent, no shower today Group attendance: No Were meds taken: Yes Any med S/E: None observed or reported. Mental Status Exam Appearance: Older large man, unshaven wearing sweat pants and a long sleeve shirt. Eye contact: Good Behavior: Cooperative, calm, isolative Speech: Clear, normal rate/ volume Mood: Appears depressed. Affect: Blunted Thought process: Linear, depressed, and hopeless Thought Content: Coming up with discharge plan, wants to move back to [place] Cognition: A&O x4 Insight: Fair Judgment: Fair Interventions PRN's used: None Therapeutic interventions: Maintained a safe and therapeutic environment, ensured contract for safety, provided clear and simple instructions, provided active listening and positive encouragement, medication administration/ education, MRSA+ hand washing education, encouraged participation on the unit, and maintained Q 15min safety checks. Restraints/seclusion/emergency medication: N/A Justification of Continued Inpatient Treatment: Pt is in need of crisis interruption and medication management/adjustment and monitoring in a safe and therapeutic environment until stable. At this point he is considered to be high risk for discharge.
[2021-05-07] MEDS: acetaminophen 325mg tablet PO PRN (17:16)
[2021-05-07] MEDS: ARIPIPRAZOLE 15 MG TABLET PO SCH (20:08)
[2021-05-07] MEDS: traZODone 50mg tablet PO SCH (20:11)
[2021-05-07 20:27] VITALS: BP 162/87
--- NOTE | 2021-05-08 00:43 | NUR ---
Nursing Progress Note: Ernie Chung Legal hold: 5150 Client on involuntary status for GD Report received from ANABELA Gonzalez with use of SBAR Why they are here: Pt admitted to [facility] from overflow ER on a 5150 for grave disability which states he's been having delusional thinking and experiencing auditory hallucinations which at times tell him to kill himself. [facility] and they [facility] ambulance which brought him to the ER. Assessment What has happened this shift: Patient sleeping in bed at change of shift. He awoke at snack time ambulated to the group rooo and ate snack. He continues to present as polite, calm, and cooperative with care. He is compliant with all medications. He denies HI, AH or VH. Does not appear internally preoccupied. S/I, H/I: Denies A/VH: Denies. Does not appear internally preoccupied Sleep: See sleep assessment ADL's: Independent Group attendance: No group provided today Were meds taken: Yes Any med S/E: None observed or reported. Mental Status Exam Appearance: Older large man, unshaven wearing sweat pants and a long sleeve shirt. Eye contact: Good Behavior: Cooperative, calm, isolative Speech: Clear, normal rate/ volume Mood: Appears depressed. Affect: Blunted Thought process: Linear, depressed, and hopeless Thought Content: Coming up with discharge plan, wants to move back to [place] Cognition: A&O x4 Insight: Fair Judgment: Fair Interventions PRN's used: None Therapeutic interventions: Maintained a safe and therapeutic environment, ensured contract for safety, provided clear and simple instructions, provided active listening and positive encouragement, medication administration/ education, MRSA+ hand washing education, encouraged participation on the unit, and maintained Q 15min safety checks. Restraints/seclusion/emergency medication: N/A Justification of Continued Inpatient Treatment: Pt is in need of crisis interruption and medication management/adjustment and monitoring in a safe and therapeutic environment until stable. At this point he is considered to be high risk for discharge.
[2021-05-08 08:00] VITALS: BP 178/88
[2021-05-08] MEDS: docusate sod 100mg capsule PO SCH ×2 (08:00→20:27)
[2021-05-08] MEDS: nicotine 21mg patch - 24 hr TD SCH (08:00)
[2021-05-08] MEDS: atorvastatin 20mg tablet PO SCH (08:39)
[2021-05-08] MEDS: amLODIPine 5mg tablet PO SCH (08:39)
[2021-05-08] MEDS: lisinopril 20mg tablet PO SCH (08:40)
[2021-05-08] MEDS: metFORMIN 500mg tablet PO SCH ×2 (08:40→16:44)
[2021-05-08] MEDS: gabapentin 300mg capsule PO SCH ×2 (08:40→20:27)
[2021-05-08] MEDS: duloxetine 30mg CAPSULE.DR PO SCH (08:40)
[2021-05-08] MEDS: metoprolol tartrate 50mg tablet PO SCH ×2 (08:41→20:25)
[2021-05-08] MEDS: clopidogrel 75mg tablet PO SCH (08:41)
[2021-05-08] MEDS: isosorbide mononitrate 30mg tab.SR.24H PO SCH (08:41)
[2021-05-08] MEDS: aspirin 81mg, enteric-coated 1 TAB TABLET.DR PO SCH (08:41)
[2021-05-08] MEDS: potassium Cl 20 mEq SR tablet PO SCH (08:41)
[2021-05-08] MEDS: furosemide 40mg tablet PO SCH (08:41)
[2021-05-08] MEDS: gemfibrozil 600mg tablet PO SCH (09:09)
--- NOTE | 2021-05-08 15:06 | NUR ---
Nursing Progress Note: Legal hold: 5250 Client on involuntary status for GD Report received from Rajwinder MANZO with use of SBAR Why they are here: Pt admitted to [facility] from overflow ER on a 5150 for grave disability which states he's been having delusional thinking and experiencing auditory hallucinations which at times tell him to kill himself. [facility] and [facility] ambulance which brought him to the ER. Assessment What has happened this shift: Patient observed sleeping in bed at change of shift. He was awoken to have breakfast in the community room. He continues to present as polite, calm, and cooperative with care. 1:1 assessment done at bedside. He is compliant with all medications. Patient endorsed to this group underwriter that he is no longer feeling suicidal. He denies HI, AH or VH. Does not appear internally preoccupied. He continues endorsing plans to move back to [place] when he is discharged, "I have more resources there and that is where I want to be". He was observed sitting in a chair in his room, listening to music and looking out the window throughout the day. Patient was noted sitting in the community room socializing and watching a movie with peers later in the day. He joined in the community room with peers for all meal and snack times. Patient appears bright today than yesterday and continues to join in with meal and group. S/I, H/I: Denies A/VH: Denies. Does not appear internally preoccupied Sleep: one short nap noted today ADL's: Independent, no shower today but did ask fro items to do a "bird bath" Group attendance: Yes "I made a abstract heart" Were meds taken: Yes Any med S/E: None observed or reported. Mental Status Exam Appearance: Older large man, unshaven wearing sweat pants and a long sleeve shirt. Eye contact: Good Behavior: Cooperative, calm, isolative Speech: Clear, normal rate/ volume Mood: Appears depressed. Affect: Blunted Thought process: Linear, depressed, and hopeless Thought Content: Coming up with discharge plan, wants to move back to [place] Cognition: A&O x4 Insight: Fair Judgment: Fair Interventions PRN's used: None Therapeutic interventions: Maintained a safe and therapeutic environment, ensured contract for safety, provided clear and simple instructions, provided active listening and positive encouragement, medication administration/ education, MRSA+ hand washing education, encouraged participation on the unit, and maintained Q 15min safety checks. Restraints/seclusion/emergency medication: N/A Justification of Continued Inpatient Treatment: Pt is in need of crisis interruption and medication management/adjustment and monitoring in a safe and therapeutic environment until stable. At this point he is considered to be high risk for discharge. Patient need to establish [facility] in [facility] so that he can receive services when discharged.
[2021-05-08] MEDS: acetaminophen 325mg tablet PO PRN (16:56)
--- NOTE | 2021-05-08 17:09 | NUR ---
Group Art Tx, Continued: Patient attended group art therapy, choosing to sit off to the side table rather than at the larger group table with his peers. Patient remained positive and was able to follow all directives completing both his drawing and writing. He was also able to share during the group process. Although patient was sitting off to the side, he was able to remain attentive to the group and his peers. *Please refer to the [facility] Group Notes for entire overview. Louisa Fraser MA, WATCH ASSEMBLER #[id number] [facility] Art Therapist Addendum: 05/08/21 at 1714 by Louisa Fraser SS Amended: Links added.
[2021-05-08] MEDS: ARIPIPRAZOLE 15 MG TABLET PO SCH (20:25)
[2021-05-08] MEDS: traZODone 50mg tablet PO SCH (20:27)
[2021-05-08 20:41] VITALS: BP 141/90
--- NOTE | 2021-05-09 00:07 | NUR ---
Nursing Progress Note: Legal hold: 5250 Client on involuntary status for GD Report received from Carlos MANZO with use of SBAR Why they are here: Pt admitted to [facility] from overflow ER on a 5150 for grave disability which states he's been having delusional thinking and experiencing auditory hallucinations which at times tell him to kill himself. [facility] and [facility] which brought him to the ER. Assessment What has happened this shift: Patient was up in group room watching tv at shift change. He remained in group room thru snacktime then returned to his room. He took his HS medication and put on his CPAP and went to sleep. S/I, H/I: Denies A/VH: Denies. Does not appear internally preoccupied Sleep: See sleep assessment ADL's: Independent, no shower today but did ask fro items to do a "bird bath" Group attendance: Yes "I made a abstract heart" Were meds taken: Yes Any med S/E: None observed or reported. Mental Status Exam Appearance: Older large man, unshaven wearing sweat pants and a long sleeve shirt. Eye contact: Good Behavior: Cooperative, calm, isolative Speech: Clear, normal rate/ volume Mood: Appears depressed. Affect: Blunted Thought process: Linear, depressed, and hopeless Thought Content: Coming up with discharge plan, wants to move back to [place] Cognition: A&O x4 Insight: Fair Judgment: Fair Interventions PRN's used: None Therapeutic interventions: Maintained a safe and therapeutic environment, ensured contract for safety, provided clear and simple instructions, provided active listening and positive encouragement, medication administration/ education, MRSA+ hand washing education, encouraged participation on the unit, and maintained Q 15min safety checks. Restraints/seclusion/emergency medication: N/A Justification of Continued Inpatient Treatment: Pt is in need of crisis interruption and medication management/adjustment and monitoring in a safe and therapeutic environment until stable. At this point he is considered to be high risk for discharge. Patient need to [facility] so that he can receive services when discharged.
[2021-05-09 07:58] VITALS: BP 172/90
[2021-05-09] MEDS: gabapentin 300mg capsule PO SCH ×2 (08:05→20:51)
[2021-05-09] MEDS: metFORMIN 500mg tablet PO SCH ×2 (08:05→17:21)
[2021-05-09] MEDS: duloxetine 30mg CAPSULE.DR PO SCH (08:05)
[2021-05-09] MEDS: furosemide 40mg tablet PO SCH (08:06)
[2021-05-09] MEDS: atorvastatin 20mg tablet PO SCH (08:06)
[2021-05-09] MEDS: aspirin 81mg, enteric-coated 1 TAB TABLET.DR PO SCH (08:06)
[2021-05-09] MEDS: potassium Cl 20 mEq SR tablet PO SCH (08:06)
[2021-05-09] MEDS: clopidogrel 75mg tablet PO SCH (08:06)
[2021-05-09] MEDS: isosorbide mononitrate 30mg tab.SR.24H PO SCH (08:06)
[2021-05-09] MEDS: docusate sod 100mg capsule PO SCH ×2 (08:07→20:52)
[2021-05-09] MEDS: amLODIPine 5mg tablet PO SCH (08:07)
[2021-05-09] MEDS: lisinopril 20mg tablet PO SCH (08:07)
[2021-05-09] MEDS: nicotine 21mg patch - 24 hr TD SCH (08:08)
[2021-05-09] MEDS: metoprolol tartrate 50mg tablet PO SCH ×2 (08:08→20:52)
[2021-05-09] MEDS: gemfibrozil 600mg tablet PO SCH (09:37)
--- NOTE | 2021-05-09 16:25 | NUR ---
Nursing Progress Note: Ernie Legal hold: 5250 Client on involuntary status for GD Report received from Rajwinder MANZO with use of SBAR Why they are here: Pt admitted to [facility] from overflow ER on a 5150 for grave disability which states he's been having delusional thinking and experiencing auditory hallucinations which at times tell him to kill himself. [facility] and [facility] which brought him to the ER. Assessment What has happened this shift: Patient received awake sitting in his bed at shift change. He is friendly and cooperative while taking his medication. Acting Section Chief provided active listening and positive encouragement and 1:1 assessment completed at the bedside. Pt. denies SI, HI, and states the meds are working. Pt. presents as delusional stating Im hear because the Haldol made me deaf pointing to his left ear. He reports Im going to live in [facility] when I leave here. Pt ate his meals in the dining room but was often seated over to the side by himself. No social interactions with cohorts observed. He did attended group also with headphones on. Pt often witnessed sitting in the common area watching TV with headphones on this shift. Acting Section Chief approached pt. numerous times this shift and finds him to have flat affect and appears depressed. Napped one time this shift. S/I, H/I: Denies A/VH: Denies both Sleep: One nap ADL's: Independent Group attendance: Yes Were meds taken: Yes Any med S/E: None observed or reported. Mental Status Exam Appearance: Older male, obese, disheveled and wearing street clothes. Eye contact: Good Behavior: Cooperative, calm, isolative Speech: Clear normal rate and rhythm Mood: Depressed. Affect: Blunted Thought process: Linear, depressed Thought Content: going to [facility] Cognition: A&O x4 Insight: Fair Judgment: Fair Interventions PRN's used: None Therapeutic interventions: Maintained a safe and therapeutic environment, ensured contract for safety, provided clear and simple instructions, provided active listening and positive encouragement, medication administration/ education, MRSA+ hand washing education, encouraged participation on the unit, and maintained Q 15min safety checks. Restraints/seclusion/emergency medication: N/A Justification of Continued Inpatient Treatment: Pt is in need of crisis interruption and medication management/adjustment and monitoring in a safe and therapeutic environment until stable. At this point he is considered to be high risk for discharge. Patient need to establish [facility] in [facility] so that he can receive services when discharged.
[2021-05-09 20:43] VITALS: BP 158/92
[2021-05-09] MEDS: ARIPIPRAZOLE 10 MG TABLET PO SCH (20:51)
[2021-05-09] MEDS: traZODone 50mg tablet PO SCH (20:51)
--- NOTE | 2021-05-10 01:43 | NUR ---
Nursing Progress Note: Ernie Legal hold: 5250 Client on involuntary status for GD Report received from Jayda MANZO with use of SBAR Why they are here: Pt admitted to [facility] from overflow ER on a 5150 for grave disability which states he's been having delusional thinking and experiencing auditory hallucinations which at times tell him to kill himself. [facility] and [facility] which brought him to the ER. Assessment What has happened this shift: Patient was observed sitting on edge of bed listening to music at beginning of shift. Patient started waking around unit and eventually ended up in community room watching tv. Patient did not talk to other patient or participate in snack. Patient was very anxious about getting connected to CPAP machine. Patient had to be told by nurse multiple times that respiratory had been paged and they would be stopping by. Patient took all medications before being connected to Cpap machine. Patient slept without issues. S/I, H/I: Denies A/VH: Denies Sleep: See sleep assessment ADL's: Independent Group attendance: Yes Were meds taken: Yes Any med S/E: None observed or reported. Mental Status Exam Appearance: Older male, obese, disheveled and wearing unit scrubs Eye contact: Good Behavior: Cooperative, calm, isolative Speech: Clear normal rate and rhythm Mood: anxious Affect: Blunted Thought process: Linear, depressed Thought Content: going to [facility] Cognition: A&O x4 Insight: Fair Judgment: Fair Interventions PRN's used: None Therapeutic interventions: Maintained a safe and therapeutic environment, ensured contract for safety, provided clear and simple instructions, provided active listening and positive encouragement, medication administration/ education, MRSA+ hand washing education, encouraged participation on the unit, and maintained Q 15min safety checks. Restraints/seclusion/emergency medication: N/A Justification of Continued Inpatient Treatment: Pt is in need of crisis interruption and medication management/adjustment and monitoring in a safe and therapeutic environment until stable. At this point he is considered to be high risk for discharge. Patient need to establish [facility] in [facility] so that he can receive services when discharged.
[2021-05-10 07:41] LABS: BASOPHILS % (AUTO) 0.7 % (0-1); EOSINOPHILS # (AUTO) 0.2 X10'3 (0-0.9); EOSINOPHILS % (AUTO) 3.1 % (0-6); HEMATOCRIT 39.2 % (42.0-52.0); HEMOGLOBIN 13.4 g/dl (14.0-17.9); LYMPHOCYTES # (AUTO) 1.5 X10'3 (1.1-4.8); LYMPHOCYTES % (AUTO) 23.5 % (21-51); MEAN CORPUSCULAR HEMOGLOBIN 28.4 PG (27.0-31.0); MEAN CORPUSCULAR HGB CONC 34.2 g/dL (33.0-36.5); MEAN PLATELET VOLUME 7.3 FL (7.4-10.4); MONOCYTES # (AUTO) 0.5 X10'3 (0-0.9); MONOCYTES % (AUTO) 7.6 % (2-12); NEUTROPHILS % (AUTO) 65.1 % (42-75); PLATELET COUNT 265 X10'3 (140-440); RED BLOOD COUNT 4.72 X10'6 (4.70-6.10); WHITE BLOOD COUNT 6.2 X10'3 (4.5-11.0)
[2021-05-10 07:43] VITALS: BP 164/81
[2021-05-10 07:43] LABS: ALANINE AMINOTRANSFERASE 27 U/L (12-78); ALBUMIN 3.2 G/DL (3.4-5.0); ALBUMIN/GLOBULIN RATIO 0.8 (1.1-1.5); ALKALINE PHOSPHATASE 86 IU/L (46-116); ANION GAP 10 (8-16); ASPARTATE AMINO TRANSFERASE 13 U/L (10-37); BILIRUBIN,TOTAL 0.4 MG/DL (0.1-1.0); BLOOD UREA NITROGEN 28 MG/DL (7-18); BUN/CREATININE RATIO 14.4 (5.4-32.0); CALCIUM 9.7 MG/DL (8.5-10.1); CHLORIDE 105 MMOL/L (99-107); CREATININE 1.94 MG/DL (0.60-1.10); GLUCOSE 98 MG/DL (70-104); MAGNESIUM 2.1 MG/DL (1.5-2.4); PHOSPHORUS 4.3 MG/DL (2.3-4.5); POTASSIUM 4.3 MMOL/L (3.5-5.1); SODIUM 143 MMOL/L (135-145); TOTAL CARBON DIOXIDE 28.4 MMOL/L (24-32); TOTAL PROTEIN 7.1 G/DL (6.4-8.2); eGFR 36 ML/MIN
[2021-05-10] MEDS: isosorbide mononitrate 30mg tab.SR.24H PO SCH (08:01)
[2021-05-10] MEDS: gemfibrozil 600mg tablet PO SCH (08:01)
[2021-05-10] MEDS: atorvastatin 20mg tablet PO SCH (08:02)
[2021-05-10] MEDS: docusate sod 100mg capsule PO SCH ×2 (08:02→20:47)
[2021-05-10] MEDS: metFORMIN 500mg tablet PO SCH ×2 (08:02→16:53)
[2021-05-10] MEDS: gabapentin 300mg capsule PO SCH ×2 (08:02→20:48)
[2021-05-10] MEDS: duloxetine 30mg CAPSULE.DR PO SCH (08:02)
[2021-05-10] MEDS: potassium Cl 20 mEq SR tablet PO SCH (08:03)
[2021-05-10] MEDS: clopidogrel 75mg tablet PO SCH (08:03)
[2021-05-10] MEDS: aspirin 81mg, enteric-coated 1 TAB TABLET.DR PO SCH (08:03)
[2021-05-10] MEDS: metoprolol tartrate 50mg tablet PO SCH ×2 (08:03→20:49)
[2021-05-10] MEDS: furosemide 40mg tablet PO SCH (08:03)
[2021-05-10] MEDS: lisinopril 20mg tablet PO SCH (08:04)
[2021-05-10] MEDS: amLODIPine 5mg tablet PO SCH (08:04)
[2021-05-10] MEDS: nicotine 21mg patch - 24 hr TD SCH (08:05)
--- NOTE | 2021-05-10 12:12 | NUR ---
CM/DCP Presenting Issues: Pt's d/c is complicated as pt has medical issues/conditions that requires routine monitoring by his PMD, use of a C-Pap, homelessness, and pt unwilling to utilize the [facility]. Interventions: Pt's case was presented at the MDT consultation, per consultation returning to [facility] is not advisable for pt due to his myriad of medical issues. Attending physician will meet w/pt today to see if pt will accept d/c to the [facility]. Should pt continue to insist on going to [facility] their are 2 options if d/c on 05/11: [employer]- $38 from [employer] station to [employer] [place], pt will need to walk over 2mi to get to [facility] [facility] [employer] bus stop [employer]- $24, from [place] station to [place] [employer] station where pt will walk less than a mile to take the [facility] transit to [facility] (base fare=$4, it may be free right now). Pt has a scheduled f/u with PMD on 05/22 @ 10:00 am. Plan: SS will continue to engage pt & care team in dcp activities. Kaya Peña LCSW Addendum: 05/10/21 at 1213 by Kaya Peña SS Amended: Links added.
--- NOTE | 2021-05-10 13:32 | NUR ---
Pt. attended group today. We talked about Communication today focusing on how to utilize I messages. This Wheel Press Clerk shared how to create an I message and then we practiced writing them on the board. Pt. was very quiet today in group. He didn't' share any of her thoughts today about the topic. His demeanor was calm and pleasant. Aimee Farley LCSW
--- NOTE | 2021-05-10 16:28 | NUR ---
Nursing Progress Note: Ernie Legal hold: 5250 Client on involuntary status for GD Report received from Rajwinder MANZO with use of SBAR Why they are here: Pt admitted to [facility] from overflow ER on a 5150 for grave disability which states he's been having delusional thinking and experiencing auditory hallucinations which at times tell him to kill himself. [facility] and [facility] the ambulance which brought him to the ER. Assessment What has happened this shift: Patient received sleeping in his room, he woke to receive hi medications and was willing to discuss his admission. Pt. denies SI, HI and all hallucinations. He is preoccupied with thoughts of Haldol causing him hearing loss, but inquiries about his discharge, he presents with flat affect. Pt. stated his plans for the future is to go back to [facility] where I have friends and some housing Pt. appears to need a shower and fiction and nonfiction writer prose encouraged him to do so; pt denies needing one today. Pt. observed ambulating in [place] with headphones on. Pt. ate his meals in the dining room wearing headphones, no social interaction observed, but was seen sitting at a table with his roommate. Pt. sat with headphones on while his cohorts visited with family. Pt. did stay and attend group this shift. He has napped intermittently this shift. . S/I, H/I: Denies A/VH: Denies both Sleep: Intermittently ADL's: Independent Group attendance: Yes -- Were meds taken: Yes Any med S/E: None observed or reported. Mental Status Exam Appearance: Older male, obese, disheveled and wearing street clothes. Eye contact: Good Behavior: Cooperative, calm, isolative Speech: Clear normal rate and rhythm Mood: Depressed. Affect: Blunted Thought process: Linear, depressed Thought Content: Ill stay in [facility] Cognition: A&O x4 Insight: Fair Judgment: Fair Interventions PRN's used: None Therapeutic interventions: Maintained a safe and therapeutic environment, ensured contract for safety, provided clear and simple instructions, provided active listening and positive encouragement, medication administration/ education, MRSA+ hand washing education, encouraged participation on the unit, and maintained Q 15min safety checks. Restraints/seclusion/emergency medication: N/A Justification of Continued Inpatient Treatment: Pt is in need of crisis interruption and medication management/adjustment and monitoring in a safe and therapeutic environment until stable. At this point he is considered to be high risk for discharge. Patient need to establish [facility] in [facility] so that he can receive services when discharged.
[2021-05-10 19:43] VITALS: BP 142/58
[2021-05-10] MEDS: traZODone 50mg tablet PO SCH (20:47)
[2021-05-10] MEDS: ARIPIPRAZOLE 10 MG TABLET PO SCH (20:47)
--- NOTE | 2021-05-11 00:23 | NUR ---
Nursing Progress Note: Ernie Legal hold: 5250 Client on involuntary status for GD Report received from Jayda MANZO with use of SBAR Why they are here: Pt admitted to [facility] from overflow ER on a 5150 for grave disability which states he's been having delusional thinking and experiencing auditory hallucinations which at times tell him to kill himself. [facility] and [facility] which brought him to the ER. Assessment What has happened this shift: Patient was observed sleeping in bed at beginning of shift. Patient spent shift self isolating in room. Patient was found sitting on bed listening to headphones when nurse attempted 1:1 Assessment. Patient stated he was not feeling suicidal but was feeling hopeful either. Patient is not really sure where he is going to go but he does not want to go back to the [facility] if he doesn't have to. Patient took all night medications and was happy he was able to get connected to Cpap early. Patient slept without difficulty. S/I, H/I: Denies A/VH: Denies Sleep: See sleep assessment ADL's: Independent Group attendance: Yes -- Were meds taken: Yes Any med S/E: None observed or reported. Mental Status Exam Appearance: Older male, obese, disheveled and wearing green unit scrubs Eye contact: Good Behavior: Cooperative, calm, isolative Speech: Clear normal rate and rhythm Mood: Depressed. Affect: Blunted Thought process: Linear, depressed Thought Content: Ill stay in [facility] Cognition: A&O x3 Insight: Fair Judgment: Fair Interventions PRN's used: None Therapeutic interventions: Maintained a safe and therapeutic environment, ensured contract for safety, provided clear and simple instructions, provided active listening and positive encouragement, medication administration/ education, MRSA+ hand washing education, encouraged participation on the unit, and maintained Q 15min safety checks. Restraints/seclusion/emergency medication: N/A Justification of Continued Inpatient Treatment: Pt is in need of crisis interruption and medication management/adjustment and monitoring in a safe and therapeutic environment until stable. At this point he is considered to be high risk for discharge. Patient need to establish -[facility] in [facility] so that he can receive services when discharged.
[2021-05-11] MEDS: atorvastatin 20mg tablet PO SCH (07:55)
[2021-05-11] MEDS: isosorbide mononitrate 30mg tab.SR.24H PO SCH (07:55)
[2021-05-11] MEDS: gemfibrozil 600mg tablet PO SCH (07:55)
[2021-05-11] MEDS: nicotine 21mg patch - 24 hr TD SCH (07:55)
[2021-05-11] MEDS: gabapentin 300mg capsule PO SCH ×2 (07:56→20:14)
[2021-05-11] MEDS: metFORMIN 500mg tablet PO SCH ×2 (07:56→17:48)
[2021-05-11] MEDS: aspirin 81mg, enteric-coated 1 TAB TABLET.DR PO SCH (07:56)
[2021-05-11] MEDS: docusate sod 100mg capsule PO SCH ×2 (07:56→20:15)
[2021-05-11] MEDS: amLODIPine 5mg tablet PO SCH (07:56)
[2021-05-11] MEDS: duloxetine 30mg CAPSULE.DR PO SCH (07:56)
[2021-05-11] MEDS: furosemide 40mg tablet PO SCH (07:57)
[2021-05-11] MEDS: potassium Cl 20 mEq SR tablet PO SCH (07:57)
[2021-05-11] MEDS: clopidogrel 75mg tablet PO SCH (07:57)
[2021-05-11] MEDS: metoprolol tartrate 50mg tablet PO SCH ×2 (07:57→20:14)
[2021-05-11] MEDS: lisinopril 20mg tablet PO SCH (07:57)
[2021-05-11 08:00] VITALS: BP 166/86
--- NOTE | 2021-05-11 16:35 | NUR ---
Nursing Progress Note: Ernie Legal hold: 5250 Client on involuntary status for GD Report received from ANABELA Mckinley with use of SBAR Why they are here: Pt admitted to [facility] from overflow ER on a 5150 for grave disability which states he's been having delusional thinking and experiencing auditory hallucinations which at times tell him to kill himself. [facility] and they called the ambulance which brought him to the ER. Assessment What has happened this shift: Patient resting quietly in bed with CPAP on at the start of the shift. Eats breakfast in the community room and interacts appropriately with staff and peers. Patient appears depressed and talks very little. Answers closed ended questions appropriately. Cooperative with 1:1 assessment and medications. States he had a small hard BM yesterday and is feeling constipated, PRN MOM given which patient states is effective for relief. Appears very depressed and speaks very little when around people but does spend time sitting quietly in common areas. Wears headphones stating, They help with the noise, while pointing to his head. Continues to endorse feelings of hopelessness stating he sometimes cant find a reason to live. Does not have a specific plan for suicide at this time and does talk about possible plans for the future. S/I, H/I: Denies A/VH: Denies but appears internally occupied. Sleep: Sleeps 1 hour in the morning ADL's: Independent Group attendance: Yes Were meds taken: Yes Any med S/E: None observed or reported. Mental Status Exam Appearance: Older male, obese, unshaven, clean and wearing casual attire appropriate to unit. Eye contact: Fair Behavior: Cooperative, calm, isolative Speech: Clear, quiet, normal rate Mood: Depressed Affect: Blunted Thought process: Linear, depressed Thought Content: Feelings of depression and hopelessness. Cognition: A&O x4 Insight: Fair Judgment: Fair Interventions PRN's used: MOM Therapeutic interventions: Maintained a safe and therapeutic environment, ensured contract for safety, provided clear and simple instructions, provided active listening and positive encouragement, medication administration/ education, MRSA+ hand washing education, encouraged participation on the unit, and maintained Q 15min safety checks. Restraints/seclusion/emergency medication: N/A Justification of Continued Inpatient Treatment: Pt is in need of crisis interruption and medication management/adjustment and monitoring in a safe and therapeutic environment until stable. At this point he is considered to be high risk for discharge. Patient need to [facility] so that he can receive services when discharged.
[2021-05-11 19:38] VITALS: BP 157/86
[2021-05-11] MEDS: ARIPIPRAZOLE 10 MG TABLET PO SCH (20:13)
[2021-05-11] MEDS: cloNIDine 0.1 mg tablet PO SCH (20:13)
[2021-05-11] MEDS: traZODone 50mg tablet PO SCH (20:14)
--- NOTE | 2021-05-12 02:30 | NUR ---
boyd Progress Note: Ernie Legal hold: 5250 Client on involuntary status for GD Report received from ANABELA Montelongo with use of SBAR Why they are here: Pt admitted to [facility] from overflow ER on a 5150 for grave disability which states he's been having delusional thinking and experiencing auditory hallucinations which at times tell him to kill himself. [facility] apparently [facility] and they called the ambulance which brought him to the ER. Assessment What has happened this shift: Patient was observe sitting on edge of bed at beginning of shift. Patient stated feeling anxious about being discharged and wanting to go to [place]. Patient went to community room, watched tv and participate in snack time. Patient took all medications and connected himself to the cpap machine. Patient slept without issues. S/I, H/I: Denies A/VH: Denies Sleep: See sleep assessment ADL's: Independent Group attendance: Yes Were meds taken: Yes Any med S/E: None observed or reported. Mental Status Exam Appearance: Older male, obese, unshaven, clean and wearing casual attire appropriate to unit. Eye contact: Fair Behavior: Cooperative, calm, isolative Speech: Clear, quiet, normal rate Mood: Depressed Affect: Blunted Thought process: Linear, depressed Thought Content: Feelings of depression and hopelessness. Cognition: A&O x4 Insight: Fair Judgment: Fair Interventions PRN's used: Therapeutic interventions: Maintained a safe and therapeutic environment, ensured contract for safety, provided clear and simple instructions, provided active listening and positive encouragement, medication administration/ education, MRSA+ hand washing education, encouraged participation on the unit, and maintained Q 15min safety checks. Restraints/seclusion/emergency medication: N/A Justification of Continued Inpatient Treatment: Pt is in need of crisis interruption and medication management/adjustment and monitoring in a safe and therapeutic environment until stable. At this point he is considered to be high risk for discharge. Patient need to establish -[facility] in [facility] so that he can receive services when discharged.
[2021-05-12 08:00] VITALS: BP 167/89
[2021-05-12] MEDS: gemfibrozil 600mg tablet PO SCH (08:09)
[2021-05-12] MEDS: nicotine 21mg patch - 24 hr TD SCH (08:09)
[2021-05-12] MEDS: atorvastatin 20mg tablet PO SCH (08:10)
[2021-05-12] MEDS: metFORMIN 500mg tablet PO SCH (08:10)
[2021-05-12] MEDS: lisinopril 20mg tablet PO SCH (08:10)
[2021-05-12] MEDS: gabapentin 300mg capsule PO SCH (08:10)
[2021-05-12] MEDS: duloxetine 30mg CAPSULE.DR PO SCH (08:10)
[2021-05-12 08:12] VITALS: BP_SYST 167
[2021-05-12] MEDS: metoprolol tartrate 50mg tablet PO SCH (08:12)
[2021-05-12] MEDS: isosorbide mononitrate 30mg tab.SR.24H PO SCH (08:12)
[2021-05-12] MEDS: cloNIDine 0.1 mg tablet PO SCH (08:12)
[2021-05-12] MEDS: furosemide 40mg tablet PO SCH (08:12)
[2021-05-12] MEDS: potassium Cl 20 mEq SR tablet PO SCH (08:12)
[2021-05-12] MEDS: clopidogrel 75mg tablet PO SCH (08:12)
[2021-05-12] MEDS: docusate sod 100mg capsule PO SCH (08:12)
[2021-05-12] MEDS: aspirin 81mg, enteric-coated 1 TAB TABLET.DR PO SCH (08:13)
[2021-05-12] MEDS ORDERED: DOCU100C40 PO (12:39)
[2021-05-12] MEDS ORDERED: ISOS60TA71 PO (12:39)
[2021-05-12] MEDS ORDERED: CLON0.1T2 PO (12:39)
--- NOTE | 2021-05-12 17:03 | NUR ---
Discharge Note: Reviewed paperwork and follow up plan with the patient who is [facility]. Smoking cessation information provided. Patient states he has purchased a bus ticket to [place] that leaves tonight and is looking forward to his discharge. New Rx sent to [facility] in [facility] as patients pharmacy of choice. Patients medications returned to him upon discharge. No s/sx acute distress noted. Escorted off the unit by staff with all of his belongings at 16:45 and is picked up by the [facility] six horse hitch driver. Discharged with the following instructions: Patient has been scheduled/referred to the following providers for post-hospital discharge and aftercare treatment. Psychiatrist: [facility] Fri-Fri 8:30 AM-3:[address] You currently have [facility] plan If you return to [facility] you will need to change your Medi-socrates and walk in to [facility] and request for outpatient services. [address] [place], [place] [id number] Friday-Friday: 8:00AM-5:00PM Primary Care Provider: LESLIE Carey at the [facility] in [facility] will see you on Tuesday 05/22 at 10:[address] [place] [address] Discharge Address: [facility] [place] [address] Transportation: Cab Patient given community crisis services information and National suicide hotline handout. For urgent mental health crisis needs please contact: [facility] 24 Hours a Day, Seven Days a Week for Help
== END 2021-05-12 16:45 | disposition home or self-care (01) | DRG 885 ==
LOC: ER 15:08 → ADULT MH 05-03 15:45
PROVIDERS: ADMIT Psychiatry & Neurology Psychiatry; ATTEND Psychiatry & Neurology Psychiatry
PROC: 5A09357 Assistance with Respiratory Ventilation, Less than 24 Consecutive Hours, Continuous Positive Airway Pressure (ICD-10-PCS; principal; 2021-05-04)
PROC: 3E02340 Introduction of Influenza Vaccine into Muscle, Percutaneous Approach (ICD-10-PCS; 2021-05-04)
PROC: 5A09357 Assistance with Respiratory Ventilation, Less than 24 Consecutive Hours, Continuous Positive Airway Pressure (ICD-10-PCS; 2021-05-05)
PROC: 5A09357 Assistance with Respiratory Ventilation, Less than 24 Consecutive Hours, Continuous Positive Airway Pressure (ICD-10-PCS; 2021-05-06)
PROC: 5A09357 Assistance with Respiratory Ventilation, Less than 24 Consecutive Hours, Continuous Positive Airway Pressure (ICD-10-PCS; 2021-05-07)
PROC: 5A09357 Assistance with Respiratory Ventilation, Less than 24 Consecutive Hours, Continuous Positive Airway Pressure (ICD-10-PCS; 2021-05-08)
PROC: 5A09357 Assistance with Respiratory Ventilation, Less than 24 Consecutive Hours, Continuous Positive Airway Pressure (ICD-10-PCS; 2021-05-09)
PROC: 5A09357 Assistance with Respiratory Ventilation, Less than 24 Consecutive Hours, Continuous Positive Airway Pressure (ICD-10-PCS; 2021-05-10)
PROC: 5A09357 Assistance with Respiratory Ventilation, Less than 24 Consecutive Hours, Continuous Positive Airway Pressure (ICD-10-PCS; 2021-05-11)
PROC: 5A09357 Assistance with Respiratory Ventilation, Less than 24 Consecutive Hours, Continuous Positive Airway Pressure (ICD-10-PCS; 2021-05-12)
DX: F25.1 Schizoaffective disorder, depressive type (principal); N18.9 Chronic kidney disease, unspecified; R45.851 Suicidal ideations; Z68.42 Body mass index [BMI] 45.0-49.9, adult; I13.0 Hypertensive heart and chronic kidney disease with heart failure and stage 1 through stage 4 chronic kidney disease, or unspecified chronic kidney disease; I16.9 Hypertensive crisis, unspecified; F33.9 Major depressive disorder, recurrent, unspecified; D64.9 Anemia, unspecified; E11.22 Type 2 diabetes mellitus with diabetic chronic kidney disease; E11.40 Type 2 diabetes mellitus with diabetic neuropathy, unspecified; E66.01 Morbid (severe) obesity due to excess calories; E78.00 Pure hypercholesterolemia, unspecified; E78.1 Pure hyperglyceridemia; G47.33 Obstructive sleep apnea (adult) (pediatric); E78.5 Hyperlipidemia, unspecified; Z20.822 Contact with and (suspected) exposure to COVID-19; F12.10 Cannabis abuse, uncomplicated; F17.210 Nicotine dependence, cigarettes, uncomplicated; I27.81 Cor pulmonale (chronic); I25.10 Atherosclerotic heart disease of native coronary artery without angina pectoris; I50.9 Heart failure, unspecified; K59.00 Constipation, unspecified; Z59.00 Homelessness unspecified; Z79.02 Long term (current) use of antithrombotics/antiplatelets; Z79.899 Other long term (current) drug therapy; I25.2 Old myocardial infarction; Z86.711 Personal history of pulmonary embolism; Z88.8 Allergy status to other drugs, medicaments and biological substances; Z23 Encounter for immunization; Z80.42 Family history of malignant neoplasm of prostate; Z80.8 Family history of malignant neoplasm of other organs or systems; Z90.49 Acquired absence of other specified parts of digestive tract; Z71.6 Tobacco abuse counseling
CPT/HCPCS: 36415; 71045; 80053; 80305; 80320; 83735; 84100; 85025; 87081; 87635; 93005; 94660; 94760; 99285; C9803

== ENCOUNTER 2021-06-01 05:46 | Emergency (ER) | payer MEDICARE, MEDICAID ==
[~2021-06-01] VITALS: Ht 180.3 cm; Wt 159.1 kg
[~2021-06-01 05:46] MED LIST changes: +CLON0.1T2 PO; -GABA600T13 PO; -HALO5TAB PO; -ISOS20TA15 PO; +ISOS60TA71 PO; -MULT-227 PO; -NICO-907 BC; -TRAM50TA2 PO
[2021-06-01] MEDS ORDERED: cloNIDine 0.1 mg tablet PO ONE (06:15)
[2021-06-01] MEDS ORDERED: lisinopril 10 MG tablet PO ONE (06:15)
[2021-06-01] MEDS ORDERED: lisinopril 20mg tablet PO ONE (06:25)
[2021-06-01] MEDS ORDERED: metoprolol tartrate 50mg tablet PO ONE (06:30)
[2021-06-01] MEDS ORDERED: ARIP5TAB14 PO (08:02)
[2021-06-01] MEDS ORDERED: SPIR25TA5 PO (08:12)
[2021-06-01] MEDS ORDERED: GABA600T13 PO (08:12)
[2021-06-01] MEDS ORDERED: AMLO2.5T2 PO (08:12)
[2021-06-01] MEDS ORDERED: METO50TA17 PO (08:12)
[2021-06-01 08:54] LABS: BASOPHILS # (AUTO) 0.1 X10'3 (0-0.2); BASOPHILS % (AUTO) 0.6 % (0-1); EOSINOPHILS # (AUTO) 0.2 X10'3 (0-0.9); EOSINOPHILS % (AUTO) 1.7 % (0-6); HEMATOCRIT 40.9 % (42.0-52.0); HEMOGLOBIN 14.4 g/dl (14.0-17.9); LYMPHOCYTES # (AUTO) 0.9 X10'3 (1.1-4.8); LYMPHOCYTES % (AUTO) 9.6 % (21-51); MEAN CORPUSCULAR HEMOGLOBIN 29.6 PG (27.0-31.0); MEAN CORPUSCULAR HGB CONC 35.2 g/dL (33.0-36.5); MEAN PLATELET VOLUME 7.8 FL (7.4-10.4); MONOCYTES # (AUTO) 0.6 X10'3 (0-0.9); MONOCYTES % (AUTO) 6.3 % (2-12); NEUTROPHILS # (AUTO) 7.4 X10'3 (1.8-7.7); NEUTROPHILS % (AUTO) 81.8 % (42-75); PLATELET COUNT 275 X10'3 (140-440); RED BLOOD COUNT 4.86 X10'6 (4.70-6.10); RED CELL DISTRIBUTION WIDTH 15.2 % (11.5-14.5)
[2021-06-01 09:02] LABS: URINE AMPHETAMINE SCREEN NEGATIVE (Neg); URINE BARBITUATE SCREEN NEGATIVE (Neg); URINE BENZODIAZEPINES SCREEN NEGATIVE (Neg); URINE CANNABINOID SCREEN POSITIVE (Neg); URINE COCAINE SCREEN NEGATIVE (Neg); URINE METHADONE SCREEN NEGATIVE (Neg); URINE OPIATE SCREEN NEGATIVE (Neg); URINE PHENCYCLIDINE SCREEN NEGATIVE (Neg)
[2021-06-01 09:29] LABS: ALANINE AMINOTRANSFERASE 27 U/L (12-78); ALBUMIN 3.3 G/DL (3.4-5.0); ALBUMIN/GLOBULIN RATIO 0.8 (1.1-1.5); ANION GAP 8 (8-16); ASPARTATE AMINO TRANSFERASE 17 U/L (10-37); BILIRUBIN,TOTAL 0.5 MG/DL (0.1-1.0); BLOOD UREA NITROGEN 26 MG/DL (7-18); BUN/CREATININE RATIO 14.2 (5.4-32.0); CALCIUM 10.7 MG/DL (8.5-10.1); CHLORIDE 104 MMOL/L (99-107); CREATININE 1.83 MG/DL (0.60-1.10); ETHANOL < 0.010 GM/DL (0.0-0.010); GLUCOSE 111 MG/DL (70-104); POTASSIUM 4.4 MMOL/L (3.5-5.1); TOTAL CARBON DIOXIDE 26.6 MMOL/L (24-32); TOTAL PROTEIN 7.6 G/DL (6.4-8.2); eGFR 38 ML/MIN
[2021-06-01 09:30] LABS: ALKALINE PHOSPHATASE 92 IU/L (46-116); SODIUM 139 MMOL/L (135-145)
--- NOTE | 2021-06-01 17:12 | NUR ---
1710 patient brought over from main ED placed in room 20, patient ambulated on his own to the bed. Ernie did reconize this advertising writer, patient is sitting on the side of bed.
--- NOTE | 2021-06-01 17:29 | NUR ---
Per Senia at [facility], packet has been sent to 4 facilities, seeking placement.
[2021-06-01] MEDS: metFORMIN 500mg tablet PO SCH (17:41)
--- NOTE | 2021-06-01 17:58 | NUR ---
Patient is dishevled, malordus and appears very depressed. PCT/EMT is doing inventory and safe bag, patient is guarded.
--- NOTE | 2021-06-01 18:14 | NUR ---
Pt sitting up in bed with a flat expression, on interview pt states he is still feeling suicidal and says that if he were not in the hospital he would attempt to kill himself by using "knives or razor blades." Pt contrats for safety while here. Pt answers questions appropriately and denies any A/H hallucinations. PT states he is hungry, meal ordered for pt.
[2021-06-01] MEDS: metoprolol tartrate 50mg tablet PO SCH (19:26)
[2021-06-01] MEDS: lisinopril 20mg tablet PO SCH (19:27)
--- NOTE | 2021-06-01 20:30 | NUR ---
Pt finished his dinner and is currently laying in bed resting quietly.
--- NOTE | 2021-06-01 23:00 | NUR ---
Pt OOB to use restroom, ambulates with walker. Pt tolerated walking with walker well, stable.
--- NOTE | 2021-06-02 | NUR ---
Pt wakes up and asks for food, pt given sacha.
--- NOTE | 2021-06-02 03:13 | NUR ---
Pt OOB to use restroom, ambulates with walker. Pt resturns to bed and lays down again
--- NOTE | 2021-06-02 07:14 | NUR ---
Patient sitting up in bed. No distress observed. Continue to monitor.
[2021-06-02] MEDS ORDERED: duloxetine 30mg CAPSULE.DR PO SCH (08:00)
[2021-06-02] MEDS ORDERED: aripiprazole 5mg tablet PO SCH (08:00)
[2021-06-02] MEDS ORDERED: atorvastatin 20mg tablet PO SCH (08:00)
[2021-06-02] MEDS ORDERED: clopidogrel 75mg tablet PO SCH (08:00)
[2021-06-02] MEDS ORDERED: spironolactone 25 MG tablet PO SCH (08:00)
[2021-06-02] MEDS ORDERED: amLODIPine 5mg tablet PO SCH (08:00)
[2021-06-02] MEDS ORDERED: isosorbide mononitrate 30mg tab.SR.24H PO SCH (08:00)
[2021-06-02] MEDS ORDERED: aspirin 81mg, enteric-coated 1 TAB TABLET.DR PO SCH (08:00)
[2021-06-02] MEDS ORDERED: gemfibrozil 600mg tablet PO SCH (08:00)
--- NOTE | 2021-06-02 08:20 | NUR ---
Patient eating breakfast. No distress observed. Continue to monitor.
[2021-06-02] MEDS: metFORMIN 500mg tablet PO SCH ×2 (08:29→18:16)
[2021-06-02] MEDS: metoprolol tartrate 50mg tablet PO SCH ×2 (08:33→19:45)
[2021-06-02] MEDS: lisinopril 20mg tablet PO SCH ×2 (08:34→19:45)
--- NOTE | 2021-06-02 10:17 | NUR ---
Patient ambulatory to BR with walker, steady gait. No distress observed. Continue to monitor.
--- NOTE | 2021-06-02 12:38 | NUR ---
Patient is sitting up at the edge of his bed. No distress observed. Patient states he is hungry. Continue to monitor.
--- NOTE | 2021-06-02 13:17 | NUR ---
Patient eating lunch. No distress observed. Continue to monitor.
--- NOTE | 2021-06-02 15:35 | NUR ---
RN adjusted patient's bed. [facility] will [facility] leaving early evening or tomorrow. No distress observed. Continue to monitor.
--- NOTE | 2021-06-02 17:24 | NUR ---
Patient sitting up in bed. Just had his vital signs taken. No distress observed. Continue to monitor.
--- NOTE | 2021-06-02 20:47 | NUR ---
Patient is resting quietly in bed at this time. Has ambulated with FWW to bathroom and took medications as ordered.
--- NOTE | 2021-06-03 01:11 | NUR ---
Patient is resting quietly in bed. Awakens on and off. No s/sx distress.
--- NOTE | 2021-06-03 03:57 | NUR ---
Continues to sleep off and on.
[2021-06-03 05:57] VITALS: BP 160/79
--- NOTE | 2021-06-03 06:30 | NUR ---
Pt is awake. He has eaten and is getting ready for discharge. He appears depressed with a flat affect.
--- NOTE | 2021-06-03 07:25 | NUR ---
TAD officeFranko, here to pick out hand and transport pt to placement. All his belongings inventoried and returned to the pt. Medications and personal belongings with his cane and original 5150 handed to delivery driver/supervisorFranko. Pt walked out of ER with security and tech, Michelle. Pt is in good spirits and was happy to leave.
== END 2021-06-03 07:25 ==
LOC: ER 05:46
DX: R45.851 Suicidal ideations (principal); Z20.822 Contact with and (suspected) exposure to COVID-19; I25.10 Atherosclerotic heart disease of native coronary artery without angina pectoris; E78.00 Pure hypercholesterolemia, unspecified; I25.2 Old myocardial infarction; I13.0 Hypertensive heart and chronic kidney disease with heart failure and stage 1 through stage 4 chronic kidney disease, or unspecified chronic kidney disease; N18.9 Chronic kidney disease, unspecified; F12.90 Cannabis use, unspecified, uncomplicated; F32.9 Major depressive disorder, single episode, unspecified; Z87.01 Personal history of pneumonia (recurrent); Z88.8 Allergy status to other drugs, medicaments and biological substances; Z79.82 Long term (current) use of aspirin; Z79.899 Other long term (current) drug therapy
CPT/HCPCS: 36415; 80053; 80305; 80320; 84443; 85025; 87635; 99285; C9803

== ENCOUNTER 2021-07-09 03:22 | Inpatient (IN) | payer MEDICARE, MEDICAID ==
[~2021-07-09] VITALS: Ht 180.3 cm; Wt 159.1 kg
[~2021-07-09 03:22] MED LIST changes: +AMLO2.5T2 PO; -ARIP15TA19 PO; +ARIP5TAB14 PO; -CLON0.1T2 PO; -DOCU100C40 PO; -FURO-149 PO; -ISOS60TA71 PO; -METO100T14 PO; +METO50TA17 PO; +SPIR25TA5 PO; -TRAZ-256 PO
[2021-07-09 04:17] LABS: BASOPHILS # (AUTO) 0.1 X10'3 (0-0.2); EOSINOPHILS # (AUTO) 0.3 X10'3 (0-0.9); HEMATOCRIT 41.2 % (42.0-52.0); LYMPHOCYTES # (AUTO) 1.4 X10'3 (1.1-4.8); LYMPHOCYTES % (AUTO) 16.6 % (21-51); MEAN CORPUSCULAR HEMOGLOBIN 28.9 PG (27.0-31.0); MEAN PLATELET VOLUME 7.7 FL (7.4-10.4); MONOCYTES # (AUTO) 0.7 X10'3 (0-0.9); MONOCYTES % (AUTO) 8.4 % (2-12); PLATELET COUNT 233 X10'3 (140-440); RED BLOOD COUNT 4.85 X10'6 (4.70-6.10); RED CELL DISTRIBUTION WIDTH 14.6 % (11.5-14.5); WHITE BLOOD COUNT 8.5 X10'3 (4.5-11.0)
[2021-07-09 04:20] LABS: ALANINE AMINOTRANSFERASE 30 U/L (12-78); ALBUMIN 2.8 G/DL (3.4-5.0); ALBUMIN/GLOBULIN RATIO 0.7 (1.1-1.5); ALKALINE PHOSPHATASE 91 IU/L (46-116); ANION GAP 8 (8-16); ASPARTATE AMINO TRANSFERASE 19 U/L (10-37); BILIRUBIN,TOTAL 0.4 MG/DL (0.1-1.0); BLOOD UREA NITROGEN 33 MG/DL (7-18); BUN/CREATININE RATIO 17.2 (5.4-32.0); CALCIUM 10.1 MG/DL (8.5-10.1); CHLORIDE 106 MMOL/L (99-107); CREATININE 1.92 MG/DL (0.60-1.10); GLUCOSE 209 MG/DL (70-104); POTASSIUM 3.6 MMOL/L (3.5-5.1); SODIUM 140 MMOL/L (135-145); TOTAL CARBON DIOXIDE 25.9 MMOL/L (24-32); TOTAL PROTEIN 6.6 G/DL (6.4-8.2); eGFR 36 ML/MIN
[2021-07-09] MEDS ORDERED: nitroGLYCERIN 0.4mg SUBLingual tab SL STA (04:37)
[2021-07-09] MEDS ORDERED: aspirin 325mg tablet PO ONE (04:40)
[2021-07-09] MEDS ORDERED: furosemide 10 MG/1 ML 10ml inj IV ONE (04:40)
[2021-07-09] MEDS ORDERED: nitroGLYCERIN 0.4mg SUBLingual tab SL ONE (05:09)
--- NOTE | 2021-07-09 05:13 | NUR ---
Patient complaining of chest pain 01/30 and is requesting Morphine, Per Dr. Yoon ok to given Morphine 4mg IV now.
[2021-07-09] MEDS ORDERED: morphine 4 MG/ML inj SYRINge IV ONE (05:15)
[2021-07-09] MEDS ORDERED: acetaminophen 325mg tablet PO PRN ×2 (05:40)
[2021-07-09] MEDS ORDERED: ondansetron/PF 4mg/2ml inj IV PRN (05:40)
[2021-07-09] MEDS ORDERED: aminophylline 250mg/10ml inj. IV PRN (05:40)
[2021-07-09] MEDS ORDERED: mag hydrox/Alum hydrox/simeth 30ml oral suspension PO PRN (05:40)
[2021-07-09] MEDS ORDERED: HYDROcodone/acetaminophen 5mg/325mg tablet PO PRN (05:40)
[2021-07-09] MEDS ORDERED: potassium CL 10mEq/100ml bag 100 ML IV PRN (05:40)
[2021-07-09] MEDS ORDERED: PERFLUTREN PROTEIN-A MICROSPHR (Optison) 0.22 MG/ML 3ML VIAL IV PRN (05:40)
[2021-07-09] MEDS ORDERED: magnesium 2GM in 50ml NS 50 ML IV PRN (05:40)
[2021-07-09] MEDS ORDERED: magnesium Cl slow-release 64mg tablet PO PRN (05:40)
[2021-07-09] MEDS ORDERED: normal saline 1000ml 1,000 ML IV SCH (05:40)
[2021-07-09] MEDS ORDERED: potassium Cl 20 mEq SR tablet PO PRN ×2 (05:40)
[2021-07-09] MEDS ORDERED: magnesium 4gm in 100ml NS 100 ML IV PRN (05:40)
[2021-07-09] MEDS ORDERED: heparin 10,000 units/1 ML INJ IV ONE (05:40)
[2021-07-09] MEDS ORDERED: metoprolol tartrate 1mg/ml inj IV PRN (05:40)
[2021-07-09] MEDS ORDERED: nitroGLYCERIN 0.4mg SUBLingual tab SL PRN (05:40)
[2021-07-09] MEDS ORDERED: magnesium hydroxide 30ml (MOM) UD suspension PO PRN (05:40)
[2021-07-09] MEDS ORDERED: regadenoson 0.4mg/5ml syringe IV PRN (05:40)
[2021-07-09] MEDS ORDERED: morphine 2 MG/ML inj. syringe IV PRN (05:40)
[2021-07-09] MEDS ORDERED: dextrose 50%-water 50ml dispensing syringe IV PRN ×2 (06:05)
[2021-07-09] MEDS ORDERED: MESSAGE TO PHARMACY PO ONE (06:05)
[2021-07-09] MEDS ORDERED: insulin Lispro (HumaLOG) vial - multi-dose SQ SCH (06:05)
[2021-07-09] MEDS ORDERED: dextrose ORAL solution 15 GM/59 ML bottle PO PRN ×2 (06:05)
[2021-07-09] MEDS ORDERED: glucagon, human recombinant 1mg kit SUBCUT PRN (06:05)
[2021-07-09] MEDS: heparin 25,000 UNIT/250ml bag 250 ML IV SCH (07:21)
[2021-07-09 07:58] LABS: HEMOGLOBIN A1C 6.7 % (4.5-6.2)
[2021-07-09] MEDS: K and/or MAG REPLACEMENT MC SCH ×2 (08:00→19:17)
[2021-07-09 10:16] LABS: APTT 22 SECONDS (22-32)
--- NOTE | 2021-07-09 11:30 | NUR ---
PT STATES THAT HE HAS A HX OF DEPRESSION AND WOULD LIKE TO TALK WITH SOMEONE.
[2021-07-09] MEDS: heparin 10,000 units/1 ML INJ IV PRN (13:02)
[2021-07-09] MEDS: amLODIPine 5mg tablet PO SCH (14:20)
[2021-07-09] MEDS: spironolactone 25 MG tablet PO SCH (14:20)
[2021-07-09] MEDS ORDERED: gemfibrozil 600mg tablet PO SCH (14:20)
[2021-07-09] MEDS: aspirin 81mg, enteric-coated 1 TAB TABLET.DR PO SCH (14:20)
[2021-07-09] MEDS: clopidogrel 75mg tablet PO SCH (14:20)
[2021-07-09] MEDS: ARIPIPRAZOLE 10 MG TABLET PO SCH (14:20)
[2021-07-09] MEDS: morphine 2 MG/ML inj. syringe IV PRN ×2 (14:54→22:34)
[2021-07-09 17:47] LABS: APTT 26 SECONDS (22-32)
--- NOTE | 2021-07-09 18:20 | NUR ---
PUT CALL INTO DR. SOLOMON, SHE NEEDS TO COME SEE PT. PT NEEDS: PSYCH CONSULT, AND CPAP ORDER FOR NIGHT.
--- NOTE | 2021-07-09 19:39 | NUR ---
pt reports he would like a psych/mental health consult because hes been experiencing new onset confusion and passive SI. pt denies active plan
[2021-07-09] MEDS: metoprolol tartrate 50mg tablet PO SCH (19:46)
[2021-07-09] MEDS: lisinopril 20mg tablet PO SCH (19:50)
[2021-07-09] MEDS: insulin glargine (Lantus) pen - multi-dose SQ SCH (19:51)
[2021-07-09] MEDS ORDERED: temazepam 15mg capsule PO PRN (21:00)
[2021-07-09 22:30] VITALS: BP 145/62
[2021-07-10] VITALS (7 sets, daily range): BP systolic 103–152; BP diastolic 51–93
[2021-07-10] MEDS: heparin 10,000 units/1 ML INJ IV PRN ×3 (01:18→17:10)
[2021-07-10] MEDS: heparin 25,000 UNIT/250ml bag 250 ML IV SCH (05:39)
[2021-07-10 06:06] LABS: BASOPHILS # (AUTO) 0.1 X10'3 (0-0.2); EOSINOPHILS # (AUTO) 0.3 X10'3 (0-0.9); EOSINOPHILS % (AUTO) 3.6 % (0-6); HEMOGLOBIN 13.5 g/dl (14.0-17.9); MONOCYTES # (AUTO) 0.7 X10'3 (0-0.9); NEUTROPHILS # (AUTO) 5.8 X10'3 (1.8-7.7)
[2021-07-10 06:10] LABS: BASOPHILS % (AUTO) 1.1 % (0-1); HEMATOCRIT 39.5 % (42.0-52.0); LYMPHOCYTES % (AUTO) 22.8 % (21-51); MEAN CORPUSCULAR HEMOGLOBIN 29.1 PG (27.0-31.0); MEAN CORPUSCULAR HGB CONC 34.1 g/dL (33.0-36.5); MEAN CORPUSCULAR VOLUME 85.3 FL (78-98); MONOCYTES % (AUTO) 8.1 % (2-12); NEUTROPHILS % (AUTO) 64.4 % (42-75); PLATELET COUNT 205 X10'3 (140-440); RED BLOOD COUNT 4.64 X10'6 (4.70-6.10); RED CELL DISTRIBUTION WIDTH 14.9 % (11.5-14.5)
[2021-07-10 06:17] LABS: ALANINE AMINOTRANSFERASE 25 U/L (12-78); ALBUMIN 2.6 G/DL (3.4-5.0); ALBUMIN/GLOBULIN RATIO 0.7 (1.1-1.5); ALKALINE PHOSPHATASE 86 IU/L (46-116); ANION GAP 9 (8-16); ASPARTATE AMINO TRANSFERASE 21 U/L (10-37); BILIRUBIN,TOTAL 0.5 MG/DL (0.1-1.0); BLOOD UREA NITROGEN 39 MG/DL (7-18); BUN/CREATININE RATIO 17.6 (5.4-32.0); CALCIUM 9.7 MG/DL (8.5-10.1); CHLORIDE 106 MMOL/L (99-107); CREATININE 2.22 MG/DL (0.60-1.10); GLUCOSE 154 MG/DL (70-104); POTASSIUM 3.9 MMOL/L (3.5-5.1); SODIUM 141 MMOL/L (135-145); TOTAL CARBON DIOXIDE 26.1 MMOL/L (24-32); TOTAL PROTEIN 6.3 G/DL (6.4-8.2); eGFR 31 ML/MIN
[2021-07-10] MEDS: K and/or MAG REPLACEMENT MC SCH ×2 (07:02→18:52)
[2021-07-10] MEDS: metoprolol tartrate 50mg tablet PO SCH ×2 (07:26→19:10)
[2021-07-10] MEDS: aspirin 81mg, enteric-coated 1 TAB TABLET.DR PO SCH (07:26)
[2021-07-10] MEDS: duloxetine 30mg CAPSULE.DR PO SCH (07:27)
[2021-07-10] MEDS: ARIPIPRAZOLE 10 MG TABLET PO SCH (07:27)
[2021-07-10] MEDS: atorvastatin 20mg tablet PO SCH (07:28)
[2021-07-10] MEDS: spironolactone 25 MG tablet PO SCH (07:28)
[2021-07-10] MEDS: clopidogrel 75mg tablet PO SCH (07:28)
[2021-07-10] MEDS: lisinopril 20mg tablet PO SCH (07:29)
[2021-07-10] MEDS: amLODIPine 5mg tablet PO SCH (07:29)
[2021-07-10] MEDS: potassium Cl 20 mEq SR tablet PO SCH (07:29)
[2021-07-10] MEDS: morphine 2 MG/ML inj. syringe IV PRN ×3 (07:30→16:07)
--- NOTE | 2021-07-10 08:45 | NUR ---
DM consult: Pt with A1c 6.7%, DM education not warranted at this time. Will continue to follow. Addendum: 07/10/21 at [address] Amended: Links added.
[2021-07-10] MEDS ORDERED: nitroGLYCERIN 0.4mg SUBLingual tab SL PRN (13:00)
[2021-07-10] MEDS ORDERED: aminophylline 250mg/10ml inj. IV PRN (13:00)
[2021-07-10] MEDS ORDERED: regadenoson 0.4mg/5ml syringe IV PRN (13:00)
[2021-07-10] MEDS ORDERED: metoprolol tartrate 1mg/ml inj IV PRN (13:00)
[2021-07-10] MEDS: furosemide 40mg/4ml inj IV SCH (16:00)
--- NOTE | 2021-07-10 18:03 | NUR ---
Code Status Page to Dr. Cevallos. Dr. Cevallos. I spoke with you over the phone in regards to Benson, Liberty wishes to change her code status to full code. I just wanted to follow up to see if you were able to get that changed prior to leaving. Thanks Wen Taisha
--- NOTE | 2021-07-10 18:12 | NUR ---
Problems reprioritized. Patient report given to Thu RN, questions answered & plan of care reviewed with Thu MANZO.
[2021-07-10] MEDS: insulin glargine (Lantus) pen - multi-dose SQ SCH (21:00)
[2021-07-10] MEDS: HYDROcodone/acetaminophen 10/325mg tab PO PRN (23:18)
--- NOTE | 2021-07-10 23:42 | NUR ---
RT notes bridge of pt nose is red. There are no Gecko pads available. Addendum: 07/10/21 at 2345 by Erica Bhatia RT Pad found, will place on patient for wear when on bipap.
[2021-07-11] VITALS (12 sets, daily range): BP systolic 118–176; BP diastolic 48–101
[2021-07-11 03:49] LABS: ALANINE AMINOTRANSFERASE 25 U/L (12-78); ALBUMIN 2.6 G/DL (3.4-5.0); ALBUMIN/GLOBULIN RATIO 0.7 (1.1-1.5); ALKALINE PHOSPHATASE 90 IU/L (46-116); ANION GAP 6 (8-16); ASPARTATE AMINO TRANSFERASE 16 U/L (10-37); BILIRUBIN,TOTAL 0.4 MG/DL (0.1-1.0); BLOOD UREA NITROGEN 46 MG/DL (7-18); BUN/CREATININE RATIO 19.7 (5.4-32.0); CALCIUM 9.6 MG/DL (8.5-10.1); CHLORIDE 105 MMOL/L (99-107); CREATININE 2.34 MG/DL (0.60-1.10); GLUCOSE 158 MG/DL (70-104); POTASSIUM 4.1 MMOL/L (3.5-5.1); SODIUM 139 MMOL/L (135-145); TOTAL CARBON DIOXIDE 28.1 MMOL/L (24-32); TOTAL PROTEIN 6.4 G/DL (6.4-8.2); eGFR 29 ML/MIN
[2021-07-11] MEDS: heparin 10,000 units/1 ML INJ IV PRN ×4 (03:56→19:47)
--- NOTE | 2021-07-11 04:09 | NUR ---
pump max infusion rate for heparin is 3000units (30ml)/per hour. unable to set pump to 35ml. Will inform day shift nurse. Charge nurse aware and also advice to leave at 30ml/hr or 3000 units per hour.
[2021-07-11 06:19] LABS: BASOPHILS # (AUTO) 0.1 X10'3 (0-0.2); BASOPHILS % (AUTO) 0.7 % (0-1); EOSINOPHILS # (AUTO) 0.4 X10'3 (0-0.9); EOSINOPHILS % (AUTO) 3.9 % (0-6); HEMOGLOBIN 12.9 g/dl (14.0-17.9); LYMPHOCYTES # (AUTO) 2.3 X10'3 (1.1-4.8); LYMPHOCYTES % (AUTO) 24.9 % (21-51); MEAN CORPUSCULAR HEMOGLOBIN 28.9 PG (27.0-31.0); MEAN CORPUSCULAR VOLUME 85.1 FL (78-98); MEAN PLATELET VOLUME 7.7 FL (7.4-10.4); MONOCYTES # (AUTO) 0.8 X10'3 (0-0.9); MONOCYTES % (AUTO) 8.4 % (2-12); NEUTROPHILS # (AUTO) 5.8 X10'3 (1.8-7.7); NEUTROPHILS % (AUTO) 62.1 % (42-75); PLATELET COUNT 240 X10'3 (140-440); RED BLOOD COUNT 4.47 X10'6 (4.70-6.10); RED CELL DISTRIBUTION WIDTH 14.6 % (11.5-14.5); WHITE BLOOD COUNT 9.3 X10'3 (4.5-11.0)
[2021-07-11] MEDS: heparin 25,000 UNIT/250ml bag 250 ML IV SCH (07:40)
[2021-07-11] MEDS: K and/or MAG REPLACEMENT MC SCH ×2 (08:00→19:15)
[2021-07-11] MEDS: HYDROcodone/acetaminophen 10/325mg tab PO PRN (08:16)
[2021-07-11] MEDS: furosemide 40mg/4ml inj IV SCH (11:17)
[2021-07-11] MEDS: ARIPIPRAZOLE 10 MG TABLET PO SCH (11:20)
[2021-07-11] MEDS: potassium Cl 20 mEq SR tablet PO SCH (11:20)
[2021-07-11] MEDS: metoprolol tartrate 50mg tablet PO SCH ×2 (11:21→19:42)
[2021-07-11] MEDS: spironolactone 25 MG tablet PO SCH (11:21)
[2021-07-11] MEDS: atorvastatin 20mg tablet PO SCH (11:21)
[2021-07-11] MEDS: clopidogrel 75mg tablet PO SCH (11:22)
[2021-07-11] MEDS: duloxetine 30mg CAPSULE.DR PO SCH (11:22)
[2021-07-11] MEDS: amLODIPine 5mg tablet PO SCH (11:22)
[2021-07-11] MEDS: aspirin 81mg, enteric-coated 1 TAB TABLET.DR PO SCH (11:22)
[2021-07-11] MEDS: gemfibrozil 600mg tablet PO SCH (13:38)
--- NOTE | 2021-07-11 18:31 | NUR ---
Problems reprioritized. Patient report given, questions answered & plan of care reviewed with Thu MANZO.
--- NOTE | 2021-07-11 20:00 | NUR ---
latest ptt 33. 4000units bolus given and max 3000units/hr running. patient is currently resting. Sitter at bedside. All safety measures in place. Will continue to monitor
[2021-07-11] MEDS: insulin glargine (Lantus) pen - multi-dose SQ SCH (21:00)
[2021-07-12 02:00] VITALS: BP 130/60
[2021-07-12 04:43] LABS: BASOPHILS # (AUTO) 0.1 X10'3 (0-0.2); BASOPHILS % (AUTO) 0.6 % (0-1); EOSINOPHILS # (AUTO) 0.3 X10'3 (0-0.9); EOSINOPHILS % (AUTO) 3.1 % (0-6); HEMATOCRIT 37.6 % (42.0-52.0); HEMOGLOBIN 12.8 g/dl (14.0-17.9); LYMPHOCYTES # (AUTO) 1.9 X10'3 (1.1-4.8); LYMPHOCYTES % (AUTO) 23.8 % (21-51); MEAN CORPUSCULAR HEMOGLOBIN 28.9 PG (27.0-31.0); MEAN CORPUSCULAR VOLUME 84.9 FL (78-98); MEAN PLATELET VOLUME 7.8 FL (7.4-10.4); MONOCYTES # (AUTO) 0.7 X10'3 (0-0.9); MONOCYTES % (AUTO) 8.4 % (2-12); NEUTROPHILS # (AUTO) 5.2 X10'3 (1.8-7.7); NEUTROPHILS % (AUTO) 64.1 % (42-75); PLATELET COUNT 237 X10'3 (140-440); RED BLOOD COUNT 4.43 X10'6 (4.70-6.10); RED CELL DISTRIBUTION WIDTH 14.9 % (11.5-14.5); WHITE BLOOD COUNT 8.1 X10'3 (4.5-11.0)
[2021-07-12 05:00] LABS: ALANINE AMINOTRANSFERASE 27 U/L (12-78); ALBUMIN 2.8 G/DL (3.4-5.0); ALBUMIN/GLOBULIN RATIO 0.7 (1.1-1.5); ALKALINE PHOSPHATASE 98 IU/L (46-116); ANION GAP 5 (8-16); ASPARTATE AMINO TRANSFERASE 18 U/L (10-37); BILIRUBIN,TOTAL 0.4 MG/DL (0.1-1.0); BLOOD UREA NITROGEN 49 MG/DL (7-18); BUN/CREATININE RATIO 22.2 (5.4-32.0); CALCIUM 9.4 MG/DL (8.5-10.1); CHLORIDE 105 MMOL/L (99-107); CREATININE 2.21 MG/DL (0.60-1.10); GLUCOSE 132 MG/DL (70-104); SODIUM 139 MMOL/L (135-145); TOTAL CARBON DIOXIDE 28.7 MMOL/L (24-32); TOTAL PROTEIN 6.7 G/DL (6.4-8.2); eGFR 31 ML/MIN
[2021-07-12] MEDS: HYDROcodone/acetaminophen 10/325mg tab PO PRN ×2 (06:16→12:56)
[2021-07-12] MEDS: K and/or MAG REPLACEMENT MC SCH ×2 (08:00→19:36)
[2021-07-12] MEDS: gemfibrozil 600mg tablet PO SCH (08:00)
[2021-07-12] MEDS: ARIPIPRAZOLE 10 MG TABLET PO SCH (09:20)
[2021-07-12] MEDS: duloxetine 30mg CAPSULE.DR PO SCH (09:22)
[2021-07-12] MEDS: aspirin 81mg, enteric-coated 1 TAB TABLET.DR PO SCH (09:23)
[2021-07-12] MEDS: potassium Cl 20 mEq SR tablet PO SCH (09:24)
[2021-07-12] MEDS: atorvastatin 20mg tablet PO SCH (09:25)
[2021-07-12] MEDS: clopidogrel 75mg tablet PO SCH (09:27)
[2021-07-12] MEDS: spironolactone 25 MG tablet PO SCH (09:29)
[2021-07-12] MEDS: amLODIPine 5mg tablet PO SCH (09:31)
[2021-07-12] MEDS: metoprolol tartrate 50mg tablet PO SCH ×2 (09:31→20:32)
--- NOTE | 2021-07-12 09:34 | NUR ---
Bar code of pt home med did not scan into [facility] [employer]. Checked medication with bottle and pt prior to administration. continue to monitor.
[2021-07-12 11:00] VITALS: BP 137/66
--- NOTE | 2021-07-12 11:38 | NUR ---
acting as clinical instructor, i reviewed student documentation
[2021-07-12 12:22] LABS: CHOL/HDL RATIO 2.4 (0.00-4.99); CHOLESTEROL 144 MG/DL (0-200); HDL CHOLESTEROL 61 MG/DL (35-60); LDL CHOLESTEROL 64 MG/DL (50-100); TRIGLYCERIDES 116 MG/DL (20-135)
[2021-07-12] MEDS: normal saline 1000ml 1,000 ML IV SCH ×2 (12:56→19:45)
[2021-07-12 14:53] VITALS: BP 128/69
[2021-07-12 18:00] VITALS: BP 152/78
--- NOTE | 2021-07-12 18:10 | NUR ---
Problems reprioritized. Patient report given, questions answered & plan of care reviewed with Ghazala MANZO.
--- NOTE | 2021-07-12 18:51 | NUR ---
Patient in room U 3024. I have received report from ANAIS Carlin and had the opportunity to ask questions and assume patient care.Sitter in room with pt.
[2021-07-12 22:00] VITALS: BP 149/78
[2021-07-12] MEDS: insulin glargine (Lantus) pen - multi-dose SQ SCH (22:25)
[2021-07-13] MEDS: morphine 2 MG/ML inj. syringe IV PRN (00:55)
[2021-07-13] MEDS: normal saline 1000ml 1,000 ML IV SCH (00:56)
[2021-07-13 02:00] VITALS: BP 138/74
[2021-07-13 06:00] VITALS: BP 132/71
--- NOTE | 2021-07-13 06:00 | NUR ---
Patient in room PCU 3024. I have received report from Ghazala MANZO and had the opportunity to ask questions and assume patient care.
--- NOTE | 2021-07-13 06:20 | NUR ---
Problems reprioritized. Patient report given, questions answered & plan of care reviewed with ANAIS Carlin.
[2021-07-13 06:37] LABS: BASOPHILS # (AUTO) 0.1 X10'3 (0-0.2); BASOPHILS % (AUTO) 0.8 % (0-1); EOSINOPHILS # (AUTO) 0.2 X10'3 (0-0.9); EOSINOPHILS % (AUTO) 3.3 % (0-6); HEMATOCRIT 36.6 % (42.0-52.0); HEMOGLOBIN 12.4 g/dl (14.0-17.9); LYMPHOCYTES # (AUTO) 1.6 X10'3 (1.1-4.8); LYMPHOCYTES % (AUTO) 22.4 % (21-51); MEAN CORPUSCULAR HEMOGLOBIN 28.9 PG (27.0-31.0); MEAN CORPUSCULAR HGB CONC 33.9 g/dL (33.0-36.5); MEAN CORPUSCULAR VOLUME 85.3 FL (78-98); MEAN PLATELET VOLUME 7.7 FL (7.4-10.4); MONOCYTES # (AUTO) 0.6 X10'3 (0-0.9); MONOCYTES % (AUTO) 8.4 % (2-12); NEUTROPHILS # (AUTO) 4.7 X10'3 (1.8-7.7); NEUTROPHILS % (AUTO) 65.1 % (42-75); PLATELET COUNT 215 X10'3 (140-440); RED BLOOD COUNT 4.29 X10'6 (4.70-6.10); RED CELL DISTRIBUTION WIDTH 14.7 % (11.5-14.5); WHITE BLOOD COUNT 7.1 X10'3 (4.5-11.0)
[2021-07-13 07:07] LABS: ALANINE AMINOTRANSFERASE 23 U/L (12-78); ALBUMIN 2.7 G/DL (3.4-5.0); ALBUMIN/GLOBULIN RATIO 0.7 (1.1-1.5); ALKALINE PHOSPHATASE 94 IU/L (46-116); ANION GAP 5 (8-16); ASPARTATE AMINO TRANSFERASE 15 U/L (10-37); BILIRUBIN,TOTAL 0.5 MG/DL (0.1-1.0); BLOOD UREA NITROGEN 42 MG/DL (7-18); BUN/CREATININE RATIO 20.8 (5.4-32.0); CALCIUM 8.8 MG/DL (8.5-10.1); CHLORIDE 108 MMOL/L (99-107); CREATININE 2.02 MG/DL (0.60-1.10); GLUCOSE 128 MG/DL (70-104); POTASSIUM 4.7 MMOL/L (3.5-5.1); SODIUM 140 MMOL/L (135-145); TOTAL CARBON DIOXIDE 26.9 MMOL/L (24-32); TOTAL PROTEIN 6.7 G/DL (6.4-8.2); eGFR 34 ML/MIN
[2021-07-13] MEDS: K and/or MAG REPLACEMENT MC SCH (08:00)
[2021-07-13] MEDS: gemfibrozil 600mg tablet PO SCH (08:45)
[2021-07-13] MEDS: ARIPIPRAZOLE 10 MG TABLET PO SCH (08:45)
[2021-07-13] MEDS: clopidogrel 75mg tablet PO SCH (08:45)
[2021-07-13 08:46] VITALS: BP_SYST 132
[2021-07-13] MEDS: amLODIPine 5mg tablet PO SCH (08:46)
[2021-07-13] MEDS: atorvastatin 20mg tablet PO SCH (08:46)
[2021-07-13] MEDS: aspirin 81mg, enteric-coated 1 TAB TABLET.DR PO SCH (08:46)
[2021-07-13] MEDS: potassium Cl 20 mEq SR tablet PO SCH (08:46)
[2021-07-13] MEDS: spironolactone 25 MG tablet PO SCH (08:46)
[2021-07-13] MEDS: duloxetine 30mg CAPSULE.DR PO SCH (08:46)
[2021-07-13] MEDS: metoprolol tartrate 50mg tablet PO SCH (08:46)
--- NOTE | 2021-07-13 12:13 | NUR ---
Pt DC'd back to the mission. Pt alert and oriented and vitals WNL. Per Dr. Dickinson; Pt is stable for DC. [facility] evaluated Pt and found them no to be a harm to self or other people. IV removed, canula intact. Tele-box removed and returned to tele-tech. DC paperwork printed out and gone over with Pt. Allowed Pt to ask questions concerning DC and then answered them. No new prescriptions. Pt instructed to make contact for a PCP and then et referral for a owner professional engineer for follow up. Pt's belongings gathered and sent with Pt. opt wheeled down to lobby in wheelchair and left in taxi for the mission.
== END 2021-07-13 12:15 | disposition home or self-care (01) | DRG 280 ==
LOC: ER 03:22 → ED HOLD 05:52 → PCU 3S 22:17
PROVIDERS: ADMIT Internal Medicine; ATTEND Internal Medicine
PROC: 5A09357 Assistance with Respiratory Ventilation, Less than 24 Consecutive Hours, Continuous Positive Airway Pressure (ICD-10-PCS; 2021-07-10)
PROC: 4A02XM4 Measurement of Cardiac Total Activity, External Approach (ICD-10-PCS; principal; 2021-07-11)
PROC: 3E033HZ Introduction of Radioactive Substance into Peripheral Vein, Percutaneous Approach (ICD-10-PCS; 2021-07-11)
PROC: 5A09457 Assistance with Respiratory Ventilation, 24-96 Consecutive Hours, Continuous Positive Airway Pressure (ICD-10-PCS; 2021-07-11)
DX: I21.4 Non-ST elevation (NSTEMI) myocardial infarction (principal); I50.33 Acute on chronic diastolic (congestive) heart failure; I13.0 Hypertensive heart and chronic kidney disease with heart failure and stage 1 through stage 4 chronic kidney disease, or unspecified chronic kidney disease; N17.9 Acute kidney failure, unspecified; R45.851 Suicidal ideations; Z68.42 Body mass index [BMI] 45.0-49.9, adult; I25.119 Atherosclerotic heart disease of native coronary artery with unspecified angina pectoris; E11.22 Type 2 diabetes mellitus with diabetic chronic kidney disease; Z66 Do not resuscitate; E66.01 Morbid (severe) obesity due to excess calories; E78.00 Pure hypercholesterolemia, unspecified; E78.5 Hyperlipidemia, unspecified; F12.90 Cannabis use, unspecified, uncomplicated; F17.210 Nicotine dependence, cigarettes, uncomplicated; G47.33 Obstructive sleep apnea (adult) (pediatric); N18.30 Chronic kidney disease, stage 3 unspecified; F32.A Depression, unspecified; Z20.822 Contact with and (suspected) exposure to COVID-19; Z59.00 Homelessness unspecified; I25.2 Old myocardial infarction; Z86.711 Personal history of pulmonary embolism; Z80.42 Family history of malignant neoplasm of prostate; Z80.8 Family history of malignant neoplasm of other organs or systems; Z88.8 Allergy status to other drugs, medicaments and biological substances; Z79.899 Other long term (current) drug therapy; Z79.02 Long term (current) use of antithrombotics/antiplatelets; Z79.82 Long term (current) use of aspirin; Z71.6 Tobacco abuse counseling; Z71.3 Dietary counseling and surveillance
CPT/HCPCS: 36000; 36415; 71045; 78452; 80053; 80061; 82948; 83036; 83605; 83880; 84484; 85025; 85610; 85730; 87040; 87081; 87635; 93005; 93017; 93306; 94660; 94760; 96374; 96375; 97161; 97530; 99285; A9500; G0378; J1644; J1815; J1940; J2270; J2785; J7030

== ENCOUNTER 2022-01-31 11:22 | Inpatient (IN) | payer MEDICARE, MEDICAID ==
[~2022-01-31] VITALS: Ht 180.3 cm; Wt 156.4 kg
[~2022-01-31 11:22] MED LIST changes: -ARIP5TAB14 PO; -ASPI81TA52 PO; -ATOR80TA13 PO; -CLOP75TA33 PO; -DULO60CA65 PO; -GEMF600T89 PO; -METF-438 PO; -METO50TA17 PO; -NITR0.4T51 SL; -POTA-82 PO; -SPIR25TA5 PO
[2022-01-31] MEDS ORDERED: ATOR20TA66 PO ×2 (11:40)
[2022-01-31] MEDS ORDERED: CLOP75TA34 PO ×3 (11:40→15:07)
[2022-01-31] MEDS ORDERED: METO50TA16 PO ×2 (11:40)
[2022-01-31] MEDS ORDERED: NITR0.4T51 SL ×3 (11:40→15:07)
[2022-01-31] MEDS ORDERED: ISOS30TA84 PO ×3 (11:40→15:07)
[2022-01-31] MEDS ORDERED: IPRA3AMP9 NEB ×2 (11:42)
[2022-01-31] MEDS ORDERED: mag hydrox/Alum hydrox/simeth 30ml oral suspension PO PRN (14:30)
[2022-01-31] MEDS ORDERED: NICOTINE POLACRILEX 2 MG LOZENGE BC PRN (14:30)
[2022-01-31] MEDS ORDERED: acetaminophen 325mg tablet PO PRN (14:30)
[2022-01-31] MEDS: nicotine 14mg patch - 24hr TD SCH (14:30)
[2022-01-31] MEDS ORDERED: loperamide 2mg capsule PO PRN (14:30)
[2022-01-31] MEDS ORDERED: magnesium hydroxide 30ml (MOM) UD suspension PO PRN (14:30)
--- NOTE | 2022-01-31 14:46 | NUR ---
Admit note: Pt admitted today on 5150 from PCU for DTS at 1415. PT reports a plan to slit his wrist, believes he is after being killed in [place], delusional beliefs, unable to safety plan. Pt has a history of PTSD, coronary artery disease, sleep apnea, HTN, DM II, CABG 4 mo ago.
[2022-01-31] MEDS ORDERED: insulin Lispro (HumaLOG) vial - multi-dose SQ SCH (14:55)
[2022-01-31] MEDS ORDERED: DEXTROSE 15 GM of carb/4 tabs (each vial/BOTTLE has 4 tablets) PO PRN ×2 (14:55)
[2022-01-31] MEDS ORDERED: glucagon, human recombinant 1mg kit SUBCUT PRN (14:55)
[2022-01-31] MEDS ORDERED: METO50TA17 PO (15:07)
[2022-01-31] MEDS ORDERED: ATOR40TA PO (15:07)
[2022-01-31] MEDS ORDERED: IPRA3AMP31 IH (15:07)
[2022-01-31] MEDS ORDERED: nitroGLYCERIN 0.4mg SUBLingual tab SL PRN (15:25)
[2022-01-31] MEDS ORDERED: ipratropium/albuterol 3ml nebule IH PRN (15:25)
[2022-01-31] MEDS ORDERED: clopidogrel 75mg tablet PO SCH (15:31)
[2022-01-31] MEDS ORDERED: isosorbide mononitrate 30mg tab.SR.24H PO SCH (15:32)
[2022-01-31] MEDS: amLODIPine 5mg tablet PO SCH (15:57)
[2022-01-31] MEDS: acetaminophen 325mg tablet PO PRN (18:50)
[2022-01-31 19:00] VITALS: BP 143/83
[2022-01-31] MEDS: lisinopril 20mg tablet PO SCH (20:25)
[2022-01-31] MEDS: metoprolol tartrate 50mg tablet PO SCH (20:25)
[2022-01-31] MEDS ORDERED: insulin glargine (Lantus) pen - multi-dose SQ SCH (21:00)
--- NOTE | 2022-01-31 23:06 | NUR ---
Nursing progress note: Problem: Pt admitted today on 5150 from PCU for DTS at 1415. PT reports a plan to slit his wrist, believes he is after being killed in [place], delusional beliefs, unable to safety plan. Pt has a history of PTSD, coronary artery disease, sleep apnea, HTN, DM II, CABG 4 mo ago. Intervention: Provide a safe and therapeutic environment, Use clear communication with active listening. provide positive encouragement. Set clear boundaries. Response: Patient in room lying on side in bed. patient reports having a good day. Pt 1:1, Pt reports +A/VH with voices telling him to harm himself. Patient denies SI/HI. Patient reports having a hurt shoulder that felt like a sprain, Tylenol offered with good effect. Pt Blood sugar obtained at 1945 137. BS at noon 110. Pt has not yet protocol. Respiratory came to floor looking for pt, Hospitalist called and an order for C-PAP issued. RT set up C-PAP for patient. Patient ate snack in his room. Patient took evening meds w/o complications. Patient fell asleep with C-PAP on with no difficulties. Plan: Patient requires crisis interruption and stabilization with medication management and monitoring in a safe and therapeutic environment.
[2022-02-01] MEDS: nicotine 14mg patch - 24hr TD SCH (08:00)
[2022-02-01] MEDS: isosorbide mononitrate 30mg tab.SR.24H PO SCH (08:33)
[2022-02-01] MEDS: atorvastatin 20mg tablet PO SCH (08:33)
[2022-02-01] MEDS: clopidogrel 75mg tablet PO SCH (08:33)
[2022-02-01] MEDS: metoprolol tartrate 50mg tablet PO SCH ×2 (08:34→20:13)
[2022-02-01] MEDS: amLODIPine 5mg tablet PO SCH (08:35)
[2022-02-01] MEDS: lisinopril 20mg tablet PO SCH (08:35)
[2022-02-01 08:49] VITALS: BP 150/78
[2022-02-01] MEDS ORDERED: aspirin 81mg, enteric-coated 1 TAB TABLET.DR PO ONE (11:05)
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
[2022-02-01] MEDS: NIFEdipine XL 30mg tablet PO SCH (11:42)
--- NOTE | 2022-02-01 12:20 | NUR ---
Nutrition Consult: Likely DM Consult at pt hx T2DM and reports no wt loss/decreased intake on RN Malnutrition Screen. Pt admit to [facility] A1C hx 6.8% 01/24/22 per EMR. A1C appropriate and no need for education at this time. Addendum: 02/01/22 at [address] Amended: Links added.
[2022-02-01] MEDS ORDERED: cyclobenzaprine 10mg tablet PO PRN (14:05)
[2022-02-01] MEDS ORDERED: QUEtiapine 25mg tablet PO PRN (14:05)
[2022-02-01] MEDS ORDERED: duloxetine 30mg CAPSULE.DR PO ONE (14:05)
[2022-02-01] MEDS ORDERED: quetiapine 100mg tablet PO PRN (14:05)
[2022-02-01] MEDS ORDERED: cyclobenzaprine 10mg tablet PO ONE (14:05)
[2022-02-01] MEDS: QUEtiapine 25mg tablet PO SCH ×2 (14:37→20:13)
--- NOTE | 2022-02-01 17:37 | NUR ---
Nursing Progress Note: Problem: Pt admitted today on 5150 from PCU for DTS at 1415. Pt. reports a plan to slit his wrist, believes he is after being killed in [place], delusional beliefs, unable to safety plan. Pt has a history of PTSD, coronary artery disease, sleep apnea, HTN, DM II, CABG 4 mo. ago. Intervention: Provide a safe and therapeutic environment, Use clear communication with active listening. Provide positive encouragement. Set clear boundaries. Response: Patient lying awake at COS. He says that he didnt sleep well due to CPAP machine beeping. Patients facial hair has not been trimmed for a while, and it probably doesnt seal well. His blood glucose has been stable, so he will restart Glucophage 500mg tonight. Patients blood sugar this morning was 119, and protocol has been discontinued. He has been started on Seroquel, Cymbalta, and Flexeril PRN today. He is compliant with medications. Patient reports depression and is still suicidal. Plan: Patient requires crisis interruption and stabilization with medication management and monitoring in a safe and therapeutic environment.
[2022-02-01 19:00] VITALS: BP 140/68
[2022-02-01] MEDS: metFORMIN 500mg tablet PO SCH (20:12)
--- NOTE | 2022-02-02 04:24 | NUR ---
Nursing Progress Note: Problem: Pt admitted today on 5150 from PCU for DTS at 1415. Pt. reports a plan to slit his wrist, believes he is after being killed in [place], delusional beliefs, unable to safety plan. Pt has a history of PTSD, coronary artery disease, sleep apnea, HTN, DM II, CABG 4 mo. ago. Intervention: Provide a safe and therapeutic environment, Use clear communication with active listening. Provide positive encouragement. Set clear boundaries. Response: Patient sitting on his bed at start of shift. He sits cross-legged on his bed, not doing anything for hours at a time. He wears 2 gowns to cover his large body, and he appears disheveled. Patients facial hair has not seen a razor in quite some time. He ambulates with a FWW to community room for snacks and HS med pass. Hes compliant with medications and asked for and received Flexeril to help him relax. Respiratory stopped by and hooked up his CPAP. He appears to be sleeping pretty good tonight. Plan: Patient requires crisis interruption and stabilization with medication management and monitoring in a safe and therapeutic environment.
[2022-02-02 08:00] VITALS: BP 160/98
[2022-02-02] MEDS: metFORMIN 500mg tablet PO SCH (08:00)
[2022-02-02] MEDS: clopidogrel 75mg tablet PO SCH (08:49)
[2022-02-02] MEDS: metoprolol tartrate 50mg tablet PO SCH ×2 (08:49→20:32)
[2022-02-02] MEDS: NIFEdipine XL 30mg tablet PO SCH (08:49)
[2022-02-02] MEDS: nicotine 14mg patch - 24hr TD SCH (08:49)
[2022-02-02] MEDS: duloxetine 30mg CAPSULE.DR PO SCH (08:49)
[2022-02-02] MEDS: lisinopril 20mg tablet PO SCH (08:50)
[2022-02-02] MEDS: QUEtiapine 25mg tablet PO SCH ×3 (08:50→20:32)
[2022-02-02] MEDS: aspirin 81mg, enteric-coated 1 TAB TABLET.DR PO SCH (08:50)
[2022-02-02] MEDS: atorvastatin 20mg tablet PO SCH (08:50)
[2022-02-02] MEDS: cyclobenzaprine 10mg tablet PO PRN (08:51)
[2022-02-02] MEDS: isosorbide mononitrate 30mg tab.SR.24H PO SCH (08:53)
[2022-02-02 10:31] LABS: BASOPHILS % (AUTO) 0.8 % (0-1); EOSINOPHILS # (AUTO) 0.1 X10'3 (0-0.9); EOSINOPHILS % (AUTO) 2.8 % (0-6); HEMATOCRIT 42.2 % (42.0-52.0); HEMOGLOBIN 13.9 g/dl (14.0-17.9); LYMPHOCYTES # (AUTO) 0.9 X10'3 (1.1-4.8); LYMPHOCYTES % (AUTO) 16.7 % (21-51); MEAN CORPUSCULAR HEMOGLOBIN 26.2 PG (27.0-31.0); MEAN CORPUSCULAR VOLUME 79.4 FL (78-98); MEAN PLATELET VOLUME 7.6 FL (7.4-10.4); MONOCYTES # (AUTO) 0.6 X10'3 (0-0.9); MONOCYTES % (AUTO) 10.9 % (2-12); NEUTROPHILS # (AUTO) 3.5 X10'3 (1.8-7.7); NEUTROPHILS % (AUTO) 68.8 % (42-75); PLATELET COUNT 230 X10'3 (140-440); RED BLOOD COUNT 5.32 X10'6 (4.70-6.10); RED CELL DISTRIBUTION WIDTH 16.4 % (11.5-14.5); WHITE BLOOD COUNT 5.1 X10'3 (4.5-11.0)
[2022-02-02 10:49] LABS: ALANINE AMINOTRANSFERASE 20 U/L (12-78); ALBUMIN 2.9 G/DL (3.4-5.0); ALBUMIN/GLOBULIN RATIO 0.7 (1.1-1.5); ALKALINE PHOSPHATASE 117 IU/L (46-116); ANION GAP 6 (8-16); ASPARTATE AMINO TRANSFERASE 11 U/L (10-37); BILIRUBIN,TOTAL 0.4 MG/DL (0.1-1.0); BLOOD UREA NITROGEN 27 MG/DL (7-18); BUN/CREATININE RATIO 14.1 (5.4-32.0); CALCIUM 8.9 MG/DL (8.5-10.1); CHLORIDE 105 MMOL/L (99-107); CREATININE 1.92 MG/DL (0.60-1.10); GLUCOSE 121 MG/DL (70-104); MAGNESIUM 1.8 MG/DL (1.5-2.4); PHOSPHORUS 2.8 MG/DL (2.3-4.5); POTASSIUM 4.2 MMOL/L (3.5-5.1); SODIUM 140 MMOL/L (135-145); eGFR 36 ML/MIN
[2022-02-02 11:00] VITALS: BP 150/82
--- NOTE | 2022-02-02 11:30 | NUR ---
Pt. had an ordered CMP completed and has an elevated Creatinine level. His scheduled AM dose of Metformin 500mg was held per protocol for elevated Creatinine. Pt. has DM type two and takes Metformin to control his sugars. This was endorsed to the hospitalist and currently awaiting a response.
--- NOTE | 2022-02-02 13:32 | NUR ---
Per Dr. Gee, Metformin to be discontinued and pt. to be placed on the Diabetic Protocol.
[2022-02-02] MEDS ORDERED: insulin Lispro (HumaLOG) vial - multi-dose SQ SCH (13:35)
[2022-02-02] MEDS ORDERED: MESSAGE TO PHARMACY PO ONE (13:35)
[2022-02-02] MEDS ORDERED: glucagon, human recombinant 1mg kit SUBCUT PRN (13:35)
[2022-02-02] MEDS ORDERED: DEXTROSE 15 GM of carb/4 tabs (each vial/BOTTLE has 4 tablets) PO PRN ×2 (13:35)
[2022-02-02] MEDS: acetaminophen 325mg tablet PO PRN (15:28)
[2022-02-02] MEDS ORDERED: linagliptin 5mg tablet PO SCH (16:55)
--- NOTE | 2022-02-02 16:58 | NUR ---
Per Dr. Best, pt. to be administered a one-time dose of Tradjenta 5mg and Januvia 100mg now. Blood sugars to be monitored ACHS, and pt. to be kept on Diabetic Protocol at this time until blood sugars are stabilized. Addendum: 02/02/22 at 1718 by Opal Courtney RN Per pharmacy, Isaac is not available and they will contact Dr. Gee.
[2022-02-02] MEDS: linagliptin 5mg tablet PO SCH (17:13)
--- NOTE | 2022-02-02 17:20 | NUR ---
Nursing Progress Note: Problem : Pt admitted today on 5150 from PCU for DTS at 1415. Pt. reports a plan to slit his wrist, believes he is after being killed in [place] war, delusional beliefs, unable to safety plan. Pt has a history of PTSD, coronary artery disease, sleep apnea, HTN, DM II, CABG 4 mo. ago. Interventions : Introduced self and established rapport, maintained a safe and supportive environment, monitored labs and obtained orders for hyperglycemic medication, encouraged independent performance of ADLs and participation on the unit, and maintained Q 15min safety checks. Response : Received pt. sleeping wearing his CPap at the beginning of the shift. He was awoken for breakfast and CPap machine was removed from pt.'s room for safety precautions. Pt. attended breakfast in the Group Room and afterwards sat up watching TV for much of the morning and afternoon. He is withdrawn and is not observed to be interacting with others. 1:1 was completed, and pt. presents as cooperative and guarded. Pt. reports ongoing S/I, however denies any current plan. He also admits to command A/TAYLOR which tell him to hurt himself. Pt. makes what appear to be delusional statements that others want to hurt him. In the afternoon, pt. is observed to be in his room listening to headphones. Plan : Pt. requires interruption of current crisis and a safe and supportive environment.
[2022-02-02 19:00] VITALS: BP 136/79
[2022-02-02] MEDS ORDERED: insulin glargine (Lantus) pen - multi-dose SQ SCH (21:00)
--- NOTE | 2022-02-03 01:09 | NUR ---
Nursing Progress Note: Problem : Pt admitted on 5150 from PCU for DTS at 1415. Pt. reports a plan to slit his wrist, believes he is after being killed in [place], delusional beliefs, unable to safety plan. Pt has a history of PTSD, coronary artery disease, sleep apnea, HTN, DM II, CABG 4 mo. ago. Interventions : Introduced self and established rapport, maintained a safe and supportive environment, monitored labs and obtained orders for hyperglycemic medication, encouraged independent performance of ADLs and participation on the unit, and maintained Q 15min safety checks. Response : Pt sitting in group room at start of shift. He says he is depressed says he has reached "A low point". He still has SI but "Not as bad". Pt expects to return to homelessness at discharge. He said because he cannot afford a first and last to rent a place. Suggested that because of his physical conditions, post heart bypass and his diabetes, he should consider a long-term situation. He said only if he has his own bedroom. Pt BS at was 113 so did not require starting the insulin protocol. RT set up Bipap for Pt at . Plan : Pt. requires interruption of current crisis and a safe and supportive environment.
[2022-02-03 08:00] VITALS: BP 166/79
[2022-02-03 08:01] LABS: BASOPHILS % (AUTO) 0.6 % (0-1); EOSINOPHILS # (AUTO) 0.2 X10'3 (0-0.9); EOSINOPHILS % (AUTO) 3.5 % (0-6); HEMATOCRIT 43.6 % (42.0-52.0); HEMOGLOBIN 14.3 g/dl (14.0-17.9); LYMPHOCYTES # (AUTO) 0.9 X10'3 (1.1-4.8); LYMPHOCYTES % (AUTO) 16.2 % (21-51); MEAN CORPUSCULAR HEMOGLOBIN 25.9 PG (27.0-31.0); MEAN CORPUSCULAR HGB CONC 32.9 g/dL (33.0-36.5); MEAN CORPUSCULAR VOLUME 78.8 FL (78-98); MEAN PLATELET VOLUME 7.9 FL (7.4-10.4); MONOCYTES # (AUTO) 0.5 X10'3 (0-0.9); MONOCYTES % (AUTO) 10.1 % (2-12); NEUTROPHILS # (AUTO) 3.8 X10'3 (1.8-7.7); NEUTROPHILS % (AUTO) 69.6 % (42-75); PLATELET COUNT 212 X10'3 (140-440); RED BLOOD COUNT 5.53 X10'6 (4.70-6.10); WHITE BLOOD COUNT 5.4 X10'3 (4.5-11.0)
[2022-02-03 08:17] LABS: ALANINE AMINOTRANSFERASE 16 U/L (12-78); ALBUMIN 2.9 G/DL (3.4-5.0); ALBUMIN/GLOBULIN RATIO 0.7 (1.1-1.5); ALKALINE PHOSPHATASE 107 IU/L (46-116); ANION GAP 6 (8-16); ASPARTATE AMINO TRANSFERASE 15 U/L (10-37); BILIRUBIN,TOTAL 0.4 MG/DL (0.1-1.0); BLOOD UREA NITROGEN 27 MG/DL (7-18); CALCIUM 8.9 MG/DL (8.5-10.1); CHLORIDE 107 MMOL/L (99-107); CREATININE 1.69 MG/DL (0.60-1.10); GLUCOSE 106 MG/DL (70-104); MAGNESIUM 1.9 MG/DL (1.5-2.4); PHOSPHORUS 4.2 MG/DL (2.3-4.5); POTASSIUM 4.2 MMOL/L (3.5-5.1); SODIUM 139 MMOL/L (135-145); TOTAL CARBON DIOXIDE 25.6 MMOL/L (24-32); TOTAL PROTEIN 6.8 G/DL (6.4-8.2); eGFR 42 ML/MIN
[2022-02-03] MEDS: metoprolol tartrate 50mg tablet PO SCH ×2 (08:57→20:00)
[2022-02-03] MEDS: QUEtiapine 25mg tablet PO SCH ×3 (08:57→21:20)
[2022-02-03] MEDS: NIFEdipine XL 30mg tablet PO SCH (08:57)
[2022-02-03] MEDS: linagliptin 5mg tablet PO SCH (08:57)
[2022-02-03] MEDS: aspirin 81mg, enteric-coated 1 TAB TABLET.DR PO SCH (08:58)
[2022-02-03] MEDS: isosorbide mononitrate 30mg tab.SR.24H PO SCH (08:58)
[2022-02-03] MEDS: clopidogrel 75mg tablet PO SCH (08:58)
[2022-02-03] MEDS: lisinopril 20mg tablet PO SCH (08:58)
[2022-02-03] MEDS: atorvastatin 20mg tablet PO SCH (08:58)
[2022-02-03] MEDS: duloxetine 30mg CAPSULE.DR PO SCH (08:58)
[2022-02-03] MEDS: nicotine 14mg patch - 24hr TD SCH (08:59)
[2022-02-03] MEDS: cyclobenzaprine 10mg tablet PO PRN (09:31)
--- NOTE | 2022-02-03 13:51 | NUR ---
Nursing Progress Note: Problem : Pt admitted today on 5150 from PCU for DTS at 1415. Pt. reports a plan to slit his wrist, believes he is after being killed in [place], delusional beliefs, unable to safety plan. Pt has a history of PTSD, coronary artery disease, sleep apnea, HTN, DM II, CABG 4 mo. ago. Interventions : Maintained a safe and supportive environment, provided clear and simple instructions, encouraged independent performance of ADLs and participation on the unit, monitored blood sugars, maintained fall precautions, and maintained Q 15min safety checks. Response : Received pt. sleeping wearing his CPap at the beginning of the shift, he was again awoken for breakfast and attended with use of FWW. Pt. again sat up watching TV throughout much of the morning and afternoon, and remains withdrawn from others. However, he did attend group with minimal participation. 1:1 was completed, pt. continues to present with a blunted affect and responds minimally to direct questions. When questioned regarding his mood, he stated, "Same as yesterday. Just feeling down." Pt. admits to ongoing S/I with no current plan. Pt. also reported ongoing A/TAYLOR and stated, "Yeah, they sneak up on me." He endorses continued delusions that others may want to hurt him. In the afternoon, pt. was observed to be sitting up in the Group Room wearing headphones and watching TV. His blood sugars have been WNL this shift, will continue to monitor closely. Plan : Per Dr. Best, pt. continues to require a safe and supportive environment and has no viable plans for discharge at this time.
[2022-02-03 16:30] VITALS: BP 140/88
--- NOTE | 2022-02-03 16:30 | NUR ---
Pt. reported right-sided thoracic pain upon inspiration to Dr. Gee upon evaluation. He has a history of PE in 2021. Order for a CTA Chest PE with IV contrast was received. Pt. denies any chest pain and V/S were obtained and WNL. Contrast Media Screening Form was faxed to CT, however per CT MD must approve the use of CT contrast r/t pt's decreased GFR. This service writer will contact Dr. Gee for approval to proceed with procedure. Pt. was provided education and reports understanding.
--- NOTE | 2022-02-03 17:51 | NUR ---
20 crystal IV placed in pt's left AC for CTA Chest PE procedure.
[2022-02-03] MEDS ORDERED: iohexol 350MG/ML 100ml bottle IV ONE (18:03)
[2022-02-03 20:00] VITALS: BP 163/98
[2022-02-03] MEDS: acetaminophen 325mg tablet PO PRN (21:21)
--- NOTE | 2022-02-04 03:19 | NUR ---
Nursing Progress Note: Problem : Pt admitted on 5150 from PCU for DTS at 1415. Pt. reports a plan to slit his wrist, believes he is after being killed in [place], delusional beliefs, unable to safety plan. Pt has a history of PTSD, coronary artery disease, sleep apnea, HTN, DM II, CABG 4 mo. ago. Interventions : Introduced self and established rapport, maintained a safe and supportive environment, monitored labs and obtained orders for hyperglycemic medication, encouraged independent performance of ADLs and participation on the unit, and maintained Q 15min safety checks. Response : Pt taken to CTA scan at change of shift. Given dinner tray when returned. Scan negative for PE. Pt declined to take a shower this shift but agreed to take one tomorrow. Pt masters shaved off with clippers per his request. The plan agreed to by the pt is he will shave himself close tomorrow in shower. Blood sugar 98 at HS. Pt says he is still depressed but "Not as Bad" and he still thinks about suicide but not as much. He still has SI but "Not as bad". RT set up Bipap for Pt at hs. Plan : Pt. requires interruption of current crisis and a safe and supportive environment.
[2022-02-04 06:36] LABS: BASOPHILS # (AUTO) 0.1 X10'3 (0-0.2); BASOPHILS % (AUTO) 0.9 % (0-1); EOSINOPHILS # (AUTO) 0.2 X10'3 (0-0.9); EOSINOPHILS % (AUTO) 3.9 % (0-6); HEMATOCRIT 41.2 % (42.0-52.0); HEMOGLOBIN 13.7 g/dl (14.0-17.9); LYMPHOCYTES # (AUTO) 1.2 X10'3 (1.1-4.8); LYMPHOCYTES % (AUTO) 20.9 % (21-51); MEAN CORPUSCULAR HEMOGLOBIN 26.3 PG (27.0-31.0); MEAN CORPUSCULAR HGB CONC 33.4 g/dL (33.0-36.5); MEAN CORPUSCULAR VOLUME 78.7 FL (78-98); MEAN PLATELET VOLUME 7.6 FL (7.4-10.4); MONOCYTES # (AUTO) 0.6 X10'3 (0-0.9); NEUTROPHILS # (AUTO) 3.6 X10'3 (1.8-7.7); NEUTROPHILS % (AUTO) 64.3 % (42-75); PLATELET COUNT 222 X10'3 (140-440); RED BLOOD COUNT 5.23 X10'6 (4.70-6.10); RED CELL DISTRIBUTION WIDTH 15.9 % (11.5-14.5); WHITE BLOOD COUNT 5.6 X10'3 (4.5-11.0)
[2022-02-04 07:03] LABS: ALANINE AMINOTRANSFERASE 20 U/L (12-78); ALBUMIN 2.8 G/DL (3.4-5.0); ALBUMIN/GLOBULIN RATIO 0.7 (1.1-1.5); ALKALINE PHOSPHATASE 108 IU/L (46-116); ANION GAP 10 (8-16); ASPARTATE AMINO TRANSFERASE 13 U/L (10-37); BILIRUBIN,TOTAL 0.4 MG/DL (0.1-1.0); BLOOD UREA NITROGEN 25 MG/DL (7-18); BUN/CREATININE RATIO 14.3 (5.4-32.0); CALCIUM 8.7 MG/DL (8.5-10.1); CHLORIDE 107 MMOL/L (99-107); CREATININE 1.75 MG/DL (0.60-1.10); GLUCOSE 107 MG/DL (70-104); MAGNESIUM 1.9 MG/DL (1.5-2.4); PHOSPHORUS 4.2 MG/DL (2.3-4.5); POTASSIUM 4.5 MMOL/L (3.5-5.1); SODIUM 143 MMOL/L (135-145); TOTAL CARBON DIOXIDE 26.2 MMOL/L (24-32); TOTAL PROTEIN 6.6 G/DL (6.4-8.2); eGFR 41 ML/MIN
[2022-02-04 08:00] VITALS: BP 171/96
[2022-02-04] MEDS: nicotine 14mg patch - 24hr TD SCH (08:00)
[2022-02-04] MEDS: linagliptin 5mg tablet PO SCH (08:27)
[2022-02-04] MEDS: aspirin 81mg, enteric-coated 1 TAB TABLET.DR PO SCH (08:27)
[2022-02-04] MEDS: isosorbide mononitrate 30mg tab.SR.24H PO SCH (08:27)
[2022-02-04] MEDS: duloxetine 30mg CAPSULE.DR PO SCH (08:27)
[2022-02-04] MEDS: metoprolol tartrate 50mg tablet PO SCH ×2 (08:28→20:02)
[2022-02-04] MEDS: clopidogrel 75mg tablet PO SCH (08:28)
[2022-02-04] MEDS: QUEtiapine 25mg tablet PO SCH ×3 (08:28→20:02)
[2022-02-04] MEDS: atorvastatin 20mg tablet PO SCH (08:28)
[2022-02-04] MEDS: lisinopril 20mg tablet PO SCH (08:29)
[2022-02-04] MEDS: NIFEdipine XL 30mg tablet PO SCH (08:29)
--- NOTE | 2022-02-04 08:40 | NUR ---
Pt. attended group today. Today's group was about the different communications styles i.e passive, aggressive and assertive. the group started with a communication exercise where they had to pair up and share about themselves with each other. We then discussed what the characteristics of each style was. We then discussed where they saw themselves at now and where they would like to be with their communication style. Pt. engaged minimally in the group today. He listened to his peers and but did not share much about himself unless asked and even then gave short answers. His mood appeared depressive with a restricted affect. His demeanor was calm and compliant. Aimee Farley LCSW
--- NOTE | 2022-02-04 14:05 | NUR ---
5250 upheld for DTS and GD
--- NOTE | 2022-02-04 18:06 | NUR ---
Nursing Progress Note Problem : Pt admitted today on 5150 from PCU for DTS at 1415. Pt. reports a plan to slit his wrist, believes he is after being killed in [place], delusional beliefs, unable to safety plan. Pt has a history of PTSD, coronary artery disease, sleep apnea, HTN, DM II, CABG 4 mo. ago. Interventions : Maintained a safe and supportive environment, provided clear and simple instructions, encouraged independent performance of ADLs and participation on the unit, monitored blood sugars, maintained fall precautions, and maintained Q 15min safety checks. Response : Received Pt in bed sleeping w/o distress at the beginning of this shift. Pt woke and cooperative with vitals and AM meds. AM BS was 110. Pt spent most of AM in bed resting and sleeping intermittently. He remains depressed with SI. Pt is overall pleasant and cooperative. A/VHs remain per pt, although not seen responding to internal stimuli. IV removed and pt put in shower after roommate discovered to have lice. Pt checked for lice with negative results. Pt came out of shower dry and appeared to have only wet his head and comb hair. Pt BS before dinner was 121, even after late snack. Pt continues to appear depressed with blunt affect and monotone short answers to Qs. Plan : Per Dr. Best, pt. continues to require a safe and supportive environment and has no viable plans for discharge at this time.
[2022-02-04] MEDS: cyclobenzaprine 10mg tablet PO PRN (18:57)
[2022-02-04 20:00] VITALS: BP 118/58
--- NOTE | 2022-02-04 23:20 | NUR ---
Nursing Progress Note Ernie Problem : Pt admitted today on 5150 from PCU for DTS at 1415. Pt. reports a plan to slit his wrist, believes he is after being killed in [place], delusional beliefs, unable to safety plan. Pt has a history of PTSD, coronary artery disease, sleep apnea, HTN, DM II, CABG 4 mo. ago. Interventions : Maintained a safe and supportive environment, provided clear and simple instructions, encouraged independent performance of ADLs and participation on the unit, monitored blood sugars, maintained fall precautions, and maintained Q 15min safety checks. Response : Received Pt resting in bed at change of shift. He appears depressed and states he has mild anxiety. Pt c/o muscle spasms and requested flexeril, 5MG given with good effect. Pt still c/o right sided pain 8/10 (ribs.) Pts HS BS 104 before snack time, pt. participated in snacks and took all HS medications without issue. Pt presents with blunt affect and monotone short answers to questions. RT paged for pts CPAP to be set up. Plan : Per Dr. Best, pt. continues to require a safe and supportive environment and has no viable plans for discharge at this time.
--- NOTE | 2022-02-05 07:26 | NUR ---
Initial: Pt admitted w/ suicidal ideations per EMR. Currently on Carb control diet w/ mostly 100% intake of meals and also participates in snacks per documentation, overall likely meeting est needs at this time. Pt noted to wear CPAP during the night r/t sleep apnea. [facility] 02/03. No nutrition intervention implemented at this time, will continue to monitor. Recs: 1. Continue Carb control diet as tolerated 2. Bowel care PRN 3. Weekly wts Addendum: 02/05/22 at [address] Amended: Links added.
[2022-02-05] MEDS: aspirin 81mg, enteric-coated 1 TAB TABLET.DR PO SCH (07:51)
[2022-02-05] MEDS: isosorbide mononitrate 30mg tab.SR.24H PO SCH (07:51)
[2022-02-05] MEDS: clopidogrel 75mg tablet PO SCH (07:51)
[2022-02-05] MEDS: linagliptin 5mg tablet PO SCH (07:52)
[2022-02-05] MEDS: metoprolol tartrate 50mg tablet PO SCH ×2 (07:52→20:04)
[2022-02-05] MEDS: atorvastatin 20mg tablet PO SCH (07:53)
[2022-02-05] MEDS: QUEtiapine 25mg tablet PO SCH ×3 (07:53→20:04)
[2022-02-05] MEDS: nicotine 14mg patch - 24hr TD SCH (07:53)
[2022-02-05] MEDS: duloxetine 30mg CAPSULE.DR PO SCH (07:53)
[2022-02-05] MEDS: lisinopril 20mg tablet PO SCH (07:53)
[2022-02-05] MEDS: NIFEdipine XL 30mg tablet PO SCH (07:56)
[2022-02-05 08:00] VITALS: BP 150/81
[2022-02-05 08:09] LABS: BASOPHILS % (AUTO) 0.6 % (0-1); EOSINOPHILS # (AUTO) 0.2 X10'3 (0-0.9); EOSINOPHILS % (AUTO) 3.7 % (0-6); HEMATOCRIT 40.7 % (42.0-52.0); HEMOGLOBIN 13.4 g/dl (14.0-17.9); LYMPHOCYTES # (AUTO) 1.1 X10'3 (1.1-4.8); LYMPHOCYTES % (AUTO) 19.7 % (21-51); MEAN CORPUSCULAR HEMOGLOBIN 25.9 PG (27.0-31.0); MEAN CORPUSCULAR VOLUME 78.6 FL (78-98); MEAN PLATELET VOLUME 7.8 FL (7.4-10.4); MONOCYTES # (AUTO) 0.5 X10'3 (0-0.9); MONOCYTES % (AUTO) 9.7 % (2-12); NEUTROPHILS # (AUTO) 3.8 X10'3 (1.8-7.7); NEUTROPHILS % (AUTO) 66.3 % (42-75); PLATELET COUNT 217 X10'3 (140-440); RED BLOOD COUNT 5.18 X10'6 (4.70-6.10); RED CELL DISTRIBUTION WIDTH 16.5 % (11.5-14.5); WHITE BLOOD COUNT 5.7 X10'3 (4.5-11.0)
[2022-02-05 08:33] LABS: ALANINE AMINOTRANSFERASE 19 U/L (12-78); ALBUMIN 2.7 G/DL (3.4-5.0); ALBUMIN/GLOBULIN RATIO 0.7 (1.1-1.5); ALKALINE PHOSPHATASE 108 IU/L (46-116); ANION GAP 9 (8-16); ASPARTATE AMINO TRANSFERASE 14 U/L (10-37); BILIRUBIN,TOTAL 0.3 MG/DL (0.1-1.0); BLOOD UREA NITROGEN 25 MG/DL (7-18); BUN/CREATININE RATIO 13.3 (5.4-32.0); CALCIUM 8.4 MG/DL (8.5-10.1); CHLORIDE 106 MMOL/L (99-107); CREATININE 1.88 MG/DL (0.60-1.10); GLUCOSE 99 MG/DL (70-104); MAGNESIUM 1.9 MG/DL (1.5-2.4); PHOSPHORUS 3.9 MG/DL (2.3-4.5); POTASSIUM 4.5 MMOL/L (3.5-5.1); SODIUM 140 MMOL/L (135-145); TOTAL CARBON DIOXIDE 25.2 MMOL/L (24-32); TOTAL PROTEIN 6.5 G/DL (6.4-8.2); eGFR 37 ML/MIN
--- NOTE | 2022-02-05 13:27 | NUR ---
Nursing Progress Note Problem: Pt admitted today on 5150 from PCU for DTS at 1415. Pt. reports a plan to slit his wrist, believes he is after being killed in [place], delusional beliefs, unable to safety plan. Pt has a history of PTSD, coronary artery disease, sleep apnea, HTN, DM II, CABG 4 mo. ago. Interventions: Provided 1:1 assessment. Provided a safe and supportive environment. Established a verbal contract for safety. Encouraged group attendance. Provided medication administration/education/monitoring. Monitored blood sugars as ordered. Encouraged independent performance of ADLs. Maintained Q 15min safety checks. Response: Pt up for meals and snacks then went back to his bed. Pt took medications as prescribed. Pt acknowledges understanding of medication dosages and frequency. Pt reports he does not do accu checks at home. Pt attended and participated in group. Plan : Per Dr. Best, pt. continues to require a safe and supportive environment and has no viable plans for discharge at this time.
[2022-02-05] MEDS: cyclobenzaprine 10mg tablet PO PRN (18:52)
[2022-02-05] MEDS: acetaminophen 325mg tablet PO PRN (18:54)
[2022-02-05 20:00] VITALS: BP 134/84
--- NOTE | 2022-02-06 00:39 | NUR ---
Nursing Progress Note: Ernie Problem: Pt admitted today on 5150 from PCU for DTS at 1415. Pt. reports a plan to slit his wrist, believes he is after being killed in [place] war, delusional beliefs, unable to safety plan. Pt has a history of PTSD, coronary artery disease, sleep apnea, HTN, DM II, CABG 4 mo. ago. Interventions: Provided 1:1 assessment. Provided a safe and supportive environment. Established a verbal contract for safety. Encouraged group attendance. Provided medication administration/education/monitoring. Monitored blood sugars as ordered. Encouraged independent performance of ADLs. Maintained Q 15min safety checks. Response: Pt sitting in his room resting. States he has some mild anxiety and passive SI. Requested Flexeril and PRN Tylenol for 7/10 right side rib pain. Pt took medications as prescribed. Pt up for snacks, BS 120 before snack time. RT paged to set up CPAP machine for patient. Plan : Per Dr. Best, pt. continues to require a safe and supportive environment and has no viable plans for discharge at this time.
[2022-02-06 07:32] LABS: BASOPHILS # (AUTO) 0.1 X10'3 (0-0.2); BASOPHILS % (AUTO) 1.2 % (0-1); EOSINOPHILS # (AUTO) 0.2 X10'3 (0-0.9); HEMATOCRIT 41.2 % (42.0-52.0); HEMOGLOBIN 13.7 g/dl (14.0-17.9); LYMPHOCYTES # (AUTO) 1.1 X10'3 (1.1-4.8); LYMPHOCYTES % (AUTO) 18.8 % (21-51); MEAN CORPUSCULAR HEMOGLOBIN 26.2 PG (27.0-31.0); MEAN CORPUSCULAR HGB CONC 33.2 g/dL (33.0-36.5); MEAN CORPUSCULAR VOLUME 78.9 FL (78-98); MEAN PLATELET VOLUME 7.8 FL (7.4-10.4); MONOCYTES # (AUTO) 0.5 X10'3 (0-0.9); MONOCYTES % (AUTO) 8.9 % (2-12); NEUTROPHILS % (AUTO) 68.1 % (42-75); PLATELET COUNT 226 X10'3 (140-440); RED BLOOD COUNT 5.22 X10'6 (4.70-6.10); RED CELL DISTRIBUTION WIDTH 16.5 % (11.5-14.5); WHITE BLOOD COUNT 5.9 X10'3 (4.5-11.0)
[2022-02-06 08:00] VITALS: BP 90/64
[2022-02-06] MEDS: nicotine 14mg patch - 24hr TD SCH (08:00)
[2022-02-06 08:03] LABS: ALANINE AMINOTRANSFERASE 19 U/L (12-78); ALBUMIN 2.9 G/DL (3.4-5.0); ALBUMIN/GLOBULIN RATIO 0.7 (1.1-1.5); ALKALINE PHOSPHATASE 113 IU/L (46-116); ANION GAP 8 (8-16); ASPARTATE AMINO TRANSFERASE 13 U/L (10-37); BILIRUBIN,TOTAL 0.4 MG/DL (0.1-1.0); BLOOD UREA NITROGEN 28 MG/DL (7-18); BUN/CREATININE RATIO 15.3 (5.4-32.0); CALCIUM 8.9 MG/DL (8.5-10.1); CHLORIDE 107 MMOL/L (99-107); CREATININE 1.83 MG/DL (0.60-1.10); GLUCOSE 105 MG/DL (70-104); PHOSPHORUS 4.4 MG/DL (2.3-4.5); POTASSIUM 4.4 MMOL/L (3.5-5.1); SODIUM 140 MMOL/L (135-145); TOTAL PROTEIN 6.8 G/DL (6.4-8.2); eGFR 38 ML/MIN
[2022-02-06] MEDS: clopidogrel 75mg tablet PO SCH (08:07)
[2022-02-06] MEDS: linagliptin 5mg tablet PO SCH (08:07)
[2022-02-06] MEDS: duloxetine 30mg CAPSULE.DR PO SCH (08:07)
[2022-02-06] MEDS: aspirin 81mg, enteric-coated 1 TAB TABLET.DR PO SCH (08:07)
[2022-02-06] MEDS: QUEtiapine 25mg tablet PO SCH ×3 (08:08→19:32)
[2022-02-06] MEDS: isosorbide mononitrate 30mg tab.SR.24H PO SCH (08:08)
[2022-02-06] MEDS: atorvastatin 20mg tablet PO SCH (08:08)
[2022-02-06] MEDS: lisinopril 20mg tablet PO SCH (08:09)
[2022-02-06] MEDS: metoprolol tartrate 50mg tablet PO SCH ×2 (08:10→19:32)
[2022-02-06] MEDS: NIFEdipine XL 30mg tablet PO SCH (08:10)
[2022-02-06] MEDS: LIDOcaine 5% patch TP SCH (15:52)
--- NOTE | 2022-02-06 17:10 | NUR ---
Nursing Progress Note Problem : Pt admitted today on 5150 from PCU for DTS at 1415. Pt. reports a plan to slit his wrist, believes he is after being killed in [place], delusional beliefs, unable to safety plan. Pt has a history of PTSD, coronary artery disease, sleep apnea, HTN, DM II, CABG 4 mo. ago. Interventions : Maintained a safe and supportive environment, provided clear and simple instructions, encouraged independent performance of ADLs and participation on the unit, monitored blood sugars, maintained fall precautions, and maintained Q 15min safety checks. Response : Received Pt in bed sleeping with c-pap and w/o distress at the beginning of this shift. Pt woke and cooperative with vitals and AM meds and spoke with Dr Antoine early. AM BS was 105. Dr Antoine changed BS testing to HS only. Pt engages minimally and remains depressed with vague SI. Pt spent most of the day in the community room watching TV with minimal interaction with others. Applied lidocaine patch to right lateral chest wall to assist with rib pain. Pt ambulating well with walker. Plan : Per Dr. Best, pt. continues to require a safe and supportive environment and has no viable plans for discharge at this time.
[2022-02-06] MEDS: cyclobenzaprine 10mg tablet PO PRN (18:41)
[2022-02-06] MEDS: acetaminophen 325mg tablet PO PRN (18:41)
[2022-02-06 20:00] VITALS: BP 165/92
--- NOTE | 2022-02-07 00:16 | NUR ---
Nursing Progress Note : Ernie Problem : Pt admitted today on 5150 from PCU for DTS at 1415. Pt. reports a plan to slit his wrist, believes he is after being killed in [place], delusional beliefs, unable to safety plan. Pt has a history of PTSD, coronary artery disease, sleep apnea, HTN, DM II, CABG 4 mo. ago. Interventions : Maintained a safe and supportive environment, provided clear and simple instructions, encouraged independent performance of ADLs and participation on the unit, monitored blood sugars, maintained fall precautions, and maintained Q 15min safety checks. Response : Received Pt sitting up in bed resting. Pt appeared depressed and somewhat anxious. PT states he is in zabala 8/10 (right ribs.) PRN flexeril, Tylenol and Seroquel given with good effect. The pt endorses SI and states if he were to leave tomorrow it would not be good. Pt was ready for bed; HS medications given and RT paged for set up of CPAP. Plan : Per Dr. Best, pt. continues to require a safe and supportive environment and has no viable plans for discharge at this time.
[2022-02-07 07:00] VITALS: BP 142/86
[2022-02-07] MEDS: NIFEdipine XL 30mg tablet PO SCH (07:58)
[2022-02-07] MEDS: linagliptin 5mg tablet PO SCH (07:59)
[2022-02-07] MEDS: QUEtiapine 25mg tablet PO SCH ×3 (07:59→20:04)
[2022-02-07] MEDS: lisinopril 20mg tablet PO SCH (07:59)
[2022-02-07] MEDS: atorvastatin 20mg tablet PO SCH (07:59)
[2022-02-07] MEDS: duloxetine 30mg CAPSULE.DR PO SCH (07:59)
[2022-02-07] MEDS: metoprolol tartrate 50mg tablet PO SCH ×2 (08:00→20:05)
[2022-02-07] MEDS: aspirin 81mg, enteric-coated 1 TAB TABLET.DR PO SCH (08:00)
[2022-02-07] MEDS: clopidogrel 75mg tablet PO SCH (08:00)
[2022-02-07] MEDS: isosorbide mononitrate 30mg tab.SR.24H PO SCH (08:00)
[2022-02-07] MEDS: nicotine 14mg patch - 24hr TD SCH (08:00)
[2022-02-07] MEDS: LIDOcaine 5% patch TP SCH (08:01)
--- NOTE | 2022-02-07 16:33 | NUR ---
Nursing Progress Note: Ernie Problem: Pt. reports a plan to slit his wrist, believes he is after being killed in [place], delusional beliefs, unable to safety plan. Pt has a history of PTSD, coronary artery disease, sleep apnea, HTN, DM II, CABG 4 mo. ago. Intervention: Provided with a safe and therapeutic environment, clear communication, active listening and positive encouragement. Response: Patient is resting quietly in bed at the start of the shift. Cooperative with medication and assessment. Patient spends time watching TV in the community room. He is guarded/ withdrawn and isolates to his room at times. Endorses ongoing depression with suicidal ideation. Denies having a plan at this time but states that if he were to leave the hospital he would likely attempt suicide. Patient verbalizes feelings of depression and hopelessness. Also endorses auditory hallucinations that tell him to kill himself. No delusional statements are noted. Plan: Patient continues to require crisis interruption and stabilization with medication management and monitoring in a safe and therapeutic environment.
[2022-02-07 19:00] VITALS: BP 161/85
[2022-02-07] MEDS: cyclobenzaprine 10mg tablet PO PRN (20:05)
--- NOTE | 2022-02-08 01:32 | NUR ---
Nursing Progress Note : Ernie Problem : Pt admitted today on 5150 from PCU for DTS at 1415. Pt. reports a plan to slit his wrist, believes he is after being killed in [place], delusional beliefs, unable to safety plan. Pt has a history of PTSD, coronary artery disease, sleep apnea, HTN, DM II, CABG 4 mo. ago. Interventions : Maintained a safe and supportive environment, provided clear and simple instructions, encouraged independent performance of ADLs and participation on the unit, monitored blood sugars, maintained fall precautions, and maintained Q 15min safety checks. Response : Patient walking in hallway between room and community room at shift change. Patient 1:1, pt reports +A/H, denies SI/HI. Pt claims that the medications seem to be working but still hears voices from time to time. patients C-PAP set up by RT. Patient blood glucose @2100 122. Patient ate snack in bedroom. Patient took evening meds w/o complications. Flexeril given for muscle spasms. Patient fell asleep a short time later. Plan : Per Dr. Best, pt. continues to require a safe and supportive environment and has no viable plans for discharge at this time.
[2022-02-08] MEDS: LIDOcaine 5% patch TP SCH (08:06)
[2022-02-08] MEDS: nicotine 14mg patch - 24hr TD SCH (08:06)
[2022-02-08] MEDS: linagliptin 5mg tablet PO SCH (08:07)
[2022-02-08] MEDS: aspirin 81mg, enteric-coated 1 TAB TABLET.DR PO SCH (08:07)
[2022-02-08] MEDS: NIFEdipine XL 30mg tablet PO SCH (08:07)
[2022-02-08] MEDS: isosorbide mononitrate 30mg tab.SR.24H PO SCH (08:07)
[2022-02-08] MEDS: clopidogrel 75mg tablet PO SCH (08:08)
[2022-02-08] MEDS: duloxetine 30mg CAPSULE.DR PO SCH (08:08)
[2022-02-08] MEDS: QUEtiapine 25mg tablet PO SCH ×3 (08:08→20:08)
[2022-02-08] MEDS: atorvastatin 20mg tablet PO SCH (08:08)
[2022-02-08] MEDS: metoprolol tartrate 50mg tablet PO SCH ×2 (08:08→19:15)
[2022-02-08] MEDS: lisinopril 20mg tablet PO SCH (08:12)
[2022-02-08 08:30] VITALS: BP 187/93
--- NOTE | 2022-02-08 18:21 | NUR ---
Nursing Progress Note: Ernie Problem: Pt. reports a plan to slit his wrist, believes he is after being killed in [place], delusional beliefs, unable to safety plan. Pt has a history of PTSD, coronary artery disease, sleep apnea, HTN, DM II, CABG 4 mo. ago. Intervention: Provided with a safe and therapeutic environment, clear communication, active listening and positive encouragement. Response: Patient is resting quietly in bed at the start of the shift. Cooperative with medication and assessment. Appears depressed and verbalizes ongoing SI. Also endorses auditory hallucinations that are command in nature. Patient is guarded/ withdrawn. Spends most of the shift watching TV in the community room. Plan: Patient continues to require crisis interruption and stabilization with medication management and monitoring in a safe and therapeutic environment.
[2022-02-08 19:00] VITALS: BP 187/114
[2022-02-08 19:45] VITALS: BP 159/91
[2022-02-08] MEDS: cyclobenzaprine 10mg tablet PO PRN (20:09)
[2022-02-08 21:06] VITALS: BP 108/51
--- NOTE | 2022-02-09 00:35 | NUR ---
Nursing Progress Note : Ernie Problem : Pt admitted today on 5150 from PCU for DTS at 1415. Pt. reports a plan to slit his wrist, believes he is after being killed in [place], delusional beliefs, unable to safety plan. Pt has a history of PTSD, coronary artery disease, sleep apnea, HTN, DM II, CABG 4 mo. ago. Interventions : Maintained a safe and supportive environment, provided clear and simple instructions, encouraged independent performance of ADLs and participation on the unit, monitored blood sugars, maintained fall precautions, and maintained Q 15min safety checks. Response :patient in community room at shift change. Pt 1:1, pt reports that he hears voices but denies SI/HI. Patient mostly keeps to self, watches TV in community room until bedtime. patient VS were high at 187/114 R arm, Metoprolol 100mg given VS eventually went down to 108/66 by bedtime. Patient asked for another tray of food at this time. Patient denied extra tray due to high blood pressure. Patient blood glucose 112. Pt given Flexeril with evening meds for pain in ribs. Pt C-PAP set up by RT and patient went to sleep shortly after evening med pass with no complaints.. Plan : Per Dr. Best, pt. continues to require a safe and supportive environment and has no viable plans for discharge at this time.
[2022-02-09 07:21] VITALS: BP 143/77
[2022-02-09] MEDS: aspirin 81mg, enteric-coated 1 TAB TABLET.DR PO SCH (08:24)
[2022-02-09] MEDS: linagliptin 5mg tablet PO SCH (08:25)
[2022-02-09] MEDS: clopidogrel 75mg tablet PO SCH (08:25)
[2022-02-09] MEDS: nicotine 14mg patch - 24hr TD SCH (08:25)
[2022-02-09] MEDS: NIFEdipine XL 30mg tablet PO SCH (08:25)
[2022-02-09] MEDS: atorvastatin 20mg tablet PO SCH (08:25)
[2022-02-09] MEDS: isosorbide mononitrate 30mg tab.SR.24H PO SCH (08:25)
[2022-02-09] MEDS: lisinopril 20mg tablet PO SCH ×2 (08:26→20:09)
[2022-02-09] MEDS: metoprolol tartrate 50mg tablet PO SCH ×2 (08:26→20:07)
[2022-02-09] MEDS: QUEtiapine 25mg tablet PO SCH ×3 (08:26→20:07)
[2022-02-09] MEDS: duloxetine 30mg CAPSULE.DR PO SCH (08:26)
[2022-02-09] MEDS: cyclobenzaprine 10mg tablet PO PRN ×2 (08:28→20:06)
[2022-02-09] MEDS: LIDOcaine 5% patch TP SCH (08:28)
--- NOTE | 2022-02-09 15:41 | NUR ---
Nursing Progress Note: Problem : Pt admitted today on 5150 from PCU for DTS at 1415. Pt. reports a plan to slit his wrist, believes he is after being killed in [place], delusional beliefs, unable to safety plan. Pt has a history of PTSD, coronary artery disease, sleep apnea, HTN, DM II, CABG 4 mo. ago. Interventions : Maintained a safe and supportive environment, provided clear and simple instructions, encouraged independent performance of ADLs and participation on the unit, provided active listening and positive encouragement, maintained fall precautions, and maintained Q 15min safety checks. Response : Received pt. sleeping wearing his CPap at the beginning of the shift, he was awoken to attend breakfast and CPap machine was removed from his room per safety precautions. Pt. attended breakfast with use of FWW, and afterwards sat up in the Group Room watching TV as is his routine. He continues to be withdrawn and is not observed to be interacting with others. Pt. continues to c/o chronic right sided pain and PRN Flexeril was administered with effectiveness. Later, pt. again requested pain medication, however when offered PRN Tylenol he refused stating, "It doesn't do anything for me, I need something stronger." 1:1 was completed, pt. continues to present with a blunted affect and responds minimally to direct questions. He reports ongoing S/I, however denies any plan. Pt. states, "I feel better, but I'm just not out of the champion yet." He also continues to report A/TAYLOR which are command in nature, as well as V/TAYLOR of "Images." Pt. then makes what appears to be a delusional statement, "It's some kind of curse on me or something." Pt. naps intermittently during the day, and sits up in the Group Room watching TV at intervals. Plan : Per Dr. Antoine, pt. continues to require a safe and supportive environment and medication adjustments. He is a high risk discharge r/t ongoing S/I.
[2022-02-09 20:00] VITALS: BP 146/86
--- NOTE | 2022-02-10 04:05 | NUR ---
Nursing Progress Note: Problem: Pt. reports a plan to slit his wrist, believes he is after being killed in [place], delusional beliefs, unable to safety plan. Pt has a history of PTSD, coronary artery disease, sleep apnea, HTN, DM II, CABG 4 mo. ago. Intervention: Provided with a safe and therapeutic environment, clear communication, active listening and positive encouragement. Response: Patient is observed sitting in the community room watching television. Light socialization noted. Patient endorses audible and visual hallucinations. eg: "Invisable people that come into focus, agressive voices that say they want to hurt me." He complains of depression. S/I without a plan. No H/I. Patient ate his dinner and is medication compliant. Plan: Patient continues to require crisis interruption and stabilization with medication management and monitoring in a safe and therapeutic environment.
[2022-02-10] MEDS: HYDROchlorothiazide 12.5mg capsule PO SCH (07:17)
[2022-02-10] MEDS: atorvastatin 20mg tablet PO SCH (07:18)
[2022-02-10] MEDS: clopidogrel 75mg tablet PO SCH (07:18)
[2022-02-10] MEDS: aspirin 81mg, enteric-coated 1 TAB TABLET.DR PO SCH (07:18)
[2022-02-10] MEDS: duloxetine 30mg CAPSULE.DR PO SCH (07:19)
[2022-02-10] MEDS: linagliptin 5mg tablet PO SCH (07:19)
[2022-02-10] MEDS: isosorbide mononitrate 30mg tab.SR.24H PO SCH (07:19)
[2022-02-10] MEDS: QUEtiapine 25mg tablet PO SCH ×3 (07:20→20:22)
[2022-02-10] MEDS: metoprolol tartrate 50mg tablet PO SCH ×2 (07:21→20:22)
[2022-02-10] MEDS: NIFEdipine XL 30mg tablet PO SCH (07:21)
[2022-02-10] MEDS: LIDOcaine 5% patch TP SCH (07:22)
[2022-02-10] MEDS: nicotine 14mg patch - 24hr TD SCH (07:22)
[2022-02-10 07:37] VITALS: BP 132/76
[2022-02-10] MEDS ORDERED: lisinopril 20mg tablet PO SCH (08:00)
[2022-02-10] MEDS ORDERED: tizanidine 4mg tablet PO PRN (08:30)
[2022-02-10] MEDS: traMADol 50MG tablet PO PRN ×2 (10:52→19:11)
--- NOTE | 2022-02-10 15:59 | NUR ---
Nursing Progress Note: Ernie Problem : Pt admitted on 5150 from PCU for DTS at 1415. Pt. reports a plan to slit his wrist, believes he is after being killed in [place], delusional beliefs, unable to safety plan. Pt has a history of PTSD, coronary artery disease, sleep apnea, HTN, DM II, CABG 4 mo. ago. Interventions : Maintained a safe and supportive environment, provided clear and simple instructions, encouraged independent performance of ADLs and participation on the unit, monitored blood sugars, maintained fall precautions, and maintained Q 15min safety checks. Response : Pt. endorses passive SI, and AH stating the voices are threatening he denies HI, VH. Pt. presents as depressed and isolated in his room for most of the shift. Pt. ate all meals in the main dining room with cohorts, he tolerates sitting with others but does not engage. Pt. takes his medication without hesitancy and requested pain medication for his Rt. side; PRN Tramadol given. Pt. is disheveled with poor hygiene and is wearing some street clothes. He has no s/sx of hypo or hyperglycemia with a FBS of 102 at 0700. Plan : Per Dr. Best, pt. continues to require a safe and supportive environment and has no viable plans for discharge at this time.
[2022-02-10 19:36] VITALS: BP 167/86
[2022-02-10] MEDS: lisinopril 20mg tablet PO SCH (20:23)
--- NOTE | 2022-02-11 01:49 | NUR ---
Nursing Progress Note: Ernie Problem : Pt admitted on 5150 from PCU for DTS at 1415. Pt. reports a plan to slit his wrist, believes he is after being killed in [place], delusional beliefs, unable to safety plan. Pt has a history of PTSD, coronary artery disease, sleep apnea, HTN, DM II, CABG 4 mo. ago. Interventions : Maintained a safe and supportive environment, provided clear and simple instructions, encouraged independent performance of ADLs and participation on the unit, monitored blood sugars, maintained fall precautions, and maintained Q 15min safety checks. Response : Pt in room at start of shift. Came to group room for snack and returned to room. Pleasant and cooperative wit care. No delusional statements this shift. He says he is still depressed. He is not suicidal at this time but if released on the streets he will be. He denies HI, A/VH at this time. Pt. is disheveled with poor hygiene and is wearing street clothes. He has no s/sx of hypo or hyperglycemia with a FBS of 102 at 0700. RT set up BiPap for pt at . Plan : Per Dr. Best, pt. continues to require a safe and supportive environment and has no viable plans for discharge at this time.
[2022-02-11 08:00] VITALS: BP 144/82
[2022-02-11] MEDS: LIDOcaine 5% patch TP SCH (08:11)
[2022-02-11] MEDS: nicotine 14mg patch - 24hr TD SCH (08:11)
[2022-02-11] MEDS: isosorbide mononitrate 30mg tab.SR.24H PO SCH (08:11)
[2022-02-11] MEDS: clopidogrel 75mg tablet PO SCH (08:12)
[2022-02-11] MEDS: metoprolol tartrate 50mg tablet PO SCH ×2 (08:12→21:11)
[2022-02-11] MEDS: HYDROchlorothiazide 12.5mg capsule PO SCH (08:12)
[2022-02-11] MEDS: linagliptin 5mg tablet PO SCH (08:13)
[2022-02-11] MEDS: atorvastatin 20mg tablet PO SCH (08:13)
[2022-02-11] MEDS: duloxetine 30mg CAPSULE.DR PO SCH (08:13)
[2022-02-11] MEDS: aspirin 81mg, enteric-coated 1 TAB TABLET.DR PO SCH (08:13)
[2022-02-11] MEDS: QUEtiapine 25mg tablet PO SCH ×3 (08:15→21:10)
[2022-02-11] MEDS: NIFEdipine XL 30mg tablet PO SCH (08:15)
[2022-02-11] MEDS: traMADol 50MG tablet PO PRN ×2 (08:33→14:36)
--- NOTE | 2022-02-11 16:57 | NUR ---
Nursing Progress Note: Problem: Pt admitted on 5150 from PCU for DTS at 1415. Pt. reports a plan to slit his wrist, believes he is after being killed in [place], delusional beliefs, unable to safety plan. Pt has a history of PTSD, coronary artery disease, sleep apnea, HTN, DM II, CABG 4 mo. ago. Interventions: Received patient who was sleeping in his bed with the C-PAP on. Patient ambulated to the Community Room and sat with others. After breakfast Physical Assessment and Patient Interview completed while he was in his room. Response: Spent time interviewing the patient. He reports he feels suicidal and states I know I need to be here for a while longer. I am not ready to leave at all. Patient was sitting on his bed in his room all morning with headphones on listening to the music. Patient requested Ultram x2 for c/o right lateral rib pain. Lidocaine patch intact right lateral ribs per pts request. Patient reports he does relieve some relief from using the muscle relaxer and the Ultram as needed. Patient reports he goes through different times feeling suicidal. Patient said some days are much worse than others. Plan: Continues to require a safe and supportive environment and has no viable plans for discharge at this time.
[2022-02-11 20:00] VITALS: BP 154/87
[2022-02-11] MEDS: lisinopril 20mg tablet PO SCH (21:11)
--- NOTE | 2022-02-12 01:32 | NUR ---
Nursing Progress Note: Ernie Problem: Pt admitted on 5150 from PCU for DTS at 1415. Pt. Reports a plan to slit his wrist, believes he is after being killed in [place], delusional beliefs, unable to safety plan. Pt has a history of PTSD, coronary artery disease, sleep apnea, HTN, DM II, CABG 4 mo. ago. Interventions: Maintained a safe and supportive environment, provided clear and simple instructions, encouraged independent performance of ADLs and participation on the unit, monitored blood sugars, maintained fall precautions, and maintained Q 15min safety checks. Response: Pt came to snack in group room. The rest of the shift spent in room. Pleasant and cooperative with care. No delusional statements this shift. Pt states he is still depressed It is getting better he said he has A little bit of SI. He denies HI, A/VH at this time. No delusional statements this shift. Pt. is disheveled with poor hygiene and is wearing street clothes. BS 114 RT set up BiPap for pt at . Plan: Per Dr. Best, pt. continues to require a safe and supportive environment and has no viable plans for discharge at this time.
--- NOTE | 2022-02-12 07:20 | NUR ---
Reassessment: Pt continues on Carb control diet w/ mostly 100% intake of meals and also participates in snacks per documentation, overall likely meeting est needs at this time. Pt noted to wear CPAP during the night r/t sleep apnea. [facility] 02/08. No nutrition intervention implemented at this time, will continue to monitor. Recs: 1. Continue Carb control diet as tolerated 2. Bowel care PRN 3. Weekly wts Addendum: 02/12/22 at [address] Amended: Links added.
[2022-02-12] MEDS: aspirin 81mg, enteric-coated 1 TAB TABLET.DR PO SCH (07:46)
[2022-02-12] MEDS: duloxetine 30mg CAPSULE.DR PO SCH (07:46)
[2022-02-12] MEDS: isosorbide mononitrate 30mg tab.SR.24H PO SCH (07:47)
[2022-02-12] MEDS: HYDROchlorothiazide 12.5mg capsule PO SCH (07:48)
[2022-02-12] MEDS: atorvastatin 20mg tablet PO SCH (07:48)
[2022-02-12] MEDS: metoprolol tartrate 50mg tablet PO SCH ×2 (07:48→20:39)
[2022-02-12] MEDS: linagliptin 5mg tablet PO SCH (07:49)
[2022-02-12] MEDS: clopidogrel 75mg tablet PO SCH (07:49)
[2022-02-12] MEDS: NIFEdipine XL 30mg tablet PO SCH (07:49)
[2022-02-12] MEDS: nicotine 14mg patch - 24hr TD SCH (07:50)
[2022-02-12] MEDS: LIDOcaine 5% patch TP SCH (07:50)
[2022-02-12] MEDS: QUEtiapine 25mg tablet PO SCH ×3 (07:59→20:39)
[2022-02-12 08:05] VITALS: BP 145/77
[2022-02-12] MEDS: traMADol 50MG tablet PO PRN (14:27)
--- NOTE | 2022-02-12 16:56 | NUR ---
Nursing Progress Note: Problem: Pt admitted on 5150 from PCU for DTS at 1415. Pt. reports a plan to slit his wrist, believes he is after being killed in [place], delusional beliefs, unable to safety plan. Pt has a history of PTSD, coronary artery disease, sleep apnea, HTN, DM II, CABG 4 mo. ago. Interventions: Received patient awake sitting up in his bed. 1:1 done at bedside. Provided medications, medication compliant. Patient attended both meals. Provided shower. PRN tramadol administered for pain. Response: Pt. continues to feel suicidal stating, Im still feeling down and heavy. He also expressed about a man in [facility] who was filling the atmosphere with methamphetamines, making me feel suicidal and blaming a fugitive for the way he is feeling. Pt requested prune juice for hard stools, refused any further bowel care. Pt refused lidocaine patch stating it is ineffective. PRN tramadol effective. Plan: Continues to require a safe and supportive environment and has no viable plans for discharge at this time.
--- NOTE | 2022-02-12 17:27 | NUR ---
Pt. provided with shower, pt entered into shower room but was only in there less than 5 minutes. Pt changed out of his clothes into the gown provided. Soap was not used and towels were not wet. Pt continues to have a foul odor.
[2022-02-12 19:42] VITALS: BP 123/71
[2022-02-12 19:44] VITALS: BP 123/71
[2022-02-12] MEDS: lisinopril 20mg tablet PO SCH (20:40)
[2022-02-13 07:28] VITALS: BP 133/71
[2022-02-13] MEDS: isosorbide mononitrate 30mg tab.SR.24H PO SCH (07:38)
[2022-02-13] MEDS: duloxetine 30mg CAPSULE.DR PO SCH (07:38)
[2022-02-13] MEDS: aspirin 81mg, enteric-coated 1 TAB TABLET.DR PO SCH (07:38)
[2022-02-13] MEDS: atorvastatin 20mg tablet PO SCH (07:38)
[2022-02-13] MEDS: HYDROchlorothiazide 12.5mg capsule PO SCH (07:40)
[2022-02-13] MEDS: clopidogrel 75mg tablet PO SCH (07:40)
[2022-02-13] MEDS: NIFEdipine XL 30mg tablet PO SCH (07:40)
[2022-02-13] MEDS: metoprolol tartrate 50mg tablet PO SCH ×2 (07:40→20:45)
[2022-02-13] MEDS: linagliptin 5mg tablet PO SCH (07:41)
[2022-02-13] MEDS: QUEtiapine 25mg tablet PO SCH ×3 (07:41→20:47)
[2022-02-13] MEDS: nicotine 14mg patch - 24hr TD SCH (07:42)
[2022-02-13] MEDS: LIDOcaine 5% patch TP SCH (07:42)
[2022-02-13] MEDS: traMADol 50MG tablet PO PRN (08:03)
--- NOTE | 2022-02-13 14:45 | NUR ---
Nursing Progress Note: Problem: Pt admitted on 5150 from PCU for DTS. Pt. reports a plan to slit his wrist, believes he is after being killed in [place], delusional beliefs, unable to safety plan. Pt has a history of PTSD, coronary artery disease, sleep apnea, HTN, DM II, CABG 4 mo. ago. Interventions: 1:1 done at bedside, medication complaint. Patient attended both meals. Group provided; pt. did not attend, nurse invited pt. to attend group but he said, "not at this time." Response: Pt asleep at change of shift utilizing his CPAP. Pt awoken for blood sugar check and medication administration. BS was 94. Pt stated he is feeling better than yesterday but continues to have bouts of suicidal thoughts. Pt continues to refuse his nicotine and lidocaine patch. PRN ultram administered for right side pain with effective results. Plan: Continues to require a safe and supportive environment and has no viable plans for discharge at this time.
[2022-02-13 20:00] VITALS: BP 147/86
[2022-02-13] MEDS: lisinopril 20mg tablet PO SCH (20:48)
--- NOTE | 2022-02-14 02:29 | NUR ---
Nursing Progress Note: Problem: Pt admitted on 5150 from PCU for DTS. Pt. reports a plan to slit his wrist, believes he is after being killed in [place], delusional beliefs, unable to safety plan. Pt has a history of PTSD, coronary artery disease, sleep apnea, HTN, DM II, CABG 4 mo. ago. Interventions: 1:1 done at bedside, medication complaint. Patient attended both meals. Group provided; pt. did not attend, nurse invited pt. to attend group but he said, "not at this time." Response: Patient was encouraged at beginning o shift to take shower due to messy bed and strong order coming from patient. Shower was set up and patient was assisted into shower. Patient was completely dry and wearing same clothes. when asked if e had difficulty and why he didn't shower patient began screaming profanities at staff. Patient stayed in room until snack time. Patient participated in snack and then went to bed. Patient woke up to take night medications and went back to sleep. Plan: Continues to require a safe and supportive environment and has no viable plans for discharge at this time.
[2022-02-14 07:39] VITALS: BP 103/56
[2022-02-14] MEDS: nicotine 14mg patch - 24hr TD SCH ×2 (08:00→08:22)
[2022-02-14] MEDS: aspirin 81mg, enteric-coated 1 TAB TABLET.DR PO SCH (08:20)
[2022-02-14] MEDS: NIFEdipine XL 30mg tablet PO SCH (08:20)
[2022-02-14] MEDS: linagliptin 5mg tablet PO SCH (08:21)
[2022-02-14] MEDS: atorvastatin 20mg tablet PO SCH (08:21)
[2022-02-14] MEDS: QUEtiapine 25mg tablet PO SCH ×3 (08:21→20:58)
[2022-02-14] MEDS: duloxetine 30mg CAPSULE.DR PO SCH (08:21)
[2022-02-14] MEDS: HYDROchlorothiazide 12.5mg capsule PO SCH (08:21)
[2022-02-14] MEDS: clopidogrel 75mg tablet PO SCH (08:21)
[2022-02-14] MEDS: isosorbide mononitrate 30mg tab.SR.24H PO SCH (08:21)
[2022-02-14] MEDS: metoprolol tartrate 50mg tablet PO SCH ×2 (08:22→20:57)
[2022-02-14] MEDS: LIDOcaine 5% patch TP SCH (08:23)
[2022-02-14] MEDS: traMADol 50MG tablet PO PRN (08:59)
--- NOTE | 2022-02-14 09:02 | NUR ---
CASE MANAGEMENT Spoke with Pt. about what he his discharge plan is, he reported that he wants to go back to the [facility] area. When asked if he would be interested in going to the [facility], he declined and stated, "I will never go back there". This Vp Marketing also enquired about whether the gladis he was afraid of in [facility] was still there and he stated, "No he left, he's gone so I can go back". HEATHER GipsonW
--- NOTE | 2022-02-14 11:29 | NUR ---
CASE MANAGEMENT Referral to [facility]. Received correspondence from [facility] that there will be no male beds available until the second week of February. Aimee Farley LCSW
--- NOTE | 2022-02-14 16:28 | NUR ---
Nursing Progress Note: Problem : Pt was admitted on 5150 from PCU for DTS. Pt. reports a plan to slit his wrist, believes he is after being killed in [place], delusional beliefs, unable to safety plan. Pt has a history of PTSD, coronary artery disease, sleep apnea, HTN, DM II, CABG 4 mo. ago. Interventions : Maintained a safe and supportive environment, provided clear and simple instructions, encouraged independent performance of ADLs and participation on the unit, provided active listening and positive encouragement, maintained fall precautions, provided education regarding hand washing r/t MRSA positive culture, and maintained Q 15min safety checks. Response : Received pt. sleeping wearing his CPap at the beginning of the shift, he awoke to attend breakfast and CPap machine was removed from his room per safety precautions. After breakfast, 1:1 was completed at bedside. Pt. endorses passive S/I without any current plan. He continues to report command A/TAYLOR at intervals. Pt. also makes what appear to be paranoid delusional statements regarding his belief that others "Up in [facility]" want to hurt him. Pt. continues to be withdrawn from others and naps, journals, or watches TV at intervals during the shift. Plan : Per Dr. Antoine, pt. continues to require a safe and supportive environment. Discharge will be to the [place] vs. [facility].
[2022-02-14 20:00] VITALS: BP 138/83
[2022-02-14] MEDS: lisinopril 20mg tablet PO SCH (20:57)
--- NOTE | 2022-02-15 02:54 | NUR ---
Nursing Progress Note: Problem : Pt was admitted on 5150 from PCU for DTS. Pt. reports a plan to slit his wrist, believes he is after being killed in [place], delusional beliefs, unable to safety plan. Pt has a history of PTSD, coronary artery disease, sleep apnea, HTN, DM II, CABG 4 mo. ago. Interventions : Maintained a safe and supportive environment, provided clear and simple instructions, encouraged independent performance of ADLs and participation on the unit, provided active listening and positive encouragement, maintained fall precautions, provided education regarding hand washing r/t MRSA positive culture, and maintained Q 15min safety checks. Response : Patient was found sitting in community room at beginning of shift. Patient was sitting staring off into the distance. Patient eventually got up and transferred back to bed. Patient got up to participate in snack and then connected to cpap machine. Patient again refuses to take shower but took night medications without argument. Plan : Per Dr. Antoine, pt. continues to require a safe and supportive environment. Discharge will be to the [place] vs. [facility].
[2022-02-15 08:00] VITALS: BP 125/65
[2022-02-15] MEDS: nicotine 14mg patch - 24hr TD SCH (08:00)
[2022-02-15] MEDS: linagliptin 5mg tablet PO SCH (08:22)
[2022-02-15] MEDS: NIFEdipine XL 30mg tablet PO SCH (08:22)
[2022-02-15] MEDS: HYDROchlorothiazide 12.5mg capsule PO SCH (08:22)
[2022-02-15] MEDS: metoprolol tartrate 50mg tablet PO SCH ×2 (08:22→20:35)
[2022-02-15] MEDS: duloxetine 30mg CAPSULE.DR PO SCH (08:23)
[2022-02-15] MEDS: QUEtiapine 25mg tablet PO SCH ×3 (08:23→20:34)
[2022-02-15] MEDS: aspirin 81mg, enteric-coated 1 TAB TABLET.DR PO SCH (08:23)
[2022-02-15] MEDS: atorvastatin 20mg tablet PO SCH (08:23)
[2022-02-15] MEDS: clopidogrel 75mg tablet PO SCH (08:23)
[2022-02-15] MEDS: LIDOcaine 5% patch TP SCH (08:25)
[2022-02-15] MEDS: isosorbide mononitrate 30mg tab.SR.24H PO SCH (08:25)
[2022-02-15] MEDS: traMADol 50MG tablet PO PRN (09:13)
--- NOTE | 2022-02-15 11:04 | NUR ---
CASE MANAGEMENT Pt. does have [facility]. Let Pt. know as his plan is to go to [facility] but he no longer has insurance coverage there. HEATHER GipsonW
[2022-02-15] MEDS ORDERED: duloxetine 30mg CAPSULE.DR PO ONE (12:25)
--- NOTE | 2022-02-15 16:17 | NUR ---
Nursing Progress Note: Problem : Pt was admitted on 5150 from PCU for DTS. Pt. reports a plan to slit his wrist, believes he is after being killed in [place], delusional beliefs, unable to safety plan. Pt has a history of PTSD, coronary artery disease, sleep apnea, HTN, DM II, CABG 4 mo. ago. Interventions : Maintained a safe and supportive environment, provided clear and simple instructions, encouraged independent performance of ADLs and participation on the unit, provided active listening and positive encouragement, maintained fall precautions, provided education regarding hand washing r/t MRSA positive culture, and maintained Q 15min safety checks. Response : Received pt. sleeping wearing his Cpap at the beginning of the shift, he awoke to attend breakfast and CPap machine was again removed from his room per safety precautions. Pt. was observed to be more present on the unit this shift, and he attended group playing Bingo with others. 1:1 was completed later at bedside, pt. continues to be guarded, however presents with increased animation and smiles at this underwriter solicitation director. He denies any S/I, but continues to report command A/TAYLOR which "Come and go." Pt. then laugh and states, "I think it's someone whispering in my ear." Pt. continues to endorse some ongoing delusional thoughts that others may want to hurt him, but reports he would feel safe if he was discharged from the hospital. He is hoping to go to [facility]. Pt. napped and wrote in his journal in the afternoon. Plan : Per Dr. Best, pt. continues to require a safe and supportive environment. Discharge will be to the [place] vs. [facility].
[2022-02-15 20:00] VITALS: BP 145/89
[2022-02-15] MEDS: lisinopril 20mg tablet PO SCH (20:35)
--- NOTE | 2022-02-16 00:55 | NUR ---
Nursing Progress Note: Problem : Pt was admitted on 5150 from PCU for DTS. Pt. reports a plan to slit his wrist, believes he is after being killed in [place], delusional beliefs, unable to safety plan. Pt has a history of PTSD, coronary artery disease, sleep apnea, HTN, DM II, CABG 4 mo. ago. Interventions : Maintained a safe and supportive environment, provided clear and simple instructions, encouraged independent performance of ADLs and participation on the unit, provided active listening and positive encouragement, maintained fall precautions, provided education regarding hand washing r/t MRSA positive culture, and maintained Q 15min safety checks. Response : Patient was found sitting in community room watching tv. Patient hygiene continues to decline due to patient refusing to take shower. Patient has a lingering odor and wont change out of dirty clothes. Patient was again encourage to take shower or use cleansing wipes and still refuses. Patient became agitated with nurse due to there request for him to clean himself and returned to bedroom. Patient stayed in room until snack time where he participated and again returned to bed. Patient took all night medications without issue. Plan : Per Dr. Best, pt. continues to require a safe and supportive environment. Discharge will be to the [place] vs. [facility]
[2022-02-16 08:00] VITALS: BP 139/76
[2022-02-16] MEDS: duloxetine 30mg CAPSULE.DR PO SCH (08:21)
[2022-02-16] MEDS: aspirin 81mg, enteric-coated 1 TAB TABLET.DR PO SCH (08:21)
[2022-02-16] MEDS: isosorbide mononitrate 30mg tab.SR.24H PO SCH (08:21)
[2022-02-16] MEDS: atorvastatin 20mg tablet PO SCH (08:22)
[2022-02-16] MEDS: metoprolol tartrate 50mg tablet PO SCH ×2 (08:22→20:34)
[2022-02-16] MEDS: QUEtiapine 25mg tablet PO SCH ×3 (08:23→20:33)
[2022-02-16] MEDS: NIFEdipine XL 30mg tablet PO SCH (08:23)
[2022-02-16] MEDS: clopidogrel 75mg tablet PO SCH (08:23)
[2022-02-16] MEDS: HYDROchlorothiazide 12.5mg capsule PO SCH (08:23)
[2022-02-16] MEDS: linagliptin 5mg tablet PO SCH (08:23)
[2022-02-16] MEDS: nicotine 14mg patch - 24hr TD SCH (08:23)
[2022-02-16] MEDS: traMADol 50MG tablet PO PRN ×2 (14:54→21:41)
--- NOTE | 2022-02-16 17:10 | NUR ---
Nursing Progress Note: Problem: Pt was admitted on 5150 from PCU for DTS. Patient reports a plan to slit his wrist, believes he is after being killed in [place], delusional beliefs, unable to safety plan. Pt has a history of PTSD, coronary artery disease, sleep apnea, HTN, DM II, CABG 4 mo. ago. Interventions: Received patient while he was awake and his CPAP was currently running at his bedside. Checked patients fasting BS via Glucometer was 110. Patient woke up and took all prescribed medications without hesitation. Physical Assessment and Patient Interview completed after medications given. Provided a safe and supportive environment, provided clear and simple instructions, encouraged independent performance of ADLs and participation on the unit, provided active listening and positive encouragement, maintained fall precautions, provided education regarding hand washing r/t MRSA positive culture, and maintained Q 15min safety checks. Response: Patient self-isolated in his room all day. Patient slept most of the time then got out of bed for his lunch and snack at 1500. Patient c/o pain in his right lateral ribs rated at a 6 on a scale of 1-10. Ultram given per MD orders. Patient reports he received relief after taking the Ultram. Patient is soft spoken and also continues to refuse an offered shower on day shift and nocs. Patient does not give a reason but just states No. Will continue to encourage a shower on a daily basis until successful. Plan: Patient continues to require a safe and supportive environment. Discharge will be to the [place] vs. [facility].
[2022-02-16 20:00] VITALS: BP_SYST 134
[2022-02-16] MEDS: lisinopril 20mg tablet PO SCH (20:33)
--- NOTE | 2022-02-17 02:16 | NUR ---
Nursing Progress Note: Problem : Pt was admitted on 5150 from PCU for DTS. Pt. reports a plan to slit his wrist, believes he is after being killed in [place], delusional beliefs, unable to safety plan. Pt has a history of PTSD, coronary artery disease, sleep apnea, HTN, DM II, CABG 4 mo. ago. Interventions : Maintained a safe and supportive environment, provided clear and simple instructions, encouraged independent performance of ADLs and participation on the unit, provided active listening and positive encouragement, maintained fall precautions, provided education regarding hand washing r/t MRSA positive culture, and maintained Q 15min safety checks. Response : Received pt. up watching TV in the Group Room at the beginning of the shift, he remains withdrawn and is not observed to be interacting with others. Pt. attended snack and then retreated to bed. 1:1 was completed at bedside, pt. continues to present as guarded and responds minimally to questions, but he is exhibiting increased animation and even smiles or laughs at intervals. Pt. denies any S/I, but reports some ongoing A/TAYLOR stating, "They come and go." When questioned by this typewriter operator automatic regarding whether these hallucinations continue to be command in nature (tell him to hurt himself), pt. laughs and states, "No, they want to hurt me!" Pt. c/o chronic right sided pain and PRN Ultram was administered with effectiveness. Cpap was later placed by respiratory and pt. appears to be sleeping well, will continue to monitor closely. Per report form AM shift, pt. did shower today. He presents as less unkempt and malodorous. Plan : Per Dr. Bset, pt. continues to require a safe and supportive environment. Discharge will be to the [place] vs. [facility].
[2022-02-17 07:45] VITALS: BP 114/66
[2022-02-17] MEDS: duloxetine 30mg CAPSULE.DR PO SCH (08:46)
[2022-02-17] MEDS: NIFEdipine XL 30mg tablet PO SCH (08:47)
[2022-02-17] MEDS: HYDROchlorothiazide 12.5mg capsule PO SCH (08:47)
[2022-02-17] MEDS: nicotine 14mg patch - 24hr TD SCH (08:47)
[2022-02-17] MEDS: isosorbide mononitrate 30mg tab.SR.24H PO SCH (08:48)
[2022-02-17] MEDS: metoprolol tartrate 50mg tablet PO SCH ×2 (08:48→20:14)
[2022-02-17] MEDS: clopidogrel 75mg tablet PO SCH (08:48)
[2022-02-17] MEDS: aspirin 81mg, enteric-coated 1 TAB TABLET.DR PO SCH (08:48)
[2022-02-17] MEDS: atorvastatin 20mg tablet PO SCH (08:49)
[2022-02-17] MEDS: linagliptin 5mg tablet PO SCH (08:49)
[2022-02-17] MEDS: QUEtiapine 25mg tablet PO SCH ×3 (08:49→20:09)
--- NOTE | 2022-02-17 17:03 | NUR ---
Nursing Progress Note: Problem: Pt was admitted on 5150 from PCU for DTS. Patient reports a plan to slit his wrist, believes he is after being killed in [place], delusional beliefs, unable to safety plan. Pt has a history of PTSD, coronary artery disease, sleep apnea, HTN, DM II, CABG 4 mo. ago. Interventions: Received patient while he was sleeping in bed with his CPAP mask on. Patients blood glucose was checked at 0722 and patient then woke up and ambulated to the Community Room for breakfast. Physical Assessment and Patient Interview were completed as patient waited for his breakfast. Patient still refusing to shower or receive assistance to shower. Response: Patient took his medications without hesitation. Patient had no c/o pain of his right lateral ribs. Patient sat up in his bed or in the Community Room much of the day. Patient has no complaints and his affect is blunted. Fasting blood sugar was 100 this morning at 0722. Patient does not interact with peers but sit alone or self isolates back in his bed. Plan: Patient continues to require a safe and supportive environment. Discharge will be to the [place] vs[facility].
[2022-02-17 19:31] VITALS: BP 114/55
[2022-02-17] MEDS: lisinopril 20mg tablet PO SCH (20:10)
[2022-02-17] MEDS: traMADol 50MG tablet PO PRN (20:15)
--- NOTE | 2022-02-18 01:54 | NUR ---
Nursing Progress Note: Problem : Pt was admitted on 5150 from PCU for DTS. Pt. reports a plan to slit his wrist, believes he is after being killed in [place], delusional beliefs, unable to safety plan. Pt has a history of PTSD, coronary artery disease, sleep apnea, HTN, DM II, CABG 4 mo. ago. Interventions : Maintained a safe and supportive environment, provided clear and simple instructions, encouraged independent performance of ADLs and participation on the unit, provided active listening and positive encouragement, maintained fall precautions, provided education regarding hand washing r/t MRSA positive culture, and maintained Q 15min safety checks. Response : Pt sitting on bed at start of shift. Only came out of room for snack. Pt says he is still a little depressed "but I am much better". He said he thinks he is ready for discharge. He is hoping to go to the [facility]. Asked for Tramadol for chest wall pain. Took all HS meds and RT hooked up his BiPap pt went to bed sleeping at this time. Plan : Per Dr. Best, pt. continues to require a safe and supportive environment. Discharge will be to the [place] vs[facility].
[2022-02-18 08:00] VITALS: BP 148/81
[2022-02-18] MEDS: isosorbide mononitrate 30mg tab.SR.24H PO SCH (08:09)
[2022-02-18] MEDS: aspirin 81mg, enteric-coated 1 TAB TABLET.DR PO SCH (08:09)
[2022-02-18] MEDS: atorvastatin 20mg tablet PO SCH (08:09)
[2022-02-18] MEDS: duloxetine 30mg CAPSULE.DR PO SCH (08:09)
[2022-02-18] MEDS: metoprolol tartrate 50mg tablet PO SCH ×2 (08:10→20:21)
[2022-02-18] MEDS: linagliptin 5mg tablet PO SCH (08:11)
[2022-02-18] MEDS: HYDROchlorothiazide 12.5mg capsule PO SCH (08:11)
[2022-02-18] MEDS: QUEtiapine 25mg tablet PO SCH ×3 (08:11→20:21)
[2022-02-18] MEDS: NIFEdipine XL 30mg tablet PO SCH (08:11)
[2022-02-18] MEDS: clopidogrel 75mg tablet PO SCH (08:11)
[2022-02-18] MEDS: nicotine 14mg patch - 24hr TD SCH (08:12)
--- NOTE | 2022-02-18 17:44 | NUR ---
Nursing Progress Note: Problem: Pt was admitted on 5150 from PCU for DTS. Patient reports a plan to slit his wrist, believes he is after being killed in [place], delusional beliefs, unable to safety plan. Pt has a history of PTSD, coronary artery disease, sleep apnea, HTN, DM II, CABG 4 mo. ago. Interventions: Received patient while he was awake and sitting in the Community Room waiting for breakfast, and was drinking coffee and watching TV. Patient took his scheduled medications without hesitation. Physical Assessment & Patient Interview completed with patient. Response: Patient has a flat affect and answers yes/no to most questions. Patient does not divulge any further information during the Patient Interview. Patient reports that he does feel suicidal at times, but does not have a plan. Patient reports he likes it here, and is not sure when he will be ready to discharge as he is on Voluntary status. Patient was tested for COVID secondary to rooming with a patient who earlier today tested positive for COVID. Patients COVID test was collected by Srinivas Tucker RN, and was negative for COVID. Patient was moved to Room 332A so that he was no longer rooming with a positive COVID patient. Will continue to monitor for s/s of COVID of the next following days. Plan: Patient continues to require a safe and supportive environment. Discharge will be to the [place] vs[facility].
[2022-02-18] MEDS: traMADol 50MG tablet PO PRN (19:04)
[2022-02-18] MEDS: lisinopril 20mg tablet PO SCH (20:21)
[2022-02-18 20:32] VITALS: BP 149/84
--- NOTE | 2022-02-18 23:44 | NUR ---
Nursing Progress Note: Ernie Problem: Pt was admitted on 5150 from PCU for DTS. Patient reports a plan to slit his wrist, believes he is after being killed in [place], delusional beliefs, unable to safety plan. Pt has a history of PTSD, coronary artery disease, sleep apnea, HTN, DM II, CABG 4 mo. ago. Interventions: : Maintained a safe and supportive environment, provided clear and simple instructions, encouraged independent performance of ADLs and participation on the unit, provided active listening and positive encouragement, maintained fall precautions, provided education regarding hand washing r/t MRSA positive culture, and maintained Q 15min safety checks. Response: Received pt in community room watching TV alone at the table. Pt appears depressed with flat affect. Patient denies SI and less anxious tonight. Pt requested PRN pain medication for 5/10 right rib pain. Provided pt with 25MG tramadol with good effect. Pt remained in community room for snacks and took all HS medications without issue. Pt to bed shortly after med pass. No other needs at this time. Plan: Patient continues to require a safe and supportive environment. Discharge will be to the [place] vs. [facility].
[2022-02-19 08:03] VITALS: BP 165/86
[2022-02-19] MEDS: linagliptin 5mg tablet PO SCH (08:06)
[2022-02-19] MEDS: QUEtiapine 25mg tablet PO SCH ×3 (08:06→20:16)
[2022-02-19] MEDS: NIFEdipine XL 30mg tablet PO SCH (08:06)
[2022-02-19] MEDS: duloxetine 30mg CAPSULE.DR PO SCH (08:07)
[2022-02-19] MEDS: HYDROchlorothiazide 12.5mg capsule PO SCH (08:08)
[2022-02-19] MEDS: metoprolol tartrate 50mg tablet PO SCH ×2 (08:08→20:17)
[2022-02-19] MEDS: clopidogrel 75mg tablet PO SCH (08:08)
[2022-02-19] MEDS: isosorbide mononitrate 30mg tab.SR.24H PO SCH (08:08)
[2022-02-19] MEDS: aspirin 81mg, enteric-coated 1 TAB TABLET.DR PO SCH (08:08)
[2022-02-19] MEDS: atorvastatin 20mg tablet PO SCH (08:08)
[2022-02-19] MEDS: nicotine 14mg patch - 24hr TD SCH (08:14)
--- NOTE | 2022-02-19 11:06 | NUR ---
Reassessment: Pt continues on Carb control diet w/ mostly 100% intake of meals and also participates in snacks per documentation, overall likely meeting est needs at this time. Pt noted to wear CPAP during the night r/t sleep apnea. [facility] 02/16. No nutrition intervention implemented at this time, will continue to monitor. Recs: 1. Continue Carb control diet as tolerated 2. Bowel care PRN 3. Weekly wts Addendum: 02/19/[address] at [address] Amended: Links added.
[2022-02-19 11:57] LABS: BASOPHILS # (AUTO) 0.1 X10'3 (0-0.2); BASOPHILS % (AUTO) 0.9 % (0-1); EOSINOPHILS # (AUTO) 0.2 X10'3 (0-0.9); HEMATOCRIT 39.9 % (42.0-52.0); HEMOGLOBIN 13.4 g/dl (14.0-17.9); LYMPHOCYTES # (AUTO) 1.3 X10'3 (1.1-4.8); LYMPHOCYTES % (AUTO) 22.2 % (21-51); MEAN CORPUSCULAR HEMOGLOBIN 26.1 PG (27.0-31.0); MEAN CORPUSCULAR HGB CONC 33.6 g/dL (33.0-36.5); MEAN CORPUSCULAR VOLUME 77.7 FL (78-98); MEAN PLATELET VOLUME 7.4 FL (7.4-10.4); MONOCYTES # (AUTO) 0.5 X10'3 (0-0.9); MONOCYTES % (AUTO) 8.2 % (2-12); NEUTROPHILS # (AUTO) 3.8 X10'3 (1.8-7.7); NEUTROPHILS % (AUTO) 65.7 % (42-75); PLATELET COUNT 213 X10'3 (140-440); RED BLOOD COUNT 5.13 X10'6 (4.70-6.10); RED CELL DISTRIBUTION WIDTH 15.7 % (11.5-14.5); WHITE BLOOD COUNT 5.8 X10'3 (4.5-11.0)
[2022-02-19 12:13] LABS: ALANINE AMINOTRANSFERASE 18 U/L (12-78); ALBUMIN 2.8 G/DL (3.4-5.0); ALBUMIN/GLOBULIN RATIO 0.7 (1.1-1.5); ALKALINE PHOSPHATASE 109 IU/L (46-116); ANION GAP 8 (8-16); ASPARTATE AMINO TRANSFERASE 15 U/L (10-37); BILIRUBIN,TOTAL 0.4 MG/DL (0.1-1.0); BLOOD UREA NITROGEN 30 MG/DL (7-18); BUN/CREATININE RATIO 15.1 (5.4-32.0); CALCIUM 8.6 MG/DL (8.5-10.1); CHLORIDE 103 MMOL/L (99-107); CREATININE 1.99 MG/DL (0.60-1.10); GLUCOSE 113 MG/DL (70-104); MAGNESIUM 1.8 MG/DL (1.5-2.4); PHOSPHORUS 3.7 MG/DL (2.3-4.5); SODIUM 141 MMOL/L (135-145); TOTAL CARBON DIOXIDE 29.9 MMOL/L (24-32); TOTAL PROTEIN 6.7 G/DL (6.4-8.2); eGFR 35 ML/MIN
--- NOTE | 2022-02-19 16:17 | NUR ---
NURSING PROGRESS NOTE Problem : Pt was admitted on 5150 from PCU for DTS. Pt. reports a plan to slit his wrist, believes he is after being killed in [place], delusional beliefs, unable to safety plan. Pt has a history of PTSD, coronary artery disease, sleep apnea, HTN, DM II, CABG 4 mo. ago. Interventions : Maintained a safe and supportive environment, provided clear and simple instructions, encouraged independent performance of ADLs and participation on the unit, provided active listening and positive encouragement, maintained fall precautions, blood glucose management, provided education regarding hand washing r/t MRSA positive culture, and maintained Q 15min safety checks. Assessed for Covid symptoms. Response : Received patient sleeping at shift change. Pt is wearing C-PAP machine without issue. Pts FBG was 98. Pt ate all meals in his room r/t Covid outbreak on unit. No group. Pt stayed in his room, again r/t to outbreak. Pt endorses depression Its strong, I just feel fatigued. Pt denies suicidal/homicidal thoughts. When asked about A/VH not so much. Pt is pleasant on greeting. Doesnt offer information, but answers questions minimally. Pts affect is constricted with brightening. Pt is a good eater and consumes 100% of his meals. No c/o sore throat, headache, N/V, body aches. Plan : Patient continues to endorse depression and requires a safe and therapeutic environment. A safe discharge plan is being developed mission versus [facility] [place] ([facility]).
[2022-02-19] MEDS: lisinopril 20mg tablet PO SCH (20:18)
[2022-02-19 20:20] VITALS: BP 135/82
--- NOTE | 2022-02-19 23:55 | NUR ---
Nursing Progress Note: Ernie Problem : Patient was admitted on 5150 from PCU for DTS. Reported a plan to slit his wrist, believes he is after being killed in [place]. Delusional beliefs, unable to provide viable safety plan. History of PTSD, coronary artery disease, sleep apnea, HTN, DM II, CABG 4 months ago. Interventions : Maintained a safe and supportive environment, provided clear and simple instructions, encouraged independent performance of ADLs and participation on the unit, provided active listening and positive encouragement, encouraged expression of feelings and thoughts, maintained fall precautions, blood glucose management, provided education regarding hand washing related to MRSA positive culture, and maintained Q15 minute safety checks. Response: Patient received appearing to be asleep on BiPAP/CPAP at shift change. Upon waking for introduction, patient presented with flat affect, somewhat disheveled and fully unclothed but expressed that he feels depressed stating, Its strong, I just feel fatigued. Pt denies SI/HI or thoughts. When asked about A/VH, stated none today. Appeared to be guarded and withdrawn, but answers questions appropriately with minimal usage of words. Encouraged to keep clothes on, patient responded that he feels too warm. Afebrile, and denies any shortness of breath or cough. Took all medications without hesitation. Ok to take Lisinopril and Lopressor as BP 135/82 and HR 62. Last seen resting comfortably with BiPAP/CPAP strapped on. Plan : Patient continues to endorse depression and requires a safe and therapeutic environment. A safe discharge plan is being developed mission versus [facility] [place] ([facility]).
[2022-02-20 08:00] VITALS: BP 145/85
[2022-02-20] MEDS: aspirin 81mg, enteric-coated 1 TAB TABLET.DR PO SCH (08:07)
[2022-02-20] MEDS: isosorbide mononitrate 30mg tab.SR.24H PO SCH (08:07)
[2022-02-20] MEDS: duloxetine 30mg CAPSULE.DR PO SCH (08:07)
[2022-02-20] MEDS: atorvastatin 20mg tablet PO SCH (08:07)
[2022-02-20] MEDS: QUEtiapine 25mg tablet PO SCH ×3 (08:08→20:36)
[2022-02-20] MEDS: clopidogrel 75mg tablet PO SCH (08:08)
[2022-02-20] MEDS: HYDROchlorothiazide 12.5mg capsule PO SCH (08:09)
[2022-02-20] MEDS: linagliptin 5mg tablet PO SCH (08:09)
[2022-02-20] MEDS: metoprolol tartrate 50mg tablet PO SCH ×2 (08:19→20:35)
[2022-02-20] MEDS: NIFEdipine XL 30mg tablet PO SCH (08:19)
[2022-02-20] MEDS: nicotine 14mg patch - 24hr TD SCH (08:19)
--- NOTE | 2022-02-20 14:04 | NUR ---
CASE MANAGEMENT Placed a call to Francisco at [facility] to see if there are any available rooms to rent in one of their homes. Francisco reported that he has just filled up all the rooms and they will not have any availability for awhile unless someone unexpectedly leaves. Aimee Farley, [place]
--- NOTE | 2022-02-20 17:50 | NUR ---
NURSING PROGRESS NOTE Problem : Pt was admitted on 5150 from PCU for DTS. Pt. reports a plan to slit his wrist, believes he is after being killed in [place], delusional beliefs, unable to safety plan. Pt has a history of PTSD, coronary artery disease, sleep apnea, HTN, DM II, CABG 4 mo. ago. Interventions : Maintained a safe and supportive environment, provided clear and simple instructions, encouraged independent performance of ADLs and participation on the unit, provided active listening and positive encouragement, maintained fall precautions, blood glucose management, provided education regarding hand washing r/t MRSA positive culture, and maintained Q 15min safety checks. Assessed for Covid symptoms. Response : Received patient in bed sleeping w/o distress at shift change wearing C-PAP machine without issue. Pts blood sugar in AM was 100. Pt ate all meals in his room r/t Covid + Pts on the unit. No groups due to covid on unit. Pt ate meals well and snacks in his room. Pt is pleasant and cooperative and appears depressed still, although he denies SI. Pt napped with C-PAP intermittently. Pt stated he may discharge tomorrow to [facility] where he has friends. Pt did not c/o any covid sxs today. Plan : Patient continues to endorse depression and requires a safe and therapeutic environment. A safe discharge plan is being developed [facility]
[2022-02-20 20:00] VITALS: BP 139/81
[2022-02-20] MEDS: lisinopril 20mg tablet PO SCH (20:36)
--- NOTE | 2022-02-21 00:28 | NUR ---
NURSING PROGRESS NOTE Problem : Pt was admitted on 5150 from PCU for DTS. Pt. reports a plan to slit his wrist, believes he is after being killed in [place], delusional beliefs, unable to safety plan. Pt has a history of PTSD, coronary artery disease, sleep apnea, HTN, DM II, CABG 4 mo. ago. Interventions : Maintained a safe and supportive environment, provided clear and simple instructions, encouraged independent performance of ADLs and participation on the unit, provided active listening and positive encouragement, maintained fall precautions, blood glucose management, provided education regarding hand washing r/t MRSA positive culture, and maintained Q 15min safety checks. Assessed for Covid symptoms. Response : Patient was observed sitting in bed staring out of window at change of shift. Patient was again encouraged to take shower due to strong odor and again patient refused. Patient stayed in room majority of shift except for receiving snack. Patient took all night medications without issue and connected to cpap machine. Plan : Patient continues to endorse depression and requires a safe and therapeutic environment. A safe discharge plan is being developed [facility] ([facility]).
[2022-02-21 07:00] VITALS: BP 113/58
[2022-02-21] MEDS: metoprolol tartrate 50mg tablet PO SCH ×2 (08:00→20:21)
[2022-02-21] MEDS: linagliptin 5mg tablet PO SCH (08:08)
[2022-02-21] MEDS: clopidogrel 75mg tablet PO SCH (08:08)
[2022-02-21] MEDS: QUEtiapine 25mg tablet PO SCH ×3 (08:08→20:20)
[2022-02-21] MEDS: duloxetine 30mg CAPSULE.DR PO SCH (08:08)
[2022-02-21] MEDS: aspirin 81mg, enteric-coated 1 TAB TABLET.DR PO SCH (08:08)
[2022-02-21] MEDS: isosorbide mononitrate 30mg tab.SR.24H PO SCH (08:08)
[2022-02-21] MEDS: NIFEdipine XL 30mg tablet PO SCH (08:09)
[2022-02-21] MEDS: HYDROchlorothiazide 12.5mg capsule PO SCH (08:09)
[2022-02-21] MEDS: atorvastatin 20mg tablet PO SCH (08:10)
[2022-02-21] MEDS: nicotine 14mg patch - 24hr TD SCH (08:10)
--- NOTE | 2022-02-21 11:08 | NUR ---
Med note: Pt states meds not taken. Spoke with nurse and Song states he did give the meds and pt refused his Nicotine patch. Pts Metoprolol may have been given but not documented. Nonadministered since it was taken out of omnicell but not documented it was given but Song states it was given.
[2022-02-21] MEDS: traMADol 50MG tablet PO PRN (11:28)
--- NOTE | 2022-02-21 11:31 | NUR ---
DISCHARGE PLAN Pt. to discharge in the morning back to [facility]. Pt. purchased a ticket via [employer] for 9am tomorrow morning Feb 22 to return to [place]. He will take bus from [place] to [facility]. He will need to have a cab take him to the station tomorrow morning to get to his bus by 8:30 to board. Aimee Farley LCSW Addendum: 02/21/22 at 1542 by Aimee REYNOLDS His ticket is placed in an envelope in the discharge part of the file. He also has a copy as well as this [employer]. RODOLFO Garrido
--- NOTE | 2022-02-21 17:11 | NUR ---
NURSING PROGRESS NOTE Problem : Pt was admitted on 5150 from PCU for DTS. Pt. reports a plan to slit his wrist, believes he is after being killed in [place], delusional beliefs, unable to safety plan. Pt has a history of PTSD, coronary artery disease, sleep apnea, HTN, DM II, CABG 4 mo. ago. Interventions : Maintained a safe and supportive environment, provided clear and simple instructions, encouraged independent performance of ADLs and participation on the unit, provided active listening and positive encouragement, maintained fall precautions, blood glucose management, provided education regarding hand washing r/t MRSA positive culture, and maintained Q 15min safety checks. Assessed for Covid symptoms. Response : Received pt at approximately 10:00 a.m. Patient sitting crossed leg on bed staring out the window. Patient takes all medications as prescribed. One nap with CPAP machine on. Patient reports depression without SI. Per charting patient is to be discharged tomorrow at 9:00 a.m. Patient stayed in his room all day except to talk to Carlos at desk. Patient's affect is flat. Patient is dirty, dandruff on t-shirt, but patient unwilling to shower. Plan : Patient to be discharged to [place] via bus tomorrow and then taxi to [facility].
[2022-02-21 20:00] VITALS: BP 120/60
[2022-02-21 20:22] VITALS: BP_SYST 120
[2022-02-21] MEDS: lisinopril 20mg tablet PO SCH (20:22)
--- NOTE | 2022-02-21 21:04 | NUR ---
NURSING PROGRESS NOTE Problem : Pt was admitted on 5150 from PCU for DTS. Pt. reports a plan to slit his wrist, believes he is after being killed in [place], delusional beliefs, unable to safety plan. Pt has a history of PTSD, coronary artery disease, sleep apnea, HTN, DM II, CABG 4 mo. ago. Interventions : Maintained a safe and supportive environment, provided clear and simple instructions, encouraged independent performance of ADLs and participation on the unit, provided active listening and positive encouragement, maintained fall precautions, blood glucose management, provided education regarding hand washing r/t MRSA positive culture, and maintained Q 15min safety checks. Assessed for Covid symptoms. Response : Patient was observed sitting in bed at beginning of shift. Patient continued to stay in bed all shift. Nurse ask if he was planning on getting up and socializing. Patient stated everyone is staying in their rooms and nothing is going on. Patient took all night medications without difficulty and placed cpap on. Plan : Patient to be discharged to [place] via bus tomorrow and then taxi to [facility].
[2022-02-21] MEDS ORDERED: ISOS30TA84 PO (22:59)
[2022-02-21] MEDS ORDERED: DULO60CA60 PO (22:59)
[2022-02-21] MEDS ORDERED: LINA5TAB4 PO (22:59)
[2022-02-21] MEDS ORDERED: NIFE90TA44 PO (22:59)
[2022-02-21] MEDS ORDERED: CLOP75TA34 PO (22:59)
[2022-02-21] MEDS ORDERED: LISI20TA28 PO (22:59)
[2022-02-21] MEDS ORDERED: ATRIN INH (22:59)
[2022-02-21] MEDS ORDERED: ATOR40TA PO (22:59)
[2022-02-21] MEDS ORDERED: NICO-631 TD (22:59)
[2022-02-21] MEDS ORDERED: NITR0.4T51 SL (22:59)
[2022-02-21] MEDS ORDERED: QUET25TA36 PO (22:59)
[2022-02-21] MEDS ORDERED: HYDR12.55 PO (22:59)
[2022-02-21] MEDS ORDERED: METO100T14 PO (22:59)
[2022-02-21] MEDS ORDERED: ASPI-1071 PO (22:59)
[2022-02-21] MEDS ORDERED: DULO-31 PO (23:00)
--- NOTE | 2022-02-22 06:50 | NUR ---
Received pt sitting up on his bed, ready to discharge. Patient requesting personal items and shoes. Patient denies SI. Patient walked down to front of hospital by ROSEMARY Bernstein. All items inventoried and were given to patient.
== END 2022-02-22 06:54 | disposition home or self-care (01) | DRG 885 ==
LOC: ADULT MH 14:33
PROVIDERS: ADMIT Psychiatry & Neurology Psychiatry; ATTEND Psychiatry & Neurology Psychiatry
PROC: B32T1ZZ Computerized Tomography (CT Scan) of Left Pulmonary Artery using Low Osmolar Contrast (ICD-10-PCS; 2022-02-03)
PROC: B3201ZZ Computerized Tomography (CT Scan) of Thoracic Aorta using Low Osmolar Contrast (ICD-10-PCS; 2022-02-03)
PROC: B32S1ZZ Computerized Tomography (CT Scan) of Right Pulmonary Artery using Low Osmolar Contrast (ICD-10-PCS; 2022-02-03)
PROC: 5A09357 Assistance with Respiratory Ventilation, Less than 24 Consecutive Hours, Continuous Positive Airway Pressure (ICD-10-PCS; principal; 2022-02-06)
PROC: 5A09357 Assistance with Respiratory Ventilation, Less than 24 Consecutive Hours, Continuous Positive Airway Pressure (ICD-10-PCS; 2022-02-18)
PROC: 5A09357 Assistance with Respiratory Ventilation, Less than 24 Consecutive Hours, Continuous Positive Airway Pressure (ICD-10-PCS; 2022-02-19)
DX: F33.9 Major depressive disorder, recurrent, unspecified (principal); N18.9 Chronic kidney disease, unspecified; R45.851 Suicidal ideations; I13.0 Hypertensive heart and chronic kidney disease with heart failure and stage 1 through stage 4 chronic kidney disease, or unspecified chronic kidney disease; Z68.42 Body mass index [BMI] 45.0-49.9, adult; E11.22 Type 2 diabetes mellitus with diabetic chronic kidney disease; Z20.822 Contact with and (suspected) exposure to COVID-19; E78.5 Hyperlipidemia, unspecified; M54.6 Pain in thoracic spine; F43.10 Post-traumatic stress disorder, unspecified; G47.33 Obstructive sleep apnea (adult) (pediatric); G47.9 Sleep disorder, unspecified; F12.90 Cannabis use, unspecified, uncomplicated; E66.01 Morbid (severe) obesity due to excess calories; R25.2 Cramp and spasm; M94.0 Chondrocostal junction syndrome [Tietze]; D50.9 Iron deficiency anemia, unspecified; F17.210 Nicotine dependence, cigarettes, uncomplicated; I25.10 Atherosclerotic heart disease of native coronary artery without angina pectoris; I50.9 Heart failure, unspecified; J44.9 Chronic obstructive pulmonary disease, unspecified; Z59.00 Homelessness unspecified; Z79.899 Other long term (current) drug therapy; Z80.42 Family history of malignant neoplasm of prostate; Z80.8 Family history of malignant neoplasm of other organs or systems; Z86.711 Personal history of pulmonary embolism; Z86.73 Personal history of transient ischemic attack (TIA), and cerebral infarction without residual deficits; Z91.19 Patient's noncompliance with other medical treatment and regimen; Z95.1 Presence of aortocoronary bypass graft; Z90.49 Acquired absence of other specified parts of digestive tract; Z88.8 Allergy status to other drugs, medicaments and biological substances; Z71.6 Tobacco abuse counseling
CPT/HCPCS: 36415; 71275; 80053; 82948; 83735; 84100; 85025; 87081; 87811; 93005; 94660; 94760; J1815; J3490; Q9967